=== PATIENT | female | born 1940 | race Caucasian/White ===

== ENCOUNTER 2017-07-06 11:23 | Emergency (ER) | payer MEDICARE, MEDICAID ==
[2017-07-06 12:58] LABS: Bilirubin Negative (Negative); Blood, Urine Negative (Negative); Glucose, Urine (Dipstick) Negative (Negative); Ketone, Urine Negative (Negative); Nitrite Negative (Negative); Protein, Urine (Dipstick) Trace mg/dL (Neg-Trace)
[2017-07-06 12:59] LABS: Bacteria/HPF 4+ HPF (None Seen)
[2017-07-06 13:28] LABS: Troponin I Less than 0.010 ng/mL (< 0.028)
[2017-07-06 13:29] LABS: ALT (SGPT) 10 U/L (8-55); AST (SGOT) 14 U/L (5-34); Alkaline Phosphatase 126 U/L (40-150); Anion Gap 9 mmol/L (10-20); BUN (Urea Nitrogen) 15 mg/dL (9.8-20.1); Bilirubin, Total 0.2 mg/dL (0.2-1.2); Calc. Creatinine Clearance 0 mL/min (70-130); Calcium 8.6 mg/dL (7.8-10.44); Carbon Dioxide 30 mmol/L (23-31); Chloride 104 mmol/L (98-107); Estimated GFR-MDRD Greater than 90; Lipase 15 U/L (8-78); Protein, Total 7.5 g/dL (6.0-8.3)
[2017-07-06 13:51] LABS: Hyaline Casts/LPF NONE SEEN LPF (0-3 Hyaline)
--- NOTE | 2017-07-06 14:16 | CT ---
CT ABDOMEN AND PELVIS WITH CONTRAST: HISTORY: Abdominal pain. Diarrhea. History of bowel obstruction 6 months ago. COMPARISON: CT abdomen and pelvis 12/08/16. FINDINGS: There are some atelectatic changes in the lung bases. No pericardial effusion. Cholelithiasis is present. There is extensive stool throughout the colon. The rectum is enlarged me asuring nearly 10 cm in size. The wall is very thin with some areas that do have concern for pneumat osis. Moderate diverticular disease of the sigmoid colon without active inflammation. IVC filter is in place. No free intraperitoneal gas or fluid. Hypodensity in the liver segment 4A a nd B is similar as well as hepatic segment 2. Portal vein is patent. There is abnormal urothelial thickening of the right renal pelvis with a calc ulus in the regional pelvis measuring less than 2 mm. Bones are osteopenic. Atrophy of the right gl uteus musculature. Multiple superior end plate deformities throughout the lumbar spine. There is some ossification along the bilateral ischiofemoral space with a suggestion of ischial femor al impingement with atrophy of the quadratus femoris muscle. This is bilateral. There is a healing posterior right 11th, 10th, rib fracture. No acute fracture is appreciated. IMPRESSION: 1. Very similar examination to 12/08/16. There is severe distention of the rectal vault to approxima tely 10 cm with some thinning of the wall and possible areas of pneumatosis, although there is no eriberto e intraperitoneal gas or fluid. Disimpaction may be necessary. 2. Abnormal thickening of the urothelium of the right renal pelvis with a punctate interpolar calcul us. Followup CT urogram may be beneficial to exclude a urothelial-based neoplasm. Urinalysis correl ation is also recommended. This can be sequelae of pyelitis and chronic inflammation from calculi. POS: [facility]
[2017-07-06 14:17] LABS: #Basophils 0.1 thou/uL (0.0-0.2); #Eosinphils 0.1 thou/uL (0.0-0.7); #Lymphocytes 2.3 thou/uL (1.20-3.40); #Monocytes 0.9 thou/uL (0.11-0.59); #Neutrophils 5.7 thou/uL (1.40-6.50); %Basophils 0.7 % (0.0-1.0); %Lymphocytes 25.3 % (21.0-51.0); %Monocytes 9.5 % (0.0-10.0); Hematocrit 26.4 % (36.0-47.0); Mean Platelet Volume 9.3 fL (7.4-10.4); Red Blood Cell (RBC) Count 3.86 mill/uL (4.20-5.40)
[2017-07-06 14:18] LABS: Hypochromia MODERATE=16-30 cells (100X) (0-5/hpf); Microcytosis MODERATE=15-30 cells (100X) (0-5/hpf); Ovalocytes MODERATE= 6-15 cells (100X) (0-1/hpf); Polychromasia SLIGHT = 2-3 cells (100X) (0-2/hpf)
[2017-07-06] MEDS ORDERED: Lidocaine Viscous Sol 2% 15 ml UD Cup ONE (16:17)
[2017-07-06] MEDS ORDERED: Cephalexin 250 MG CAP ONE (16:34)
[2017-07-06] MEDS ORDERED: ISOVUE-370 76%-LOCM 1 ML ONE (17:04)
== END 2017-07-06 16:40 | disposition home or self-care (01) ==
LOC: ERS 11:23
DX: K59.00 Constipation, unspecified (principal); N39.0 Urinary tract infection, site not specified; I10 Essential (primary) hypertension; E78.5 Hyperlipidemia, unspecified; K21.9 Gastro-esophageal reflux disease without esophagitis; Z79.82 Long term (current) use of aspirin; Z79.899 Other long term (current) drug therapy
CPT/HCPCS: 51701; 74177; 80053; 81001; 82553; 83605; 83690; 84484; 85025; 87077; 87086; 87186; 93005; A4353

== ENCOUNTER 2017-08-25 14:19 | Inpatient (IN) | payer MEDICARE, MEDICAID ==
[~2017-08-25 14:19] MED LIST: ISOVUE-370 76%-LOCM 1 ML ONE
[2017-08-25 15:56] LABS: Hemoglobin 6.7 g/dL (12.0-16.0); Mean Corpuscular HGB CONC 28.4 g/dL (32.0-36.0); Mean Corpuscular Volume 63.4 fl (81.0-99.0); Mean Platelet Volume 5.5 fL (7.4-10.4); Platelet Count 429 thou/uL (130-400); RBC Distribution Width 19.5 % (11.5-14.5); Red Blood Cell (RBC) Count 3.69 mill/uL (4.20-5.40); White Blood Cell (WBC) Count 8.2 thou/uL (4.8-10.8)
[2017-08-25] MEDS ORDERED: Lactulose 10 GM/15 ML Oral Solution PR SCH (16:00)
[2017-08-25 16:12] LABS: ALT (SGPT) 9 U/L (8-55); AST (SGOT) 15 U/L (5-34); Albumin 3.5 g/dL (3.4-4.8); Alkaline Phosphatase 120 U/L (40-150); Anion Gap 13 mmol/L (10-20); BUN (Urea Nitrogen) 11 mg/dL (9.8-20.1); Bilirubin, Total 0.3 mg/dL (0.2-1.2); Calc. Creatinine Clearance 0 mL/min (70-130); Calcium 8.9 mg/dL (7.8-10.44); Carbon Dioxide 28 mmol/L (23-31); Chloride 104 mmol/L (98-107); Estimated GFR-MDRD 89; Globulin 3.8 g/dL (2.4-3.5); Glucose 105 mg/dL (83-110); Potassium 3.7 mmol/L (3.5-5.1); Protein, Total 7.3 g/dL (6.0-8.3); Sodium 141 mmol/L (136-145)
[2017-08-25 16:19] LABS: #Basophils 0.1 thou/uL (0.0-0.2); #Eosinphils 0.1 thou/uL (0.0-0.7); #Monocytes 0.8 thou/uL (0.11-0.59); #Neutrophils 5.7 thou/uL (1.40-6.50); %Basophils 0.8 % (0.0-1.0); %Eosinophils 0.8 % (0.0-10.0); %Monocytes 9.2 % (0.0-10.0); %Neutrophils 69.2 % (42.0-75.0); Acanthocytes SLIGHT = 1-5 cells (100X) (None Seen); Anisocytosis SLIGHT = 6-15 cells (100X) (0-5/hpf); Hypochromia MODERATE=16-30 cells (100X) (0-5/hpf); MDiff Complete? YES; Microcytosis MODERATE=15-30 cells (100X) (0-5/hpf); Ovalocytes SLIGHT = 2-5 cells (100X) (0-1/hpf); PLT Morphology Comment Appears Increased
--- NOTE | 2017-08-25 18:01 | RAD ---
EXAM: ONE VIEW CHEST ABDOMEN TWO VIEWS 08/25/17 HISTORY: Evaluate for bowel obstruction. Constipation and abdominal distention. COMPARISON: One view abdomen 12/10/16. FINDINGS: Chest one view. Slight elongation of the aorta. Normal cardiac silhouette. Pulmonary vessels and hilum are normal. Co stophrenic angles are clear. Linear opacities in the left lung base likely represent atelectasis. No consolidation or mass. No pneumothorax. No osseous abnormalities. ABDOMEN TWO VIEWS: An abdomen radiograph demonstrates multiple nondistended air filled loops of small bowel. There is ai r attenuation throughout the entire colon without definite colonic distention. Air attenuation is not ed down to the level of the rectum. Minimal fecal material is present. IVC filter is redemonstrated. IMPRESSION: 1. No acute cardiopulmonary process. 2. Scarring atelectasis in the left lung base. 3. Air attenuation throughout a nondistended, nondilated colon. No evidence of constipation. 4. Left lateral decubitus views are suboptimal to assess for pneumoperitoneum. An additional lef t lateral decubitus view has been requested. Report will be addended when that becomes available. POS: [facility]
--- NOTE | 2017-08-25 21:33 | CT ---
EXAM: ABDOMEN CT WITH CONTRAST PELVIC CT WITH CONTRAST 08/25/17 HISTORY: Abdominal pain. Abdominal distention. Possible constipation. COMPARISON: 07/06/17 TECHNIQUE: An abdomen and pelvic CT are performed with IV contrast. Enteric contrast was not administered. Coron al reformatted images are submitted for interpretation. FINDINGS: ABDOMEN CT: Chronic changes in the lung bases. Heart size is within normal limits. No pericardial effusion. The d escending thoracic aorta and abdominal aorta have a normal caliber. No periaortic fat stranding. Intr a and extrahepatic portal vein is patent. CT evidence of cholelithiasis. Findings are equivocal cholecystitis. Gallbladder ultrasound if clinic ally warranted. Visualized common bile duct is unremarkable. Stable hypodensity in the liver, compatible with a cyst. Hepatic parenchyma is otherwise unremarkable . Possible small cyst in the hepatic dome is also noted. Spleen, pancreas and adrenal glands have stable enhancement. Mild pancreatic atrophy. Symmetric enhancement of the kidneys. Bilaterally, no obstructive uropathy. Symmetric attenuation of the psoas muscles. Note is made of an IVC filter. No gastrohepatic, retrocrural or periportal lymphadenopathy. No mesenteric mass, lymphadenopathy, free air or free fluid. Limited evaluation of the alimentary canal due to the lack of oral contrast administration and due to motion degradation. Grossly, the gastric mucosa and duodenum are unremarkable. Multiple normal calib er small bowel loops. The expected region of the ileocecal junction is unremarkable. Cecal apex appea rs to be unremarkable for inflammatory change. The visualized appendix is unremarkable. There is mini mal fecal material in the colon. The majority of the colon is opacified with fluid attenuation. Mild colonic distention. There is fluid attenuation involving the sigmoid colon and rectum. There is air i n the nondependent portion of the distal sigmoid colon and rectum. Small amount of air is noted on th e left lateral wall of the rectum. Significant of this air is uncertain. Possibility of pneumatosis c annot be completely excluded given thinning of the rectal vault and mild distention. The rectal vault measures 10.9 x [address]: Urinary bladder is unremarkable. No pelvic mass, lymphadenopathy, free air or free fluid. No lytic or blastic lesion in the osseous structures. IMPRESSION: 1. No evidence of constipation. The majority of the colon has a fluid attenuation. 2. There is distention of the distal sigmoid colon and rectum with thinning of the rectal wall. A small foci of air noted along the left lateral aspect. Possibility of pneumatosis cannot be evaluat ion. No evidence if free air in the pelvis or abdomen. 3. Normal caliber appendix. POS: [facility]
[2017-08-26 04:38] LABS: #Basophils 0.1 thou/uL (0.0-0.2); #Monocytes 1.1 thou/uL (0.11-0.59); #Neutrophils 7.2 thou/uL (1.40-6.50); %Basophils 0.5 % (0.0-1.0); %Eosinophils 0.4 % (0.0-10.0); %Lymphocytes 19.4 % (21.0-51.0); %Monocytes 10.2 % (0.0-10.0); %Neutrophils 69.4 % (42.0-75.0); Acanthocytes SLIGHT = 1-5 cells (100X) (None Seen); Anisocytosis MODERATE=16-30 cells (100X) (0-5/hpf); Elliptocytes MODERATE= 6-15 cells (100X) (0-1/hpf); Hemoglobin 6.5 g/dL (12.0-16.0); Hypochromia MODERATE=16-30 cells (100X) (0-5/hpf); MDiff Complete? YES; Mean Corpuscular HGB CONC 28.5 g/dL (32.0-36.0); Mean Corpuscular Hemoglobin 18.1 pg (27.0-31.0); Mean Corpuscular Volume 63.5 fl (81.0-99.0); Mean Platelet Volume 5.7 fL (7.4-10.4); PLT Morphology Comment Appears Adequate; Platelet Count 435 thou/uL (130-400); RBC Distribution Width 19.6 % (11.5-14.5); Red Blood Cell (RBC) Count 3.58 mill/uL (4.20-5.40); Target Cells SLIGHT = 2-5 cells (100X) (0-1/hpf); White Blood Cell (WBC) Count 10.4 thou/uL (4.8-10.8)
[2017-08-26] MEDS ORDERED: Ondansetron HCl/PF 4 MG/2 ML Vial IVP PRN (06:50)
[2017-08-26] MEDS ORDERED: Eucerin (Mineral Oil/Petrolatum,White) 30 gm Jar TOP PRN (06:50)
[2017-08-26] MEDS ORDERED: Loratadine 10 MG TAB PO PRN (06:50)
[2017-08-26] MEDS ORDERED: Fleet Enema 133 ML BOT PR PRN (06:50)
[2017-08-26] MEDS ORDERED: Bisacodyl 10 MG SUPP PR PRN (06:50)
[2017-08-26] MEDS ORDERED: Sodium Chloride 0.65% Nasal 44 ML BOT EA NARE PRN (06:50)
[2017-08-26] MEDS ORDERED: Diabetic Tussin 200 MG/10 ML UDCUP PO PRN (06:50)
[2017-08-26] MEDS ORDERED: Ondansetron ODT 4 MG TAB PO PRN (06:50)
[2017-08-26] MEDS ORDERED: Artificial Tears 18 DROP/0.9 ML EA EYE PRN (06:50)
[2017-08-26] MEDS ORDERED: Milk Of Magnesia 30 ML UDCUP PO PRN (06:50)
[2017-08-26] MEDS ORDERED: hydrALAZINE 20 MG/ML VIAL SLOW IVP PRN (06:50)
[2017-08-26] MEDS ORDERED: Famotidine/PF 20 mg/2ml Vial ONE (11:02)
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
[2017-08-26 15:13] VITALS: BMI 34.8
[2017-08-26] MEDS: Famotidine/PF 20 mg/2ml Vial SLOW IVP SCH ×2 (17:21→21:45)
[2017-08-26] MEDS: Polyethylene Glycol 3350 17 GM Packet PO SCH (17:21)
[2017-08-26] MEDS: Docusate 100 MG CAP PO SCH ×2 (17:21→21:45)
[2017-08-26] MEDS: Sodium Chloride 0.9% 1,000 ML IV SCH ×2 (17:22→21:45)
[2017-08-26] MEDS ORDERED: GoLYTELY 4,000 ml Bottle PO SCH (18:45)
[2017-08-26] MEDS: Simvastatin 5 MG TAB PO SCH (21:45)
--- NOTE | 2017-08-26 23:00 | CON ---
DATE OF CONSULTATION: 08/26/2017 HISTORY OF PRESENT ILLNESS: The patient is a 76-year-old female who presented with abdomin al distension. She is demented and adds nothing to history of present illness. She is bedbound yuliana use of neurologic impairment. She is noted to be severely anemic. The patient has undergone a colon oscopy by Dr. Neal in 2007. She was seen last year for fecal impaction what was felt to be stercora l colitis. Colonoscopy was performed on 07/01/2008 and showed diverticula and internal hemorrhoids. No other abnormalities were noted. PAST MEDICAL HISTORY: Significant for dementia, hypertension, coronary artery disease and traumatic brain injury. PAST SURGICAL HISTORY: Includes craniotomy, IVC filter, hysterectomy, cystoscopy and kidney stones. MEDICATIONS: Include pravastatin 20 mg p.o. at bedtime, polyethylene glycol 17 g p.o. q. day, docusa te sodium 100 mg p.o. b.i.d., vitamin D3 1000 units p.o. q. day, tramadol 50 mg p.o. p.r.n., Protonix 40 mg p.o. q. day, nitrofurantoin, Macrobid 100 mg p.o. q. day, lisinopril and hydrochlorothiazide 1 p.o. q. day and probiotic 1 p.o. q. day. ALLERGIES: No known medical allergies. SOCIAL HISTORY: Unobtainable. FAMILY HISTORY: Unobtainable. REVIEW OF SYSTEMS: Unobtainable. PHYSICAL EXAMINATION: VITAL SIGNS: Temperature of 98.2, pulse 97, respiratory rate 18 and blood pressure 160/81. HEENT: Unremarkable. NECK: Supple. CHEST: Clear. CARDIOVASCULAR: Regular rate and rhythm. ABDOMEN: Soft, diffusely tympanitic without rebound or guarding. RECTAL: Shows no stool in the vault. A large amount of gas is released when applying lateral pressu re to the anal canal. There is a large amount of liquid brown stool. NEUROLOGIC: Shows her neurologic impairment. LABORATORY DATA: Shows a hemoglobin of 6.7 and hematocrit of 23.4 with an MCV of 63.4, platelet coun t is 429. Laboratory shows a globulin of 3.9. IMAGING DATA: CT of the abdomen and pelvis shows; 1. Fluid attenuation in the colon, distension of distal sigmoid colon and rectum with thinning of th e rectum wall. 2. Small foci of air along the lateral aspect of the colon. 3. Acute abdominal series shows no acute cardiopulmonary process, scarring, atelectasis in the left lung base, air attenuation throughout a nondistended nondilated colon. 4. Left lateral decubitus films are suboptimal to access pneumoperitoneum. ASSESSMENT: 1. Chronic pseudo-obstruction. 2. Severe iron deficiency anemia. 3. Traumatic brain injury with decreased mobility. RECOMMENDATIONS: 1. Rectal tube. 2. EGD and colonoscopy in a.m.
[2017-08-27 05:46] LABS: ALT (SGPT) 8 U/L (8-55); AST (SGOT) 16 U/L (5-34); Alkaline Phosphatase 109 U/L (40-150); Anion Gap 17 mmol/L (10-20); BUN (Urea Nitrogen) 6 mg/dL (9.8-20.1); Bilirubin, Total 0.6 mg/dL (0.2-1.2); Calc. Creatinine Clearance 112 mL/min (70-130); Calcium 8.3 mg/dL (7.8-10.44); Carbon Dioxide 24 mmol/L (23-31); Chloride 107 mmol/L (98-107); Estimated GFR-MDRD 85; Globulin 3.4 g/dL (2.4-3.5); Glucose 127 mg/dL (83-110); Potassium 3.6 mmol/L (3.5-5.1); Protein, Total 6.4 g/dL (6.0-8.3); Sodium 144 mmol/L (136-145)
[2017-08-27 06:51] LABS: #Eosinphils 0.2 thou/uL (0.0-0.7); #Lymphocytes 2.2 thou/uL (1.20-3.40); #Neutrophils 4.8 thou/uL (1.40-6.50); %Basophils 0.4 % (0.0-1.0); %Eosinophils 2.9 % (0.0-10.0); %Lymphocytes 26.9 % (21.0-51.0); %Monocytes 11.8 % (0.0-10.0); %Neutrophils 58.1 % (42.0-75.0); Elliptocytes SLIGHT = 2-5 cells (100X) (0-1/hpf); Hemoglobin 7.6 g/dL (12.0-16.0); Hypochromia MODERATE=16-30 cells (100X) (0-5/hpf); MDiff Complete? YES; Mean Corpuscular HGB CONC 29.7 g/dL (32.0-36.0); Mean Corpuscular Hemoglobin 19.8 pg (27.0-31.0); Mean Corpuscular Volume 66.5 fl (81.0-99.0); Mean Platelet Volume 11.5 fL (7.4-10.4); Microcytosis SLIGHT = 6-15 cells (100X) (0-5/hpf); PLT Morphology Comment Appears Adequate; Platelet Count 415 thou/uL (130-400); RBC Distribution Width 22.3 % (11.5-14.5); Red Blood Cell (RBC) Count 3.83 mill/uL (4.20-5.40); White Blood Cell (WBC) Count 8.3 thou/uL (4.8-10.8)
[2017-08-27] MEDS: Docusate 100 MG CAP PO SCH (08:19)
[2017-08-27] MEDS: Famotidine/PF 20 mg/2ml Vial SLOW IVP SCH ×2 (08:20→20:11)
[2017-08-27] MEDS: Polyethylene Glycol 3350 17 GM Packet PO SCH (08:21)
[2017-08-27] MEDS: Sodium Chloride 0.9% 1,000 ML IV SCH (08:21)
[2017-08-27] MEDS ORDERED: Propofol 200 MG/20 ML VIAL ONE ×2 (09:07→09:08)
[2017-08-27] MEDS ORDERED: Promethazine HCl 25 MG/ML VIAL IM PRN (09:52)
[2017-08-27] MEDS ORDERED: Ondansetron HCl/PF 4 MG/2 ML Vial IVP PRN (09:52)
[2017-08-27] MEDS ORDERED: Promethazine HCl 25 MG/ML VIAL SLOW IVP PRN (09:52)
--- NOTE | 2017-08-27 11:29 | PDOC.PN ---
- Subjective Encounter Start Date: 08/27/17 Encounter Start Time: 11:27 Patient seen and examined, family at bedside, all questions answered. - Objective Resuscitation Status: Resuscitation Status FULL:Full Resuscitation Vital Signs & Weight: Vital Signs (12 hours) Temp Pulse Pulse Resp BP BP Pulse Ox 08/27/17 10:58 97.4 F L 77 18 138/81 95 08/27/17 08:00 97.3 F L 77 18 08/27/17 04:00 97.3 F L 77 18 176/79 H 94 L 08/27/17 00:20 97.5 F L 78 18 164/77 H 93 L 08/27/17 00:00 97.4 F L 93 20 144/65 H 94 L Weight Weight 215 lb 11.2 oz I&O: 08/26/17 08/27/17 08/28/17 06:59 06:59 06:59 Intake Total 4862 Output Total 400 Balance 4462 Result Diagrams: 08/27/17 05:28 08/27/17 04:34 Phys Exam - Physical Examination Constitutional: NAD HEENT: PERRLA, moist MMs Neck: no nodes, no JVD Respiratory: no wheezing, no rales Cardiovascular: RRR, no significant murmur Gastrointestinal: soft, non-tender, no distention Musculoskeletal: no edema, pulses present Neurological: non-focal, normal sensation Dx/Plan (1) Anemia Code(s): D64.9 - ANEMIA, UNSPECIFIED Status: Acute (2) GI bleed Code(s): K92.2 - GASTROINTESTINAL HEMORRHAGE, UNSPECIFIED Status: Acute (3) Fecal impaction Code(s): K56.41 - FECAL IMPACTION Status: Acute (4) HTN (hypertension) Code(s): I10 - ESSENTIAL (PRIMARY) HYPERTENSION Status: Chronic Qualifiers: (5) Obesity (BMI 30.0-34.9) Code(s): E66.9 - OBESITY, UNSPECIFIED Status: Chronic - Plan * Endoscopy for today * will monitor Hgb over the next 24 hours * DC plans in AM if Hgb stable and ok from GI perspective * continue all other medical management for now without change * case and plan d/w patient's family at length, they understand and agree with this plan
--- NOTE | 2017-08-27 14:26 | OP ---
PREOPERATIVE DIAGNOSES: 1. Iron deficiency anemia. 2. Chronic constipation. 3. Abnormal CT scan. PROCEDURE IN DETAIL: After informed consent was obtained, the patient was placed in the left lateral decubitus position. Anesthesia was administered per the Anesthesia Department. Forward-viewing end oscope was inserted into the esophagus under direct visualization with ease and passed to the second portion of the duodenum with ease. In the second portion of the duodenum, there was an AVM. This AV M was ablated with a 7 Hebrew BICAP electrocautery probe at a setting of 20 hays 2 seconds. Good he mostasis was achieved. The remainder of the duodenum was normal. The duodenal bulb, pylorus, antrum , body, fundus, and cardia were all normal. Retroflexion in the stomach was normal. Esophagus was n ormal throughout. 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 2. Otherwise normal esophagogastroduodenoscopy. RECOMMENDATIONS: 1. Proton pump inhibitor x2 weeks. 2. Proceed with colonoscopy. DESCRIPTION OF PROCEDURE: After informed consent was obtained, the patient was placed in the left la teral decubitus position. Anesthesia was administered per the Anesthesia Department. Forward-viewin g endoscope was inserted into the rectum after perianal inspection and rectal exam were normal. It w as passed to the cecum with much difficulty secondary to looping. The cecum, ileocecal valve, and ap pendiceal orifice were normal. The prep was good. In the ascending, 2 lipomas were noted. Diffuse diverticula noted as well. The remainder of the ascending, transverse, descending, sigmoid and rectu m were normal except for some small slightly dilated colon. ASSESSMENT: 1. Diffusely dilated colon. 2. Diffuse diverticulosis coli. 3. Two ascending colon lipomas. 4. Otherwise normal colonoscopy. RECOMMENDATION: 1. Dulcolax suppositories daily with digital examination. 2. Stable from GI standpoint for discharge. 3. Iron replacement therapy.
[2017-08-27] MEDS: Simvastatin 5 MG TAB PO SCH (20:13)
[2017-08-28 05:25] LABS: #Eosinphils 0.2 thou/uL (0.0-0.7); #Lymphocytes 2.4 thou/uL (1.20-3.40); #Monocytes 0.7 thou/uL (0.11-0.59); #Neutrophils 4.6 thou/uL (1.40-6.50); %Basophils 0.3 % (0.0-1.0); %Eosinophils 3.1 % (0.0-10.0); %Lymphocytes 29.8 % (21.0-51.0); %Neutrophils 57.8 % (42.0-75.0); Hemoglobin 6.9 g/dL (12.0-16.0); Mean Corpuscular Hemoglobin 19.6 pg (27.0-31.0); Mean Corpuscular Volume 67.6 fl (81.0-99.0); Mean Platelet Volume 10.7 fL (7.4-10.4); Platelet Count 414 thou/uL (130-400); RBC Distribution Width 23.2 % (11.5-14.5); Red Blood Cell (RBC) Count 3.54 mill/uL (4.20-5.40)
[2017-08-28] MEDS: Sodium Chloride 0.9% 1,000 ML IV SCH (05:29)
[2017-08-28] MEDS: Polyethylene Glycol 3350 17 GM Packet PO SCH (08:44)
[2017-08-28] MEDS: Bisacodyl 10 MG SUPP PR SCH (08:44)
[2017-08-28] MEDS: Famotidine 20 MG TAB PO SCH ×2 (08:44→20:07)
--- NOTE | 2017-08-28 10:58 | PRG ---
DATE OF SERVICE: 08/28/2017 SUBJECTIVE: The patient is without complaints. She denies any abdominal pain. She is eating well, ate 100% of her breakfast. OBJECTIVE: VITAL SIGNS: Temperature 98.6, pulse 69, respiratory rate 18, blood pressure 126/74. CHEST: Clear. CARDIOVASCULAR: Regular rate and rhythm. ABDOMEN: Distended, nontender, tympanitic diffusely. LABORATORY DATA: Shows hemoglobin 6.9, hematocrit 23.9, white blood cell count of 8.0. Chemistries show a BUN of 6, glucose 127. Albumin 3.0. ASSESSMENT: 1. Duodenal arteriovenous malformation. 2. Chronic pseudo-obstruction - fairly asymptomatic at this time. 3. Anemia. RECOMMENDATIONS: 1. Continue oral iron. 2. Consider transfusion. 3. Continue proton-pump inhibitor. 4. Daily Dulcolax with digital stimulation.
[2017-08-28] MEDS ORDERED: Iron Sucrose Complex 300 MG in Sodium Chloride 0.9% 250 ML 250 ML IVPB SCH (11:00)
--- NOTE | 2017-08-28 12:18 | PDOC.PN ---
- Subjective Encounter Start Date: 08/28/17 Encounter Start Time: 12:16 Patient seen and examined, no new issues, all questions answered. No family at bedside. - Objective Resuscitation Status: Resuscitation Status FULL:Full Resuscitation Vital Signs & Weight: Vital Signs (12 hours) Temp Pulse Resp BP Pulse Ox 08/28/17 08:00 98.1 F 77 20 141/87 H 94 L 08/28/17 04:00 98.6 F 69 18 126/74 92 L Weight Weight 215 lb 11.2 oz I&O: 08/27/17 08/28/17 08/29/17 06:59 06:59 06:59 Intake Total 4862 240 180 Output Total 400 Balance 4462 240 180 Result Diagrams: 08/28/17 04:40 08/27/17 04:34 Phys Exam - Physical Examination Constitutional: NAD HEENT: PERRLA, moist MMs Neck: no nodes, no JVD Respiratory: no wheezing, no rales, no rhonchi Cardiovascular: RRR, no significant murmur Gastrointestinal: soft, non-tender, no distention Musculoskeletal: no edema, pulses present Neurological: non-focal, normal sensation Dx/Plan (1) Anemia Code(s): D64.9 - ANEMIA, UNSPECIFIED Status: Acute (2) GI bleed Code(s): K92.2 - GASTROINTESTINAL HEMORRHAGE, UNSPECIFIED Status: Acute (3) Fecal impaction Code(s): K56.41 - FECAL IMPACTION Status: Acute (4) HTN (hypertension) Code(s): I10 - ESSENTIAL (PRIMARY) HYPERTENSION Status: Chronic Qualifiers: (5) Obesity (BMI 30.0-34.9) Code(s): E66.9 - OBESITY, UNSPECIFIED Status: Chronic - Plan * Hgb 6.9, will transfuse 1 unit of blood * venofer 300mg IV x 1 dose as well * repeat Hgb in AM * DC plans in AM if Hgb stable, will need po iron as well at time of discharge * case and plan d/w patient at length, she understands and agrees with this plan
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
[2017-08-28] MEDS ORDERED: Sodium Chloride 0.9% 10 ML ONE (15:59)
[2017-08-28] MEDS: Simvastatin 5 MG TAB PO SCH (20:07)
[2017-08-28] MEDS: Acetaminophen 325 MG TAB PO PRN (21:47)
[2017-08-29] MEDS: Acetaminophen 325 MG TAB PO PRN ×2 (02:08→20:16)
[2017-08-29 08:54] LABS: #Basophils 0.1 thou/uL (0.0-0.2); #Eosinphils 0.1 thou/uL (0.0-0.7); #Lymphocytes 1.7 thou/uL (1.20-3.40); #Monocytes 0.7 thou/uL (0.11-0.59); #Neutrophils 4.5 thou/uL (1.40-6.50); %Basophils 0.8 % (0.0-1.0); %Eosinophils 1.5 % (0.0-10.0); %Lymphocytes 23.8 % (21.0-51.0); %Monocytes 10.1 % (0.0-10.0); %Neutrophils 63.8 % (42.0-75.0); Hemoglobin 6.7 g/dL (12.0-16.0); Mean Corpuscular HGB CONC 29.5 g/dL (32.0-36.0); Mean Corpuscular Hemoglobin 19.6 pg (27.0-31.0); Mean Corpuscular Volume 66.6 fl (81.0-99.0); Mean Platelet Volume 11.2 fL (7.4-10.4); Platelet Count 397 thou/uL (130-400); RBC Distribution Width 23.3 % (11.5-14.5); Red Blood Cell (RBC) Count 3.43 mill/uL (4.20-5.40)
[2017-08-29] MEDS: Polyethylene Glycol 3350 17 GM Packet PO SCH (08:59)
[2017-08-29] MEDS: Bisacodyl 10 MG SUPP PR SCH (09:00)
[2017-08-29] MEDS: Famotidine 20 MG TAB PO SCH ×2 (09:00→20:16)
[2017-08-29 09:50] LABS: ALT (SGPT) 9 U/L (8-55); AST (SGOT) 13 U/L (5-34); Albumin 2.8 g/dL (3.4-4.8); Alkaline Phosphatase 81 U/L (40-150); Anion Gap 11 mmol/L (10-20); BUN (Urea Nitrogen) 5 mg/dL (9.8-20.1); Bilirubin, Total 0.3 mg/dL (0.2-1.2); Calc. Creatinine Clearance 131 mL/min (70-130); Calcium 8.1 mg/dL (7.8-10.44); Carbon Dioxide 30 mmol/L (23-31); Chloride 106 mmol/L (98-107); Estimated GFR-MDRD Greater than 90; Globulin 2.8 g/dL (2.4-3.5); Glucose 96 mg/dL (83-110); Protein, Total 5.6 g/dL (6.0-8.3); Sodium 144 mmol/L (136-145)
[2017-08-29 11:10] LABS: Elliptocytes SLIGHT = 2-5 cells (100X) (0-1/hpf); Hypochromia MODERATE=16-30 cells (100X) (0-5/hpf); MDiff Complete? YES; Microcytosis MODERATE=15-30 cells (100X) (0-5/hpf); Ovalocytes MODERATE= 6-15 cells (100X) (0-1/hpf); Polychromasia MODERATE = 3-4 cells (100X) (0-2/hpf)
[2017-08-29] MEDS ORDERED: Mag-Al 1200 mg/1200 mg/30 ML UDCUP PO PRN (12:18)
[2017-08-29] MEDS ORDERED: Chloraseptic Spray 180 ml Bottle PO PRN (12:18)
[2017-08-29] MEDS ORDERED: Calcium Carbonate 500 MG ChewTAB PO PRN (12:18)
[2017-08-29] MEDS ORDERED: Fleet Enema 133 ML BOT PR PRN (12:18)
[2017-08-29] MEDS ORDERED: Loperamide HCl 2 MG CAP PO PRN (12:18)
[2017-08-29] MEDS ORDERED: HYDROcodone/Acetaminophen 5/325 mg Tablet PO PRN (12:18)
[2017-08-29] MEDS ORDERED: Temazepam 15 MG CAP PO PRN (12:18)
--- NOTE | 2017-08-29 12:18 | PDOC.PN ---
- Subjective Encounter Start Date: 08/29/17 Encounter Start Time: 08:40 -: old records requested/rev Patient seen and examined. No new complaints. No overnight events - Objective MAR Reviewed: Yes Vital Signs & Weight: Vital Signs (12 hours) Temp Pulse Resp BP Pulse Ox 08/29/17 08:03 97.9 F 79 16 112/69 97 08/29/17 07:39 98.2 F 80 18 I&O: 08/28/17 08/29/17 08/30/17 06:59 06:59 06:59 Intake Total 180 Balance 180 Result Diagrams: 08/29/17 08:41 08/29/17 08:41 Phys Exam - Physical Examination Constitutional: NAD HEENT: PERRLA, moist MMs, sclera anicteric Neck: no JVD, supple Respiratory: no wheezing, no rales, no rhonchi Cardiovascular: RRR, no significant murmur, no rub Gastrointestinal: soft, non-tender, no distention, positive bowel sounds Musculoskeletal: no edema, pulses present Neurological: non-focal, normal sensation Lymphatic: no nodes Psychiatric: normal affect Skin: no rash, normal turgor Dx/Plan (1) Anemia Code(s): D64.9 - ANEMIA, UNSPECIFIED Status: Acute (2) GI bleed Code(s): K92.2 - GASTROINTESTINAL HEMORRHAGE, UNSPECIFIED Status: Acute (3) Fecal impaction Code(s): K56.41 - FECAL IMPACTION Status: Acute (4) UTI (urinary tract infection) Status: Acute Qualifiers: Urinary tract infection type: acute cystitis Hematuria presence: without hematuria Qualified Code(s): N30.00 - Acute cystitis without hematuria (5) Dyslipidemia Code(s): E78.5 - HYPERLIPIDEMIA, UNSPECIFIED Status: Chronic (6) H/O traumatic brain injury Code(s): Z87.820 - PERSONAL HISTORY OF TRAUMATIC BRAIN INJURY Status: Chronic (7) HTN (hypertension) Code(s): I10 - ESSENTIAL (PRIMARY) HYPERTENSION Status: Chronic Qualifiers: (8) Obesity (BMI 30.0-34.9) Code(s): E66.9 - OBESITY, UNSPECIFIED Status: Chronic (9) Nausea & vomiting Code(s): R11.2 - NAUSEA WITH VOMITING, UNSPECIFIED Status: Resolved Qualifiers: Vomiting type: unspecified (10) Hypokalemia Code(s): E87.6 - HYPOKALEMIA Status: Acute - Plan cont current plan of care * replace potassium * transfuse 1 unit prbc * medication reviewed as below * symptomatic treatment * repeat labs tomorrow. Review of Systems - Review of Systems ENT: negative: Ear Pain, Ear Discharge, Nose Pain, Nose Discharge, Nose Congestion, Mouth Pain, Mouth Swelling, Throat Pain, Throat Swelling, Other Respiratory: negative: Cough, Dry, Shortness of Breath, Hemoptysis, SOB with Excertion, Pleuritic Pain, Sputum, Wheezing Cardiovascular: negative: chest pain, palpitations, orthopnea, paroxysmal nocturnal dyspnea, edema, light headedness, other Gastrointestinal: negative: Nausea, Vomiting, Abdominal Pain, Diarrhea, Constipation, Melena, Hematochezia, Other Genitourinary: negative: Dysuria, Frequency, Incontinence, Hematuria, Retention , Other Musculoskeletal: negative: Neck Pain, Shoulder Pain, Arm Pain, Back Pain, Hand Pain, Leg Pain, Foot Pain, Other Skin: negative: Rash, Lesions, Iam, Bruising, Other - Medications/Allergies Allergies/Adverse Reactions: Allergies Allergy/AdvReac Type Severity Reaction Status Date / Time No Known Drug Allergies Allergy Verified 03/30/16 10:46 Medications: Current Medications Acetaminophen (Tylenol) 650 mg PO Q4H PRN PRN Reason: Headache/Fever or Pain Last Admin: 08/29/17 02:08 Dose: 650 mg Artificial Tears (Tears Naturale) 0 drop EA EYE PRN PRN PRN Reason: Dry Eyes Bisacodyl (Dulcolax) 10 mg [place] DAILY [facility] Last Admin: 08/29/17 09:00 Dose: 10 mg Cholecalciferol (Vitamin D3) 1,000 units PO DAILY [facility] Last Admin: 08/29/17 09:00 Dose: 1,000 units Famotidine (Pepcid) 20 mg PO BID [facility] Last Admin: 08/29/17 09:00 Dose: 20 mg Ferrous S[facility] ([facility]) [facility] Guaifenesin (Robitussin Sf) 200 mg PO Q4H PRN PRN Reason: Cough Hydralazine HCl (Apresoline) 10 mg SLOW IVP Q4H PRN PRN Reason: Systolic BP > 180 Loratadine (Claritin) 10 mg PO DAILYPRN PRN PRN Reason: Sinus Symptoms Magnesium Hydroxide (Milk Of Magnesium) 30 ml PO DAILYPRN PRN PRN Reason: Constipation Mineral Oil/White Petrolatum (Eucerin Cream) 0 gm TOP BIDPRN PRN PRN Reason: Dry Skin Ondansetron HCl (Zofran Odt) 4 mg PO Q6H PRN PRN Reason: Nausea/Vomiting Ondansetron HCl (Zofran) 4 mg IVP Q6H PRN PRN Reason: Nausea/Vomiting Last Admin: 08/27/17 01:48 Dose: 4 mg Polyethylene Glycol (Miralax) 17 gm PO DAILY [facility] Last Admin: 08/29/17 08:59 Dose: 17 gm Simvastatin (Zocor) 10 mg PO HS [facility] Last Admin: 08/28/17 20:07 Dose: 10 mg Sodium Chloride ([place] Nasal [place] 0.65%) 0 ml EA NARE QIDPRN PRN PRN Reason: Nasal Congestion
[2017-08-29] MEDS ORDERED: Potassium Chloride 20 MEQ TAB PO SCH (12:30)
--- NOTE | 2017-08-29 13:09 | PRG ---
DATE OF SERVICE: 08/29/2017 SUBJECTIVE: The patient is doing about the same. No specific GI complaints at this time. OBJECTIVE: VITAL SIGNS: Shows temperature 97.9, pulse 79, respiratory 16, blood pressure 112/69. CHEST: Clear. CARDIOVASCULAR: Regular rate and rhythm. ABDOMEN: Slightly distended, slightly tympanitic, but nontender and soft. LABORATORY DATA: Shows hemoglobin of 6.7, hematocrit 22.9. Chemistries show potassium 3.0, albumin 2.8. ASSESSMENT: 1. Anemia. 2. Small bowel arteriovenous malformations. 3. Hypokalemia. RECOMMENDATIONS: 1. Agree with transfusion. 2. The patient has received iron infusion. 3. Continue present treatment. 4. We will sign off.
[2017-08-29] MEDS: Ferrous Sulfate 325 MG TAB PO SCH (18:04)
[2017-08-29] MEDS: Simvastatin 5 MG TAB PO SCH (20:15)
[2017-08-30 06:45] LABS: Hemoglobin 8.1 g/dL (12.0-16.0); Mean Corpuscular HGB CONC 29.4 g/dL (32.0-36.0); Mean Corpuscular Hemoglobin 20.7 pg (27.0-31.0); Mean Corpuscular Volume 70.4 fl (81.0-99.0); Mean Platelet Volume 5.3 fL (7.4-10.4); Platelet Count 385 thou/uL (130-400); RBC Distribution Width 24.5 % (11.5-14.5); Red Blood Cell (RBC) Count 3.92 mill/uL (4.20-5.40)
[2017-08-30 06:47] LABS: Anion Gap 12 mmol/L (10-20); BUN (Urea Nitrogen) 7 mg/dL (9.8-20.1); Calc. Creatinine Clearance 127 mL/min (70-130); Calcium 8.5 mg/dL (7.8-10.44); Carbon Dioxide 30 mmol/L (23-31); Chloride 108 mmol/L (98-107); Estimated GFR-MDRD Greater than 90; Glucose 97 mg/dL (83-110); Potassium 3.7 mmol/L (3.5-5.1); Sodium 146 mmol/L (136-145)
[2017-08-30 07:33] VITALS: BP 136/77; TEMP 98
[2017-08-30] MEDS: Famotidine 20 MG TAB PO SCH (07:56)
[2017-08-30] MEDS: Ferrous Sulfate 325 MG TAB PO SCH (07:56)
[2017-08-30] MEDS: Bisacodyl 10 MG SUPP PR SCH (07:56)
[2017-08-30] MEDS: Polyethylene Glycol 3350 17 GM Packet PO SCH (07:56)
[2017-08-30 08:06] LABS: #Eosinphils 0.3 thou/uL (0.0-0.7); #Lymphocytes 2.4 thou/uL (1.20-3.40); #Monocytes 0.8 thou/uL (0.11-0.59); #Neutrophils 3.6 thou/uL (1.40-6.50); %Basophils 0.3 % (0.0-1.0); %Eosinophils 3.6 % (0.0-10.0); %Lymphocytes 34.2 % (21.0-51.0); %Monocytes 11.2 % (0.0-10.0); %Neutrophils 50.7 % (42.0-75.0); Anisocytosis MODERATE=16-30 cells (100X) (0-5/hpf); Bite Cells SLIGHT = 2-5 cells (100X) (0-1/hpf); Elliptocytes SLIGHT = 2-5 cells (100X) (0-1/hpf); Hypochromia MODERATE=16-30 cells (100X) (0-5/hpf); MDiff Complete? YES; Microcytosis MODERATE=15-30 cells (100X) (0-5/hpf); Ovalocytes MODERATE= 6-15 cells (100X) (0-1/hpf); PLT Morphology Comment Appears Adequate; Polychromasia MODERATE = 3-4 cells (100X) (0-2/hpf); Small Platelets SLIGHT
--- NOTE | 2017-08-30 10:14 | PDOC.PN ---
- Subjective Encounter Start Date: 08/30/17 Encounter Start Time: 07:25 Patient seen and examined. No new complaints. No overnight events - Objective MAR Reviewed: Yes Vital Signs & Weight: Vital Signs (12 hours) Temp Pulse Resp BP Pulse Ox 08/30/17 08:00 98 F 70 16 136/77 92 L 08/30/17 07:32 98 F 70 16 136/77 92 L 08/30/17 01:39 93 L I&O: 08/29/17 08/30/17 08/31/17 06:59 06:59 06:59 Intake Total 1020 Output Total 4 Balance 1016 Result Diagrams: 08/30/17 06:00 08/30/17 06:00 Phys Exam - Physical Examination Constitutional: NAD HEENT: PERRLA, moist MMs, sclera anicteric Neck: no JVD, supple Respiratory: no wheezing, no rales, no rhonchi Cardiovascular: RRR, no significant murmur, no rub Gastrointestinal: soft, non-tender, no distention, positive bowel sounds Musculoskeletal: no edema, pulses present residual weakness Lymphatic: no nodes Psychiatric: normal affect Skin: no rash, normal turgor Dx/Plan (1) Anemia Code(s): D64.9 - ANEMIA, UNSPECIFIED Status: Acute (2) GI bleed Code(s): K92.2 - GASTROINTESTINAL HEMORRHAGE, UNSPECIFIED Status: Acute (3) Fecal impaction Code(s): K56.41 - FECAL IMPACTION Status: Acute (4) UTI (urinary tract infection) Status: Acute Qualifiers: Urinary tract infection type: acute cystitis Hematuria presence: without hematuria Qualified Code(s): N30.00 - Acute cystitis without hematuria (5) Dyslipidemia Code(s): E78.5 - HYPERLIPIDEMIA, UNSPECIFIED Status: Chronic (6) H/O traumatic brain injury Code(s): Z87.820 - PERSONAL HISTORY OF TRAUMATIC BRAIN INJURY Status: Chronic (7) HTN (hypertension) Code(s): I10 - ESSENTIAL (PRIMARY) HYPERTENSION Status: Chronic Qualifiers: (8) Obesity (BMI 30.0-34.9) Code(s): E66.9 - OBESITY, UNSPECIFIED Status: Chronic (9) Hypokalemia Code(s): E87.6 - HYPOKALEMIA Status: Acute - Plan cont current plan of care * medication reviewed as below * medically stable for discharge * see discharge summery * outpt follow up. Review of Systems - Review of Systems ENT: negative: Ear Pain, Ear Discharge, Nose Pain, Nose Discharge, Nose Congestion, Mouth Pain, Mouth Swelling, Throat Pain, Throat Swelling, Other Respiratory: negative: Cough, Dry, Shortness of Breath, Hemoptysis, SOB with Excertion, Pleuritic Pain, Sputum, Wheezing Cardiovascular: negative: chest pain, palpitations, orthopnea, paroxysmal nocturnal dyspnea, edema, light headedness, other Gastrointestinal: negative: Nausea, Vomiting, Abdominal Pain, Diarrhea, Constipation, Melena, Hematochezia, Other Genitourinary: negative: Dysuria, Frequency, Incontinence, Hematuria, Retention , Other Musculoskeletal: negative: Neck Pain, Shoulder Pain, Arm Pain, Back Pain, Hand Pain, Leg Pain, Foot Pain, Other Skin: negative: Rash, Lesions, Iam, Bruising, Other Other: not reliable due to traumatic brain injury in past - Medications/Allergies Allergies/Adverse Reactions: Allergies Allergy/AdvReac Type Severity Reaction Status Date / Time No Known Drug Allergies Allergy Verified 03/30/16 10:46 Medications: Current Medications Acetaminophen (Tylenol) 650 mg PO Q4H PRN PRN Reason: Headache/Fever or Pain Last Admin: 08/29/17 20:16 Dose: 650 mg Hydrocodone Bitart/Acetaminophen ([place] 5/325) 1 tab PO Q4H PRN PRN Reason: Moderate Pain (4-6) Al Hydroxide/Mg Hydroxide (Maalox) 15 ml PO Q4H PRN PRN Reason: Heartburn or Indigestion Artificial Tears (Tears Naturale) 0 drop EA EYE PRN PRN PRN Reason: Dry Eyes Bisacodyl (Dulcolax) 10 mg [place] DAILY [facility] Last Admin: 08/30/17 07:56 Dose: Not Given Calcium Carbonate (Tums) 1,000 mg PO Q4H PRN PRN Reason: Heartburn or Indigestion Cholecalciferol (Vitamin D3) 1,000 units PO DAILY [facility] Last Admin: 08/30/17 07:55 Dose: 1,000 units Famotidine (Pepcid) 20 mg PO BID [facility] Last Admin: 08/30/17 07:56 Dose: 20 mg Ferrous Sulfate (Feosol) 325 mg PO BID-[facility] Last Admin: 08/30/17 07:56 Dose: 325 mg Guaifenesin (Robitussin Sf) 200 mg PO Q4H PRN PRN Reason: Cough Hydralazine HCl (Apresoline) 10 mg SLOW IVP Q4H PRN PRN Reason: Systolic BP > 180 Loperamide HCl (Imodium) 2 mg PO PRN PRN PRN Reason: Diarrhea/Loose Stools Loratadine (Claritin) 10 mg PO DAILYPRN PRN PRN Reason: Sinus Symptoms Magnesium Hydroxide (Milk Of Magnesium) 30 ml PO DAILYPRN PRN PRN Reason: Constipation Mineral Oil/White Petrolatum (Eucerin Cream) 0 gm TOP BIDPRN PRN PRN Reason: Dry Skin Ondansetron HCl (Zofran Odt) 4 mg PO Q6H PRN PRN Reason: Nausea/Vomiting Ondansetron HCl (Zofran) 4 mg IVP Q6H PRN PRN Reason: Nausea/Vomiting Last Admin: 08/27/17 01:48 Dose: 4 mg Phenol (Chloraseptic [place] 180 Ml Bot) 0 ml PO PRN PRN PRN Reason: Sore Throat Polyethylene Glycol (Miralax) 17 gm PO DAILY [facility] Last Admin: 08/30/17 07:56 Dose: 17 gm Simvastatin (Zocor) 10 mg PO [facility] Last Admin: 08/29/17 20:15 Dose: 10 mg Sodium Biphosphate/Sodium Phosphate (Fleet Enema) 133 ml HI ONE PRN PRN Reason: Constipation Stop: 09/01/17 12:19 Sodium Chloride ([place] Nasal [place] 0.65%) 0 ml EA NARE QIDPRN PRN PRN Reason: Nasal Congestion Temazepam (Restoril) 15 mg PO HSPRN PRN PRN Reason: Insomnia
--- NOTE | 2017-08-30 11:35 | DIS ---
DATE OF ADMISSION: 08/25/2017 DATE OF DISCHARGE: 08/30/2017 PRIMARY CARE PHYSICIAN: Rip White M.D. DISCHARGE DISPOSITION: Home. PRIMARY DISCHARGE DIAGNOSES: Symptomatic iron deficiency anemia, abdominal distention. SECONDARY DISCHARGE DIAGNOSES: Chronic constipation, hypertension, coronary artery disease, obesity, history of traumatic brain injury, degenerative joint disease, physical deconditioning, dyslipidemia , and nephrolithiasis. PRIMARY PROCEDURE/OPERATION: The patient underwent upper endoscopy which showed duodenal AV malforma tions, status post ablation. The patient underwent colonoscopy which showed diverticulosis and ascen ding colon lipoma. SIGNIFICANT LABORATORY DATA: Hemoglobin 8.1, creatinine 0.60. RADIOLOGICAL INVESTIGATION: Abdomen and pelvis CT scan. DISCHARGE MEDICATIONS: Aspirin 81 mg p.o. daily, Colace 100 mg p.o. b.i.d., ferrous sulfate 325 mg p .o. b.i.d., probiotics 1 capsule p.o. b.i.d., Protonix 40 mg p.o. daily, pravastatin 20 mg p.o. at be dtimn. CONTRAINDICATIONS: None. CODE STATUS: DNR. INPATIENT CONSULTANTS: Dr. Schultz was consulted while in hospital. Dr. Obregon was consulted while in hospital. TEST RESULTS PENDING ON DISCHARGE: None. ALLERGIES: No known drug allergy. DISCHARGE PLAN: Post hospital, the patient will follow up with primary care physician. HOSPITAL COURSE: A 76-year-old female who was admitted by me. Please see my HPI for further details . This patient was having abdominal distention, that abdominal distention was related with dilatatio n of sigmoid and rectal colon. We consulted GI and the patient underwent upper and lower endoscopic evaluation. This patient also had symptomatic anemia. During this admission, she was given blood tr ansfusion of 2 units. 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 Patient was hydrated with IV fluids while in hospital. She was treated with stool softener and we co ntinued all her home medication and on the day of discharge, the patient was tolerating p.o. well. H er hemoglobin was stable and the patient was up to her baseline level. The patient is seen and exami radha at bedside today. Please see my progress note from today for further details.
== END 2017-08-30 10:29 | disposition home or self-care (01) | DRG 394 ==
LOC: ERS 14:19 → ERHOLD 22:45 → T4-B 08-26 14:54 → OBSVTOIN 08-29 06:44
PROVIDERS: ADMIT Internal Medicine; ATTEND Internal Medicine
PROC: 30233N1 Transfusion of Nonautologous Red Blood Cells into Peripheral Vein, Percutaneous Approach (ICD-10-PCS; 2017-08-29)
PROC: 0D598ZZ Destruction of Duodenum, Via Natural or Artificial Opening Endoscopic (ICD-10-PCS; principal; 2017-08-30)
PROC: 0DJD8ZZ Inspection of Lower Intestinal Tract, Via Natural or Artificial Opening Endoscopic (ICD-10-PCS; 2017-08-30)
DX: K55.20 Angiodysplasia of colon without hemorrhage (principal); N30.00 Acute cystitis without hematuria; D50.9 Iron deficiency anemia, unspecified; E66.9 Obesity, unspecified; E78.5 Hyperlipidemia, unspecified; I10 Essential (primary) hypertension; Z74.01 Bed confinement status; Z79.82 Long term (current) use of aspirin; I25.10 Atherosclerotic heart disease of native coronary artery without angina pectoris; Z68.34 Body mass index [BMI] 34.0-34.9, adult; Z87.820 Personal history of traumatic brain injury; K57.30 Diverticulosis of large intestine without perforation or abscess without bleeding; E87.6 Hypokalemia; Z66 Do not resuscitate; K56.41 Fecal impaction
CPT/HCPCS: 36415; 36430; 74022; 74177; 80048; 80053; 82274; 85025; 85060; 86850; 86900; 86901; 96361; 96374; A4216; J1750; J1756; J2405; J2704; J7050; P9016; S0028

== ENCOUNTER 2018-03-05 18:46 | Emergency (ER) | payer MEDICARE, MEDICAID ==
[2018-03-05 20:05] LABS: Blood, Urine Large (Negative); Clarity Turbid (Clear); pH, Urine 8.5 (5.0-9.0)
[2018-03-05 20:10] LABS: Leukocyte Unable to Interpret (Negative); Nitrite Unable to Interpret (Negative); Protein, Urine (Dipstick) Unable to Interpret mg/dL (Neg-Trace)
[2018-03-05 20:11] LABS: Bilirubin Unable to Interpret (Negative); Glucose, Urine (Dipstick) Unable to Interpret mg/dL (Negative); RBC/HPF GREATER THAN 50-TNTC HPF (0-3); Urobilinogen UNABLE TO INTERPRET mg/dL (0.2-1.0)
[2018-03-05 20:12] LABS: Bacteria/HPF 4+ HPF (None Seen); Hyaline Casts/LPF 0-3 HYALINE CAST LPF (0-3 Hyaline); Squamous Epithelial 0-3 HPF (0-3)
[2018-03-05 20:33] LABS: Hemoglobin 13.4 g/dL (12.0-16.0); Mean Corpuscular HGB CONC 34.7 g/dL (32.0-36.0); Mean Corpuscular Hemoglobin 30.3 pg (27.0-31.0); Mean Corpuscular Volume 87.4 fL (78.0-98.0); Mean Platelet Volume 6.9 fL (7.4-10.4); Platelet Count 232 thou/uL (130-400); RBC Distribution Width 12.2 % (11.5-14.5); Red Blood Cell (RBC) Count 4.42 mill/uL (4.20-5.40)
[2018-03-05 20:46] LABS: ALT (SGPT) 12 U/L (8-55); AST (SGOT) 26 U/L (5-34); Albumin 3.4 g/dL (3.4-4.8); Alkaline Phosphatase 77 U/L (40-150); Anion Gap 15 mmol/L (10-20); BUN (Urea Nitrogen) 17 mg/dL (9.8-20.1); Bilirubin, Total 0.5 mg/dL (0.2-1.2); Calc. Creatinine Clearance 0 mL/min (70-130); Calcium 8.5 mg/dL (7.8-10.44); Carbon Dioxide 23 mmol/L (23-31); Chloride 110 mmol/L (98-107); Estimated GFR-MDRD 89; Globulin 3.5 g/dL (2.4-3.5); Glucose 113 mg/dL (83-110); Lipase 23 U/L (8-78); Potassium 4.5 mmol/L (3.5-5.1); Protein, Total 6.9 g/dL (6.0-8.3); Sodium 143 mmol/L (136-145)
[2018-03-05 20:48] LABS: Band 2 % (5-11); Lymphocytes 14 % (21-51); MDiff Complete? YES; Monocytes 9 % (0-10); Neutrophil 75 % (42-75)
== END 2018-03-05 22:42 | disposition home or self-care (01) ==
LOC: SCSER 18:46
DX: N30.01 Acute cystitis with hematuria (principal); G81.91 Hemiplegia, unspecified affecting right dominant side; B02.9 Zoster without complications; K21.9 Gastro-esophageal reflux disease without esophagitis; E78.5 Hyperlipidemia, unspecified; I10 Essential (primary) hypertension; I25.2 Old myocardial infarction; Z79.899 Other long term (current) drug therapy; Z79.82 Long term (current) use of aspirin
CPT/HCPCS: 51701; 80053; 81003; 81015; 83605; 83690; 85025; 87077; 87086; 87186; 96365; A4353; J1956

== ENCOUNTER 2018-06-27 17:02 | Inpatient (IN) | payer MEDICARE, MEDICAID ==
[~2018-06-27 17:02] MED LIST changes: -ISOVUE-370 76%-LOCM 1 ML ONE; +Iopamidol 370 76% 100 ML VIAL ONE
[2018-06-27 17:56] LABS: #Eosinphils 0.1 thou/uL (0.0-0.7); #Lymphocytes 2.2 thou/uL (1.20-3.40); #Monocytes 0.8 thou/uL (0.11-0.59); #Neutrophils 8.7 thou/uL (1.40-6.50); %Basophils 0.1 % (0.0-1.0); %Eosinophils 0.9 % (0.0-10.0); %Lymphocytes 18.4 % (21.0-51.0); %Monocytes 6.4 % (0.0-10.0); %Neutrophils 74.2 % (42.0-75.0); Hemoglobin 13.8 g/dL (12.0-16.0); Mean Corpuscular HGB CONC 31.9 g/dL (32.0-36.0); Mean Corpuscular Hemoglobin 30.2 pg (27.0-31.0); Mean Platelet Volume 7.1 fL (7.4-10.4); Platelet Count 313 thou/uL (130-400); RBC Distribution Width 12.7 % (11.5-14.5); Red Blood Cell (RBC) Count 4.57 mill/uL (4.20-5.40); White Blood Cell (WBC) Count 11.7 thou/uL (4.8-10.8)
[2018-06-27 17:58] LABS: Bilirubin Small (Negative); Blood, Urine Large (Negative); Clarity TURBID (Clear); Glucose, Urine (Dipstick) Negative (Negative); Leukocyte Large (Negative); Nitrite Positive (Negative); Protein, Urine (Dipstick) 100 mg/dL (Neg-Trace); Specific Gravity, Urine 1.024 (1.002-1.036); pH, Urine 6.5 (5.0-9.0)
[2018-06-27 18:00] LABS: Bacteria/HPF 4+ HPF (None Seen)
[2018-06-27 18:04] LABS: Pathc Cast-AUWi Flag 9.25 (0-2.49); Yeast-AUWi Flag 107.4 (0-25.0)
[2018-06-27 18:12] LABS: Hyaline Casts/LPF NONE SEEN LPF (0-3 Hyaline); RBC/HPF GREATER THAN 50-TNTC HPF (0-3); Yeast-All Forms None Seen HPF (None Seen)
[2018-06-27] MEDS ORDERED: Morphine 4 MG/ML VIAL ONE (18:27)
[2018-06-27] MEDS ORDERED: Ondansetron PF 4 MG/2 ML Vial ONE (18:32)
[2018-06-27 18:36] LABS: ALT (SGPT) 7 U/L (8-55); AST (SGOT) 9 U/L (5-34); Albumin 3.5 g/dL (3.4-4.8); Alkaline Phosphatase 103 U/L (40-150); Anion Gap 11 mmol/L (10-20); BUN (Urea Nitrogen) 14 mg/dL (9.8-20.1); Bilirubin, Total 0.5 mg/dL (0.2-1.2); Calc. Creatinine Clearance 0 mL/min (70-130); Calcium 8.7 mg/dL (7.8-10.44); Carbon Dioxide 26 mmol/L (23-31); Chloride 107 mmol/L (98-107); Estimated GFR-MDRD 72; Globulin 3.4 g/dL (2.4-3.5); Glucose 114 mg/dL (83-110); Lipase 19 U/L (8-78); Potassium 3.5 mmol/L (3.5-5.1); Protein, Total 6.9 g/dL (6.0-8.3); Sodium 140 mmol/L (136-145)
--- NOTE | 2018-06-27 20:35 | CT ---
CT OF THE ABDOMEN AND PELVIS WITH IV CONTRAST: 06/27/18 INDICATION: History of abdominal pain with kidney stones. FINDINGS: There is a 1 cm stone within the proximal right ureter. There is prominent enhancement of the urothel ium of the mid to upper right ureter extending into the right pelvis. There are numerous stones seen stacked within the right renal pelvis extending into an inferior calyx of the right kidney. There is mild right hydronephrosis. There is a prominent amount of retained stool within the rectal vault and distal sigmoid colon. The b ladder is decompressed. No left sided ureteral or renal calculus is evident. There is an infrarenal I VC filter. There are numerous gallstones. The adrenal glands, pancreas and spleen appear within normal limits. There is diffuse osteopenia. The re is scattered degenerative and osteoarthritic changes. There is stable mild superior end plate comp ression abnormalities of L4, L2, and L1. IMPRESSION: 1. Interval development of numerous stacked stones within the right kidney, right renal pelvis, with a 1 cm stone seen within the proximal right ureter. There is mild right hydronephrosis. There is prominent urothelial enhancement involving the mid to upper right ureter extending to the right ashley l pelvis may be inflammatory and related to the stone disease or possibly related to superimposed inf ection. No solid renal lesion is demonstrated. 2. Prominent amount of retained stool within the rectum and distal sigmoid colon. POS: FABIO
[2018-06-27] MEDS ORDERED: cefTRIAXone\\ROCEPHIN 1 GM VIAL ONE (20:40)
--- NOTE | 2018-06-27 22:04 | PDOC.FPRHP ---
- History of Present Illness Chief Complaint: Right flank pain History of Present Illness: This is a 77 yo female with a pmh of GERD, HLD, HTN, [place], TBI in 2013 who presents to the ED with a cc of right flank pain. She states the pain has been going on for ~2 days. She reports having kidney stones removed in the past.. She states that the pain is worse with movement. Pts daughter reports a recent UTI. She denies nausea, vomiting, diarrhea, hematuria, or dysuria. - Allergies/Adverse Reactions Allergies Allergy/AdvReac Type Severity Reaction Status Date / Time No Known Drug Allergies Allergy Verified 03/30/16 10:46 - Home Medications Medication Instructions Recorded Confirmed Type Lactobacillus Acidophilus 1 capsule PO BID 02/17/16 06/27/18 History [Probiotic] Pravastatin Sodium 20 mg PO HS 02/17/16 06/27/18 History Pantoprazole [Protonix] 40 mg PO DAILY #30 tab 12/11/16 06/27/18 Rx Aspirin [Aspirin EC] 81 mg PO DAILY 08/27/17 06/27/18 History Cholecalciferol [Vitamin D3] 1 tab PO DAILY 06/27/18 06/27/18 History Ferrous Sulfate 325 mg PO DAILY 06/27/18 06/27/18 History Sertraline HCl 50 mg PO DAILY 06/27/18 06/27/18 History - History PMHx:HTN, AK 20 years ago, HLD, GERD, kidney stones, TBI in 2013 PSHx: Kidney stone removal, hysterectomy FHx: noncontributory Social: Denies D/A/T - Vital signs BP: 135/79 HR: 105 RR: 22 Tmax: 100.1 Pox: 94% on RA Wt: 113.4kg FMR H&P: Results - Labs Result Diagrams: 06/27/18 17:37 06/27/18 17:59 Lab results: WBC 11.7 thou/uL (4.8-10.8) H 06/27/18 17:37 Hgb 13.8 g/dL (12.0-16.0) 06/27/18 17:37 Hct 43.4 % (36.0-47.0) 06/27/18 17:37 MCV 95.0 fL (78.0-98.0) 06/27/18 17:37 Plt Count 313 thou/uL (130-400) 06/27/18 17:37 Neutrophils % 74.2 % (42.0-75.0) 06/27/18 17:37 Sodium 140 mmol/L (136-145) 06/27/18 17:59 Potassium 3.5 mmol/L (3.5-5.1) 06/27/18 17:59 Chloride 107 mmol/L (98-107) 06/27/18 17:59 Carbon Dioxide 26 mmol/L (23-31) 06/27/18 17:59 BUN 14 mg/dL (9.8-20.1) 06/27/18 17:59 Creatinine 0.78 mg/dL (0.6-1.1) 06/27/18 17:59 Glucose 114 mg/dL (83-110) H 06/27/18 17:59 Lactic Acid 2.1 mmol/L (0.5-2.2) 06/27/18 19:35 Calcium 8.7 mg/dL (7.8-10.44) 06/27/18 17:59 Total Bilirubin 0.5 mg/dL (0.2-1.2) 06/27/18 17:59 AST 9 U/L (5-34) 06/27/18 17:59 ALT 7 U/L (8-55) L 06/27/18 17:59 Alkaline Phosphatase 103 U/L (40-150) 06/27/18 17:59 Serum Total Protein 6.9 g/dL (6.0-8.3) 06/27/18 17:59 Albumin 3.5 g/dL (3.4-4.8) 06/27/18 17:59 Lipase 19 U/L (8-78) 06/27/18 17:59 Urine Ketones Trace mg/dL (Negative) H 06/27/18 17:41 Urine Blood Large (Negative) H 06/27/18 17:41 Urine Nitrite Positive (Negative) H 06/27/18 17:41 Ur Leukocyte Esterase Large (Negative) H 06/27/18 17:41 Urine RBC GREATER THAN 50-TNTC HPF (0-3) H 06/27/18 17:41 Urine WBC Greater Than 50-TNTC HPF (0-3) H 06/27/18 17:41 Ur Squamous Epith Cells 11-20 HPF (0-3) H 06/27/18 17:41 Urine Bacteria 4+ HPF (None Seen) H 06/27/18 17:41 FMR H&P: A/P - Problem List (1) Nephrolithiasis Current Visit: Yes Status: Acute (2) Sepsis Current Visit: Yes Status: Acute Code(s): A41.9 - SEPSIS, UNSPECIFIED ORGANISM (3) UTI (urinary tract infection) Current Visit: No Status: Acute Qualifiers: (4) Dyslipidemia Current Visit: No Status: Chronic Code(s): E78.5 - HYPERLIPIDEMIA, UNSPECIFIED (5) H/O traumatic brain injury Current Visit: No Status: Chronic Code(s): Z87.820 - PERSONAL HISTORY OF TRAUMATIC BRAIN INJURY (6) HTN (hypertension) Current Visit: No Status: Chronic Code(s): I10 - ESSENTIAL (PRIMARY) HYPERTENSION Qualifiers: (7) Obesity (BMI 30.0-34.9) Current Visit: No Status: Chronic Code(s): E66.9 - OBESITY, UNSPECIFIED - Plan This is a 77 yo female with a pmh of GERD, HLD, HTN, [place], TBI in 2013 Sepsis secondary to UTI -Admit to medical. Pt has 10 mm stone in her right ureter. She meets sepsis criteria by pulse of 108 and respirations of 23 Pt has positive UA and slight WBC of 11.7. Urology has been consulted and plans to place a stent in the morning. Pt. is receiving levoquin and rocephin for abx coverage.. We are giving LR at 150 and using morphine PRN for pain management HTN -Continue home medications HLD -Continue home medications GERD -Continue home medications Code: Full Prophylaxis: SCDs Family: daughter at bedside Disposition: home in 2-3 days FMR H&P: Upper Level - Pertinent history 77 yo female here for right flank pain. Patient has history of memory loss and family is not at bedside to provide history, but she reports right sided flank pain, not sure how long and it is not present right now. Records show history of HTN, TBI, DJD, dyslipidemia, nephrolithiasis, CAD, chronic constipation, chronic anemia. 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 Pertinent changes/additions are listed here. 1. sepsis: patient is hemodynamically stable at this time, has been started on abx, blood and urine cultures pending; lactate 2.1 with repeat coming back 2. ureteral stone: urology was consulted from the ED, plan is to place stent in the AM, admit, keep NPO, morphine for pain 3. pyelonephritis: per urology recs, patient was started on rocephin and levaquin in the ER, will continue with these and monitor 4. HTN: will continue to monitor and restart home meds; lowest bp in the ER was 121/61 5. hx of anemia: normal range today; continue with medications 6. hx of TBI: right arm contracture, appears to be stable per patient
[2018-06-27] MEDS ORDERED: Morphine 2 MG/ML SYRINGE SLOW IVP PRN (23:23)
[2018-06-27] MEDS ORDERED: Ondansetron PF 4 MG/2 ML Vial IVP PRN (23:23)
[2018-06-27 23:49] LABS: Lactic Acid 1.6 mmol/L (0.5-2.2)
[2018-06-28] MEDS: Lactated Ringer's 1,000 ML IV SCH ×4 (00:32→22:46)
[2018-06-28 00:53] VITALS: BMI 31.9
[2018-06-28 05:16] LABS: ALT (SGPT) Less than 7 U/L (8-55); AST (SGOT) 13 U/L (5-34); Alkaline Phosphatase 80 U/L (40-150); Anion Gap 10 mmol/L (10-20); BUN (Urea Nitrogen) 12 mg/dL (9.8-20.1); Bilirubin, Total 0.5 mg/dL (0.2-1.2); Calc. Creatinine Clearance 103 mL/min (70-130); Calcium 8.2 mg/dL (7.8-10.44); Carbon Dioxide 24 mmol/L (23-31); Chloride 109 mmol/L (98-107); Estimated GFR-MDRD 86; Glucose 95 mg/dL (83-110); Potassium 3.8 mmol/L (3.5-5.1); Sodium 139 mmol/L (136-145)
--- NOTE | 2018-06-28 05:42 | PDOC.FM ---
- Subjective Subjective: Pt reports feeling well today. She reports good rest and excellent pain control. Denies back pain/dysuria whatsoever. Reports feeling ready for surgery. No fevers/chills, no cp, no palpitations, no dysuria, no nausea no vomiting - Objective MAR Reviewed: Yes Vital Signs & Weight: Vital Signs (12 hours) Temp Pulse Resp BP Pulse Ox 06/28/18 03:23 97.3 F L 74 16 102/62 92 L 06/27/18 23:23 98.8 F 80 18 103/54 L 95 06/27/18 22:30 96 06/27/18 22:00 98.6 F 99 16 116/79 96 Weight Weight 89.9 kg Result Diagrams: 06/28/18 05:40 06/28/18 04:16 <Contreras Hightower - Last Filed: 06/28/18 08:25> - Objective Vital Signs & Weight: Vital Signs (12 hours) Temp Pulse Resp BP Pulse Ox 06/28/18 08:00 72 96 06/28/18 07:00 98.6 F 68 18 107/64 91 L 06/28/18 03:23 97.3 F L 74 16 102/62 92 L Weight Weight 89.9 kg Result Diagrams: 06/28/18 05:40 06/28/18 04:16 <Armando Mackey - Last Filed: 06/28/18 14:30> Phys Exam - Physical Examination Constitutional: NAD HEENT: moist MMs, sclera anicteric Neck: no JVD, supple Respiratory: no wheezing, clear to auscultation bilateral Cardiovascular: RRR, no significant murmur Gastrointestinal: soft, non-tender Musculoskeletal: no edema, pulses present Neurological: normal sensation, moves all 4 limbs Psychiatric: normal affect Deviation from normal: A&O to person and place Skin: no rash, normal turgor <Contreras Hightower - Last Filed: 06/28/18 08:25> Dx/Plan (1) Nephrolithiasis Status: Acute (2) Sepsis Code(s): A41.9 - SEPSIS, UNSPECIFIED ORGANISM Status: Acute (3) H/O traumatic brain injury Code(s): Z87.820 - PERSONAL HISTORY OF TRAUMATIC BRAIN INJURY Status: Chronic (4) HTN (hypertension) Code(s): I10 - ESSENTIAL (PRIMARY) HYPERTENSION Status: Chronic - Plan Plan: This is a 77 yo female with a pmh of GERD, HLD, HTN, [place], TBI in 2013 Sepsis 2/2 pyelonephritis and uretal stone A- Vitals now WNL, met sepsis criteria by pulse of 108 and respirations of 23 Pt has positive UA on admission. P- levoquin and rocephin per urology recs - LR at 150 - morphine PRN - stent placement this AM - await BCx and UCx HTN A- BP on low side of normal limits P- will hold home meds for now HLD - home medications GERD - home medications Hx of anemia - h/h stable and wnl Hx of TBI - MD aware Delirium A- pt oriented to person and place this AM upon waking up. Pt has known UTI. P- frequent re-orientation, family at bedside recommended. Open window shades every morning. Code: Full Prophylaxis: SCDs Disposition: home in 2-3 days <Contreras Hightower - Last Filed: 06/28/18 08:25> Attending Addendum - Attending Addendum Date/Time: 06/28/18 [id number] I personally evaluated the patient and discussed the management with Dr. Shell and Campbell. I agree with and repeated the History, Examination, Assessment and Plan documented above with any addition or exceptions noted below. +R CVAT. <Armando Mackey - Last Filed: 06/28/18 14:30>
[2018-06-28 06:02] LABS: #Eosinphils 0.1 thou/uL (0.0-0.7); #Lymphocytes 1.6 thou/uL (1.20-3.40); #Monocytes 0.9 thou/uL (0.11-0.59); #Neutrophils 6.8 thou/uL (1.40-6.50); %Basophils 0.3 % (0.0-1.0); %Eosinophils 0.6 % (0.0-10.0); %Lymphocytes 17.3 % (21.0-51.0); %Monocytes 9.6 % (0.0-10.0); %Neutrophils 72.2 % (42.0-75.0); Hemoglobin 12.1 g/dL (12.0-16.0); Mean Corpuscular HGB CONC 32.7 g/dL (32.0-36.0); Mean Corpuscular Hemoglobin 31.2 pg (27.0-31.0); Mean Corpuscular Volume 95.5 fL (78.0-98.0); Mean Platelet Volume 6.9 fL (7.4-10.4); Platelet Count 281 thou/uL (130-400); RBC Distribution Width 12.9 % (11.5-14.5); Red Blood Cell (RBC) Count 3.86 mill/uL (4.20-5.40); White Blood Cell (WBC) Count 9.4 thou/uL (4.8-10.8)
[2018-06-28] MEDS ORDERED: Lidocaine 1% PF 5 ML VIAL ONE (08:10)
[2018-06-28] MEDS ORDERED: PHENYLEPHRINE-NS 100 MCG/ML 10 ML SYRINGE ONE (08:10)
[2018-06-28] MEDS ORDERED: Ondansetron PF 4 MG/2 ML Vial ONE (08:10)
[2018-06-28] MEDS ORDERED: PROPOFOL 200 MG/20 ML VIAL ONE (08:10)
--- NOTE | 2018-06-28 10:28 | CON ---
DATE OF CONSULTATION: 06/28/2018 This is a 77-year-old white female I have taken care of both here and at [facility] wit h a history of recurrent renal stones and sepsis. She is coming in now with a partial obstructing ri ght proximal ureteral stone, she has got number of renal stones on the right also. She had pyuria an d bacteriuria. Her vital signs are currently stable. She is on the floor, she started to receive an tibiotics. Cultures have been done. A CAT scan showed the above findings. Because of the infection , I think she needs a stent. We will plan on passing a stent today and then treating the stones once her infection is cleared perhaps next week. She has a very complicated medical history. She has a history of brain injury. She has a history of hypertension, myocardial infarction, reflux disease an d recurrent stones. She has had a hysterectomy also treated for stones with shockwave and ureterosco py in the past. I think that was done both here and I think some of it may have been done also at [facility]. She has been n.p.o. since midnight. She is on antibiotics. I have posted for the OR for late this morning. We will get this procedure done.
[2018-06-28] MEDS ORDERED: Iothalamate Meglumine 60% 50 ML VIAL FS ONE (14:44)
[2018-06-28] MEDS ORDERED: Fentanyl 100 MCG/2 ML VIAL ONE (14:49)
[2018-06-28] MEDS ORDERED: Ondansetron HCl/PF 4 MG/2 ML Vial IVP PRN (16:02)
[2018-06-28] MEDS ORDERED: Promethazine HCl 25 MG/ML VIAL IM PRN (16:02)
[2018-06-28] MEDS ORDERED: Promethazine HCl 25 MG/ML VIAL SLOW IVP PRN (16:02)
--- NOTE | 2018-06-28 16:48 | RAD ---
RETROGRADE RIGHT UROGRAM: 06/28/18 HISTORY: Stone removal and right ureteral stent placement. COMPARISON: CT abdomen on 06/27/18 as well as prior retrograde study on 03/31/16. FINDINGS/IMPRESSION: Hardness Inspector image demonstrates IVC filter in place. There is motion on the hair stylist image which limits evaluat ion and the renal shadows are mostly obscured. Subsequent imaging demonstrates ureteral catheter in p lace with guide wire in position in the right ureter and overlying right renal collecting system. Rig ht retrograde urogram does demonstrate mild right hydronephrosis. There is a filling defect seen in t he region of the right renal pelvis which may be related to residual calculus or possibly debris or h emorrhage. Final image demonstrates right ureteral stent in place. There is a large amount of retaine d fecal material in the region of the rectum. Correlation with intraoperative findings is recommended . POS: FABIO
[2018-06-28] MEDS: cefTRIAXone\\ROCEPHIN 2 GM in Sodium Chloride 0.9% 100 ML IVPB SCH (20:13)
--- NOTE | 2018-06-28 22:50 | OP ---
DATE OF PROCEDURE: 06/27/2018 PREOPERATIVE DIAGNOSIS: Right ureteral stone with urinary tract infection. POSTOPERATIVE DIAGNOSES: Right ureteral stone with urinary tract infection. PROCEDURES PERFORMED: Cystoscopy, right retrograde and right stent placement. SURGEON: Mack Wang M.D. ANESTHESIA: General. ESTIMATED BLOOD LOSS: Minimal. DRAINS PLACED: A 6 x 24 Polaris double-J stent without a string attached. FINDINGS: A proximal right ureteral stone and filling defects in the right renal pelvis. OPERATIVE TECHNIQUE: After obtaining written and verbal consent from the patient, she was taken to [facility] operating suite. She was placed in the supine position on treatment table. PlexiPulses were plac ed on lower extremities and turned on. She was given a general anesthetic and oral obturator intubat ion. She was placed in the dorsal lithotomy position, sterilely prepped and draped. Cystoscopy was performed with a 22-[place] Citizen sheath. This was well lubricated and passed under direct vision through [facility] female urethra and into the urinary bladder with aid of 30-degree lens, a video camera and monitor . There was some cloudiness to the urine as her bladder was filled and emptied a number of times unt il it was cleared. Fluoroscopy unit was used and a incinerator plant general supervisor KUB was taken with it. We located the [facility] t ureteral orifice and fed a 5-[place] Citizen Pollack catheter into this and a guidewire up into the region o f the renal pelvis, advancing the open-ended catheter up to this region and removed then a guidewire injecting about 5 mL of contrast to fill out the proximal collecting system and ureter. She then had the guidewire replaced. The open-ended catheter removed then a stent placed over the guidewire and pushed up in place with aid of a pusher so its proximal end coiled in the renal pelvis and its distal end coiled in the bladder when the wire was removed. The bladder straining instruments were removed . She was awakened, extubated and taken out of dorsal lithotomy position and taken by stretcher to [facility] recovery room.
[2018-06-29] MEDS: Lactated Ringer's 1,000 ML IV SCH ×4 (02:42→22:22)
--- NOTE | 2018-06-29 06:13 | PDOC.FM ---
- Subjective Subjective: Pt reports good rest overnight and is feeling well. Reports good pain controll and has no complaints at this time. No fever/chills, no sob no cough, no dysuria, no cp - Objective MAR Reviewed: Yes Vital Signs & Weight: Vital Signs (12 hours) Temp Pulse Resp BP Pulse Ox 06/29/18 04:00 98.5 F 74 18 113/80 92 L 06/29/18 00:00 98.5 F 69 18 142/67 H 92 L 06/28/18 20:10 97 06/28/18 20:00 99.4 F 64 16 134/76 97 06/28/18 18:45 80 18 134/63 95 06/28/18 18:15 68 18 130/75 96 Weight Weight 89.9 kg I&O: 06/27/18 06/28/18 06/29/18 06:59 06:59 06:59 Intake Total 1500 Balance 1500 Result Diagrams: 06/28/18 05:40 06/28/18 04:16 <Contreras Hightower - Last Filed: 06/29/18 09:06> - Objective Vital Signs & Weight: Vital Signs (12 hours) Temp Pulse Resp BP Pulse Ox 06/29/18 11:03 98.5 F 97 94 H 115/51 L 18 L 06/29/18 09:00 95 06/29/18 08:21 97.5 F L 72 20 141/77 H 95 06/29/18 04:00 98.5 F 74 18 113/80 92 L Weight Weight 89.9 kg I&O: 06/28/18 06/29/18 06/30/18 06:59 06:59 06:59 Intake Total 3350 Balance 3350 Result Diagrams: 06/28/18 05:40 06/28/18 04:16 <Armando Mackey - Last Filed: 06/29/18 12:52> Phys Exam - Physical Examination Constitutional: NAD HEENT: moist MMs, sclera anicteric Neck: supple, full ROM Respiratory: no wheezing, no rhonchi Cardiovascular: RRR, no significant murmur Gastrointestinal: soft, non-tender Musculoskeletal: no edema, pulses present Neurological: normal sensation does not move R arm per hx of TBI Psychiatric: normal affect Skin: no rash, normal turgor <Contreras Hightower Filed: 06/29/18 09:06> Dx/Plan (1) Nephrolithiasis Status: Acute (2) Sepsis Code(s): A41.9 - SEPSIS, UNSPECIFIED ORGANISM Status: Acute (3) H/O traumatic brain injury Code(s): Z87.820 - PERSONAL HISTORY OF TRAUMATIC BRAIN INJURY Status: Chronic (4) HTN (hypertension) Code(s): I10 - ESSENTIAL (PRIMARY) HYPERTENSION Status: Chronic - Plan Plan: This is a 77 yo female with a pmh of GERD, HLD, HTN, [place], TBI in 2013 Sepsis 2/2 pyelonephritis and uretal stone A- Vitals WNL though pt on 2L O2 since procedure. pt is s/p stent placement., P- levoquin and rocephin per urology recs - LR at 150 - morphine PRN, will plan to wean to PO pain mgmt - await BCx and UCx HTN A- BP on low side of normal limits P- will hold home meds for now HLD - home medications GERD - home medications Hx of anemia - h/h stable and wnl Hx of TBI - MD aware Delirium A- Pt has UTI as risk factor P- frequent re-orientation, family at bedside recommended. Open window shades every morning. Code: Full Prophylaxis: SCDs Disposition: home in 2-3 days <Contreras Hightower - Last Filed: 06/29/18 09:06> Attending Addendum - Attending Addendum Date/Time: 06/29/18 1252 I personally evaluated the patient and discussed the management with Dr. Hightower. I agree with and repeated the History, Examination, Assessment and Plan documented above with any addition or exceptions noted below. Still mild R CVAT. Await sensitivities. Discharge pending. <Armando Mackey - Last Filed: 06/29/18 12:52>
[2018-06-29] MEDS ORDERED: Prevnar 13-Val Conj/PF 0.5 ML SYRINGE IM ONE (09:00)
[2018-06-29] MEDS: cefTRIAXone\\ROCEPHIN 2 GM in Sodium Chloride 0.9% 100 ML IVPB SCH (20:08)
[2018-06-30] MEDS: Lactated Ringer's 1,000 ML IV SCH (05:04)
--- NOTE | 2018-06-30 06:33 | PDOC.FM ---
- Subjective Subjective: Pt reports continued good control of pain, good rest overnight. Pt reports feeling good about inpatient rehab. No fever/chills, no cp no palpitations, no dysuria - Objective MAR Reviewed: Yes Vital Signs & Weight: Vital Signs (12 hours) Temp Pulse Resp BP Pulse Ox 06/30/18 04:00 98.7 F 77 18 129/79 94 L 06/30/18 00:00 97.9 F 85 18 116/77 93 L 06/29/18 20:05 94 L 06/29/18 20:00 98.7 F 81 20 117/68 94 L Weight Weight 89.9 kg I&O: 06/28/18 06/29/18 06/30/18 06:59 06:59 06:59 Intake Total 3350 3620 Balance 3350 3620 Result Diagrams: 06/28/18 05:40 06/28/18 04:16 <Contreras Hightower - Last Filed: 06/30/18 08:59> - Objective Vital Signs & Weight: Vital Signs (12 hours) Temp Pulse Resp BP Pulse Ox 06/30/18 08:24 95 06/30/18 08:19 98.0 F 67 15 138/78 95 06/30/18 04:00 98.7 F 77 18 129/79 94 L Weight Weight 89.9 kg I&O: 06/29/18 06/30/18 07/01/18 06:59 06:59 06:59 Intake Total 3350 3620 Balance 3350 3620 Result Diagrams: 06/30/18 09:18 06/28/18 04:16 <Armando Mackey - Last Filed: 06/30/18 13:51> Phys Exam - Physical Examination Constitutional: NAD HEENT: moist MMs, sclera anicteric Neck: no JVD, full ROM Respiratory: no wheezing, no rales Cardiovascular: RRR, no significant murmur Gastrointestinal: soft, non-tender Musculoskeletal: no edema, pulses present Neurological: non-focal, normal sensation Lymphatic: no nodes Psychiatric: normal affect Skin: no rash, normal turgor <Contreras Hightower - Last Filed: 06/30/18 08:59> Dx/Plan (1) Nephrolithiasis Status: Acute (2) Sepsis Code(s): A41.9 - SEPSIS, UNSPECIFIED ORGANISM Status: Acute (3) H/O traumatic brain injury Code(s): Z87.820 - PERSONAL HISTORY OF TRAUMATIC BRAIN INJURY Status: Chronic (4) HTN (hypertension) Code(s): I10 - ESSENTIAL (PRIMARY) HYPERTENSION Status: Chronic - Plan Plan: This is a 77 yo female with a pmh of GERD, HLD, HTN, [place], TBI in 2013 Sepsis 2/2 pyelonephritis and uretal stone A- Vitals WNL though pt on 2L O2 since procedure. pt is s/p stent placement., sensitivities show sensitivity to fosfamycin P- levoquin and rocephin per urology recs, will call urology and consider switching to fosfamycin - morphine PRN, will plan to wean to PO pain mgmt HTN A- BP on low side of normal limits P- will hold home meds for now HLD - home medications GERD - home medications Hx of anemia - h/h stable and wnl Hx of TBI - MD aware Delirium A- Pt has UTI as risk factor P- frequent re-orientation, family at bedside recommended. Open window shades every morning. Code: Full Prophylaxis: SCDs Disposition: DC to inpatient rehab today or tomorrow per urology recs. <Contreras Hightower - Last Filed: 06/30/18 08:59> Attending Addendum - Attending Addendum Date/Time: 06/30/18 1351 I personally evaluated the patient and discussed the management with Dr. Hightower. I agree with and repeated the History, Examination, Assessment and Plan documented above with any addition or exceptions noted below. Pt doing well this AM. Plan for d/c antiplatelets and for placement. SWLT next Tuesday with Dr. Sloan. <Armando Mackey - Last Filed: 06/30/18 13:51>
[2018-06-30] MEDS ORDERED: Acetaminophen 325 MG TAB PO PRN (09:16)
[2018-06-30] MEDS ORDERED: Ibuprofen 600 MG TAB PO PRN (09:20)
[2018-06-30 09:27] LABS: #Eosinphils 0.2 thou/uL (0.0-0.7); #Lymphocytes 1.2 thou/uL (1.20-3.40); #Monocytes 0.5 thou/uL (0.11-0.59); #Neutrophils 4.4 thou/uL (1.40-6.50); %Basophils 0.5 % (0.0-1.0); %Eosinophils 2.7 % (0.0-10.0); %Lymphocytes 19.6 % (21.0-51.0); %Monocytes 7.5 % (0.0-10.0); %Neutrophils 69.7 % (42.0-75.0); Hemoglobin 12.3 g/dL (12.0-16.0); Mean Corpuscular HGB CONC 32.4 g/dL (32.0-36.0); Mean Corpuscular Hemoglobin 31.3 pg (27.0-31.0); Mean Corpuscular Volume 96.4 fL (78.0-98.0); Mean Platelet Volume 6.7 fL (7.4-10.4); Platelet Count 273 thou/uL (130-400); RBC Distribution Width 12.5 % (11.5-14.5); Red Blood Cell (RBC) Count 3.93 mill/uL (4.20-5.40); White Blood Cell (WBC) Count 6.3 thou/uL (4.8-10.8)
--- NOTE | 2018-06-30 13:17 | PRG ---
DATE OF SERVICE: 06/30/2018 OBJECTIVE: She has been afebrile with stable vital signs. She feels fine. No pain. Her urinary cu lture showed an E. coli with resistance to quinolones and the Proteus was resistant to quinolones, Ba ctrim, ampicillin, and ampicillin sulbactam. Blood cultures have been negative. I can likely do shock wave lithotripsy on her next Tuesday. She will need to be on antibiotics unt il then and for a few days after. The question is what antibiotic. It is possible that maybe she co uld go home on p.o. Omnicef 300 mg p.o. b.i.d. and I think it looked like the cephalosporins would p robably cover this. Another option would be to check with Dr. Hinds of Infectious Disease to see if he felt it would be safer for her to have a PICC line and be on IV antibiotics. I would very much appreciated it if she could be off of all blood thinners and aspirin products hilary eldridge starting now in preparation for potential shock with lithotripsy next Tuesday. My office will arrange for this procedure.
[2018-06-30 20:54] VITALS: BP 148/78; TEMP 98.2
--- NOTE | 2018-07-02 17:01 | DIS-2 ---
DATE OF ADMISSION: 06/27/2018 DATE OF DISCHARGE: 06/30/2018 RESIDENT: Contreras Hightower. ADMITTING ATTENDING: Contreras Sandoval. DISCHARGE ATTENDING: Armando Mackey. CONSULTATION: Urology, Dr. Mack Sloan. PROCEDURES: 1. On 06/27/2018, abdomen and pelvis CT. Impression: Interval development of numerous tract stones within right kidney. Right renal pelvis with 1 cm stone within the proximal right ureter. There is mild right hydronephrosis. There is prominent urothelial enhancement involving the mid to upper rig ht ureter extending to the right renal pelvis may be inflammatory and related to stone disease or pos sibly related to superimposed infection. No solid renal lesion is demonstrated. Prominent amount of retained stool within the rectum and rectosigmoid colon. 2. On 06/28/2018, retrograde pyelogram. Impression: Song And Dance Performer image demonstrates IVC filter in place. There is motion on veterinary surgery technologist image which limits evaluation and renal shadows are mostly obscured. Subse quent imaging demonstrates ureteral catheter is in place with guidewire in position in the right uret er and overlying right renal collecting system. Right retrograde urogram does demonstrate mild right hydronephrosis. There is a filling defect seen in the region of the right renal pelvis, which may b e related to the residual calculus or possibly debris or hemorrhage. Final image demonstrates right ureteral stent in place. There is a large amount of retained fecal material in the region of the rec malik. Correlation with intraoperative findings is recommended. 3. On 06/28/2018, cystoscopy, right retrograde and right stent placement. PRIMARY DIAGNOSIS: Sepsis secondary to pyelonephritis with right urolithiasis. SECONDARY DIAGNOSES: Hypertension, hyperlipidemia, gastroesophageal reflux disease. DISCHARGE MEDICATIONS: 1. Pravastatin sodium 20 mg p.o. at bedtime. 2. Probiotic 1 capsule p.o. b.i.d. 3. Pantoprazole 40 mg p.o. daily. 4. Sertraline 50 mg p.o. daily. 5. Vitamin D 1000 units 1 tab p.o. daily. 6. Ferrous sulfate 325 mg p.o. daily. 7. Flavoxate 100 mg p.o. t.i.d. 8. Ibuprofen 600 mg p.o. q.6 hours p.r.n. 9. Cefdinir 300 mg p.o. q.12 hours twenty capsules. DISCONTINUED MEDICATION: Aspirin 81 mg p.o. daily. HISTORY OF PRESENT ILLNESS AND HOSPITAL COURSE: This is a 77-year-old female who presented to the ED with chief complaint of right flank pain that had been going on for 2 days. Patient had history of stones removed in the past and kidney stones were found on CT as well as urothelial thickening sugges tive of possible infection. The patient was tachycardic and tachypneic on presentation and had a pos itive UA. So the patient was admitted for sepsis secondary to pyelonephritis with evidence of right ureteral stone and had plans arranged for ureteral stent placement after Urology was consulted. Debbie ent tolerated surgery well and had postop recovery period to be uneventful. Pyelonephritis was treat ed with Rocephin and Levaquin per Urology recommendations until discharge when the patient was prescr ibed cefdinir per recommendations of pharmacy by sensitivities on urine culture. Once the patient wa s found to be stable after surgery, patient was discharged home where the patient had home health alr ruby established and waiting for them. Other health issues such as hypertension, hyperlipidemia, HOMERO D, and history of anemia were managed with home medications during hospital stay. DISPOSITION: Stable. DISCHARGE INSTRUCTIONS: 1. Location: Home with home health. 2. Diet: No restrictions. 3. Activity: As tolerated. 4. Follow up with PCP, Rip White in 7 days and Urology, Mack Sloan in 3 days.
== END 2018-06-30 20:00 | disposition home health service (06) | DRG 854 ==
LOC: ERS 17:02 → T4-B 21:49
PROVIDERS: ADMIT Family Medicine; ATTEND Family Medicine
PROC: 0T768DZ Dilation of Right Ureter with Intraluminal Device, Via Natural or Artificial Opening Endoscopic (ICD-10-PCS; principal; 2018-06-28)
DX: A41.51 Sepsis due to Escherichia coli [E. coli] (principal); N20.2 Calculus of kidney with calculus of ureter; R41.0 Disorientation, unspecified; K21.9 Gastro-esophageal reflux disease without esophagitis; E78.5 Hyperlipidemia, unspecified; I10 Essential (primary) hypertension; I25.2 Old myocardial infarction; Z87.820 Personal history of traumatic brain injury; Z87.442 Personal history of urinary calculi; E66.9 Obesity, unspecified; Z79.899 Other long term (current) drug therapy; Z68.31 Body mass index [BMI] 31.0-31.9, adult
CPT/HCPCS: 36415; 51701; 74177; 74420; 80053; 81001; 81015; 83605; 83690; 85025; 87040; 87077; 87086; 87186; 90471; 90662; 93005; 96365; 96375; A4353; C1758; G0008; G8978-GP-CM; G8979-GP-CL; G8987-GO-CM; G8988-GO-CJ; J0696; J1956; J2270; J2405; J3010; J7050; J7120; Q9961

== ENCOUNTER 2018-07-12 05:48 | Day surgery (SDC) | payer MEDICARE, MEDICAID ==
[2018-07-11 11:31] VITALS: BMI 33.9
[2018-07-12] MEDS ORDERED: Fentanyl 100 MCG/2 ML VIAL ONE (06:35)
[2018-07-12] MEDS ORDERED: cefTRIAXone\\ROCEPHIN 2 GM in Sodium Chloride 0.9% 100 ML IVPB SCH (06:45)
[2018-07-12 07:10] LABS: #Eosinphils 0.1 thou/uL (0.0-0.7); #Lymphocytes 1.1 thou/uL (1.20-3.40); #Monocytes 0.4 thou/uL (0.11-0.59); #Neutrophils 6.6 thou/uL (1.40-6.50); %Basophils 0.3 % (0.0-1.0); %Lymphocytes 13.9 % (21.0-51.0); %Monocytes 4.9 % (0.0-10.0); %Neutrophils 79.9 % (42.0-75.0); Hemoglobin 14.8 g/dL (12.0-16.0); Mean Corpuscular Hemoglobin 30.9 pg (27.0-31.0); Mean Corpuscular Volume 96.7 fL (78.0-98.0); Mean Platelet Volume 7.7 fL (7.4-10.4); Platelet Count 268 thou/uL (130-400); RBC Distribution Width 12.9 % (11.5-14.5); Red Blood Cell (RBC) Count 4.77 mill/uL (4.20-5.40); White Blood Cell (WBC) Count 8.2 thou/uL (4.8-10.8)
[2018-07-12 07:15] LABS: Platelet Count 284 thou/uL (130-400)
[2018-07-12 07:23] LABS: Anion Gap 11 mmol/L (10-20); BUN (Urea Nitrogen) 12 mg/dL (9.8-20.1); Calc. Creatinine Clearance 106 mL/min (70-130); Calcium 8.9 mg/dL (7.8-10.44); Carbon Dioxide 28 mmol/L (23-31); Chloride 106 mmol/L (98-107); Estimated GFR-MDRD 83; Glucose 146 mg/dL (83-110); Potassium 3.7 mmol/L (3.5-5.1); Sodium 141 mmol/L (136-145)
[2018-07-12] MEDS ORDERED: Propofol 1,000 MG/100 ML VIAL IV ONE (08:30)
--- NOTE | 2018-07-12 09:40 | OP ---
DATE OF PROCEDURE: 07/12/2018 PREOPERATIVE DIAGNOSIS: Right renal upper ureteral stones. POSTOPERATIVE DIAGNOSIS: Right renal upper ureteral stones. PROCEDURE PERFORMED: Right ESWL. SURGEON: Dr. Mack Wang. ANESTHETIC: General. ESTIMATED BLOOD LOSS: Not recorded. FINDINGS: There are a number of stones in the proximal right ureter extending up into the renal pelv is, the lowest 2 of these were treated with a total of 2500 shocks at maximum KV level of 4. There a ppeared to be soft stones and broken up well. The stent was already indwelling. We did not replace it. We will probably look at replacing it on next treatment as she will require more than 1 treatmen t for sure. OPERATIVE TECHNIQUE: After obtaining written and verbal consent from the patient, documenting normal preoperative blood work and receiving IV antibiotics, she was taken to the operating suite. She was placed in the supine position on the treatment table. PlexiPulses were placed on her lower extremit ies and turned on. She was given a general anesthetic and oral obturator intubation. She was couple d to the lithotripsy unit and the stone was placed in treatment focal point. Shockwave therapy was c ommenced and started a low kV and brought to level 4. We did not have to go by level 4 as it appeare d that it was breaking up the stones. Fluoroscopy was used intermittently to document stone fragment ation and reposition as necessary. After 2500 shocks, the procedure was terminated. She was awakene d, extubated, and taken by stretcher to the recovery room.
[2018-07-12] MEDS ORDERED: ePHEDrine/0.9% NaCl/PF SYRINGE 50 mg/10 ml ONE (13:36)
[2018-07-12] MEDS ORDERED: PROPOFOL 200 MG/20 ML VIAL ONE (13:36)
[2018-07-12] MEDS ORDERED: PHENYLEPHRINE-NS 100 MCG/ML 10 ML SYRINGE ONE (13:36)
[2018-07-12] MEDS ORDERED: Lidocaine 1% PF 5 ML VIAL ONE (13:36)
== END 2018-07-12 10:55 | disposition home or self-care (01) ==
LOC: SDC 05:48
PROVIDERS: ATTEND Urology
PROC: 0TF3XZZ Fragmentation in Right Kidney Pelvis, External Approach (ICD-10-PCS; principal; 2018-07-12)
PROC: 0TF6XZZ Fragmentation in Right Ureter, External Approach (ICD-10-PCS; 2018-07-12)
DX: N20.2 Calculus of kidney with calculus of ureter (principal); I10 Essential (primary) hypertension; K21.9 Gastro-esophageal reflux disease without esophagitis; Z79.899 Other long term (current) drug therapy
CPT/HCPCS: 80048; 85025; 85576; J0696; J2001; J2704; J3010; J7050

== ENCOUNTER 2018-08-02 09:22 | Day surgery (SDC) | payer MEDICARE, MEDICAID ==
[2018-08-01 11:01] VITALS: BMI 33.9
[2018-08-02 11:37] LABS: #Basophils 0.1 thou/uL (0.0-0.2); #Eosinphils 0.1 thou/uL (0.0-0.7); #Lymphocytes 1.7 thou/uL (1.20-3.40); #Monocytes 0.7 thou/uL (0.11-0.59); #Neutrophils 7.2 thou/uL (1.40-6.50); %Basophils 0.6 % (0.0-1.0); %Lymphocytes 17.8 % (21.0-51.0); %Monocytes 7.2 % (0.0-10.0); %Neutrophils 73.5 % (42.0-75.0); Hemoglobin 14.7 g/dL (12.0-16.0); Mean Corpuscular HGB CONC 32.1 g/dL (32.0-36.0); Mean Corpuscular Hemoglobin 30.6 pg (27.0-31.0); Mean Corpuscular Volume 95.3 fL (78.0-98.0); Mean Platelet Volume 7.5 fL (7.4-10.4); Platelet Count 292 thou/uL (130-400); Red Blood Cell (RBC) Count 4.82 mill/uL (4.20-5.40); White Blood Cell (WBC) Count 9.8 thou/uL (4.8-10.8)
[2018-08-02] MEDS ORDERED: Iothalamate Meglumine 60% 50 ML VIAL FS ONE (11:45)
[2018-08-02 11:55] LABS: Anion Gap 14 mmol/L (10-20); BUN (Urea Nitrogen) 16 mg/dL (9.8-20.1); Calc. Creatinine Clearance 114 mL/min (70-130); Calcium 9.3 mg/dL (7.8-10.44); Carbon Dioxide 23 mmol/L (23-31); Chloride 107 mmol/L (98-107); Estimated GFR-MDRD 90; Glucose 119 mg/dL (83-110); Potassium 4.3 mmol/L (3.5-5.1); Sodium 140 mmol/L (136-145)
[2018-08-02] MEDS ORDERED: cefTRIAXone\\ROCEPHIN 2 GM in Sodium Chloride 0.9% 100 ML IVPB SCH (12:00)
[2018-08-02] MEDS ORDERED: Fentanyl 100 MCG/2 ML VIAL ONE (12:03)
--- NOTE | 2018-08-02 20:57 | OP ---
DATE OF PROCEDURE: 08/02/2018 PREOPERATIVE DIAGNOSIS: Right double J-stent, right renal stones. POSTOPERATIVE DIAGNOSIS: Right double J-stent, right renal stones. PROCEDURES PERFORMED: Cystoscopy, exchange of right stent and right ESWL. ANESTHESIA: General. ESTIMATED BLOOD LOSS: Not recorded. FINDINGS: She has what looked to be good fragmentation of the prior ureteral stones. She actually wanted to me take the stent out as some small fragments that came out adjacent to it. I did not see any obvious stone in the ureter. She still got some stones in the right pelvis, we treated 2 of those with the maximum KUB of 4, we treated with 2500 shocks, they did appear to fragment well. The stent was exchanged with a 6 x 22 Polaris with no string attached. OPERATIVE TECHNIQUE: We obtained written and verbal consent from the patient after receiving IV antibiotics, she was taken to the operating suite. She was placed in the supine position on the treatment table. PlexiPulses were placed on her lower extremities and turned on. She was given a general anesthetic oral obturator intubation. She was placed in the dorsal lithotomy position, she was sterilely prepped and draped. Cystoscopy was performed with a 22-[place] sheath, this was well lubricated and passed under direct vision through the female urethra and into the urinary bladder with an aid of 30-degree lens video camera and monitor. The bladder was filled and emptied couple of times and then the distal end of the double J stent was grasped and brought out through the urethral meatus, the guidewire was fed up through this, the stent was removed over the guidewire and discarded. A 5-[place] Pollack catheter was then advanced over the guidewire, removing the guidewire after the stent was up in the proximal ureter, injecting contrast, filling up the proximal ureter and renal pelvis. There were no obvious stones in the proximal ureter. No obstruction and no stones were visualized in the renal pelvis. The guidewire was replaced. The guidewire was then back loaded through the cystoscope and a 6 x 22 Polaris double J-stent was placed up over the guidewire and pushed up into place, so that its proximal end coiled in the renal pelvis and its distal end coiled in the bladder after the wire was removed. The bladder was drained and instruments were removed. She was returned to the supine position. She was coupled to the lithotripsy unit. The stone in the renal pelvis was placed in treatment focal point. Shockwave therapy was commenced after a couple of hundred shocks and pause was given, we slowly went up to KUB level 4, we stayed at rate of 60. We treated a second stone in the renal pelvis probably incompletely, but a total of 2500 shocks were given. The patient was awakened, extubated, and taken by stretcher to the recovery room. Job ID: [id number]
== END 2018-08-02 16:07 | disposition home or self-care (01) ==
LOC: SDC 09:22
PROVIDERS: ATTEND Urology
PROC: 0TF3XZZ Fragmentation in Right Kidney Pelvis, External Approach (ICD-10-PCS; principal; 2018-08-02)
PROC: 0TP98DZ Removal of Intraluminal Device from Ureter, Via Natural or Artificial Opening Endoscopic (ICD-10-PCS; 2018-08-02)
PROC: 0T768DZ Dilation of Right Ureter with Intraluminal Device, Via Natural or Artificial Opening Endoscopic (ICD-10-PCS; 2018-08-02)
DX: N20.0 Calculus of kidney (principal); Z79.899 Other long term (current) drug therapy
CPT/HCPCS: 50590; 52332; 80048; 85025; C1758; 36415; J0696; J3010; J7050; Q9961

== ENCOUNTER 2018-09-04 09:26 | Day surgery (SDC) | payer MEDICARE, MEDICAID ==
[2018-09-01 12:38] VITALS: BMI 32.3
[2018-09-04] MEDS ORDERED: Fentanyl 100 MCG/2 ML VIAL ONE (09:57)
[2018-09-04] MEDS ORDERED: Iothalamate Meglumine 60% 50 ML VIAL FS ONE (09:59)
[2018-09-04] MEDS ORDERED: cefTRIAXone\\ROCEPHIN 2 GM in Sodium Chloride 0.9% 100 ML IVPB SCH (10:30)
--- NOTE | 2018-09-04 14:47 | RAD ---
RETROGRADE PYELOGRAM: HISTORY: Right ureteral stones. FINDINGS: A right ureteral stent is initially noted in place. Injection demonstrates numerous filling defects within the upper right ureter and right upper collecting system. Additional imaging demonstrates man ipulation to remove these stones. Final image demonstrates replacement of a right ureteral stent. IMPRESSION: 1. Multiple renal calculi in the right upper collecting system and upper ureter. 2. Replacement of right ureteral stent following manipulation to remove stones. POS: FABIO
[2018-09-04] MEDS ORDERED: Ondansetron PF 4 MG/2 ML Vial ONE (16:02)
[2018-09-04] MEDS ORDERED: Lidocaine 1% PF 5 ML VIAL ONE (16:02)
[2018-09-04] MEDS ORDERED: PHENYLEPHRINE-NS 100 MCG/ML 10 ML SYRINGE ONE (16:02)
[2018-09-04] MEDS ORDERED: Rocuronium Bromide 10 MG/ML (10ML VIAL) ONE (16:02)
[2018-09-04] MEDS ORDERED: Glycopyrrolate 0.2 MG/ML 5 ML SYRINGE ONE (16:02)
[2018-09-04] MEDS ORDERED: PROPOFOL 200 MG/20 ML VIAL ONE (16:02)
--- NOTE | 2018-09-04 19:22 | OP ---
DATE OF PROCEDURE: 09/04/2018 PREOPERATIVE DIAGNOSIS: Right renal stones. POSTOPERATIVE DIAGNOSIS: Right renal stones. PROCEDURE PERFORMED: Right rigid and flexible ureteroscopy with laser lithotripsy of stones and stone retrieval. ANESTHETIC: General. ESTIMATED BLOOD LOSS: Less than 50. DRAINS PLACED: A 6 x 22 polaris double-J stent with a string attached. FINDINGS: There are multiple stone fragments and small stones in the right renal pelvis and upper calyceal system that were grasped and removed or broken up into very small pieces with the laser and the use of a Nitinol basket. DESCRIPTION OF PROCEDURE: Obtained written and verbal consent from the patient. After receiving IV Rocephin and then being taken to the OR and then started there 1 g of IV vancomycin slowly, she was placed in a supine position on the treatment table. PlexiPulses were placed on her lower extremities. She was given a general anesthetic and oral intubation. She was placed in the dorsal lithotomy position and sterilely prepped and draped. Cystoscopy was performed with a 22-Danish sheath. This was well lubricated and passed under direct vision through the female urethra and into the bladder with aid of a 30-degree lens and a video camera and monitor. The bladder was filled and emptied number of times and the distal end of the indwelling double-J stent was grasped and brought out through the urethral meatus, and a guidewire was fed up through this removing the stent and discarding it. We then brought in a dual lumen catheter, placed over this guidewire up to the area where the proximal ureter, then injected contrast through the other port to show the collecting system and ureter. I then fed a second guidewire up and then removed the dual lumen catheter. At this point, we brought in a small caliber, graduated, rigid ureteroscope and passed this under direct vision adjacent to one of the guidewires up to the renal pelvis. There were no stones in the ureter. There were number of stones in the renal pelvis that we would not be able to easily get with the rigid scope. At this point, a ureteral stent was brought in and over a stiff blue guidewire, the obturator was passed and then the obturator with the sheath were passed up to the region of the UPJ. The obturator and the guidewire were removed leaving one additional guidewire in place outside of the sheath. We then went ahead and brought in our flexible ureteroscope and passed it through the guidewire and under direct vision up into the area of the renal pelvis and calyceal system. Using a small holmium laser fiber, we fragmented some of the stone pieces into smaller and smaller pieces. Once they were small enough, a few of them were basketed and removed. We did this to clear the renal pelvis and to clear the upper two calyceal systems. We did not look in the mid or lower pole calyceal system as those stones we felt would not pose her significant risk to passage. Once this was completed, we went ahead and removed the sheath under direct vision with the aid of the rigid scope. There were no stones in the ureter. We then passed a 5-Danish pollack catheter over existing guidewire, injecting contrast and there was no evidence of any extravasation. There were some filling defects, most likely some blood clots in the proximal ureter, but nothing that would suggest stones. We then over our guidewire fed a 6 x 22 polaris double-J stent pushing up into place with the aid of a pusher, so that its proximal end coiled in the renal pelvis and its distal end coiled in the bladder when the wires removed. At this point, the patient's bladder was drained. The instruments were removed. She was taken out of the dorsal lithotomy position. She was awakened. She was extubated, and she was taken by tangela to recovery room. Job ID: [id number]
[2018-09-07 10:24] LABS: Ammonium Acid Urate 25 % (.); CA Phosphate 60 % (.); Color Tan (.); Comment Note: (.); Mg Ammon Phos 10 % (.); Stone Weight 249.1 mg (.)
== END 2018-09-04 14:30 | disposition home or self-care (01) ==
LOC: SDC 09:26
PROVIDERS: ATTEND Urology
PROC: 0TF38ZZ Fragmentation in Right Kidney Pelvis, Via Natural or Artificial Opening Endoscopic (ICD-10-PCS; principal; 2018-09-04)
PROC: 0T768DZ Dilation of Right Ureter with Intraluminal Device, Via Natural or Artificial Opening Endoscopic (ICD-10-PCS; 2018-09-04)
DX: N20.0 Calculus of kidney (principal); G82.20 Paraplegia, unspecified; I25.10 Atherosclerotic heart disease of native coronary artery without angina pectoris; I25.2 Old myocardial infarction; Z79.2 Long term (current) use of antibiotics; Z79.899 Other long term (current) drug therapy
CPT/HCPCS: 52356; 74420; 82365; 88300; C1758; J0696; J2001; J2405; J2704; J3010; J3370; J7050; Q9961

== ENCOUNTER 2018-09-12 10:04 | Inpatient (IN) | payer MEDICARE, MEDICAID ==
[2018-09-12 11:01] LABS: #Eosinphils 0.1 thou/uL (0.0-0.7); #Lymphocytes 1.5 thou/uL (1.20-3.40); #Monocytes 0.4 thou/uL (0.11-0.59); #Neutrophils 6.5 thou/uL (1.40-6.50); %Basophils 0.1 % (0.0-1.0); %Eosinophils 0.9 % (0.0-10.0); %Lymphocytes 17.6 % (21.0-51.0); %Monocytes 4.9 % (0.0-10.0); %Neutrophils 76.5 % (42.0-75.0); Hemoglobin 14.4 g/dL (12.0-16.0); Mean Corpuscular HGB CONC 32.2 g/dL (32.0-36.0); Mean Corpuscular Hemoglobin 31.3 pg (27.0-31.0); Mean Platelet Volume 7.7 fL (7.4-10.4); Platelet Count 352 thou/uL (130-400); RBC Distribution Width 13.3 % (11.5-14.5); White Blood Cell (WBC) Count 8.6 thou/uL (4.8-10.8)
[2018-09-12 11:15] LABS: ALT (SGPT) 14 U/L (8-55); AST (SGOT) 14 U/L (5-34); Alkaline Phosphatase 109 U/L (40-150); Anion Gap 16 mmol/L (10-20); BUN (Urea Nitrogen) 13 mg/dL (9.8-20.1); Bilirubin, Total 0.7 mg/dL (0.2-1.2); Calc. Creatinine Clearance 0 mL/min (70-130); Calcium 9.3 mg/dL (7.8-10.44); Carbon Dioxide 23 mmol/L (23-31); Chloride 105 mmol/L (98-107); Estimated GFR-MDRD 73; Globulin 3.7 g/dL (2.4-3.5); Glucose 180 mg/dL (83-110); Potassium 3.4 mmol/L (3.5-5.1); Protein, Total 7.7 g/dL (6.0-8.3); Sodium 141 mmol/L (136-145)
--- NOTE | 2018-09-12 11:39 | RAD ---
PORTABLE CHEST: Comparison: 02-17-16 History: Fever. FINDINGS: Heart size within normal limits. There are arthrosclerotic changes of the aorta. Lungs show chronic a ppearing change. Some linear scarring in the left base. IMPRESSION: Chronic lung change. No active intrathoracic disease. POS: [facility]
[2018-09-12 13:02] LABS: Bilirubin Moderate (Negative); Blood, Urine Large (Negative); Clarity TURBID (Clear); Glucose, Urine (Dipstick) Negative (Negative); Leukocyte Large (Negative); Nitrite Positive (Negative); Protein, Urine (Dipstick) 100 mg/dL (Neg-Trace); Specific Gravity, Urine 1.023 (1.002-1.036); pH, Urine 5.5 (5.0-9.0)
[2018-09-12 13:14] LABS: Pathc Cast-AUWi Flag 78.97 (0-2.49); Yeast-AUWi Flag 986.7 (0-25.0)
[2018-09-12 13:18] LABS: Bacteria/HPF 2+ HPF (None Seen); Crystals/HPF RARE CA OXALATE HPF (Negative); Hyaline Casts/LPF NONE SEEN LPF (0-3 Hyaline); Manual Microscopic Reviewed? No Path Casts Seen; Renal Epithelial None Seen HPF (0-3); Transitional Epithelial NONE SEEN HPF (0-3); Yeast-All Forms 2+ HPF (None Seen)
[2018-09-12] MEDS ORDERED: Ondansetron PF 4 MG/2 ML Vial ONE (13:42)
[2018-09-12] MEDS ORDERED: cefTRIAXone\\ROCEPHIN 2 GM VIAL ONE (13:42)
[2018-09-12 15:01] LABS: Lactic Acid 1.5 mmol/L (0.5-2.2)
[2018-09-12 15:10] LABS: Troponin I 0.016 ng/mL (< 0.028)
--- NOTE | 2018-09-12 15:54 | RAD ---
TWO VIEW ABDOMEN: HISTORY: Weakness. The patient is not eating. FINDINGS: Supine and left decubitus views of the abdomen obtained. Images demonstrate an inferior vena caval filter in place. A right ureteral stent is in place. A large amount of stool is seen throughout the colon and in the rectum compatible with severe constip ation. No evidence of bowel obstruction is seen. IMPRESSION: A large amount of stool in the colon. Could this be the cause of the patient's not eating? POS: [facility]
[2018-09-12] MEDS ORDERED: Ondansetron ODT 4 MG TAB PO PRN (17:31)
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
[2018-09-12] MEDS: Lactated Ringer's 1,000 ML IV SCH (19:00)
[2018-09-12] MEDS ORDERED: GoLYTELY 4,000 ml Bottle PO SCH (20:00)
[2018-09-12] MEDS ORDERED: Potassium Chloride 20 MEQ TAB PO SCH (20:30)
[2018-09-12] MEDS: Docusate 100 MG CAP PO SCH (22:05)
[2018-09-12] MEDS: Cefepime 1 GM in Sodium Chloride 0.9% 100 ML IVPB SCH (22:07)
--- NOTE | 2018-09-12 22:08 | CT ---
CT ABDOMEN AND PELVIS 09/12/18 COMPARISON: 08/17/18 HISTORY: Ureteral stent dislodged, weakness. TECHNIQUE: Axial CT imaging at 5 mm intervals from lung bases through pubic symphysis without contrast. Coronal reformatted imaging obtained. FINDINGS: The imaged lung bases appear unremarkable. The lack of contrast limits assessment of the viscera, bow el, vascular structures and for lymphadenopathy. Minimal hazy density in the right lower lobe posteri gian on image 5 and the lateral aspect of the lingula and left lower lobe on image 4 suggests volume loss. Limited assessment of the liver appears unremarkable. Foci of calcification within the region of the gallbladder fundus and medial aspect of the gallbladder suggests cholelithiasis which could be better assessed via followup ultrasound. The spleen, pancreas, and adrenal glands demonstrate no acute find ings. There is no evidence for nephrolithiasis or obstructive uropathy on the left. There are numerous stones within the right kidney including multiple up per mid and lower pole stones . Stone disease measures up to 1.2 cm transverse dimension in right upper pole, up to 1.7 cm transver se dimension in right mid pole and up to 8-9 mm transverse dimension right lower pole. The degree of stone burden has decreased since the 08/17/18 study on the right. There is gas within the renal colle cting system anteriorly on the right and within the proximal right ureter. The proximal right ureter is distended. The double-J ureteral stent present on the prior examination within the right kidney alicea s been dislodged distally. The proximal aspect of the stent now lies within the mid right ureter at t he axial level of the L5-S1 intervertebral disc space. The distal aspect of the stent extends outside the urinary bladder through the urethra and is likely visible. The rectum is markedly distended and filled with stool, a stable finding, evidence of fecal impaction . The stool filled and expanded rectum measures 10.4 x 12.6 cm. There is scattered diverticulosis without evidence for diverticulitis, primarily involving the descen ding colon and sigmoid colon. There is an IVC filter in place. Review of the osseous structures demonstrates diffuse osteopenia. There is significant multilevel deg enerative change noted throughout the imaged spine with multifocal disc space narrowing, degenerative end plate changes and osteophyte formation. IMPRESSION: 1. There are numerous stones within the right kidney, the stone burden decreased when compared t o the prior exam. There is gas within a proximal dilated right ureter and within the right renal jeanette ecting system consistent with recent instrumentation. The double-J ureteral stent on the right has be en significantly distally dislodged as detailed above. 2. Evidence of fecal impaction. POS: [facility]
[2018-09-13 00:07] VITALS: BMI 30.7
[2018-09-13 05:51] LABS: Anion Gap 12 mmol/L (10-20); BUN (Urea Nitrogen) 10 mg/dL (9.8-20.1); Calc. Creatinine Clearance 112 mL/min (70-130); Calcium 8.3 mg/dL (7.8-10.44); Carbon Dioxide 26 mmol/L (23-31); Chloride 108 mmol/L (98-107); Estimated GFR-MDRD Greater than 90; Glucose 107 mg/dL (83-110); Potassium 3.5 mmol/L (3.5-5.1); Sodium 142 mmol/L (136-145)
[2018-09-13 05:59] LABS: #Eosinphils 0.1 thou/uL (0.0-0.7); #Lymphocytes 1.3 thou/uL (1.20-3.40); #Monocytes 0.8 thou/uL (0.11-0.59); #Neutrophils 7.3 thou/uL (1.40-6.50); %Basophils 0.2 % (0.0-1.0); %Eosinophils 1.1 % (0.0-10.0); %Lymphocytes 13.6 % (21.0-51.0); %Monocytes 7.9 % (0.0-10.0); %Neutrophils 77.2 % (42.0-75.0); Hemoglobin 12.5 g/dL (12.0-16.0); Mean Corpuscular HGB CONC 32.6 g/dL (32.0-36.0); Mean Corpuscular Hemoglobin 30.8 pg (27.0-31.0); Mean Corpuscular Volume 94.4 fL (78.0-98.0); Mean Platelet Volume 7.9 fL (7.4-10.4); Platelet Count 212 thou/uL (130-400); RBC Distribution Width 13.1 % (11.5-14.5); Red Blood Cell (RBC) Count 4.05 mill/uL (4.20-5.40); White Blood Cell (WBC) Count 9.5 thou/uL (4.8-10.8)
--- NOTE | 2018-09-13 06:21 | PDOC.FM ---
- Subjective Subjective: NAEO as reported by nursing staff. Had multiple small BM's overnight and one very large BM this am. Pt is resting comfortably and reports no complaints. Denies abd pain, dysuria, n/v. - Objective MAR Reviewed: Yes Vital Signs & Weight: Vital Signs (12 hours) Temp Pulse Resp BP Pulse Ox 09/13/18 03:06 97.3 F L 61 20 131/61 93 L 09/12/18 23:51 97.5 F L 67 19 142/66 H 94 L 09/12/18 20:25 98.1 F 77 18 154/67 H 94 L Weight Weight 86.409 kg Result Diagrams: 09/13/18 05:07 09/13/18 05:07 Phys Exam - Physical Examination Constitutional: NAD HEENT: moist MMs Respiratory: no wheezing, no rales, clear to auscultation bilateral Cardiovascular: RRR, no significant murmur Gastrointestinal: soft, non-tender, no distention, positive bowel sounds Musculoskeletal: no edema RUE and RLE paralysis, no other weakness noted Deviation from normal: AOx1 (baseline) Skin: no rash Dx/Plan (1) Fecal impaction Code(s): K56.41 - FECAL IMPACTION Status: Acute (2) UTI (urinary tract infection) Status: Acute Qualifiers: (3) Dyslipidemia Code(s): E78.5 - HYPERLIPIDEMIA, UNSPECIFIED Status: Chronic (4) H/O traumatic brain injury Code(s): Z87.820 - PERSONAL HISTORY OF TRAUMATIC BRAIN INJURY Status: Chronic (5) HTN (hypertension) Code(s): I10 - ESSENTIAL (PRIMARY) HYPERTENSION Status: Chronic Qualifiers: (6) Obesity (BMI 30.0-34.9) Code(s): E66.9 - OBESITY, UNSPECIFIED Status: Chronic (7) Chronic constipation Code(s): K59.09 - OTHER CONSTIPATION Status: Chronic (8) History of CA (myocardial infarction) Code(s): I25.2 - OLD MYOCARDIAL INFARCTION Status: Acute - Plan Plan: Ureteral Stent Dislodgement with Renal Calculi Likely happened in ED after repositioning and cleaning. Seen on CTabd/pelvis. Still with multiple calculi in renal pelvis. - Discussed with Dr. Wang who recommended removal of stent and Cefepime 1g. Plans to follow with pt tomorrow. - Monitor for worsening s/sx. Asymptomatic Bacteruria vs UTI UA with nitrites and bacteria. No elevation in WBC or LA. Pt asymptomatic but also poor historian. - Urine cx pending, prelim shows yeast species - s/p Rocephin x1 in ED, will start cefepime per Uro recs Fecal Impaction, resolved Pt with decreased PO intake and abd pain on exam. Failed home miralax. Shown on KUB and CT - s/p golytely and colace - cont IVF until we are sure she is tolerating PO - discuss chronic bowel regimen with dtr to prevent future recurrence Mild Dehydration, resolved Initially with tachycardia and 2 days of decreased PO intake. - s/p 500ml bolus in ED, tachycardia now resolved - cont maitenance fluids LR at 120ml/hr until tolerating PO. Chronic Constipation Discuss bowel regimen going home with dtr. - likely need daily regimen of colace and metamucil with prn miralax Hypokalemia, resolved GERD - continue home meds TBI with resultant Dementia and RUE, RLE Weakness - At baseline per dtr HLD - continue home meds DVT Ppx: Lovenox, IVC filter in place GI Ppx: none Code status: Full per MPOA Dispo: DC pending urology recs. Addendum - Attending - Attending Attestation Date/Time: 09/21/18 1502 I personally evaluated the patient and discussed the management with Dr. Kyle on 09/13/18. I agree with the History, Examination, Assessment and Plan documented above with any addition or exceptions noted below. +BM's today and feeling better. D/C on bowel maintenance regime. Plan regarding nephrolithiasis and stent per Urology, Dr. Sloan's rec's appreciated and pt. to be d/c'd with f/u with him.
[2018-09-13] MEDS ORDERED: Enoxaparin Sodium 40 MG/0.4 ML SYRINGE SC SCH (09:00)
[2018-09-13] MEDS: Docusate 100 MG CAP PO SCH (09:23)
[2018-09-13] MEDS: Lactated Ringer's 1,000 ML IV SCH ×2 (09:23→12:44)
[2018-09-13] MEDS: Cefepime 1 GM in Sodium Chloride 0.9% 100 ML IVPB SCH (10:26)
[2018-09-13] MEDS ORDERED: Fluconazole 100 MG TAB PO SCH ×2 (14:00→14:45)
[2018-09-13 15:01] VITALS: BP 141/60; TEMP 97.9
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
[2018-09-13] MEDS ORDERED: Pravastatin Sodium 20 MG TAB PO SCH (21:00)
--- NOTE | 2018-09-14 05:52 | DIS ---
DATE OF ADMISSION: 09/12/2018 Admitting Attending: Dr. Armando Mackey Resident: Jocelyn Kyle DATE OF DISCHARGE: 09/13/2018 Discharge Attending: Dr. Contreras Sandoval IMAGIN. Chest x-ray on 09/12 shows chronic lung changes, no active intrathoracic disease. 2. Abdominal x-ray on 09/12, which shows large amount of stool in the colon. 3. Abdomen and pelvis CT scan on 09/12 showed fecal impaction, right upper mid and lower pole of the left kidney with stones measuring up to 1.7 cm, and a dislodged ureteral stent. PROCEDURES: None current. CONSULTATIONS: Dr. Wang, Urology. PRIMARY DIAGNOSES: 1. Fecal impaction, resolved. 2. Mild dehydration. 3. Dislodged ureteral stent. 4. Chronic renal calculi of the right kidney. 5. Urinary tract infection. SECONDARY DIAGNOSES: 1. Hypertension. 2. History of traumatic brain injury with residual weakness. 3. Dementia. 4. Gastroesophageal reflux disease. DISCHARGE MEDICATIONS: 1. Ferrous sulfate 325 mg p.o. at bedtime. 2. Sertraline 50 mg p.o. at bedtime. 3. Protonix 40 mg p.o. at bedtime. 4. Lactobacillus probiotic 1 capsule at bedtime. 5. MiraLaX 17 g p.o. daily. 6. Vitamin D3 1000 units p.o. daily. 7. Diflucan 100 mg x2 doses by 3 days. DISCONTINUED MEDICATION: Macrobid. HISTORY OF PRESENT ILLNESS/HOSPITAL COURSE: The patient is a 77-year-old female with baseline dementia and recent renal calculi status post lithotripsy and calculi retrieval on 09/[address] Wang who presented to the ED for generalized weakness and decreased p.o. intake. She also reported no bowel movement x7 days. She has a history of chronic constipation what seems to be the awaiting diagnosis. The patient with evidence of fecal impaction on CT and KUB. During the course of her evaluation, it did appear that the right ureteral stent looking dislodged confirmed on CT. Dr. Wang was called and recommended removal of the stent entirely with the CT exam to evaluate stone burden. Stone burden appeared improved from prior exam. She was given cefepime x1 IV for coverage and urine cx and UA was collected. Urine was dirty with leukocyte esterase, positive nitrites and 2+ bacteria and urine culture growing yeast species. Dr. Wang recommended discontinuing of IV antibiotics with p.o. diflucan and followup in the clinic in 1 day. The patient had a large bowel movement after having GoLYTELY and pain resolved. The patient was tolerating p.o. on the day of discharge. No signs or symptoms of sepsis were noted or even infection, with normal white count, lactic acid and vital signs. DISCHARGE DISPOSITION: Stable. DISCHARGE INSTRUCTION: Location: Home. Diet: Regular. Activity: As tolerated. Followup: With Felipe in [address] White in 1 week. Job ID: [id number] MTDD
--- NOTE | 2018-09-16 20:46 | EKG ---
Test Reason : Blood Pressure : / mmHG Vent. Rate : 120 BPM Atrial Rate : 120 BPM P-R Int : 156 ms QRS Dur : 090 ms QT Int : 328 ms P-R-T Axes : 009 -45 106 degrees QTc Int : 463 ms Sinus tachycardia with frequent Premature ventricular complexes Left anterior fascicular block Left ventricular hypertrophy with repolarization abnormality Abnormal ECG Confirmed by RENEE LAZO D.O. ([id number]), offline editor ARJUN BRISCOE ([id number]) on 09/16/2018 8:45:41 PM Referred By: Confirmed By:RENEE LAZO D.O.
== END 2018-09-13 16:45 | disposition home or self-care (01) | DRG 758 ==
LOC: ERS 10:04 → ERHOLD 14:48 → OBSVTOIN 14:48 → 2NO 20:14
PROVIDERS: ADMIT Family Medicine; ATTEND Family Medicine
PROC: 0TP97DZ Removal of Intraluminal Device from Ureter, Via Natural or Artificial Opening (ICD-10-PCS; principal; 2018-09-12)
DX: B37.49 Other urogenital candidiasis (principal); T83.123A Displacement of other urinary stents, initial encounter; K56.41 Fecal impaction; E86.0 Dehydration; Y83.8 Other surgical procedures as the cause of abnormal reaction of the patient, or of later complication, without mention of misadventure at the time of the procedure; N20.0 Calculus of kidney; F03.90 Unspecified dementia, unspecified severity, without behavioral disturbance, psychotic disturbance, mood disturbance, and anxiety; K21.9 Gastro-esophageal reflux disease without esophagitis; E66.9 Obesity, unspecified; Z68.30 Body mass index [BMI] 30.0-30.9, adult; I10 Essential (primary) hypertension; E87.6 Hypokalemia; E78.5 Hyperlipidemia, unspecified; K59.09 Other constipation; Z98.890 Other specified postprocedural states; I25.2 Old myocardial infarction; Z79.899 Other long term (current) drug therapy; Z87.820 Personal history of traumatic brain injury; Z74.01 Bed confinement status; Z84.1 Family history of disorders of kidney and ureter
CPT/HCPCS: 36415; 51701; 71045; 74019; 74176; 80048; 80053; 81003; 81015; 83605; 84484; 85025; 87040; 87086; 87804; 93005; 96365; 96366; 96375; A4353; J0692; J0696; J1650; J2405; J7050

== ENCOUNTER 2018-11-30 08:06 | Inpatient (IN) | payer MEDICARE, MEDICAID ==
[2018-11-30] MEDS ORDERED: Acetaminophen 325 MG Suppository ONE (08:17)
[2018-11-30] MEDS ORDERED: Acetaminophen 650 MG Suppository ONE (08:17)
[2018-11-30] MEDS ORDERED: Piperacillin/Tazobactam 3.375 GM VIAL ONE (08:32)
[2018-11-30 08:40] LABS: Bilirubin Negative (Negative); Blood, Urine Large (Negative); Clarity TURBID (Clear); Glucose, Urine (Dipstick) Negative (Negative); Leukocyte Large (Negative); Nitrite Positive (Negative); Protein, Urine (Dipstick) 30 mg/dL (Neg-Trace); Specific Gravity, Urine 1.021 (1.002-1.036); pH, Urine 5.5 (5.0-9.0)
[2018-11-30 08:42] LABS: Bacteria/HPF 3+ HPF (None Seen)
[2018-11-30 08:57] LABS: Pathc Cast-AUWi Flag 8.25 (0-2.49); Yeast-AUWi Flag 65.9 (0-25.0)
[2018-11-30 08:58] LABS: Hyaline Casts/LPF 0-3 HYALINE CAST LPF (0-3 Hyaline); Manual Microscopic Reviewed? No Path Casts Seen; Yeast-All Forms None Seen HPF (None Seen)
--- NOTE | 2018-11-30 09:05 | RAD ---
XR Chest 1 View Portable History: [Fever. Tachypnea.] Comparison: Radiograph September 12, 2018 Findings: There is a right perihilar airspace opacity. The lungs are hypoinflated. No pneumothorax or large effusion. Remote right-sided fractures. Catheter projects over the left shoulder. Impression: Right perihilar airspace opacity concerning for infection. Follow-up after treatment rosemary mmended.
[2018-11-30 09:09] LABS: Hemoglobin 13.3 g/dL (12.0-16.0); Mean Corpuscular HGB CONC 32.5 g/dL (32.0-36.0); Mean Corpuscular Volume 95.4 fL (78.0-98.0); Mean Platelet Volume 7.6 fL (7.4-10.4); Platelet Count 229 thou/uL (130-400); RBC Distribution Width 12.9 % (11.5-14.5); White Blood Cell (WBC) Count 16.4 thou/uL (4.8-10.8)
[2018-11-30 09:23] LABS: ALT (SGPT) 20 U/L (8-55); AST (SGOT) 28 U/L (5-34); Albumin 2.9 g/dL (3.4-4.8); Alkaline Phosphatase 94 U/L (40-150); Anion Gap 18 mmol/L (10-20); BUN (Urea Nitrogen) 20 mg/dL (9.8-20.1); Bilirubin, Total 0.6 mg/dL (0.2-1.2); Calc. Creatinine Clearance 0 mL/min (70-130); Calcium 7.9 mg/dL (7.8-10.44); Carbon Dioxide 16 mmol/L (23-31); Chloride 112 mmol/L (98-107); Estimated GFR-MDRD 59; Glucose 154 mg/dL (83-110); Protein, Total 5.9 g/dL (6.0-8.3); Sodium 143 mmol/L (136-145)
[2018-11-30 09:27] LABS: Potassium 2.9 mmol/L (3.5-5.1)
[2018-11-30 09:37] LABS: Band 37 % (5-11); Lymphocytes 2 % (21-51); MDiff Complete? YES; Metamyelocyte 2 % (0-0); Monocytes 1 % (0-10); Neutrophil 58 % (42-75); Platelet Morphology Comment Appears Adequate; Polychromasia SLIGHT = 2-3 cells (100X) (0-2/hpf); Reflex for Review?? NO; Toxic Granulation SLIGHT; Vacuoles MODERATE
[2018-11-30] MEDS ORDERED: NS 0.9% w/ 40 MEQ KCL 1,000 ML IV SCH (10:15)
--- NOTE | 2018-11-30 10:43 | CT ---
CT Abdomen Pelvis W Con: 11/30/2018 9:43 AM CLINICAL INFORMATION: Sepsis and diffuse abdominal pain COMPARISON: 06/27/2018 Procedure: Multiple contiguous axial images were obtained and a CT of the abdomen and pelvis with IV contrast. C oronal reformats were performed. FINDINGS: Lower Chest: within normal limits. Abdomen: Liver: There are hypodensities in the liver which are stable and likely represent cysts. Bile Ducts: Normal caliber. Gallbladder: Calcified gallstones are seen in the gallbladder without gallbladder wall thickening Pancreas: within normal limits. Spleen: within normal limits. Adrenals: within normal limits. Kidneys: There is moderate right hydronephrosis. Multiple calcifications are seen within the calyces of the right kidney. There is enlargement of the right ureter. In the proximal right ureter there is a 9 mm calcification. In the distal right ureter, there is a 6 mm calcification. There is a slight de lay in the right nephrogram. No calcifications are seen in the left kidney and there is no left hydro nephrosis. Pelvis: Reproductive Organs: Surgically removed Bladder: within normal limits. Peritoneum: No ascites or free air, no fluid collection. Bowel: Scattered diverticula are seen in the colon. There is apparent thickening of the wall the rubalcava sverse colon likely secondary to its decompressed state. A large amount of stool is seen in the recta l vault. Mesentery and Retroperitoneum: No enlarged mesenteric or retroperitoneal lymph nodes. Vessels: An inferior vena cava filter is seen. Aorta is normal in caliber and demonstrates atheroscle rotic calcifications. Abdominal Wall: within normal limits. Bones: Degenerative changes are seen in the spine. IMPRESSION: 1. Right ureteral calcifications with moderate right hydronephrosis 2. Other additional right renal calcifications 3. Hepatic cysts 4. Cholelithiasis 5. Diverticulosis
[2018-11-30] MEDS ORDERED: Iothalamate Meglumine 60% 50 ML VIAL FS ONE (11:57)
[2018-11-30 11:58] LABS: Base Excess-Venous -10.7 mmol/L (-2.0 to 3.0); Bicarbonate (HCO3v) 18.2 mmol/L (22.0-28.0); CO2 Tension (PvCO2) 50.7 mmHg (40.0-50.0); Calcium, Ionized 1.15 mmol/L (See Comments:); Chloride 111 mmol/L (98-107); Hemoglobin - Calc 14.7 g/dL (12.0-16.0); O2 Tension (PvO2) 30.9 mmHg (35.0-45.0); Potassium 3.1 mmol/L (3.5-5.1); Sodium 145 mmol/L (138-145); T. Carbon Dioxide 19.7 mmol/L (22.0-28.0); pH (Venous) 7.162 (7.320-7.430); vO2 Saturation-calc 43.4 % (60.0-85.0)
[2018-11-30] MEDS ORDERED: Fentanyl 100 MCG/2 ML VIAL ONE (12:41)
[2018-11-30] MEDS ORDERED: Norepinephrine 8 MG/0.9% NS 250 ML ONE (13:22)
[2018-11-30] MEDS ORDERED: Albumin 5% 500 ML ONE (13:26)
[2018-11-30] MEDS ORDERED: ISOVUE-370 76%-LOCM 1 ML ONE (13:55)
--- NOTE | 2018-11-30 13:57 | RAD ---
XR IVP Retrograde History: [Right stent placement.] Comparison: CT abdomen and pelvis prior day Findings: There appears be a proximal mid ureteral calculus. Moderate right-sided hydronephrosis. Int erval placement of a double-J ureteral stent in good position. On the initial image there is retained contrast within the dilated right renal collecting system limiting calculus evaluation. Impression: Fluoroscopy for surgical use.
[2018-11-30 15:01] LABS: Actual Bicarbonate (HCO3a) 14.6 mEq/L (22-28); Base Excess (BEa) -12.3 mEq/L (-2.0 to +3.0); Calcium, Ionized 1.09 mmol/L (1.12-1.30); Carboxyhemoglobin (COHb) 0.6 gm% (0.0-3.0); Hemoglobin (Hb) 11.7 g/dL (12.0-16.0); O2 Tension (PaO2) 101.4 mmHg (> 70.0)
--- NOTE | 2018-11-30 15:06 | RAD ---
EXAM: Single view of the chest HISTORY: Line placement COMPARISON: 11/30/2018 at 8:49 AM FINDINGS: Single view of the chest shows a normal sized cardiomediastinal silhouette. An endotracheal tube is seen with its tip along the lower border of the clavicles. A left subclavian central venous catheter seen with its tip in the superior vena cava. No pneumothorax is seen. There is no irina dence of consolidation, mass, or pleural effusion. Degenerative changes are seen in the spine. IMPRESSION: Appropriate position of lines and tubes
[2018-11-30 15:08] LABS: Puncture Site ALINE; pH, Arterial 7.22 (7.35-7.45)
[2018-11-30] MEDS ORDERED: Sodium Chloride 0.9% 1,000 ML IV SCH (15:15)
[2018-11-30] MEDS ORDERED: Lidocaine 1% PF 5 ML VIAL ONE (15:23)
[2018-11-30] MEDS ORDERED: PHENYLEPHRINE-NS 100 MCG/ML 10 ML SYRINGE ONE (15:23)
[2018-11-30] MEDS ORDERED: ePHEDrine 50 MG/ML VIAL ONE (15:23)
[2018-11-30] MEDS ORDERED: Succinylcholine Chloride 20 MG/ML 10 ml SYRINGE FS ONE (15:23)
[2018-11-30] MEDS ORDERED: Rocuronium Bromide 10 MG/ML (10ML VIAL) ONE (15:23)
[2018-11-30] MEDS ORDERED: PROPOFOL 200 MG/20 ML VIAL ONE (15:23)
[2018-11-30] MEDS ORDERED: Ondansetron ODT 4 MG TAB PO PRN (15:27)
[2018-11-30] MEDS ORDERED: Acetaminophen 325 MG TAB PO PRN (15:27)
[2018-11-30] MEDS ORDERED: Potassium Chloride 40 MEQ in Premix Bag 1 BAG IVPB SCH (15:30)
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
[2018-11-30] MEDS ORDERED: VANCOMYCIN IVPB PRN (16:02)
[2018-11-30] MEDS: Sodium Chloride 0.45% 1,000 ML IV SCH (16:34)
[2018-11-30] MEDS: MEROPENEM 1 GM/50 ML 1 GM in Premix Bag 1 BAG IVPB SCH (16:52)
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
[2018-11-30] MEDS ORDERED: Propofol 1,000 MG/100 ML VIAL IV ONE (18:11)
[2018-11-30] MEDS ORDERED: Morphine 2 MG/ML SYRINGE SLOW IVP PRN (18:37)
[2018-11-30] MEDS ORDERED: DISCONTINUE PREVIOUS NARCOTIC PAIN MEDICATIONS AND BENZODIAZEPINES FS SCH (18:37)
[2018-11-30] MEDS ORDERED: Propofol BOLUS 1,000 MG/100 ML VIAL IV PRN (18:37)
[2018-11-30] MEDS ORDERED: Fentanyl CADD 250 ML IVPB SCH (18:37)
[2018-11-30] MEDS ORDERED: Fentanyl BOLUS 250 ML IVPB PRN (18:37)
[2018-11-30] MEDS ORDERED: MEROPENEM 1 GM/50 ML 1 GM in Premix Bag 1 BAG IVPB SCH (22:00)
[2018-11-30] MEDS ORDERED: CCU Electrolyte Replacement 1 EACH FS SCH (22:30)
[2018-11-30] MEDS ORDERED: Potassium Phosphate 15 MMOL in Sodium Chloride 0.9% 250 ML 250 ML IV PRN (22:35)
[2018-11-30] MEDS ORDERED: Magnesium Oxide 400 MG TAB PO PRN ×2 (22:35)
[2018-11-30] MEDS ORDERED: PHOS-NAK 1 PKT PACK PO PRN ×2 (22:35)
[2018-11-30] MEDS ORDERED: Potassium Phosphate 9 MMOL in Sodium Chloride 0.9% 100 ML IVPB PRN (22:35)
[2018-11-30] MEDS ORDERED: Potassium Chloride 20 MEQ TAB PO PRN (22:35)
[2018-11-30] MEDS ORDERED: Potassium Phosphate 12 MMOL in Sodium Chloride 0.9% 250 ML 250 ML IV PRN (22:35)
[2018-11-30] MEDS ORDERED: CCU ELECTROLYTE REPLACEMENT PROTOCOL FS PRN (22:35)
[2018-11-30] MEDS ORDERED: Potassium Chloride 40 MEQ in Sodium Chloride 0.9% 250 ML 250 ML IVPB PRN (22:35)
[2018-11-30] MEDS ORDERED: Magnesium 2 GM/50 ML 2 GM in Premix Bag 1 BAG IVPB PRN (22:35)
--- NOTE | 2018-11-30 22:56 | OP ---
DATE OF PROCEDURE: 11/30/2018 PREOPERATIVE DIAGNOSES: Urinary tract sepsis with obstructing right ureteral stones x2. PROCEDURE PERFORMED: Cysto, right retrograde and right ureteral stent. ANESTHETIC: General. ESTIMATED BLOOD LOSS: Minimal. FINDINGS: She had a purulent appearing urine. She had about 20 mL of pablito pus drawn from the proximal right collecting system. OPERATIVE TECHNIQUE: The patient was seen in the Day Stay area where she had been moved from the OR. ER contacted me that she appeared to be getting septic. She had a CT that showed two obstructing right ureteral stones. I reviewed the CAT scan and agreed with it. She received Zosyn and vancomycin. Dr. Sher saw her and felt because of the gravity of her illness that he would intubate her and then keep her intubated and take her to the ICU, also would put in a better line for IV fluid replacement and an art line. After obtaining a consent, she was taken to the operating suite, placed on the cystoscopic table, an art line and central line were placed and she was given a general anesthetic and then oral intubation. She was then placed in the dorsal lithotomy position, sterilely prepped and draped. Cystoscopy was performed with a 22-Latvian sheath. This was well lubricated and passed under direct vision through the female urethra into the urinary bladder with aid of a 30-degree lens, video camera and monitor. The bladder had evidence of erythema and inflammation consistent with an active infection. Urine was cloudy and was filled and emptied number of times. Right ureteral orifice was identified. We could not feed a guidewire up it probably because of an obstructing distal stone, but we were able to get an angle tip Glidewire by it and then advanced this up in the region of the renal pelvis and an open-ended catheter 5-Latvian was placed across this passed proximal to the more proximal stone and then we drained out the purulent urine, then injecting about 5 mL of contrast to a nondilated system at that point, we then replacing the guidewire, removing the open-ended catheter and then placing a 6 x 22 polaris double-J stent over the guidewire pushing up into place with aid of a pusher, so its proximal end coiled in the right renal pelvis and its distal end coiled in the bladder when the wire was removed. Dillard catheter was then inserted. She was taken out of the dorsal lithotomy position. She was moved by stretcher to ICU bed and then taken intubated and ventilated up to the intensive care unit. Job ID: [id number]
[2018-11-30] MEDS ORDERED: Vasopressin 40 UNIT, Admixture Fee 1 EACH in Sodium Chloride 0.9% 100 ML IV SCH (23:30)
[2018-12-01] MEDS: Sodium Chloride 0.45% 1,000 ML IV SCH ×5 (00:05→17:33)
[2018-12-01] MEDS: Sodium Chloride 0.9% 2,000 ML IV SCH ×2 (00:06→06:04)
[2018-12-01] MEDS: MEROPENEM 1 GM/50 ML 1 GM in Premix Bag 1 BAG IVPB SCH ×3 (00:07→17:30)
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
[2018-12-01] MEDS ORDERED: Norepinephrine 8 MG/250 ML BAG IVPB PRN (00:44)
[2018-12-01] MEDS: Propofol 1,000 MG/100 ML VIAL IV PRN ×3 (01:02→20:45)
--- NOTE | 2018-12-01 06:18 | PDOC.FM ---
- Subjective Subjective: Smita Kennedy seen at bedside this morning. She is intubated and sedated on mechanical ventilation. Settings: SIMV- FiO2 40%, RR 24, Vt 450, PEEP 5. Overnight, she became tachycardic in the 130s-140s. She required additional fluid boluses and was started on vasopressin gtt. Her HR has gone down since that time and her BPs have been adequately maintained. Magnesium is critically low this morning and we are replacing. - Objective MAR Reviewed: Yes Vital Signs & Weight: Vital Signs (12 hours) Temp Pulse Resp Pulse Ox 12/01/18 06:00 24 H 12/01/18 04:00 100.1 F H 12/01/18 02:05 125 H 12/01/18 02:00 24 H 12/01/18 00:00 99.0 F 24 H 11/30/18 22:15 161 H 11/30/18 22:00 27 H 11/30/18 20:00 98.6 F 24 H 100 11/30/18 18:38 144 H Weight Weight 91.3 kg Most Recent Monitor Data Heart Rate from ECG 122 NIBP 101/82 NIBP BP-Mean 88 Respiration from ECG 24 SpO2 100 I&O: 11/29/18 11/30/18 12/01/18 06:59 06:59 06:59 Intake Total 7158.4 Output Total 680 Balance 6478.4 Result Diagrams: 12/01/18 Unknown 12/01/18 Unknown Radiology Reviewed by me: Yes Phys Exam - Physical Examination sedation and intubated on SIMV HEENT: sclera anicteric dry MMs Neck: no JVD, supple, full ROM Respiratory: no wheezing, no rales, no rhonchi, clear to auscultation bilateral Cardiovascular: RRR, no significant murmur Gastrointestinal: soft, no distention, positive bowel sounds Musculoskeletal: no edema, pulses present Deviation from normal: sedated Skin: normal turgor, cap refill <2 seconds Dx/Plan (1) Sepsis Code(s): A41.9 - SEPSIS, UNSPECIFIED ORGANISM Status: Acute (2) Metabolic acidosis Code(s): E87.2 - ACIDOSIS Status: Acute (3) Hypokalemia Code(s): E87.6 - HYPOKALEMIA Status: Acute (4) Nephrolithiasis Status: Acute (5) Sepsis Code(s): A41.9 - SEPSIS, UNSPECIFIED ORGANISM Status: Acute (6) UTI (urinary tract infection) Status: Acute Qualifiers: (7) Chronic constipation Code(s): K59.09 - OTHER CONSTIPATION Status: Chronic (8) Dyslipidemia Code(s): E78.5 - HYPERLIPIDEMIA, UNSPECIFIED Status: Chronic (9) H/O traumatic brain injury Code(s): Z87.820 - PERSONAL HISTORY OF TRAUMATIC BRAIN INJURY Status: Chronic (10) HTN (hypertension) Code(s): I10 - ESSENTIAL (PRIMARY) HYPERTENSION Status: Chronic Qualifiers: (11) Obesity (BMI 30.0-34.9) Code(s): E66.9 - OBESITY, UNSPECIFIED Status: Chronic (12) Nausea & vomiting Code(s): R11.2 - NAUSEA WITH VOMITING, UNSPECIFIED Status: Acute Qualifiers: Vomiting type: unspecified (13) Iron deficiency anemia Code(s): D50.9 - IRON DEFICIENCY ANEMIA, UNSPECIFIED Status: Chronic (14) History of ME (myocardial infarction) Code(s): I25.2 - OLD MYOCARDIAL INFARCTION Status: Chronic - Plan Plan: Sepsis Shock 2/2 Complicated UTI: - CT evidence of obstructing stone with moderate hydronephrosis, WBC 16.4 with bandemia, Lactic acid 7.1, Vancomycin and Zosyn given in the ED, as well as 1.5 mL NS, given 700 mL LR in OR. - s/p Right ureteral stent placed on 11/30/[address] Sloan - Right radial arterial line (11/30/18) and Left external jugular CVC (11/30/18) placed - Dr. Sloan consulted, appreciate recs - Dr. Nielsen consulted for CCU management, appreciate recs - Continue meropenem for E. coli bacteremia - Continue Levophed and vasotec gtt to maintain MAP > 65 - IV Tylenol for fever - Urine cx pending, blood culture grew E. coli, sensitivities pending Acute Respiratory Acidosis with concomitant Anion Gap Metabolic Acidosis: 2/2 #1 - Initial ABG: pH 7.162, pCO2 50.7, pO2 30.9 - Intubated on SIMV, FiO2 40%, Vt 450, RR 24, PEEP 5 - Morning ABG pending - Dr. Nielsen consulted for CCU management, appreciate recs Complicated UTI: - 9 mm and 6 mm calcification in the right ureter - s/p right ureteral stent placement - Dr. Sloan consulted, appreciate recs - Continue vanc and meropenem - Urine Culture pending Hypokalemia: - K on admission was 2.9 - 40 mEq KCl given in ED - Replace and monitor Hypomagnesemia - 0.9 this morning - replacing and repeating Mg this afternoon HTN: - Hold home meds - Currently on levophed and vasopressin gtt at 5 and 6, respectively. Hx of TBI and Dementia: - Residual right sided paralysis - Baseline mental status is oriented to person and place, not time or situation - Baseline functional status is bedbound, living at home with multimedia project manager caregiver - Consult case management for discharge planning Addendum - Attending - Attending Attestation Date/Time: 12/01/18 1026 I personally evaluated the patient and discussed the management with Dr. Leija. I agree and repeated with the History, Examination, Assessment and Plan documented above with any addition or exceptions noted below. Patient I&S and unable to complete ros. Neuro: on propofol gtt, daily sedation vacations Resp: SIMV, VC, dec TV if possible, plt 18 this AM CV: tachy, regular, no murmur; MAP 80's, would d/c vaso and likely levo subsequently FEN/GI: being feeds if not already on, ppi for ppx Renal/: s/p stent, monitor UOP Heme: t-penia, anticipate 2/2 sepsis, monitor ID: cx positive, repeat sent, d/c vanc and continue tx Skin: monitor for decub 2/2 immobility Lines: must keep CVC pending HDS and improvement Social: guarded prognosis, discussed with daughter at bedside.
[2018-12-01 06:26] LABS: Anion Gap 16 mmol/L (10-20); BUN (Urea Nitrogen) 24 mg/dL (9.8-20.1); Calc. Creatinine Clearance 86 mL/min (70-130); Calcium 6.8 mg/dL (7.8-10.44); Carbon Dioxide 12 mmol/L (23-31); Chloride 117 mmol/L (98-107); Estimated GFR-MDRD 69; Glucose 109 mg/dL (83-110); Potassium 3.5 mmol/L (3.5-5.1); Sodium 141 mmol/L (136-145)
[2018-12-01 07:35] LABS: Band 37 % (5-11); Burr Cells SLIGHT = 2-5 cells (100X) (0-1/hpf); Hemoglobin 10.7 g/dL (12.0-16.0); Lymphocytes 2 % (21-51); MDiff Complete? YES; Mean Corpuscular HGB CONC 32.9 g/dL (32.0-36.0); Mean Corpuscular Hemoglobin 31.7 pg (27.0-31.0); Mean Corpuscular Volume 96.5 fL (78.0-98.0); Mean Platelet Volume 8.4 fL (7.4-10.4); Metamyelocyte 15 % (0-0); Myelocyte 2 % (0-0); Neutrophil 42 % (42-75); Platelet Count 100 thou/uL (130-400); Platelet Morphology Comment Appears Decreased; Polychromasia SLIGHT = 2-3 cells (100X) (0-2/hpf); RBC Distribution Width 13.1 % (11.5-14.5); Reactive Lymphocytes 2 % (0-10); Red Blood Cell (RBC) Count 3.38 mill/uL (4.20-5.40); Vacuoles MODERATE; White Blood Cell (WBC) Count 29.9 thou/uL (4.8-10.8)
[2018-12-01 07:42] LABS: Base Excess (BEa) -12.5 mEq/L (-2.0 to +3.0); Calcium, Ionized 0.99 mmol/L (1.12-1.30); Carboxyhemoglobin (COHb) 0.2 gm% (0.0-3.0); Hemoglobin (Hb) 11.2 g/dL (12.0-16.0); O2 Tension (PaO2) 87.7 mmHg (> 70.0); Potassium - ABG Lab 3.25 mmol/L (3.70-5.30); pH, Arterial 7.31 (7.35-7.45)
[2018-12-01 07:43] LABS: CO2 Tension 24.2 mmHg (35.0-45.0); Puncture Site ALINE
--- NOTE | 2018-12-01 07:58 | RAD ---
Exam: Chest one view: HISTORY: Respiratory insufficiency COMPARISON: 11/30/2018 FINDINGS: Life support tubes in place. Monitor leads overlie the chest. Patchy increased markings bilaterally a nd some mild bilateral vascular congestion and small bilateral pleural effusions, stable. IMPRESSION: Stable bilateral minimal pleural and parenchymal opacity changes. No significant new process.
[2018-12-01] MEDS: Potassium Chloride 40 MEQ in Premix Bag 1 BAG IVPB PRN ×2 (08:22→17:36)
[2018-12-01] MEDS: Pantoprazole 40 MG VIAL IVP SCH (08:30)
[2018-12-01] MEDS ORDERED: Enoxaparin Sodium 40 MG/0.4 ML SYRINGE SC SCH (09:00)
--- NOTE | 2018-12-01 10:02 | PRG ---
DATE OF SERVICE: 12/01/2018 SUBJECTIVE: Ms. Membreno is clinically improved. Her Levophed dosing has decreased significantly overnight with volume resuscitation. She received additional 2 L saline bolus last night. She is on propofol, so I have asked the nurse to wean her off propofol and consider using fentanyl instead. OBJECTIVE: LUNGS: Clear anteriorly. HEART: Regular rhythm. ABDOMEN: Soft. EXTREMITIES: Without edema. LABORATORY DATA: White count is 29.9, hemoglobin 10.7, platelets have dropped to 100,000. She has 37% bands on her peripheral smear still. Sodium 141, potassium 3.5, chloride 117, bicarb 12, BUN 24, and creatinine 0.81. IMPRESSION: Urinary tract sepsis. She has grown 2/2 gram-negatives out of her blood. This has been identified as Escherichia coli. Her urine is also growing gram-negative. With a low albumin, adding albumin may help wean completely off pressors. Her acid-base disorder is mixed now, some of this is secondary to sepsis. Her pH is 7.31, CO2 of 24, PO2 87, some of this hyperchloremic. We will continue to follow. Critical care time is 30 minutes. Job ID: [id number] MTDD
[2018-12-01 10:29] LABS: Lactic Acid 2.8 mmol/L (0.5-2.2)
[2018-12-01] MEDS: Albumin 25% 25 GM/100 ML BOT IVPB SCH ×2 (10:48→17:36)
--- NOTE | 2018-12-01 11:17 | PRG ---
DATE OF SERVICE: 12/01/2018 SUBJECTIVE: This patient is still intubated in the ICU one day after cysto and right stent placement done emergently for two obstructing right ureteral stones and urinary tract sepsis. Her blood cultures are showing an E coli, sensitivities are pending. Urine culture is showing gram-negative sasha. She has been on Zosyn and vancomycin. I think the vancomycin could be discontinued. She is still on blood pressure support with Levophed. It looks like her blood pressure has been improving. O2 saturations currently are good. Her pulse rate has come down some, but she is still tachycardic. Her urine output has increased, it was not very good yesterday, but it appears at least 60 mL an hour today according to the nurse, and it is looking much clearer compared to what it looked like yesterday. Her white count is up to almost 30,000, hemoglobin is 10.7, platelet count is 100. Creatinine is 0.81. She is still acidotic. PHYSICAL EXAMINATION: Her right upper quadrant is still runner to deep palpation. There is no obvious mass. She is not very responsive to her family according to her daughter who is with her. IMPRESSION: Pyelonephritis, sepsis, obstructing right ureteral stone with pyonephrosis. She is currently on antibiotic that hopefully will cover this. Sensitivity should hopefully be back tomorrow. Her stent was placed yesterday, so I feel like her urinary tract is unobstructed and hopefully with her critical care in the ICU and appropriate antibiotic, she will recover and bounce back from this. Urology will continue to follow along with her. I am away this weekend, but I will check out to the urologist on-call and let them know of her being in the hospital. Job ID: [id number]
[2018-12-01] MEDS ORDERED: Magnesium 2 GM/50 ML 2 GM in Premix Bag 1 BAG IVPB SCH (11:30)
[2018-12-01 15:40] LABS: Band 14 % (5-11); Hemoglobin 10.3 g/dL (12.0-16.0); MDiff Complete? YES; Mean Corpuscular HGB CONC 32.1 g/dL (32.0-36.0); Mean Corpuscular Volume 96.4 fL (78.0-98.0); Mean Platelet Volume 8.5 fL (7.4-10.4); Metamyelocyte 6 % (0-0); Neutrophil 80 % (42-75); Platelet Count 84 thou/uL (130-400); Platelet Morphology Comment Appears Decreased; RBC Distribution Width 13.2 % (11.5-14.5); Red Blood Cell (RBC) Count 3.32 mill/uL (4.20-5.40); White Blood Cell (WBC) Count 32.3 thou/uL (4.8-10.8)
[2018-12-01] MEDS: Lorazepam 2 MG/ML VIAL SLOW IVP PRN (15:42)
[2018-12-01 15:44] LABS: ALT (SGPT) 21 U/L (8-55); AST (SGOT) 28 U/L (5-34); Albumin 2.9 g/dL (3.4-4.8); Alkaline Phosphatase 93 U/L (40-150); Anion Gap 14 mmol/L (10-20); BUN (Urea Nitrogen) 22 mg/dL (9.8-20.1); Bilirubin, Total 0.7 mg/dL (0.2-1.2); Calc. Creatinine Clearance 92 mL/min (70-130); Calcium 7.1 mg/dL (7.8-10.44); Carbon Dioxide 14 mmol/L (23-31); Chloride 116 mmol/L (98-107); Estimated GFR-MDRD 74; Globulin 2.4 g/dL (2.4-3.5); Glucose 74 mg/dL (83-110); Magnesium 2.4 mg/dL (1.6-2.6); Potassium 3.3 mmol/L (3.5-5.1); Protein, Total 5.3 g/dL (6.0-8.3); Sodium 141 mmol/L (136-145)
[2018-12-01 17:08] LABS: Fibrinogen 374 mg/dL (253-463)
[2018-12-01 17:09] LABS: INR-International Normal Ratio 1.9; Prothrombin Time 21.9 SEC (12.0-14.7)
[2018-12-01 17:28] LABS: D-Dimer Test Greater than 20.00 *mcg/mL (0.27-0.43)
[2018-12-01 18:10] LABS: FSP-Qualitative ABNORMAL (Normal); FSP-Semiquantitative >=80 & <160 mcg/mL (Less than 5)
[2018-12-02] MEDS: Albumin 25% 25 GM/100 ML BOT IVPB SCH ×3 (00:50→11:35)
[2018-12-02] MEDS: MEROPENEM 1 GM/50 ML 1 GM in Premix Bag 1 BAG IVPB SCH ×3 (00:50→16:12)
[2018-12-02] MEDS: Lorazepam 2 MG/ML VIAL SLOW IVP PRN ×3 (01:00→09:36)
[2018-12-02] MEDS: Propofol 1,000 MG/100 ML VIAL IV PRN (04:06)
[2018-12-02] MEDS: Sodium Chloride 0.45% 1,000 ML IV SCH ×2 (04:06→16:10)
[2018-12-02 04:59] LABS: Anion Gap 14 mmol/L (10-20); BUN (Urea Nitrogen) 17 mg/dL (9.8-20.1); Calc. Creatinine Clearance 119 mL/min (70-130); Calcium 7.4 mg/dL (7.8-10.44); Carbon Dioxide 14 mmol/L (23-31); Chloride 120 mmol/L (98-107); Estimated GFR-MDRD Greater than 90; Glucose 65 mg/dL (83-110); Magnesium 2.7 mg/dL (1.6-2.6); Potassium 3.2 mmol/L (3.5-5.1); Sodium 145 mmol/L (136-145)
[2018-12-02 05:00] LABS: Lactic Acid 1.3 mmol/L (0.5-2.2)
[2018-12-02 05:03] LABS: Band 11 % (5-11); Hemoglobin 9.2 g/dL (12.0-16.0); Lymphocytes 4 % (21-51); MDiff Complete? YES; Mean Corpuscular HGB CONC 32.9 g/dL (32.0-36.0); Mean Corpuscular Hemoglobin 31.2 pg (27.0-31.0); Mean Corpuscular Volume 94.9 fL (78.0-98.0); Mean Platelet Volume 9.5 fL (7.4-10.4); Monocytes 2 % (0-10); Neutrophil 83 % (42-75); Platelet Count 68 thou/uL (130-400); Platelet Morphology Comment Appears Decreased; RBC Distribution Width 13.2 % (11.5-14.5); Red Blood Cell (RBC) Count 2.96 mill/uL (4.20-5.40)
[2018-12-02 07:47] LABS: Actual Bicarbonate (HCO3a) 14.3 mEq/L (22-28); Base Excess (BEa) -7.5 mEq/L (-2.0 to +3.0); Calcium, Ionized 1.04 mmol/L (1.12-1.30); Carboxyhemoglobin (COHb) 0.2 gm% (0.0-3.0); Hemoglobin (Hb) 9.5 g/dL (12.0-16.0); O2 Tension (PaO2) 121.2 mmHg (> 70.0); Potassium - ABG Lab 2.88 mmol/L (3.70-5.30); pH, Arterial 7.49 (7.35-7.45)
[2018-12-02 07:49] LABS: CO2 Tension 19.4 mmHg (35.0-45.0); Puncture Site ALINE
[2018-12-02] MEDS: Pantoprazole 40 MG VIAL IVP SCH (07:49)
--- NOTE | 2018-12-02 08:24 | RAD ---
CHEST 1 VIEW: Date: 12/02/18 INDICATION: History of intubation. COMPARISON: Prior exam dated 12/01/18. FINDINGS: ET tube, gastric catheter, and left subclavian central venous catheter are unchanged. Bibasilar pleur al parenchymal opacities persist. Mild cardiomegaly is stable. No pneumothorax is evident. IMPRESSION: Stable exam. POS: BH
--- NOTE | 2018-12-02 08:48 | PRG ---
DATE OF SERVICE: 12/02/2018 SUBJECTIVE: This morning, remains intubated on the vent on Diprivan. She is sedated. Chest x-ray shows a left-sided infiltrate. Opens her eyes. OBJECTIVE: VITAL SIGNS: Blood pressure is 138/70, pulse 77, respirations 24. Afebrile. I's and O's have been good. CHEST: Bilateral rhonchi. CARDIAC: Sinus tach. ABDOMEN: Soft. LABORATORY DATA: PO2 is 121, pCO2 90, pH 7.49, 24% on a rate of 30. White count of 26,000, H and H 9 and 28, platelet count is low at 68. Fibrinogen level is normal. Fibrinogen 374. Lytes are normal. IMPRESSION: Escherichia coli sepsis, respiratory failure, left-sided pneumonia, morbid obesity. She is sensitive to the present antibiotic on board, which we will continue. Meropenem. Pressors. She is not weanable. The vent is being adjusted. Start nutrition, PT. One-half hour of critical time. Job ID: [id number]
--- NOTE | 2018-12-02 08:52 | PRG ---
DATE OF SERVICE: 12/02/2018 SUBJECTIVE: The patient is currently off pressors. She is still intubated and still requiring ventilatory assistance. Per Dr. Borrego, possible extubation may be tomorrow depending on how she is doing. She is otherwise stable and has not had any further issues and is continuing to produce urine. OBJECTIVE: VITAL SIGNS: Temperature 97.9, pulse 86, respirations 12 on the ventilator, blood pressure 130/79, and saturations 100%. GENERAL: Intubated and sedated. Does not respond to verbal stimuli. HEENT: ET tube in place. CARDIOVASCULAR: Regular rate and rhythm. ABDOMEN: Soft, nontender, and nondistended. Positive bowel sounds. : Dillard catheter in place with clear yellow urine. EXTREMITIES: SCDs in place. ASSESSMENT AND PLAN: A 77-year-old white female with urosepsis secondary to a ureteral stone status post ureteral stent placement by Dr. Wang two days ago. The patient is recovering and improving with ability to come off pressors with maintenance of her blood pressure. Her mental status is still not quite back to normal and she is requiring ventilator assistance. Therefore, she will probably need to remain intubated for a while longer. Dr. Borrego is following over the weekend and will continue to offer recommendations from a ventilator assisting standpoint. From my standpoint, I would recommend continuation of antibiotics and IV fluids as needed. No definitive stone management obviously until the patient is much more stable and has had complete resolution of urinary infection in the blood and urine. We will continue to follow. Job ID: [id number]
--- NOTE | 2018-12-02 09:57 | PDOC.FM ---
- Subjective Subjective: 77 yo female day 2 s/p stent placement for urosepsis. Pt is still intubated, not requiring levophed since approx 5am today with BP stable. Propofol 10, mental status during sedation vacation this AM improving, but not fully appropriate for extubation. - Objective MAR Reviewed: Yes Vital Signs & Weight: Vital Signs (12 hours) Temp Pulse Resp BP Pulse Ox 12/02/18 07:42 77 138/70 12/02/18 07:26 24 H 100 12/02/18 07:00 97.7 F 12/02/18 06:00 24 H 12/02/18 04:00 99.1 F 24 H 12/02/18 02:28 94 12/02/18 02:00 24 H 12/02/18 00:00 98.7 F 24 H 12/01/18 22:37 94 12/01/18 22:00 24 H Weight Admit Weight 91.172 kg Weight 94.8 kg Most Recent Monitor Data Heart Rate from ECG 82 NIBP 134/82 NIBP BP-Mean 99 Respiration from ECG 0 SpO2 98 I&O: 12/01/18 12/02/18 12/03/18 06:59 06:59 06:59 Intake Total 7158.4 4003.1 30 Output Total 680 2630 115 Balance 6478.4 1373.1 -85 Result Diagrams: 12/02/18 04:00 12/02/18 04:00 Phys Exam - Physical Examination intubated Respiratory: no wheezing Cardiovascular: RRR Gastrointestinal: soft Musculoskeletal: no edema sedated for intubation Dx/Plan (1) Hypokalemia Code(s): E87.6 - HYPOKALEMIA Status: Acute (2) Metabolic acidosis Code(s): E87.2 - ACIDOSIS Status: Acute (3) Nausea & vomiting Code(s): R11.2 - NAUSEA WITH VOMITING, UNSPECIFIED Status: Acute Qualifiers: Vomiting type: unspecified (4) Nephrolithiasis Status: Acute (5) Sepsis Code(s): A41.9 - SEPSIS, UNSPECIFIED ORGANISM Status: Acute (6) UTI (urinary tract infection) Status: Acute Qualifiers: (7) H/O traumatic brain injury Code(s): Z87.820 - PERSONAL HISTORY OF TRAUMATIC BRAIN INJURY Status: Chronic (8) HTN (hypertension) Code(s): I10 - ESSENTIAL (PRIMARY) HYPERTENSION Status: Chronic Qualifiers: - Plan Plan: #septic shock 2/2 complicated UTI -s/p right stent placed by Dr. Sloan on 11/30 -right arterial line and left external jugular central line placed also on 11/30 -patient currently on meropenem -urine and blood cultures grew Ecoli sensitive to meropenem -Urology and Pulmonology recs appreciated -no longer on levophed, continue to monitor VS -propofol for sedation #Hypokalemia -mildly low today -replace and monitor daily #hypomagnesemia -mildly elevated today -continue to monitor #HTN #Hx of TBI and dementia #hyperchloremia and hypernatremia -switch to Addendum - Attending - Attending Attestation Date/Time: 12/02/18 7539 I personally evaluated the patient and discussed the management with Dr. Kim. I agree with the History, Examination, Assessment and Plan documented above with any addition or exceptions noted below. Septic shock from Ecoli bacteremia from complicated UTI and obstructing right nephrolithiasis- continue IVF, IV meropenem. Metabolic acidosis- lactate normalized. Continue vent management per pulmonology. Thrombocytopenia- presumed from septic shock. Hold lovenox and trend daily. No active bleeding at this time.
[2018-12-03] MEDS: MEROPENEM 1 GM/50 ML 1 GM in Premix Bag 1 BAG IVPB SCH ×3 (00:08→16:51)
[2018-12-03] MEDS: Sodium Chloride 0.45% 1,000 ML IV SCH ×3 (04:15→21:45)
[2018-12-03 06:49] LABS: Anion Gap 10 mmol/L (10-20); BUN (Urea Nitrogen) 13 mg/dL (9.8-20.1); Calc. Creatinine Clearance 124 mL/min (70-130); Calcium 7.5 mg/dL (7.8-10.44); Carbon Dioxide 18 mmol/L (23-31); Chloride 120 mmol/L (98-107); Estimated GFR-MDRD Greater than 90; Glucose 94 mg/dL (83-110); Potassium 3.4 mmol/L (3.5-5.1); Sodium 145 mmol/L (136-145)
--- NOTE | 2018-12-03 07:03 | PDOC.FM ---
- Subjective Subjective: Patient stable overnight. Still intubated, but not requiring levophed for MAP stabilization. Settings: SIMV- FiO2 25%, RR 14, Vt 450, PEEP 5. - Objective MAR Reviewed: Yes Vital Signs & Weight: Vital Signs (12 hours) Temp Pulse Resp Pulse Ox 12/03/18 04:00 98.2 F 16 12/03/18 02:57 71 12/03/18 02:00 15 12/03/18 00:00 99.7 F H 24 H 12/02/18 23:55 80 12/02/18 22:00 20 12/02/18 20:00 99.3 F 21 H 98 12/02/18 19:04 83 Weight Admit Weight 91.172 kg Weight 93.8 kg Most Recent Monitor Data Heart Rate from ECG 72 NIBP 147/83 NIBP BP-Mean 104 Respiration from ECG 18 SpO2 100 I&O: 12/02/18 12/03/18 12/04/18 06:59 06:59 06:59 Intake Total 4003.1 3257.2 Output Total 2630 1535 Balance 1373.1 1722.2 Result Diagrams: 12/03/18 06:00 12/03/18 06:00 Phys Exam - Physical Examination intubated Neck: no JVD Respiratory: no wheezing, clear to auscultation bilateral Cardiovascular: RRR, no significant murmur Gastrointestinal: soft Musculoskeletal: pulses present Skin: cap refill <2 seconds Dx/Plan (1) Hypokalemia Code(s): E87.6 - HYPOKALEMIA Status: Acute (2) Metabolic acidosis Code(s): E87.2 - ACIDOSIS Status: Acute (3) Nausea & vomiting Code(s): R11.2 - NAUSEA WITH VOMITING, UNSPECIFIED Status: Acute Qualifiers: Vomiting type: unspecified (4) Nephrolithiasis Status: Acute (5) Sepsis Code(s): A41.9 - SEPSIS, UNSPECIFIED ORGANISM Status: Acute (6) UTI (urinary tract infection) Status: Acute Qualifiers: (7) H/O traumatic brain injury Code(s): Z87.820 - PERSONAL HISTORY OF TRAUMATIC BRAIN INJURY Status: Chronic (8) HTN (hypertension) Code(s): I10 - ESSENTIAL (PRIMARY) HYPERTENSION Status: Chronic Qualifiers: (9) Thrombocytopenia Code(s): D69.6 - THROMBOCYTOPENIA, UNSPECIFIED Status: Acute - Plan Plan: #septic shock 2/2 complicated UTI -s/p right stent placed by Dr. Sloan on 11/30 -right arterial line and left external jugular central line placed also on 11/30 -patient currently on meropenem -urine and blood cultures grew Ecoli sensitive to meropenem -Urology and Pulmonology recs appreciated -no longer on levophed, continue to monitor VS -propofol for sedation #Hypokalemia -mildly low today -replace and monitor daily #hypomagnesemia -mildly elevated today -continue to monitor #HTN #Hx of TBI and dementia #hyperchloremia -stable #thrombocytopenia -lovenox held yesterday -continue to hold today if plts continue to be low -AM CBC not resulted yet Addendum - Attending - Attending Attestation Date/Time: 12/03/18 4641 I personally evaluated the patient and discussed the management with Dr. Kim I agree with the History, Examination, Assessment and Plan documented above with any addition or exceptions noted below. septic shock secondary to ecoli bacteremia from obstructive nephrolithiasis and pyelo- off pressors for >24 hours. COntinue meropenem. Respiratory failure- wean per pulm HypoKalemia- replace Thrombocytopenia- from sepsis- mild decrease but still >50k and no active bleeding.
[2018-12-03 07:44] LABS: CO2 Tension 27.9 mmHg (35.0-45.0); Carboxyhemoglobin (COHb) 0.3 gm% (0.0-3.0); Hemoglobin (Hb) 10.2 g/dL (12.0-16.0); Potassium - ABG Lab 3.21 mmol/L (3.70-5.30); pH, Arterial 7.38 (7.35-7.45)
[2018-12-03 07:46] LABS: ALV-art Gradient 49.375 (0-20); Puncture Site ALINE
--- NOTE | 2018-12-03 08:17 | RAD ---
CHEST 1 VIEW: Date: 12/03/18 INDICATION: Intubation. COMPARISON: Prior exam dated 12/02/18. FINDINGS: There is mild cardiomegaly and pulmonary vascular congestion. The patient remains intubated with asso ciated left subclavian central venous catheter and gastric catheter. These are unchanged. No pneumoth orax is evident. IMPRESSION: Stable exam. POS: BH
[2018-12-03 08:27] LABS: Band 18 % (5-11); Hemoglobin 9.7 g/dL (12.0-16.0); Lymphocytes 7 % (21-51); MDiff Complete? YES; Mean Corpuscular HGB CONC 32.4 g/dL (32.0-36.0); Mean Corpuscular Hemoglobin 30.8 pg (27.0-31.0); Mean Corpuscular Volume 95.3 fL (78.0-98.0); Mean Platelet Volume 9.2 fL (7.4-10.4); Monocytes 1 % (0-10); Neutrophil 74 % (42-75); Platelet Count 58 thou/uL (130-400); Platelet Morphology Comment Appears Decreased; RBC Distribution Width 13.3 % (11.5-14.5); Red Blood Cell (RBC) Count 3.14 mill/uL (4.20-5.40); Toxic Granulation SLIGHT; White Blood Cell (WBC) Count 25.1 thou/uL (4.8-10.8)
--- NOTE | 2018-12-03 08:29 | PRG ---
DATE OF SERVICE: 12/03/2018 SUBJECTIVE: Smita Membreno remains intubated on the vent with Diprivan. OBJECTIVE: VITAL SIGNS: Blood pressure 155/76, pulse 68, respiratory rate 18. She is afebrile. I's and O's have been good. CHEST: Extensive rhonchi and crackles. CARDIAC: Sinus tach. ABDOMEN: Soft without masses. LABORATORY DATA: White count is not obtained today. E. coli sensitive to present antibiotic. PO2 is 94, pCO2 on a rate of 12, 25%, 450 tidal volume. ASSESSMENT: 1. Escherichia coli sepsis. 2. Respiratory failure. 3. Morbid obesity. 4. Encephalopathy. PLAN: 1. minimize sedation. Continue meropenem, neb treatments, supportive care. 2. Start weaning in the next 24 to 48 hours. Chest x-ray incidentally shows no obvious infiltrates. Job ID: [id number]
[2018-12-03] MEDS: Pantoprazole 40 MG VIAL IVP SCH (09:03)
[2018-12-03] MEDS: Sodium Chloride 0.9% (PF) 10 ML VIAL FS PRN (09:04)
[2018-12-03] MEDS: Propofol 1,000 MG/100 ML VIAL IV PRN (11:42)
[2018-12-04] MEDS: MEROPENEM 1 GM/50 ML 1 GM in Premix Bag 1 BAG IVPB SCH ×3 (00:29→16:48)
[2018-12-04] MEDS: Propofol 1,000 MG/100 ML VIAL IV PRN (04:50)
[2018-12-04 05:00] LABS: Anion Gap 8 mmol/L (10-20); BUN (Urea Nitrogen) 10 mg/dL (9.8-20.1); Calc. Creatinine Clearance 144 mL/min (70-130); Calcium 7.6 mg/dL (7.8-10.44); Carbon Dioxide 23 mmol/L (23-31); Chloride 119 mmol/L (98-107); Estimated GFR-MDRD Greater than 90; Glucose 124 mg/dL (83-110); Sodium 147 mmol/L (136-145)
[2018-12-04 05:34] LABS: Band 2 % (5-11); Eosinophils 1 % (0-10); Hemoglobin 9.9 g/dL (12.0-16.0); Lymphocytes 11 % (21-51); MDiff Complete? YES; Mean Corpuscular HGB CONC 32.6 g/dL (32.0-36.0); Mean Corpuscular Hemoglobin 31.2 pg (27.0-31.0); Mean Corpuscular Volume 95.5 fL (78.0-98.0); Mean Platelet Volume 8.7 fL (7.4-10.4); Monocytes 9 % (0-10); Neutrophil 77 % (42-75); Platelet Count 66 thou/uL (130-400); Platelet Morphology Comment Appears Decreased; RBC Distribution Width 13.3 % (11.5-14.5); Red Blood Cell (RBC) Count 3.17 mill/uL (4.20-5.40); White Blood Cell (WBC) Count 12.3 thou/uL (4.8-10.8)
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
[2018-12-04] MEDS: Potassium Chloride 40 MEQ in Premix Bag 1 BAG IVPB PRN (06:32)
[2018-12-04] MEDS: Sodium Chloride 0.45% 1,000 ML IV SCH ×2 (06:33→17:41)
[2018-12-04 07:16] LABS: Actual Bicarbonate (HCO3a) 22.3 mEq/L (22-28); Base Excess (BEa) -1.1 mEq/L (-2.0 to +3.0); CO2 Tension 32.6 mmHg (35.0-45.0); Calcium, Ionized 1.11 mmol/L (1.12-1.30); Carboxyhemoglobin (COHb) 0.7 gm% (0.0-3.0); Hemoglobin (Hb) 10.2 g/dL (12.0-16.0); Potassium - ABG Lab 3.25 mmol/L (3.70-5.30); pH, Arterial 7.45 (7.35-7.45)
[2018-12-04 07:20] LABS: Puncture Site LINE
--- NOTE | 2018-12-04 08:10 | RAD ---
PORTABLE CHEST: HISTORY: Respiratory distress. COMPARISON: Prior day's exam. FINDINGS: Endotracheal and NG tubes are in satisfactory position. Left subclavian line is unchanged. Increase d density in the base, slightly worsened as compared to the prior exam, suggesting some increasing at electasis. There could be associated effusion. IMPRESSION: Bibasilar pleural and parenchymal lung changes, slightly worsened as compared to the prior study. POS: [facility]
[2018-12-04] MEDS: Sodium Chloride 0.9% (PF) 10 ML VIAL FS PRN (08:48)
[2018-12-04] MEDS: Pantoprazole 40 MG VIAL IVP SCH (08:48)
[2018-12-04] MEDS ORDERED: Furosemide 20 MG/2 ML VIAL SLOW IVP SCH (10:00)
--- NOTE | 2018-12-04 15:18 | PRG ---
DATE OF SERVICE: 12/04/2018 SUBJECTIVE: Smita Membreno will awaken. She is very weak. Her daughter tells me that she is in bed all the time and has been from the last year. OBJECTIVE: VITAL SIGNS: She is afebrile. Heart rate 92, blood pressure 145/81, and respiratory rate . I have turned her ventilator down to 5 with pressure support 5 of PEEP and a rate of 4. LUNGS: Clear anteriorly. HEART: Regular rhythm. ABDOMEN: Soft. LABORATORY DATA: White count 12.3, hemoglobin 9.9, platelets 66,000. Sodium 147, potassium 3, chloride 119, bicarb 23, BUN 10, and creatinine 0.5. Chest x-ray shows bilateral effusions. The resident's plan to diurese her and I would agree with this. Intake and output was positive 568 today. She is volume overloaded after volume resuscitation for her sepsis. Hopefully, she will be a candidate for weaning, but the difficulty will be answering the question of whether or not she will survive with her degree of deconditioning. I have explained all this to the daughter. She does have a little bit of a hyperchloremic acidosis. Hopefully, this does not get worse with diuresis, but . I have recommended weaning her off propofol and placing her on Precedex if she needs sedation. CRITICAL CARE TIME: 30 minutes. Job ID: [id number]
--- NOTE | 2018-12-04 22:29 | EKG ---
Test Reason : STAT Blood Pressure : / mmHG Vent. Rate : 144 BPM Atrial Rate : 144 BPM P-R Int : 164 ms QRS Dur : 086 ms QT Int : 258 ms P-R-T Axes : -10 -44 113 degrees QTc Int : 399 ms Sinus tachycardia . Atrial flutter is more likely. Left axis deviation Inferior infarct , age undetermined Possible Anterior infarct , age undetermined Lateral injury pattern ACUTE [place] / STEMI Abnormal ECG When compared with ECG of 12-SEP-2018 11:40, Premature ventricular complexes are no longer Present ST elevation has replaced ST depression in Lateral leads T wave inversion more evident in Lateral leads Confirmed by Brandon BERRIOS ([id number]) on 12/04/2018 10:29:29 PM Referred By: GILBERTO Confirmed By:Brandon BERRIOS
[2018-12-05] MEDS: Sodium Chloride 0.45% 1,000 ML IV SCH ×2 (01:51→18:33)
[2018-12-05] MEDS: MEROPENEM 1 GM/50 ML 1 GM in Premix Bag 1 BAG IVPB SCH ×3 (01:53→18:33)
[2018-12-05 05:13] LABS: Anion Gap 9 mmol/L (10-20); BUN (Urea Nitrogen) 8 mg/dL (9.8-20.1); Calc. Creatinine Clearance 169 mL/min (70-130); Calcium 7.7 mg/dL (7.8-10.44); Carbon Dioxide 28 mmol/L (23-31); Chloride 113 mmol/L (98-107); Estimated GFR-MDRD Greater than 90; Glucose 122 mg/dL (83-110); Potassium 3.1 mmol/L (3.5-5.1); Sodium 147 mmol/L (136-145)
[2018-12-05 05:21] LABS: Band 5 % (5-11); Eosinophils 1 % (0-10); Hemoglobin 10.2 g/dL (12.0-16.0); Lymphocytes 25 % (21-51); MDiff Complete? YES; Mean Corpuscular HGB CONC 32.9 g/dL (32.0-36.0); Mean Corpuscular Hemoglobin 31.2 pg (27.0-31.0); Mean Corpuscular Volume 94.8 fL (78.0-98.0); Mean Platelet Volume 8.6 fL (7.4-10.4); Monocytes 14 % (0-10); Neutrophil 55 % (42-75); Platelet Count 99 thou/uL (130-400); Platelet Morphology Comment Appears Decreased; RBC Distribution Width 13.2 % (11.5-14.5); Red Blood Cell (RBC) Count 3.26 mill/uL (4.20-5.40); White Blood Cell (WBC) Count 7.1 thou/uL (4.8-10.8)
[2018-12-05] MEDS: Potassium Chloride 40 MEQ in Premix Bag 1 BAG IVPB PRN (06:18)
--- NOTE | 2018-12-05 06:22 | PDOC.FM ---
- Subjective Subjective: 77 yo female seen this AM. Patient remains intubated and sedated. Upon further questioning of family yesterday, they report that she frequently stays in bed all day long and is overall very deconditioned. She also has had frequent UTIs and nephrolithiasis requiring procedures. Per nursing staff, she has had a large amount of urine output. She wakes up and follows commands, but is currently sedated with precedex. No other history is able to be obtained. - Objective Vital Signs & Weight: Vital Signs (12 hours) Temp Pulse Resp BP Pulse Ox 12/05/18 06:00 12 12/05/18 04:00 98.2 F 17 12/05/18 02:01 79 123/89 12/05/18 02:00 13 12/05/18 00:02 83 150/81 H 12/05/18 00:00 98.4 F 13 12/04/18 22:06 81 141/84 H 12/04/18 22:00 13 12/04/18 20:00 16 100 12/04/18 18:35 16 Weight Admit Weight 91.172 kg Weight 96.797 kg Most Recent Monitor Data Heart Rate from ECG 63 NIBP 151/76 NIBP BP-Mean 101 Respiration from ECG 12 SpO2 100 I&O: 12/03/18 12/04/18 12/05/18 06:59 06:59 06:59 Intake Total 3257.2 3443.3 3631.8 Output Total 1565 2875 6480 Balance 1692.2 568.3 -2848.2 Result Diagrams: 12/05/18 04:40 12/05/18 04:40 Phys Exam - Physical Examination intubated and sedated HEENT: moist MMs et in place Respiratory: no wheezing, clear to auscultation bilateral Cardiovascular: RRR, no significant murmur Gastrointestinal: soft, non-tender, no distention, positive bowel sounds Musculoskeletal: pulses present edema improved longstanding R sided weakness Deviation from normal: intubated and sedated Skin: no rash Dx/Plan (1) Sepsis Code(s): A41.9 - SEPSIS, UNSPECIFIED ORGANISM Status: Resolved (2) Nephrolithiasis Status: Acute (3) UTI (urinary tract infection) Status: Acute Qualifiers: (4) Hypokalemia Code(s): E87.6 - HYPOKALEMIA Status: Acute (5) Thrombocytopenia Code(s): D69.6 - THROMBOCYTOPENIA, UNSPECIFIED Status: Acute (6) Hypernatremia Code(s): E87.0 - HYPEROSMOLALITY AND HYPERNATREMIA Status: Acute (7) Right sided weakness Code(s): R53.1 - WEAKNESS Status: Acute (8) HTN (hypertension) Code(s): I10 - ESSENTIAL (PRIMARY) HYPERTENSION Status: Chronic Qualifiers: - Plan Plan: #septic shock 2/2 complicated UTI from obstructing nephrolithiasis - Septic shock resolved - s/p right stent placed by Dr. Wang on 11/30 - right arterial line and left external jugular central line placed also on 11/30 - patient currently on meropenem - urine and blood cultures grew Ecoli sensitive to meropenem - Will consider de-escalating therapy in coordination with Dr. Wang. - Urology and Pulmonology recs appreciated - no longer on levophed, continue to monitor VS - precedex for sedation - Dr. Nielsen is concerned about overall weakness due to deconditioning #Fluid overload - Likely due to fluid resuscitation from sepsis - I&Os show net -2848 in last 24 hours - IV lasix as needed #Hypokalemia - 3.1 today - replace and monitor daily #Hypernatremia - Will increase free water intake - Stable from 12/04 #hyperchloremia - stable #HTN - Held home BP meds due to above - Restart when appropriate #thrombocytopenia - lovenox held yesterday - Will hold until platelets rise - 99 this AM #Right sided weakness - Per daughter present for 5 years. Sensation intact, but motor function not. Disposition: Stable, will continue current plan of care. Addendum - Attending - Attending Attestation Date/Time: 12/05/18 1420 I personally evaluated the patient and discussed the management with Dr. Solorio I agree with the History, Examination, Assessment and Plan documented above with any addition or exceptions noted below. 77 yo female with history of recurrent UTIs admitted for sepsis HD #5 Remains intubated. Will attempt to wean later today. Minimally sedated. Easily arousable. Follows commands. VS reviewed. Labs reviewed. Imaging reviewed. Agree with PE as documented. Generalized edema somewhat improved. 1. Septic shock: Resolved. Now with 3rd spacing (+10L). Cultures reviewed. Need to de-escalating antibiotics. Monitor I/Os closely. Procal pending, to help determine length of treatment. 2. Complicated UTI: Obstructing right nephrolithiasis s/p stent. Uro following. Cultures reviewed - E. coli and presumptive Enterococcus. Sensitivities reviewed. Can de-escalate antibiotics. 3. Bacteremia: Cultures reviewed. E. coli. Can de-escalate antibiotics. Would treat for total of 14 days. Trend procal to assist with treatment duration. 4. Respiratory Failure: On vent. Tolerating. Pulm managing. Will attempt wean today. 5. Electrolyte abnormalities: Continue to trend labs. Replace per protocol. Would switch IVFs to LR. Add free water per tube. 6. Thrombocytopenia: Likely related to infection and stress. No evidence of HIT. Lovenox held at present. Need to repeat DIC panel or at least PT/PTT to monitor for improvement of other coagulation elements. PLTs continue to improve. If other coagulation factors improved would restart Lovenox. Continue SCDs. 7. 3rd spacing: Decrease IVFs. PRN Lasix. Monitor I/Os closely. Up 10L from admit. Down 3L yesterday. BM x 3 yesterday with bowel meds. Continue to monitor. Dispo: Follow closely throughout the day. Continue ICU management. Ramya
[2018-12-05 07:07] LABS: Actual Bicarbonate (HCO3a) 26.1 mEq/L (22-28); Base Excess (BEa) 2.9 mEq/L (-2.0 to +3.0); CO2 Tension 34.8 mmHg (35.0-45.0); Calcium, Ionized 1.09 mmol/L (1.12-1.30); Carboxyhemoglobin (COHb) 1.3 gm% (0.0-3.0); Hemoglobin (Hb) 10.8 g/dL (12.0-16.0); pH, Arterial 7.49 (7.35-7.45)
[2018-12-05 07:20] LABS: Puncture Site RRA
[2018-12-05] MEDS ORDERED: Furosemide 40 MG/4 ML VIAL ONE (08:21)
--- NOTE | 2018-12-05 08:39 | RAD ---
SINGLE VIEW OF THE CHEST: Comparison: 12-04-18 History: Ventilated patient with respiratory failure. FINDINGS: Single view of the chest shows normal sized cardiomediastinal silhouette. The lines and tubes are unc hanged in position. There are small bilateral pleural effusions. Degenerative changes are seen in the spine. IMPRESSION: Stable exam. POS: [facility]
[2018-12-05] MEDS ORDERED: Furosemide 100 MG/10 ML VIAL SLOW IVP SCH (09:00)
[2018-12-05] MEDS: Bisacodyl 5 MG TAB PO SCH (09:43)
[2018-12-05] MEDS: Polyethylene Glycol 3350 17 GM Packet PER TUBE SCH (09:44)
[2018-12-05] MEDS: Pantoprazole 40 MG VIAL IVP SCH (09:46)
--- NOTE | 2018-12-05 15:24 | PRG ---
DATE OF SERVICE: 12/05/2018 SUBJECTIVE: Smita Membreno was evaluated. She is awake and much more alert than she was yesterday. Her minute volume was 8 L a minute. She passed a leak test. She is in no distress on 5 of pressure support, 5 of PEEP with her IMV turned off. OBJECTIVE: VITAL SIGNS: Heart rate was in the 90s. LUNGS: Clear. HEART: Regular rhythm. S1, S2 normal. ABDOMEN: Soft. EXTREMITIES: Without edema or asymmetry. LABORATORY DATA: White count 7.1, hemoglobin 10.2, platelets 99,000. Sodium 147, potassium 3.1, chloride 113, bicarb 28, BUN 8, and creatinine 0.44. Intake and output, negative 2848. She was given 60 mg of Lasix IV this morning 30 minutes prior to extubation. Her chest radiograph reviewed by me showed a left effusion and mild interstitial edema. She subsequently has been extubated and has been reasonably comfortable. Her premorbid muscle weakness and deconditioning will be a factor in recovery from this illness. She will remain in the critical care unit for now. CRITICAL CARE TIME: 30 minutes. Job ID: [id number]
--- NOTE | 2018-12-05 19:34 | RAD ---
Exam: Chest one view portable: HISTORY: Reconfirmation of central line placement position COMPARISON: 12/05/2018, 3:58 AM FINDINGS: Monitor leads and NG tube and endotracheal tube have been removed or repositioned. Poor inspiratory e ffort. Bilateral vascular congestion with minimal interstitial changes in the mid and lower lung zones possibly mild vascular congestion with costophrenic angle blunting suggesting small pleural eff usions. Left central line tip appears to be at the junction of the superior vena cava and left innominate vein. No pneumothorax. IMPRESSION: Left subclavian catheter with the tip at the level of the superior vena cava and left innominate vein . Bilateral vascular congestion and probable small pleural effusions. Continued short-term follow-up.
[2018-12-06] MEDS: Sodium Chloride 0.45% 1,000 ML IV SCH (00:56)
[2018-12-06] MEDS: MEROPENEM 1 GM/50 ML 1 GM in Premix Bag 1 BAG IVPB SCH (00:56)
[2018-12-06 05:32] LABS: Band 7 % (5-11); Eosinophils 2 % (0-10); Hemoglobin 10.3 g/dL (12.0-16.0); Lymphocytes 18 % (21-51); MDiff Complete? YES; Mean Corpuscular HGB CONC 33.3 g/dL (32.0-36.0); Mean Corpuscular Hemoglobin 31.4 pg (27.0-31.0); Mean Corpuscular Volume 94.1 fL (78.0-98.0); Mean Platelet Volume 7.7 fL (7.4-10.4); Monocytes 8 % (0-10); Myelocyte 1 % (0-0); Neutrophil 64 % (42-75); Platelet Count 168 thou/uL (130-400); RBC Distribution Width 13.1 % (11.5-14.5); Red Blood Cell (RBC) Count 3.29 mill/uL (4.20-5.40); White Blood Cell (WBC) Count 7.9 thou/uL (4.8-10.8)
[2018-12-06 05:37] LABS: Anion Gap 9 mmol/L (10-20); BUN (Urea Nitrogen) 9 mg/dL (9.8-20.1); Calc. Creatinine Clearance 142 mL/min (70-130); Calcium 7.9 mg/dL (7.8-10.44); Carbon Dioxide 32 mmol/L (23-31); Chloride 104 mmol/L (98-107); Estimated GFR-MDRD Greater than 90; Glucose 76 mg/dL (83-110); Sodium 142 mmol/L (136-145)
--- NOTE | 2018-12-06 06:08 | PDOC.FM ---
- Subjective Subjective: 77 yo female seen at bedside this AM. Patient is A&O x2 this AM. Patient was extubed yesterday morning. Patient is sitting up in a Neuro chair this AM. Patient states she feels well without any pain. She has no other complaints. Nursing staff reports that she had a good night and has not had any episodes of dyspnea or tachypnea. Patient has been aggressively diuresed yesterday with good response of urine output. No other history is able to be obtained. - Objective Vital Signs & Weight: Vital Signs (12 hours) Temp Pulse Resp Pulse Ox 12/06/18 04:00 98.5 F 12/06/18 00:00 98.2 F 12/05/18 23:10 88 20 100 12/05/18 20:00 98.6 F 99 12/05/18 18:24 96 24 H 100 Weight Admit Weight 91.172 kg Weight 88.8 kg Most Recent Monitor Data Heart Rate from ECG 87 NIBP 123/58 NIBP BP-Mean 79 Respiration from ECG 32 SpO2 95 I&O: 12/04/18 12/05/18 12/06/18 06:59 06:59 06:59 Intake Total 3443.3 3631.8 2603 Output Total 2875 6480 4050 Balance 568.3 -2848.2 -1447 Result Diagrams: 12/06/18 05:10 12/06/18 05:10 Phys Exam - Physical Examination Constitutional: NAD HEENT: moist MMs Respiratory: no wheezing, clear to auscultation bilateral Cardiovascular: RRR, no significant murmur Gastrointestinal: soft, non-tender, no distention, positive bowel sounds Supportive boots in place Neurological: normal sensation Does not move RUE or RLE Deviation from normal: A&O x 2 Skin: no rash Dx/Plan (1) Acute respiratory failure with hypoxia Code(s): J96.01 - ACUTE RESPIRATORY FAILURE WITH HYPOXIA Status: Acute (2) Sepsis Code(s): A41.9 - SEPSIS, UNSPECIFIED ORGANISM Status: Resolved (3) Nephrolithiasis Status: Acute (4) UTI (urinary tract infection) Status: Acute Qualifiers: (5) Hypokalemia Code(s): E87.6 - HYPOKALEMIA Status: Acute (6) Thrombocytopenia Code(s): D69.6 - THROMBOCYTOPENIA, UNSPECIFIED Status: Acute (7) Hypernatremia Code(s): E87.0 - HYPEROSMOLALITY AND HYPERNATREMIA Status: Acute (8) Right sided weakness Code(s): R53.1 - WEAKNESS Status: Acute (9) HTN (hypertension) Code(s): I10 - ESSENTIAL (PRIMARY) HYPERTENSION Status: Chronic Qualifiers: - Plan Plan: #Acute hypoxic respiratory failure - intubated 11/30 - Extubated 12/05 - Currently on 2L NC #septic shock 2/2 complicated UTI from obstructing nephrolithiasis - Septic shock resolved - s/p right stent placed by Dr. Wang on 11/30 - right arterial line and left external jugular central line placed also on 11/30 - patient currently on meropenem - urine and blood cultures grew Ecoli sensitive to meropenem and Ceftriaxone - Meropenem discontinued 12/06 and Ceftriaxone initiated 12/06 - Will consider de-escalating therapy in coordination with Dr. Wang. - Urology and Pulmonology recs appreciated #Fluid overload - Likely due to fluid resuscitation from sepsis - I&Os show net -1447 in last 24 hours - IV lasix as needed #Hypokalemia - 3.0 today - replace and monitor daily #Hypernatremia - resolved #hyperchloremia - improved #HTN - Held home BP meds due to above - Restart when appropriate #thrombocytopenia - 168 this AM #Right sided weakness - Per daughter present for 5 years. Sensation intact, but motor function not. - Due to patient condition, daughter is agreeable to short term placement for rehab/SNF until her mother's strength improved. Case Management consulted. Disposition: Stable, will coordinate care. Patient likely stable for transfer to medical floor. Addendum - Attending - Attending Attestation Date/Time: 12/06/18 9968 I personally evaluated the patient and discussed the management with Dr. Solorio I agree with the History, Examination, Assessment and Plan documented above with any addition or exceptions noted below. 77 yo female with history of recurrent UTIs admitted for sepsis HD #6 Patient successfully extubated on 12/05/18. No respiratory issues last night. Patient denies pain or SOB. Able to tolerated liquids. BM x [address] Sitting up in chair. VS reviewed. Labs reviewed. Imaging reviewed. Agree with PE as documented. 1. Septic shock: Resolved. Cultures reviewed. Antibiotics de-escalated. Monitor I/Os closely. Procal 1.68. Repeat in AM. Trend. 2. Complicated UTI: Obstructing right nephrolithiasis s/p stent. Uro following. Cultures reviewed - E. coli and presumptive Enterococcus. Sensitivities reviewed. Remove pinto today. 3. Bacteremia: Cultures reviewed. E. coli. Would treat for total of 14 days. Trend procal to assist with treatment duration. 4. Respiratory Failure: Resolved. Off vent 24 hours. 5. Electrolyte abnormalities: Continue to trend labs. Replace per protocol. Stop IVFs. Patient tolerating PO now. 6. Thrombocytopenia: Likely related to infection and stress. No evidence of HIT. Restart Lovenox. 7. 3rd spacing: Continue diuresis. Stop IVFs. 8. Constipation: Continue stool softner. BM x 3. Dispo: Transfer to floor. Remove pinto. Continue gentle diuresis. Ramya
[2018-12-06] MEDS: Potassium Chloride 40 MEQ in Premix Bag 1 BAG IVPB PRN (06:34)
[2018-12-06] MEDS: cefTRIAXone\\ROCEPHIN 2 GM in Sodium Chloride 0.9% 100 ML IVPB SCH (07:54)
--- NOTE | 2018-12-06 07:59 | RAD ---
EXAM: XR Chest 1 View Portable PROVIDED CLINICAL HISTORY: On ventilator. Follow-up evaluation. COMPARISON: 12/05/2018 FINDINGS: Left subclavian central venous catheter Is again noted in place with tip overlying the proximal SVC. Cardiac silhouette is magnified by projection but stable in size. Pulmonary vasculature appears to be within normal limits. Linear and patchy density is again seen at the left lung base which could be related to either atelectasis or developing pneumonia. Minimal linear and patchy densities are also seen at the right lung base. Suggestion of tiny bilateral pleural effusions. No other interval c hange. IMPRESSION: 1. Left subclavian central venous catheter noted in place with tip overlying the region of the SVC pr oximally. 2. Small bilateral pleural effusions. 3. Increased interstitial and patchy density at the left lung base which may be related to atelectasi s or developing pneumonia. Follow-up to complete resolution is recommended.
[2018-12-06] MEDS: Sodium Chloride 0.9% (PF) 10 ML VIAL FS PRN (08:16)
[2018-12-06] MEDS: Pantoprazole 40 MG VIAL IVP SCH (08:16)
[2018-12-06] MEDS: Polyethylene Glycol 3350 17 GM Packet PER TUBE SCH (09:50)
[2018-12-06] MEDS: Enoxaparin Sodium 40 MG/0.4 ML SYRINGE SC SCH (09:50)
[2018-12-06] MEDS: Bisacodyl 5 MG TAB PO SCH (09:50)
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
--- NOTE | 2018-12-06 14:42 | PRG ---
DATE OF SERVICE: 12/06/2018 SUBJECTIVE: Ms. Membreno is sitting in a chair this morning by the bedside. She is extremely weak. I asked her if she knew why she was in the hospital, she told me because she was . OBJECTIVE: VITAL SIGNS: She is afebrile, heart rate is 93, respiratory rate is 20, oximetry is 97% on room air, and blood pressure 128/80. LUNGS: Clear. HEART: Regular rhythm. ABDOMEN: Soft and nontender. LABORATORY DATA: White count 7.9, hemoglobin 10.3, and platelets 168. Sodium 142, potassium 3, chloride 104, bicarb 32, BUN 9, and creatinine 0.48. IMPRESSION: 1. Status post mechanical ventilation for clinical sepsis associated with an obstructing ureterolith, now with a stent in place. 2. Bilateral pleural effusion secondary to volume resuscitation. PLAN: 1. Her weakness is the biggest factor moving forward. 2. She remains on Rocephin, nebulizer treatments, Protonix, Zoloft, and Zocor. 3. We will continue to follow. Job ID: [id number]
[2018-12-06] MEDS: Ferrous Sulfate 325 MG TAB PO SCH (20:51)
[2018-12-06] MEDS: Simvastatin 5 MG TAB PO SCH (20:51)
[2018-12-07] MEDS: cefTRIAXone\\ROCEPHIN 2 GM in Sodium Chloride 0.9% 100 ML IVPB SCH (06:02)
--- NOTE | 2018-12-07 06:07 | PDOC.FM ---
- Subjective Subjective: Smita Membreno seen at bedside this morning. She is doing well, she has no complaints this morning and there were no acute events overnight. She denies any fever, chills, chest pain, dyspnea, n/v, abdominal pain. She has had 4 loose BMs in the last 12 hours. - Objective MAR Reviewed: Yes Vital Signs & Weight: Vital Signs (12 hours) Temp Pulse Resp BP Pulse Ox 12/07/18 04:00 98.3 F 91 18 125/76 95 12/07/18 00:39 90 16 12/07/18 00:00 99.4 F 90 18 123/75 95 12/06/18 20:00 98 F 101 H 18 123/69 95 12/06/18 18:24 99 16 92 L Weight Admit Weight 91.172 kg Weight 95.056 kg Most Recent Monitor Data Heart Rate from ECG 107 NIBP 135/87 NIBP BP-Mean 103 Respiration from ECG 36 SpO2 96 I&O: 12/05/18 12/06/18 12/07/18 06:59 06:59 06:59 Intake Total 3631.8 2603 760 Output Total 6480 4110 1410 Balance -2848.2 -1507 -650 Result Diagrams: 12/08/18 05:40 12/08/18 05:40 Phys Exam - Physical Examination Constitutional: NAD HEENT: moist MMs, sclera anicteric Neck: supple, full ROM Respiratory: no wheezing, no rales, no rhonchi, clear to auscultation bilateral Cardiovascular: RRR, no significant murmur Gastrointestinal: soft, non-tender, no distention, positive bowel sounds Musculoskeletal: no edema, pulses present 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 Psychiatric: normal affect, A&O x 3 Skin: no rash, cap refill <2 seconds Dx/Plan (1) Sepsis Code(s): A41.9 - SEPSIS, UNSPECIFIED ORGANISM Status: Acute (2) Metabolic acidosis Code(s): E87.2 - ACIDOSIS Status: Acute (3) Hypokalemia Code(s): E87.6 - HYPOKALEMIA Status: Acute (4) Nephrolithiasis Status: Acute (5) Sepsis Code(s): A41.9 - SEPSIS, UNSPECIFIED ORGANISM Status: Resolved (6) UTI (urinary tract infection) Status: Acute Qualifiers: (7) Chronic constipation Code(s): K59.09 - OTHER CONSTIPATION Status: Chronic (8) Dyslipidemia Code(s): E78.5 - HYPERLIPIDEMIA, UNSPECIFIED Status: Chronic (9) H/O traumatic brain injury Code(s): Z87.820 - PERSONAL HISTORY OF TRAUMATIC BRAIN INJURY Status: Chronic (10) HTN (hypertension) Code(s): I10 - ESSENTIAL (PRIMARY) HYPERTENSION Status: Chronic Qualifiers: (11) Obesity (BMI 30.0-34.9) Code(s): E66.9 - OBESITY, UNSPECIFIED Status: Chronic (12) Nausea & vomiting Code(s): R11.2 - NAUSEA WITH VOMITING, UNSPECIFIED Status: Acute Qualifiers: Vomiting type: unspecified (13) Iron deficiency anemia Code(s): D50.9 - IRON DEFICIENCY ANEMIA, UNSPECIFIED Status: Chronic (14) History of [place] (myocardial infarction) Code(s): I25.2 - OLD MYOCARDIAL INFARCTION Status: Chronic - Plan Plan: #Acute hypoxic respiratory failure - intubated 11/30 - Extubated 12/05 - Currently doing well from respiratory standpoint on 2L NC #septic shock 2/ complicated UTI from obstructing nephrolithiasis - Septic shock resolved - s/p right stent placed by Dr. Wang on 11/30 - right arterial line and left external jugular central line placed also on 11/30 - patient currently on ceftriaxone, on meropenem from 12/02-12/06 - urine and blood cultures grew Ecoli sensitive to meropenem and Ceftriaxone - Meropenem discontinued 12/06 and Ceftriaxone initiated 12/06 - Will consider de-escalating therapy in coordination with Dr. Wang. - Urology and Pulmonology recs appreciated - Check C Diff Assay for recent episodes of loose stools, stopped miralax - KUB ordered by Dr. Wang. #Fluid overload - Likely due to fluid resuscitation from sepsis - I&Os show net -1447 in last 24 hours - IV lasix as needed #Hypokalemia - AM repeat pending - replace and monitor daily #Hypernatremia - resolved #hyperchloremia - improved #HTN - Held home BP meds due to above - Restart when appropriate #thrombocytopenia - 168 this AM #Right sided weakness - Per daughter present for 5 years. Sensation intact, but motor function not. - Due to patient condition, daughter is agreeable to short term placement for rehab/SNF until her mother's strength improved. Case Management consulted. Addendum - Attending - Attending Attestation Date/Time: 12/07/18 9868 I personally evaluated the patient and discussed the management with Dr. Leija I agree with the History, Examination, Assessment and Plan documented above with any addition or exceptions noted below. 77 yo female with history of recurrent UTIs admitted for sepsis HD #7 Continues to do well. Gets confused about some things but overall oriented. Denies pain. Reports she slept well. VS reviewed. Labs reviewed. Imaging reviewed. Agree with PE as documented. 1. Septic shock: Resolved. Cultures reviewed. Antibiotics de-escalated. Repeat procal in AM. 2. Complicated UTI: Obstructing right nephrolithiasis s/p stent. Uro following. Cultures reviewed - E. coli and presumptive Enterococcus. Sensitivities reviewed. Dillard removed. 3. Bacteremia: Cultures reviewed. E. coli. Consider step-down oral Bactrim. Trend procal in AM. If down trending could consider 10 day treatment course ( currently day 7). 4. Respiratory Failure: Resolved. 5. Electrolyte abnormalities: Continue to trend labs. Replace per protocol. 6. Thrombocytopenia: Likely related to infection and stress. No evidence of HIT. Restart Lovenox. 7. 3rd spacing: Continue diuresis. 8. Constipation: Resolved. Dispo: Continue monitoring on medical floor. Discuss inpatient rehab vs SNIF vs family to care for at home with CM and family. Ramya
[2018-12-07 07:32] LABS: Hemoglobin 10.7 g/dL (12.0-16.0); Mean Corpuscular HGB CONC 32.8 g/dL (32.0-36.0); Mean Corpuscular Hemoglobin 30.7 pg (27.0-31.0); Mean Corpuscular Volume 93.5 fL (78.0-98.0); Mean Platelet Volume 7.7 fL (7.4-10.4); Platelet Count 242 thou/uL (130-400); RBC Distribution Width 13.1 % (11.5-14.5); White Blood Cell (WBC) Count 7.3 thou/uL (4.8-10.8)
[2018-12-07 07:34] LABS: Anion Gap 12 mmol/L (10-20); BUN (Urea Nitrogen) 8 mg/dL (9.8-20.1); Calc. Creatinine Clearance 135 mL/min (70-130); Calcium 8.3 mg/dL (7.8-10.44); Carbon Dioxide 28 mmol/L (23-31); Chloride 108 mmol/L (98-107); Estimated GFR-MDRD Greater than 90; Glucose 97 mg/dL (83-110); Sodium 145 mmol/L (136-145)
[2018-12-07] MEDS ORDERED: Potassium Chloride 20 MEQ TAB PO SCH (08:15)
[2018-12-07 08:34] LABS: Band 7 % (5-11); Eosinophils 2 % (0-10); Lymphocytes 23 % (21-51); MDiff Complete? YES; Monocytes 7 % (0-10); Myelocyte 1 % (0-0); Neutrophil 60 % (42-75); Platelet Morphology Comment Appears Adequate; Polychromasia SLIGHT = 2-3 cells (100X) (0-2/hpf)
[2018-12-07] MEDS: Bisacodyl 5 MG TAB PO SCH (09:19)
[2018-12-07] MEDS: Polyethylene Glycol 3350 17 GM Packet PER TUBE SCH (09:20)
[2018-12-07] MEDS: Enoxaparin Sodium 40 MG/0.4 ML SYRINGE SC SCH (09:25)
[2018-12-07] MEDS ORDERED: Magnesium Oxide 400 MG TAB PO SCH (09:45)
--- NOTE | 2018-12-07 11:43 | RAD ---
SINGLE VIEW ABDOMEN: Date: 12/07/18 COMPARISON: CT abdomen/pelvis dated 11/30/18 and KUB dated 09/12/18. HISTORY: Right renal calculi. FINDINGS: Single view of the abdomen shows a nonspecific, nonobstructed bowel gas pattern. A right double-J ure teral stent is seen in good position. There are multiple calcifications projecting over the lower lea e of the right kidney. There is a calcification along the distal third of the ureteral stent which ma y represent a phlebolith or a calcification in the distal right ureter adjacent to the stent. An inferior vena cava filter is seen. Degenerative changes are seen in the spine. IMPRESSION: 1. Right ureteral stent appears in good position. 2. Right renal calcifications. 3. Possible distal right ureteral calcification. POS: TPC
--- NOTE | 2018-12-07 14:29 | PRG ---
DATE OF SERVICE: 12/07/2018 SUBJECTIVE: Ms. Membreno's vital signs remained stable. Today, she is afebrile. Blood pressure is good. Room air saturations good. She is talkative, but was still somewhat confused, but I think it is probably close to her normal state. She still maintains good urine output. It is clear. Her hemoglobin is 10.7, which is stable. Platelet count is normal and white count is normal. Creatinine is 0.54, which is also stable. She is currently on Rocephin. She had a KUB x-ray done this morning because of a history of stones and stent placement. We can see only one little calcification along the course of the right ureter. She had a much larger stone little more proximal to this. She has had numerous small stones up in the kidneys themselves. The report on the KUB does not show the sizable stone that she had when the stent was placed. It is unlikely she has passed this. Yesterday, I was able to talk with her daughter and she will need to have these stones treated. I could do it as soon as this coming Tuesday, but the family requested a week from this Tuesday, which I think will be fine. I think she should go home on oral Bactrim. At any time, she is felt stable enough to go home will be transferred to rehab, if that was her alf, if that was deemed necessary. She generally is maintained in a diaper without a Dillard catheter. She still has a Dillard in. I think this could be removed at any time and she could just resume normal voiding for her. Just keeping on the Bactrim until the surgical procedure, I think it is reasonable. My office will set this up. I think Dr. Dupree is on-call this , and should there be any need for an urologist, please contact my answering service and get hold of whoever is that is on-call for me. I will recheck her Tuesday if she is still in-house. Job ID: [id number]
--- NOTE | 2018-12-07 15:33 | PRG ---
DATE OF SERVICE: 12/07/2018 SUBJECTIVE: Ms. Membreno is still encephalopathic. OBJECTIVE: VITAL SIGNS: She is afebrile. Heart rate is 90, respiratory rate is 20, oximetry is 96% on room air, and blood pressure 155/74. LUNGS: Clear. HEART: Regular rhythm. ABDOMEN: Soft and nontender. Dr. Wang recommended discharge on Bactrim. She is basically bedridden at home. Dr. Wang also recommend removing her Dillard. She appears to be medically stable. We will sign off. Job ID: [id number]
[2018-12-07] MEDS: Ferrous Sulfate 325 MG TAB PO SCH (20:38)
[2018-12-07] MEDS: Simvastatin 5 MG TAB PO SCH (20:38)
[2018-12-08] MEDS: cefTRIAXone\\ROCEPHIN 2 GM in Sodium Chloride 0.9% 100 ML IVPB SCH (06:00)
[2018-12-08 06:03] LABS: Anion Gap 10 mmol/L (10-20); BUN (Urea Nitrogen) 7 mg/dL (9.8-20.1); Calc. Creatinine Clearance 149 mL/min (70-130); Calcium 8.4 mg/dL (7.8-10.44); Carbon Dioxide 30 mmol/L (23-31); Chloride 109 mmol/L (98-107); Estimated GFR-MDRD Greater than 90; Glucose 99 mg/dL (83-110); Potassium 3.1 mmol/L (3.5-5.1); Sodium 146 mmol/L (136-145)
[2018-12-08 06:09] LABS: Band 2 % (5-11); Hypochromia SLIGHT = 6-15 cells (100X) (0-5/hpf); Lymphocytes 18 % (21-51); MDiff Complete? YES; Mean Corpuscular HGB CONC 33.1 g/dL (32.0-36.0); Mean Corpuscular Hemoglobin 31.1 pg (27.0-31.0); Mean Corpuscular Volume 94.2 fL (78.0-98.0); Mean Platelet Volume 7.3 fL (7.4-10.4); Monocytes 2 % (0-10); Neutrophil 78 % (42-75); Platelet Count 276 thou/uL (130-400); Platelet Morphology Comment Appears Adequate; RBC Distribution Width 13.3 % (11.5-14.5); Red Blood Cell (RBC) Count 3.21 mill/uL (4.20-5.40); White Blood Cell (WBC) Count 7.4 thou/uL (4.8-10.8)
--- NOTE | 2018-12-08 06:38 | PDOC.FM ---
- Subjective Subjective: Smita Membreno seen at bedside this morning. States that she is doing well, no complaints. There were no acute events overnight. She denies fever, chills, chest pain, dyspnea, n/v, abdominal pain. - Objective MAR Reviewed: Yes Vital Signs & Weight: Vital Signs (12 hours) Temp Pulse Resp BP Pulse Ox 12/08/18 06:28 86 16 96 12/07/18 23:14 95 12/07/18 19:49 98.3 F 101 H 16 149/89 H 97 12/07/18 19:11 96 12/07/18 19:09 96 Weight Admit Weight 91.172 kg Weight 95.073 kg Most Recent Monitor Data Heart Rate from ECG 107 NIBP 135/87 NIBP BP-Mean 103 Respiration from ECG 36 SpO2 96 I&O: 12/06/18 12/07/18 12/08/18 06:59 06:59 06:59 Intake Total 2603 760 Output Total 4110 1410 400 Balance -1507 -650 -400 Result Diagrams: 12/08/18 05:40 12/08/18 05:40 Phys Exam - Physical Examination Constitutional: NAD HEENT: moist MMs, sclera anicteric Neck: supple, full ROM Respiratory: no wheezing, no rales, no rhonchi, clear to auscultation bilateral Cardiovascular: RRR, no significant murmur Gastrointestinal: soft, non-tender, no distention Musculoskeletal: no edema, pulses present right sided focal deficits from TBI Psychiatric: normal affect Deviation from normal: A&O X2 Skin: cap refill <2 seconds Dx/Plan (1) Sepsis Code(s): A41.9 - SEPSIS, UNSPECIFIED ORGANISM Status: Acute (2) Metabolic acidosis Code(s): E87.2 - ACIDOSIS Status: Acute (3) Hypokalemia Code(s): E87.6 - HYPOKALEMIA Status: Acute (4) Nephrolithiasis Status: Acute (5) Sepsis Code(s): A41.9 - SEPSIS, UNSPECIFIED ORGANISM Status: Resolved (6) UTI (urinary tract infection) Status: Acute Qualifiers: (7) Chronic constipation Code(s): K59.09 - OTHER CONSTIPATION Status: Chronic (8) Dyslipidemia Code(s): E78.5 - HYPERLIPIDEMIA, UNSPECIFIED Status: Chronic (9) H/O traumatic brain injury Code(s): Z87.820 - PERSONAL HISTORY OF TRAUMATIC BRAIN INJURY Status: Chronic (10) HTN (hypertension) Code(s): I10 - ESSENTIAL (PRIMARY) HYPERTENSION Status: Chronic Qualifiers: (11) Obesity (BMI 30.0-34.9) Code(s): E66.9 - OBESITY, UNSPECIFIED Status: Chronic (12) Nausea & vomiting Code(s): R11.2 - NAUSEA WITH VOMITING, UNSPECIFIED Status: Acute Qualifiers: Vomiting type: unspecified (13) Iron deficiency anemia Code(s): D50.9 - IRON DEFICIENCY ANEMIA, UNSPECIFIED Status: Chronic (14) History of [place] (myocardial infarction) Code(s): I25.2 - OLD MYOCARDIAL INFARCTION Status: Chronic - Plan Plan: Acute hypoxic respiratory failure - intubated 11/30 - Extubated 12/05 - Currently doing well from respiratory standpoint on RA Septic shock 2/2 complicated UTI from obstructing nephrolithiasis - Septic shock resolved - s/p right stent placed by Dr. Wang on 11/30 - right arterial line and left external jugular central line placed also on 11/30 - patient currently on ceftriaxone, on meropenem from 12/02-12/06 - urine and blood cultures grew Ecoli sensitive to meropenem and Ceftriaxone - Meropenem discontinued 12/06 and Ceftriaxone initiated 12/06 - Urology and Pulmonology recs appreciated - Check C Diff Assay for recent episodes of loose stools, stopped miralax - Dr. Wagn recommended pt be discharged on bactrim, will transition to po bactrim today - Accepted to [facility] #Fluid overload - Likely due to fluid resuscitation from sepsis - I&Os show net -5 L in last 3 days - IV lasix as needed #Hypokalemia - AM repeat pending - replace and monitor daily - trending mag and K and supplementing #Hypernatremia - resolved #hyperchloremia - improved #HTN - Held home BP meds due to above - Restart when appropriate #thrombocytopenia - 168 this AM #Right sided weakness - Per daughter present for 5 years. Sensation intact, but motor function not. - Due to patient condition, daughter is agreeable to short term placement for rehab/SNF until her mother's strength improved. Case Management consulted. Addendum - Attending - Attending Attestation Date/Time: 12/08/18 1163 I personally evaluated the patient and discussed the management with Dr. Leija I agree with the History, Examination, Assessment and Plan documented above with any addition or exceptions noted below. 77 yo female with history of recurrent UTIs admitted for sepsis HD #8 Did well overnight. Oriented but confused about some details of things in her life. Denies pain. No fevers. VS reviewed. Labs reviewed. Imaging reviewed. Agree with PE as documented. 1. Septic shock: Resolved. Procal 0.29. 2. Complicated UTI: Obstructing right nephrolithiasis s/p stent. Uro following. Cultures reviewed - E. coli and presumptive Enterococcus. Sensitivities reviewed. Dillard removed. Follow up with urology out patient. 3. Bacteremia: Cultures reviewed. E. coli. Continue bactrim for 10 days total. 4. Respiratory Failure: Resolved. 5. Electrolyte abnormalities: Continue to trend labs. Replace per protocol. 6. Thrombocytopenia: Likely related to infection and stress. No evidence of HIT. Now back on ppx Lovenox. Tolerating well. 7. 3rd spacing: Improved with diuresis. 8. Constipation: Resolved. 9. Deconditioning: Patient not able to really perform ADLS at baseline but did have family assistance at home. Now with increased weakness due to recent severe infection. Will send to inpatient rehab for short time to see if patient able to go back home. Otherwise would consider SNF. Dispo: Ok to d/c to home. Awaiting placement approval. Would trend procal and electrolytes. Ramya
[2018-12-08] MEDS ORDERED: Potassium Chloride 20 MEQ TAB PO SCH (08:00)
[2018-12-08 08:32] VITALS: TEMP 98.6
[2018-12-08] MEDS: Bisacodyl 5 MG TAB PO SCH (08:44)
[2018-12-08] MEDS: Enoxaparin Sodium 40 MG/0.4 ML SYRINGE SC SCH (08:49)
[2018-12-08 12:18] VITALS: BMI 33.8
[2018-12-08 12:21] VITALS: BP 138/77
--- NOTE | 2018-12-08 17:19 | DIS ---
DATE OF ADMISSION: 11/30/2018 DATE OF DISCHARGE: 12/08/2018 RESIDENT: Enrique Leija MD ADMITTING ATTENDING: Bobby Carias MD DISCHARGE ATTENDING: Melody Choudhury MD CONSULTS: 1. Mack Wang MD, Urology on 11/30/2018. 2. Douglas Nielsen MD, Pulmonology on 11/30/2018. 3. Case Management on 12/05/2018. 4. Palliative Care on 12/05/2018. 5. PT on 12/03/2018. 6. Rehab screen on 12/05/2018. 7. Case Management on 12/07/2018. PROCEDURES: 1. Retrograde pyelogram on 11/30/2018, impression, fluoroscopy for surgical use, double-J ureteral stent in right ureter placed. 2. Chest x-ray on 11/30/2018, impression, right perihilar airspace opacity concerning for infection. 3. CT abdomen and pelvis on 11/30/2018, impression, right ureteral calcification seen with moderate right hydronephrosis. Other additional right renal calcifications noted. Hepatic cyst. cholelithiasis. Diverticulosis. 4. Chest x-ray on 11/30/2018, impression, appropriate position of ET tube and subclavian central venous catheter seen. 5. Operative procedure by Dr. Wang on 11/30/2018, cystoscopy with right retrograde and right ureteral stent placement. 6. Chest x-ray from 12/01/2018, impression, stable bilateral minimal pleural and parenchymal opacity changes. No significant new process. 7. Chest x-ray on 12/02/2018, impression, stable exam. 8. Chest x-ray on 12/03/2018, impression, stable exam. 9. Chest x-ray on 12/04/2018, impression, bibasilar pleural-parenchymal lung changes, slightly worsened as compared to prior study. 10. Chest x-ray on 12/05/2018, impression, stable exam. 11. Chest x-ray on 12/05/2018, impression, left subclavian catheter with tip at the level of the superior vena cava and left innominate vein. Bilateral vascular congestion and probable small pleural effusions. Consider short-term followup. 12. Chest x-ray on 12/06/2018, impression, small bilateral pleural effusions. Increased interstitial and patchy density in the left lung base, which may be related to atelectasis or developing pneumonia. 13. X-ray abdomen on 12/07/2018, impression, right ureteral stent appears in good position. Right renal calcifications. Possible distal right ureteral calcification. 14. Blood culture x2 from 11/30/2018 grew E coli sensitive to meropenem, ceftriaxone, resistant to Cipro and levofloxacin. 15. Urine culture from 11/30/2018 grew E coli with similar sensitivities as above. 16. Influenza swab from 11/30/2018, negative for influenza type A and B. 17. Blood culture x2 from 12/07/2018, no growth to date. 18. Clostridium difficile antigen toxin from 12/07/2018, Clostridium difficile antigen positive, toxin negative. PRIMARY DIAGNOSES: 1. Sepsis secondary to infected ureterolithiasis. 2. Nephrolithiasis. 3. Metabolic acidosis. 4. Acute respiratory failure with hypoxia. SECONDARY DIAGNOSES: 1. Hypertension. 2. Obesity. 3. Dyslipidemia. 4. History of traumatic brain injury with residual right-sided deficits. 5. Thrombocytopenia. 6. Hypernatremia. 7. Chronic constipation. 8. Hypokalemia. DISCHARGE MEDICATIONS: Resume home medications includin. Pravastatin 20 mg p.o. at bedtime. 2. Sertraline 50 mg p.o. at bedtime. 3. Vitamin D3. 4. Ferrous sulfate 325 mg p.o. at bedtime. 5. Pantoprazole 40 mg p.o. at bedtime. 6. MiraLAX 17 g p.o. daily. 7. Diflucan 150 mg p.o. daily. 8. New home medications: Bactrim Double Strength tablet, one tab p.o. b.i.d. HISTORY OF PRESENT ILLNESS/HOSPITAL COURSE: Smita Membreno is a 77-year-old female with past medical history of nephrolithiasis, recurrent UTIs, history of TBI with residual right-sided paralysis, CAD status post PA, hypertension, hyperlipidemia, GERD, history of recurrent kidney stones, multiple UTIs, who was brought into the ED by EMS due to fever and abdominal pain. Abdominal pain primarily located in the right upper quadrant and was associated with nausea and vomiting. She developed fever the morning of admission and called EMS. In August, she had multiple stones removed by Dr. Sloan, and states that her baseline mental status and is A and O x2. She lives at home, is bedridden. She had a CT scan that was read as above. Initial white blood cell count was 16.4 with bandemia. The patient received vancomycin, Zosyn, 1.5 L NS, 1 g Tylenol, and 40 mEq of IV KCl in the ED. She was initially hemodynamically stable, but her blood pressure dropped to the 60s over 50s. The patient became altered and central line was placed. Dr. Wang was consulted in the ER and decision made to take her to surgery from where right ureteral stent was placed. She went to the CCU after her admission and was intubated on Levophed drip. Meropenem was continued for the next several days of her admission. The patient was able to be weaned off the Levophed drip relatively quickly and she was extubated on 12/05/2017. After extubation, the patient continued to do well. She was transferred to the floor and she was continued on IV Rocephin. Dr. Wang left a note stating that the patient was clear for discharge and he would like her to continue taking Bactrim until he can take her back for stent removal and lithotripsy. The patient was cleared for discharge from a pulmonary standpoint on 12/07, as well as Dr. Shepard's standpoint. Also notable, the patient had potassium levels that were ranging from 3.0 to 3.5 during her hospital stay and magnesium levels are ranging from 0.91 to 2.4 during her admission. Both magnesium and potassium were supplemented. The patient was cleared for discharge on 12/08/2018 with instructions. She was accepted to [facility]. It was noted that Dr. Wang's office would set up procedure for stent removal and lithotripsy. Otherwise, the patient's hospital stay was uneventful after being moved to the floor. DISPOSITION: Guarded. The patient does have a long history of nephrolithiasis and is at risk for recurrent infected stones. However, she should do well if she continues antibiotic. Continues to get PT and OT, and electrolyte management at the [facility]. Follows up with Dr. Wang for lithotripsy and stent removal. DISCHARGE INSTRUCTIONS: 1. Location: [facility]. 2. Diet: Heart healthy. 3. Activity: As tolerated. 4. Followup: Follow up with Dr. Wang. Job ID: [id number]
== END 2018-12-08 15:44 | disposition swing bed (61) | DRG 853 ==
LOC: ERS 08:06 → CCU 14:13 → T4-A 12-06 10:36
PROVIDERS: ADMIT Family Medicine; ATTEND Family Medicine
PROC: 0T768DZ Dilation of Right Ureter with Intraluminal Device, Via Natural or Artificial Opening Endoscopic (ICD-10-PCS; principal; 2018-11-30)
PROC: 02HV33Z Insertion of Infusion Device into Superior Vena Cava, Percutaneous Approach (ICD-10-PCS; 2018-11-30)
PROC: 3E043XZ Introduction of Vasopressor into Central Vein, Percutaneous Approach (ICD-10-PCS; 2018-11-30)
PROC: 03HY32Z Insertion of Monitoring Device into Upper Artery, Percutaneous Approach (ICD-10-PCS; 2018-11-30)
PROC: 5A1955Z Respiratory Ventilation, Greater than 96 Consecutive Hours (ICD-10-PCS; 2018-11-30)
DX: A41.51 Sepsis due to Escherichia coli [E. coli] (principal); R65.21 Severe sepsis with septic shock; J96.01 Acute respiratory failure with hypoxia; G81.91 Hemiplegia, unspecified affecting right dominant side; N13.6 Pyonephrosis; E87.4 Mixed disorder of acid-base balance; J44.0 Chronic obstructive pulmonary disease with (acute) lower respiratory infection; E87.0 Hyperosmolality and hypernatremia; J90 Pleural effusion, not elsewhere classified; F03.90 Unspecified dementia, unspecified severity, without behavioral disturbance, psychotic disturbance, mood disturbance, and anxiety; I10 Essential (primary) hypertension; D50.9 Iron deficiency anemia, unspecified; J44.9 Chronic obstructive pulmonary disease, unspecified; D69.6 Thrombocytopenia, unspecified; E87.6 Hypokalemia; E78.5 Hyperlipidemia, unspecified; T14.90XS Injury, unspecified, sequela; K21.9 Gastro-esophageal reflux disease without esophagitis; E83.42 Hypomagnesemia; K59.09 Other constipation; E66.9 Obesity, unspecified; I25.2 Old myocardial infarction; Z87.820 Personal history of traumatic brain injury; Z87.442 Personal history of urinary calculi; Z68.33 Body mass index [BMI] 33.0-33.9, adult
CPT/HCPCS: 36415; 36416; 51701; 71045; 74018; 74177; 74420; 80048; 80053; 81003; 81015; 82330; 82803; 82805; 83605; 83735; 84145; 85007; 85025; 85027; 85362; 85379; 85384; 85610; 85730; 87040; 87077; 87086; 87149; 87186; 87324; 87449; 87493; 87804; 93005; 93010; 94002; 94003; 94640; 96365; 96367; A4353; C1758; C9113; J0696; J1650; J1940; J2001; J2060; J2185; J2270; J2543; J2704; J3010; J3370; J3475; J3480; J3490; J7050; J7620; P9045; P9047; Q9961; Q9966

== ENCOUNTER 2018-12-20 07:46 | Day surgery (SDC) | payer MEDICARE, MEDICAID ==
[2018-12-19 11:11] VITALS: BMI 32.3
--- NOTE | 2018-12-20 08:33 | RAD ---
AP VIEW ABDOMEN: HISTORY: Preoperative radiograph abdomen. Comparison made to previous exam from 12/07/2018. FINDINGS: AP view abdomen demonstrates inferior vena caval filter in place. Again, right ureteral stent is in place. Radiopaque calculus noted on previous radiograph in the distal right ureter appears to have passed an d is no longer visible. A large amount of stool is seen now in the colon. The patient appears to be developing severe changes of constipation. No dilated loops of bowel seen. IMPRESSION: Likely passage of distal right ureteral calculus. Transcribed Date/Time: 12/20/2018 8:37 AM
[2018-12-20] MEDS ORDERED: Iothalamate Meglumine 60% 50 ML VIAL FS ONE (08:39)
[2018-12-20] MEDS ORDERED: Fentanyl 100 MCG/2 ML VIAL ONE (08:52)
[2018-12-20 09:09] LABS: Platelet Count 525 thou/uL (130-400)
[2018-12-20 09:10] LABS: EPI 145 SEC (67-199)
[2018-12-20] MEDS ORDERED: Sodium Chloride 0.9% 100 ML ONE (09:14)
[2018-12-20] MEDS ORDERED: cefTRIAXone\\ROCEPHIN 2 GM VIAL ONE (09:14)
[2018-12-20] MEDS ORDERED: Dexamethasone 20 MG/5 ML VIAL ONE (09:48)
[2018-12-20] MEDS ORDERED: Ondansetron PF 4 MG/2 ML Vial ONE (09:48)
[2018-12-20] MEDS ORDERED: PROPOFOL 200 MG/20 ML VIAL ONE (09:48)
[2018-12-20] MEDS ORDERED: ePHEDrine 50 MG/ML VIAL ONE (09:48)
[2018-12-20] MEDS ORDERED: Lidocaine 1% PF 5 ML VIAL ONE (09:48)
--- NOTE | 2018-12-20 13:28 | OP ---
DATE OF PROCEDURE: 12/20/2018 PREOPERATIVE DIAGNOSIS: Right ureteral stone. POSTOPERATIVE DIAGNOSIS: Right ureteral stone. PROCEDURE PERFORMED: Right extracorporeal shock wave lithotripsy, cystoscopy, removal and replacement of right stent. ANESTHESIA: General. ESTIMATED BLOOD LOSS: Minimal. FINDINGS: She had a 1 cm stone in the proximal ureter, treated with 3000 shocks at level 5 and 6, and they appeared to fragment well. The stent was replaced, 6-Latvian by 22. She has had this stent in for about 3 weeks. I do not see a distal ureteral stone, assuming that is probably passed. DESCRIPTION OF PROCEDURE: Obtained written and verbal consent from the patient and her family. She was taken to the operating suite. She was placed in a supine position on treatment table. She was given a general anesthetic and oral obturator intubation. The stone was placed in treatment focal point, and she was coupled with the unit. Shockwave therapy was commenced. We slowly brought her up to level 5 and then the last half level 6. Fluoroscopy was used intermittently to document stone fragmentation and reposition as necessary. The stone did appear to fragment pretty well, could not see a stone in the distal ureter. She had a small one when her stent was placed, I am assuring that had probably passed. She was then moved to the dorsal lithotomy position. She was sterilely prepped and draped. Cystoscopy was performed with a 22-Latvian sheath. This was well lubricated, passed under direct vision through the female urethra into the urinary bladder with the aid of a 30-degree lens and a video camera and monitor. The distal end of double-J stent was grasped and brought out through the urethral meatus. A guidewire was fed through this and up into area of the renal pelvis. The stent was removed over the guidewire. A 5-Latvian Pollack catheter was placed over the guidewire up into the area of the renal pelvis. The guidewire was removed and contrast was injected showing still mildly dilated right upper collecting system. No extravasation. The guidewires were placed. The open-ended catheter was removed. A stent was placed over the guidewire, pushed up into place with aid of a pusher, so its proximal end coiled in the renal pelvis and its distal end coiled in the bladder when the wire was removed. The patient was then taken out of the dorsal lithotomy position, awakened, extubated, and taken by stretcher to recovery room. Job ID: [id number]
== END 2018-12-20 13:41 | disposition home or self-care (01) ==
LOC: SDC 07:46
PROVIDERS: ATTEND Urology
PROC: 0TF6XZZ Fragmentation in Right Ureter, External Approach (ICD-10-PCS; principal; 2018-12-20)
PROC: 0T768DZ Dilation of Right Ureter with Intraluminal Device, Via Natural or Artificial Opening Endoscopic (ICD-10-PCS; 2018-12-20)
DX: N20.1 Calculus of ureter (principal); K21.9 Gastro-esophageal reflux disease without esophagitis; I25.10 Atherosclerotic heart disease of native coronary artery without angina pectoris; E78.00 Pure hypercholesterolemia, unspecified; G82.20 Paraplegia, unspecified; E66.9 Obesity, unspecified; Z68.32 Body mass index [BMI] 32.0-32.9, adult
CPT/HCPCS: 50590; 52332; 74018; 85576; 97139; C1758; J0696; J3010; J3490; Q9961

== ENCOUNTER 2019-02-13 20:39 | Inpatient (IN) | payer MEDICARE, MEDICAID ==
--- NOTE | 2019-02-13 21:16 | RAD ---
Chest one view HISTORY: Urinary tract infection. Fever. COMPARISON: 12/06/2018. FINDINGS: Cardiac silhouette is magnified by projection. Pulmonary vasculature are accentuated by sha llow inspiration and is upper limits of normal. Mediastinum is midline. No lobar consolidation or evidence of pneumothorax. IMPRESSION: Chronic-type findings are stable. No active cardiopulmonary abnormalities are demonstrate d.
[2019-02-13 21:26] LABS: ALT (SGPT) 12 U/L (8-55); AST (SGOT) 17 U/L (5-34); Albumin 3.6 g/dL (3.4-4.8); Alkaline Phosphatase 84 U/L (40-150); Anion Gap 15 mmol/L (10-20); BUN (Urea Nitrogen) 21 mg/dL (9.8-20.1); Band 10 % (5-11); Bilirubin, Total 0.7 mg/dL (0.2-1.2); Calc. Creatinine Clearance 0 mL/min (70-130); Calcium 9.1 mg/dL (7.8-10.44); Carbon Dioxide 23 mmol/L (23-31); Chloride 105 mmol/L (98-107); Estimated GFR-MDRD 74; Globulin 3.7 g/dL (2.4-3.5); Glucose 167 mg/dL (83-110); Hemoglobin 14.2 g/dL (12.0-16.0); Lymphocytes 2 % (21-51); MDiff Complete? YES; Mean Corpuscular Hemoglobin 31.3 pg (27.0-31.0); Mean Corpuscular Volume 94.9 fL (78.0-98.0); Mean Platelet Volume 7.7 fL (7.4-10.4); Monocytes 4 % (0-10); Neutrophil 84 % (42-75); Platelet Count 269 thou/uL (130-400); Potassium 3.4 mmol/L (3.5-5.1); Protein, Total 7.3 g/dL (6.0-8.3); RBC Distribution Width 13.7 % (11.5-14.5); Red Blood Cell (RBC) Count 4.53 mill/uL (4.20-5.40); Sodium 140 mmol/L (136-145); White Blood Cell (WBC) Count 26.7 thou/uL (4.8-10.8)
[2019-02-13] MEDS ORDERED: cefTRIAXone\\ROCEPHIN 1 GM VIAL ONE (22:05)
--- NOTE | 2019-02-13 22:42 | CT ---
CT abdomen and pelvis noncontrast HISTORY: Right flank pain. FINDINGS: The right renal collecting system and ureter are moderately distended to the level of the u reterovesicular junction. There is a tiny calculus at the expected location of the right UVJ. There is also a 0.7 cm calculus within the lumen of the urinary bladder. Subtle stranding around the right kidney and proximal right ureter. Within calyces of the right kidney, multiple additional calcifications are present, measuring up to 2 .1 cm. Left renal collecting system and ureter are decompressed without stone apparent. Hyperdense stones are demonstrated within the gallbladder lumen. Atelectasis at the lung bases. Lack of contrast limits evaluation for other abnormalities. IVC filter in place. Calcification throug hout the arterial structures. Prominent degenerative changes of the lumbar spine. Diverticula arise from the colon. Rectum is distended with fecal material up to 9.7 cm with relative thickening of the wall allowing for the degree of distention. IMPRESSION: Given that no stones are reliably demonstrated within the right ureter, the distention ma y be related to a recently passed 7 mm stone now within the urinary bladder. There are multiple additional large right renal calculi. Cholelithiasis. Atherosclerosis. Fecal distention of the rectum with relative wall thickening. Clinical correlation regarding other si gns and symptoms of stercoral proctitis is required. Diverticulosis.
[2019-02-13] MEDS ORDERED: Gentamicin Sulfate 360 MG in Sodium Chloride 0.9% 100 ML IVPB SCH (23:00)
[2019-02-13 23:43] LABS: Bilirubin Negative (Negative); Blood, Urine Large (Negative); Clarity Cloudy (Clear); Glucose, Urine (Dipstick) Negative (Negative); Leukocyte Large (Negative); Nitrite Positive (Negative); Protein, Urine (Dipstick) 100 mg/dL (Neg-Trace); Specific Gravity, Urine 1.015 (1.005-1.030); Urobilinogen 0.2 mg/dL (0.2-1.0)
[2019-02-14 00:19] LABS: Bacteria/HPF 4+ HPF (None Seen); Crystals/HPF None Seen HPF (Negative); Renal Epithelial None Seen HPF (0-3); Transitional Epithelial NONE SEEN HPF (0-3); Yeast-All Forms None Seen HPF (None Seen)
[2019-02-14 00:20] LABS: Hyaline Casts/LPF NONE SEEN LPF (0-3 Hyaline)
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
[2019-02-14] MEDS ORDERED: Acetaminophen 325 MG TAB PO PRN (00:47)
[2019-02-14] MEDS ORDERED: Ondansetron ODT 4 MG TAB PO PRN (00:47)
[2019-02-14] MEDS ORDERED: Ondansetron PF 4 MG/2 ML Vial IVP PRN (00:47)
[2019-02-14 01:03] LABS: Lactic Acid 2.5 mmol/L (0.5-2.2)
[2019-02-14] MEDS ORDERED: Lactated Ringer's 1,000 ML IV SCH ×2 (01:15→01:30)
[2019-02-14] MEDS ORDERED: Sodium Chloride 0.9% (PF) 10 ML VIAL FS PRN (01:41)
[2019-02-14] MEDS ORDERED: Potassium Chloride 20 MEQ TAB PO SCH (01:45)
[2019-02-14] MEDS ORDERED: Potassium Chloride 20 MEQ TAB ONE (02:51)
[2019-02-14 04:11] LABS: Lactic Acid 1.6 mmol/L (0.5-2.2)
[2019-02-14 04:15] LABS: Band 7 % (5-11); Hemoglobin 12.7 g/dL (12.0-16.0); Lymphocytes 5 % (21-51); MDiff Complete? YES; Mean Corpuscular HGB CONC 32.4 g/dL (32.0-36.0); Mean Corpuscular Hemoglobin 31.1 pg (27.0-31.0); Mean Corpuscular Volume 96.1 fL (78.0-98.0); Mean Platelet Volume 7.6 fL (7.4-10.4); Monocytes 4 % (0-10); Neutrophil 84 % (42-75); Platelet Count 245 thou/uL (130-400); RBC Distribution Width 13.9 % (11.5-14.5); Red Blood Cell (RBC) Count 4.08 mill/uL (4.20-5.40); White Blood Cell (WBC) Count 19.2 thou/uL (4.8-10.8)
[2019-02-14 04:18] LABS: Anion Gap 12 mmol/L (10-20); BUN (Urea Nitrogen) 19 mg/dL (9.8-20.1); Calc. Creatinine Clearance 0 mL/min (70-130); Calcium 8.6 mg/dL (7.8-10.44); Carbon Dioxide 25 mmol/L (23-31); Chloride 109 mmol/L (98-107); Estimated GFR-MDRD 90; Glucose 115 mg/dL (83-110); Potassium 3.5 mmol/L (3.5-5.1); Sodium 142 mmol/L (136-145)
[2019-02-14] MEDS ORDERED: Enoxaparin Sodium 40 MG/0.4 ML SYRINGE ONE (08:56)
[2019-02-14] MEDS ORDERED: Pantoprazole 40 MG VIAL ONE (08:56)
[2019-02-14] MEDS: Enoxaparin Sodium 40 MG/0.4 ML SYRINGE SC SCH (09:15)
[2019-02-14] MEDS: Pantoprazole 40 MG VIAL IVP SCH (09:15)
[2019-02-14] MEDS ORDERED: Fleet Enema 133 ML BOT PR SCH (10:30)
[2019-02-14] MEDS: Lactated Ringer's 1,000 ML IV SCH ×2 (12:30→20:26)
[2019-02-14 13:16] VITALS: BMI 32.3
[2019-02-14] MEDS: Polyethylene Glycol 3350 17 GM Packet PO SCH (14:00)
[2019-02-14] MEDS: cefTRIAXone\\ROCEPHIN 1 GM in Sodium Chloride 0.9% 100 ML IVPB SCH (22:20)
[2019-02-14] MEDS ORDERED: Gentamicin Sulfate 360 MG in Sodium Chloride 0.9% 100 ML IVPB SCH (23:00)
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
[2019-02-15 05:04] LABS: #Eosinphils 0.1 thou/uL (0.0-0.7); #Neutrophils 9.2 thou/uL (1.40-6.50); %Basophils 0.1 % (0.0-1.0); %Eosinophils 0.6 % (0.0-10.0); %Lymphocytes 8.7 % (21.0-51.0); %Monocytes 8.7 % (0.0-10.0); %Neutrophils 81.8 % (42.0-75.0); Mean Corpuscular HGB CONC 32.8 g/dL (32.0-36.0); Mean Corpuscular Hemoglobin 31.7 pg (27.0-31.0); Mean Corpuscular Volume 96.7 fL (78.0-98.0); Mean Platelet Volume 7.8 fL (7.4-10.4); Platelet Count 197 thou/uL (130-400); RBC Distribution Width 13.6 % (11.5-14.5); Red Blood Cell (RBC) Count 3.48 mill/uL (4.20-5.40); White Blood Cell (WBC) Count 11.3 thou/uL (4.8-10.8)
[2019-02-15 05:25] LABS: Anion Gap 10 mmol/L (10-20); BUN (Urea Nitrogen) 9 mg/dL (9.8-20.1); Calc. Creatinine Clearance 118 mL/min (70-130); Calcium 8.4 mg/dL (7.8-10.44); Carbon Dioxide 25 mmol/L (23-31); Chloride 109 mmol/L (98-107); Estimated GFR-MDRD Greater than 90; Glucose 93 mg/dL (83-110); Potassium 3.4 mmol/L (3.5-5.1); Sodium 141 mmol/L (136-145)
[2019-02-15] MEDS: Lactated Ringer's 1,000 ML IV SCH (05:51)
--- NOTE | 2019-02-15 08:40 | PDOC.FM ---
- Subjective Subjective: NAEO. Patient is eating, drinking, voiding, stooling well. She is AO only to self, states she was planning to go fishing. She denies chest pain or SOB, or abdominal pain. Denies dysuria. Reoriented the patient to place and time. - Objective Vital Signs & Weight: Vital Signs (12 hours) Temp Pulse Resp BP Pulse Ox 02/15/19 07:41 98.1 F 73 12 165/83 H 95 02/15/19 03:38 98 F 86 17 149/76 H 95 02/14/19 23:29 98.5 F 82 14 115/59 L 95 Weight Weight 90.718 kg I&O: 02/14/19 02/15/19 02/16/19 06:59 06:59 06:59 Intake Total 1230 Balance 1230 Result Diagrams: 02/15/19 04:42 02/15/19 04:42 Phys Exam - Physical Examination Constitutional: NAD HEENT: PERRLA, moist MMs Respiratory: no wheezing, no rhonchi fine rhales bilat LL Cardiovascular: RRR, no significant murmur Gastrointestinal: soft, non-tender, no distention, positive bowel sounds Musculoskeletal: no edema, pulses present hemiparesis on Rt side s/p CVA Deviation from normal: Patient appears confused, AOx1 to self Skin: normal turgor, cap refill <2 seconds Dx/Plan (1) Sepsis Code(s): A41.9 - SEPSIS, UNSPECIFIED ORGANISM Status: Acute (2) Elevated lactic acid level Code(s): R79.89 - OTHER SPECIFIED ABNORMAL FINDINGS OF BLOOD CHEMISTRY Status : Resolved (3) Recurrent UTI Code(s): N39.0 - URINARY TRACT INFECTION, SITE NOT SPECIFIED Status: Acute (4) Sepsis secondary to UTI Code(s): A41.9 - SEPSIS, UNSPECIFIED ORGANISM; N39.0 - URINARY TRACT INFECTION, SITE NOT SPECIFIED Status: Acute (5) Fecal impaction Code(s): K56.41 - FECAL IMPACTION Status: Resolved (6) Hypokalemia Code(s): E87.6 - HYPOKALEMIA Status: Acute (7) Metabolic acidosis Code(s): E87.2 - ACIDOSIS Status: Resolved (8) Nephrolithiasis Status: Acute (9) Physical deconditioning Code(s): R53.81 - OTHER MALAISE Status: Chronic (10) Right sided weakness Code(s): R53.1 - WEAKNESS Status: Chronic (11) UTI (urinary tract infection) Status: Acute Qualifiers: (12) Chronic constipation Code(s): K59.09 - OTHER CONSTIPATION Status: Chronic (13) Dyslipidemia Code(s): E78.5 - HYPERLIPIDEMIA, UNSPECIFIED Status: Chronic (14) H/O traumatic brain injury Code(s): Z87.820 - PERSONAL HISTORY OF TRAUMATIC BRAIN INJURY Status: Chronic (15) HTN (hypertension) Code(s): I10 - ESSENTIAL (PRIMARY) HYPERTENSION Status: Chronic Qualifiers: (16) History of [place] (myocardial infarction) Code(s): I25.2 - OLD MYOCARDIAL INFARCTION Status: Chronic (17) Obesity (BMI 30.0-34.9) Code(s): E66.9 - OBESITY, UNSPECIFIED Status: Chronic - Plan Plan: #sepsis 2/2 UTI -tachycardic at 113, WBC at 26, UA consistent with UTI (LE, WBCs) -procal elevated to 6 -CT abd with ureteral dilation, passed stone in bladder, infection could be due to recent passage renal stone vs bedridden status vs other -Felipe consulted, urology. See below under nephrolithiasis)= -s/p gent & rocephin in ED; discontinue gent, Continue rocephin while awaiting results blood and urine cultures. Past infections have been sensitive to gent -Discontinue IV fluids #UTI -see above #nephrolithiasis -ureteral dilation, 7mm stone in bladder -Felipe consulted, appreciate recommendations -suspects chronic colonization. -Discussed more aggressive treatment options with patients family to be considered -Continue current antibiotic regimen until sensitivities result #constipation, resolved -rectal distension with stool impaction seen on CT abd -had BM after enema #hypokalemia -back down to 3.4. one time potassium tab -check mag and phos #hx of recurrent UTIs -consider abx ppx #hx of recurrent nephrolithiasis -MD aware #NG met acidosis, resolved #Hyperlactatemia, resolved #hx of TBI with right sided residual deficits #cHTN -home meds #dyslipidemia -home meds #obesity -MD aware #cad s/p [place] -negative trops, no EKG changes dvt ppx: IVC filter, lovenox gi ppx: pantoprazole dispo: >2 midnights Addendum - Attending - Attending Attestation Date/Time: 02/15/19 2403 I personally evaluated the patient and discussed the management with Dr. Kennedy. I agree with the History, Examination, Assessment and Plan documented above with any addition or exceptions noted below.
[2019-02-15] MEDS ORDERED: Potassium Chloride 20 MEQ TAB PO SCH (08:45)
[2019-02-15 09:21] LABS: Magnesium 1.4 mg/dL (1.6-2.6); Phosphorus 2.9 mg/dL (2.3-4.7)
[2019-02-15] MEDS: Enoxaparin Sodium 40 MG/0.4 ML SYRINGE SC SCH (09:23)
[2019-02-15] MEDS: Pantoprazole 40 MG VIAL IVP SCH (09:24)
[2019-02-15] MEDS: Lactinex Tablet PO SCH (09:24)
[2019-02-15] MEDS: Polyethylene Glycol 3350 17 GM Packet PO SCH (09:25)
[2019-02-15] MEDS ORDERED: Magnesium 2 GM/50 ML 2 GM in Premix Bag 1 BAG IVPB SCH (12:00)
[2019-02-15] MEDS: Ferrous Sulfate 325 MG TAB PO SCH (17:20)
--- NOTE | 2019-02-15 18:18 | PRG ---
DATE OF SERVICE: 02/15/2019 I am seeing Mrs. Membreno here in room #[id number] at [facility]. Her vital signs have been stable. She has been afebrile. Her daughters are not with her today, but she says she has been feeling fine. She is not tachycardic. She is not hypotensive, and she is not hypoxic. Her white blood cell count is down to 11.3. Microbiology is actually growing out a presumptive Enterococcus in her urine. Her blood cultures are negative. This would be having a different organism than she has had and is one that probably the Rocephin would not cover. Of interest is the fact that she has had a white blood cell count that has normalized and is clinically doing well despite possibly not being on the correct antibiotics. On reviewing her emergency room visit note, it appears to be received Rocephin and gentamicin, cannot see that she received any vancomycin in the ER. I think for the time being, with her doing so, I probably would not give her any vancomycin. Let see what her blood culture shows in final and see what her final urine culture shows, make sure it does not grow any other organism. She looks fine and does not appear toxic and does not appear septic. Creatinine is normal. Lactic acid is normal. White count became normal. We will follow along with you. I will talk with hopefully her daughters tomorrow. Job ID: [id number]
[2019-02-15] MEDS ORDERED: Atorvastatin Calcium 10 MG TAB PO SCH (21:00)
[2019-02-15] MEDS: cefTRIAXone\\ROCEPHIN 1 GM in Sodium Chloride 0.9% 100 ML IVPB SCH (21:25)
[2019-02-16 04:55] LABS: #Eosinphils 0.1 thou/uL (0.0-0.7); #Lymphocytes 1.2 thou/uL (1.20-3.40); #Monocytes 0.7 thou/uL (0.11-0.59); #Neutrophils 5.5 thou/uL (1.40-6.50); %Basophils 0.2 % (0.0-1.0); %Eosinophils 0.9 % (0.0-10.0); %Lymphocytes 16.4 % (21.0-51.0); %Monocytes 9.3 % (0.0-10.0); %Neutrophils 73.3 % (42.0-75.0); Hemoglobin 11.1 g/dL (12.0-16.0); Mean Corpuscular HGB CONC 33.1 g/dL (32.0-36.0); Mean Corpuscular Hemoglobin 31.7 pg (27.0-31.0); Mean Corpuscular Volume 95.7 fL (78.0-98.0); Mean Platelet Volume 7.8 fL (7.4-10.4); Platelet Count 206 thou/uL (130-400); RBC Distribution Width 13.3 % (11.5-14.5); Red Blood Cell (RBC) Count 3.51 mill/uL (4.20-5.40); White Blood Cell (WBC) Count 7.6 thou/uL (4.8-10.8)
[2019-02-16 05:07] LABS: Anion Gap 13 mmol/L (10-20); BUN (Urea Nitrogen) 7 mg/dL (9.8-20.1); Calc. Creatinine Clearance 118 mL/min (70-130); Calcium 8.9 mg/dL (7.8-10.44); Carbon Dioxide 27 mmol/L (23-31); Chloride 106 mmol/L (98-107); Estimated GFR-MDRD Greater than 90; Glucose 95 mg/dL (83-110); Magnesium 1.9 mg/dL (1.6-2.6); Potassium 3.5 mmol/L (3.5-5.1); Sodium 142 mmol/L (136-145)
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
[2019-02-16] MEDS ORDERED: Polyethylene Glycol 3350 17 GM Packet PO SCH (09:00)
[2019-02-16] MEDS: Pantoprazole 40 MG VIAL IVP SCH (09:15)
[2019-02-16] MEDS: Lactinex Tablet PO SCH (09:53)
[2019-02-16] MEDS: Enoxaparin Sodium 40 MG/0.4 ML SYRINGE SC SCH (09:53)
[2019-02-16] MEDS: Polyethylene Glycol 3350 17 GM Packet PO SCH (09:53)
--- NOTE | 2019-02-16 11:11 | PDOC.EVN ---
Event Note - Event Note Event Note: I spoke with her Urologist, Dr. Wang. Discussed how it was abnormal for her WBC to improve with rocephin, as that does not treat E Faecalis. She is likely chronically colonized. Patient is clinically improved. Will discharge today, will not continue oral antibiotics on discharge. Patrick Kennedy MD
--- NOTE | 2019-02-16 13:04 | PRG ---
DATE OF SERVICE: 02/16/2019 The patient is seen in room #3308. Vital signs remained stable. White count is normal. Microbiology showed greater than 100,000 Enterococcus in her urine, resistant to tetracycline, sensitive to all other antibiotics. This is a predominant organism, I cannot see that. She has actually been on good coverage for this. I am not sure that Rocephin would cover it. I have texted Dr. Hinds and I just asked him what his thoughts are on that. If it happens to cover it, then, it may be worth sending her home on a few days of Cipro, but otherwise, I think I tended not to sent her home on any antibiotics as she is defervesced and looks fine with now normal white count. I talked with her daughter two days ago, and her daughter will not be back until later this evening. I will talk with them and see if they want to pursue treating the stones more aggressively. I brought that up with them when they were here two days ago and we have to see what the decision they have made. I certainly think she could go home today. Job ID: [id number]
[2019-02-16 15:54] VITALS: TEMP 98.5
[2019-02-16] MEDS: Ferrous Sulfate 325 MG TAB PO SCH (18:20)
[2019-02-16 20:55] VITALS: BP 153/85
[2019-02-16] MEDS ORDERED: Senokot S 8.6-50 MG TAB PO SCH (21:00)
== END 2019-02-16 20:35 | disposition home or self-care (01) | DRG 872 ==
LOC: ERS 20:39 → ERHOLD 02-14 00:34 → OBSVTOIN 02-14 00:48 → SURG A 02-14 10:52
PROVIDERS: ADMIT Student in an Organized Health Care Education/Training Program; ATTEND Student in an Organized Health Care Education/Training Program
DX: A41.9 Sepsis, unspecified organism (principal); N10 Acute pyelonephritis; G81.91 Hemiplegia, unspecified affecting right dominant side; E87.2 Acidosis; B95.2 Enterococcus as the cause of diseases classified elsewhere; E78.5 Hyperlipidemia, unspecified; E66.9 Obesity, unspecified; I10 Essential (primary) hypertension; K59.00 Constipation, unspecified; F03.90 Unspecified dementia, unspecified severity, without behavioral disturbance, psychotic disturbance, mood disturbance, and anxiety; E87.6 Hypokalemia; E86.0 Dehydration; K21.9 Gastro-esophageal reflux disease without esophagitis; I25.10 Atherosclerotic heart disease of native coronary artery without angina pectoris; Z90.710 Acquired absence of both cervix and uterus; Z87.820 Personal history of traumatic brain injury; I25.2 Old myocardial infarction; Z79.899 Other long term (current) drug therapy; Z74.01 Bed confinement status; Z68.32 Body mass index [BMI] 32.0-32.9, adult
CPT/HCPCS: 36415; 51701; 71045; 74176; 80048; 80053; 81003; 81015; 83605; 83735; 84100; 84145; 85025; 87040; 87077; 87086; 87186; 93005; 94760; 96365; 96367; A4353; C9113; J0696; J1580; J1650; J3475; J3490

== ENCOUNTER 2019-03-21 06:14 | Day surgery (SDC) | payer MEDICARE, MEDICAID ==
[2019-03-20 08:41] VITALS: BMI 32.3
[2019-03-21 06:37] LABS: #Eosinphils 0.1 thou/uL (0.0-0.7); #Lymphocytes 1.9 thou/uL (1.20-3.40); #Monocytes 0.5 thou/uL (0.11-0.59); #Neutrophils 4.3 thou/uL (1.40-6.50); %Basophils 0.3 % (0.0-1.0); %Eosinophils 1.3 % (0.0-10.0); %Monocytes 7.1 % (0.0-10.0); %Neutrophils 63.2 % (42.0-75.0); Hemoglobin 13.3 g/dL (12.0-16.0); Mean Corpuscular HGB CONC 32.9 g/dL (32.0-36.0); Mean Corpuscular Hemoglobin 31.4 pg (27.0-31.0); Mean Corpuscular Volume 95.4 fL (78.0-98.0); Mean Platelet Volume 7.7 fL (7.4-10.4); Platelet Count 247 thou/uL (130-400); RBC Distribution Width 13.7 % (11.5-14.5); Red Blood Cell (RBC) Count 4.25 mill/uL (4.20-5.40); White Blood Cell (WBC) Count 6.8 thou/uL (4.8-10.8)
[2019-03-21] MEDS ORDERED: Fentanyl 100 MCG/2 ML VIAL ONE (06:39)
[2019-03-21 06:43] LABS: Prothrombin Time 13.6 SEC (12.0-14.7)
[2019-03-21 06:44] LABS: PTT 31.5 SEC (22.9-36.1)
[2019-03-21 06:59] LABS: Anion Gap 12 mmol/L (10-20); BUN (Urea Nitrogen) 16 mg/dL (9.8-20.1); Calc. Creatinine Clearance 88 mL/min (70-130); Carbon Dioxide 25 mmol/L (23-31); Chloride 107 mmol/L (98-107); Estimated GFR-MDRD 72; Glucose 101 mg/dL (83-110); Potassium 4.3 mmol/L (3.5-5.1); Sodium 140 mmol/L (136-145)
[2019-03-21] MEDS ORDERED: Iothalamate Meglumine 60% 50 ML VIAL FS ONE (07:06)
[2019-03-21] MEDS ORDERED: SUGAMMADEX SODIUM 200 MG/2 ML VIAL ONE (07:12)
[2019-03-21] MEDS ORDERED: Cefepime 2 GM in Sodium Chloride 0.9% 100 ML IVPB SCH (07:15)
--- NOTE | 2019-03-21 10:07 | OP ---
DATE OF PROCEDURE: 03/21/2019 PREOPERATIVE DIAGNOSIS: Right renal stones. POSTOPERATIVE DIAGNOSES: Right renal stones, right ureteral stones, very small, no hydro, and numerous bladder stones. PROCEDURES PERFORMED: Cysto, removal of bladder stones, right retrograde, right stent placement, right extracorporeal shockwave lithotripsy. ANESTHESIA: General. ESTIMATED BLOOD LOSS: Not recorded. FINDINGS: She had numerous bladder stones all in the 2 to 5 mm rings that were removed. The larger ones just removed with a small grasper. The smaller ones were just crossed with alligator forceps and then washed out with irrigation fluid. She had 2 years of easily seen renal stones. We treated probably about a 1 to 2 cm area that was in the upper pole, but the curl of the stent that we placed, was treated with 2500 shocks at level 4 with good fragmentation, a pause was done. The stent that was placed was a 4.8 x 24 cm. Retrograde study of the ureter was done at that time. There was 1 or 2 small filling defects, which were likely small stones, one of them could be seen at the right ureteral orifice, but pushed back up the ureter when we placed the wire across it. There is no hydronephrosis. DESCRIPTION OF PROCEDURE: After obtaining written and verbal consent from the patient, after receiving IV antibiotics, she was taken to the operating suite and placed in the supine position on the treatment table. PlexiPulses were placed on the lower extremities. She was given a general anesthetic in an oral intubation. She was then placed in the dorsal lithotomy position and sterilely prepped and draped for cystoscopy. C-arm was used from the ESWL unit for imaging. Cysto was performed with a 22-[place]i sheath. This was well lubricated and passed under direct vision through the female urethra and into the urinary bladder with aid of a 30-degree lens, video camera, and monitor. The numerous small bladder stones that were visualized were removed intact and then the very small ones were just crushed in the dust and then irrigated out with irrigation fluid. We then brought in a 5-[place]i Pollack catheter where a guidewire was placed through it. There was a stone just inside the right ureteral orifice and we placed a wire through this and we just pushed back up into the ureter. This allowed us to easily get the Pollack catheter into the ureter and we used just an inject contrast and follow up the ureter with the fluoroscopy unit. There were couple of filling defects, possibly one was an air bubble, but I think both were probably small nonobstructing ureteral stones. The guidewire was placed all the way up into the upper pole calyceal system and then a stent was placed over that and pushed up into place with aid of a pusher, so that its proximal end coiled in the upper pole collecting system, as distal end coiled in the bladder when the wire was removed. There was an area of stones in the upper pole that were just adjacent to that stent. We placed a Dillard catheter as she is incontinent of urine and we left while she is in for the procedure and then while she recovers in the recovery room. This was a 16-[place]i with 10 mL in the balloon. She was returned to a supine position. She was coupled to the lithotripsy unit. The stones that we were treating were placed in treatment focal point. Shockwave was commenced at a low kV and a rate of 60 after couple 100 shocks a few minutes pause was given and then we increased the kV slowly, therefore left it for use fluoroscopy intermittently to reposition as necessary and to document stone fragmentation. It did appear that this area did change of consistency substantially suggesting that they did fragment well. After 2500 shocks, the procedure was terminated. She was removed by stretcher to the recovery room after being awakened and extubated. Job ID: [id number]
[2019-03-21] MEDS ORDERED: Rocuronium Bromide 10 MG/ML (10ML VIAL) ONE (16:17)
[2019-03-21] MEDS ORDERED: Lidocaine 1% PF 5 ML VIAL ONE (16:17)
[2019-03-21] MEDS ORDERED: Dexamethasone 20 MG/5 ML VIAL ONE (16:17)
[2019-03-21] MEDS ORDERED: PROPOFOL 200 MG/20 ML VIAL ONE (16:17)
[2019-03-21] MEDS ORDERED: Ondansetron PF 4 MG/2 ML Vial ONE (16:17)
== END 2019-03-21 10:58 | disposition home or self-care (01) ==
LOC: SDC 06:14
PROVIDERS: ATTEND Urology
PROC: 0TF3XZZ Fragmentation in Right Kidney Pelvis, External Approach (ICD-10-PCS; principal; 2019-03-21)
DX: N20.2 Calculus of kidney with calculus of ureter (principal); N21.0 Calculus in bladder; E78.00 Pure hypercholesterolemia, unspecified
CPT/HCPCS: 50590; 52332; 80048; 85025; 85610; 85730; C1758; 36415; J0692; J1100; J2001; J2405; J2704; J3010; J3490

== ENCOUNTER 2019-04-04 07:04 | Day surgery (SDC) | payer MEDICARE, MEDICAID ==
[2019-04-03 12:46] VITALS: BMI 32.3
[2019-04-04] MEDS ORDERED: Cefepime 2 GM in Sodium Chloride 0.9% 100 ML IVPB SCH (07:30)
--- NOTE | 2019-04-04 07:56 | RAD ---
SUPINE ABDOMEN: HISTORY: Preop. FINDINGS: Right ureteral stent is noted. Calcifications overlie the right renal outline. A large amount of stool throughout the colon. Scattered small bowel gas which appears nonspecific. IMPRESSION: No change when compared to the film of 12/20/2018. POS: FABIO
[2019-04-04] MEDS ORDERED: Fentanyl 100 MCG/2 ML VIAL ONE (09:32)
--- NOTE | 2019-04-04 11:12 | OP ---
DATE OF PROCEDURE: 04/04/2019 PREOPERATIVE DIAGNOSIS: Right renal stone. POSTOPERATIVE DIAGNOSIS: Right renal stone. PROCEDURE PERFORMED: Right extracorporeal shockwave lithotripsy. ANESTHESIA: General. ESTIMATED BLOOD LOSS: Not recorded. FINDINGS: A 1 x 1.5 cm area of stones in the midpole of the right kidney. It was treated with 2500 shocks mostly at level 4 with a few 100 shocks at level 5, but there did appear to fragment changes, orientation suggesting a good outcome to it. DESCRIPTION OF PROCEDURE: After obtaining written and verbal consent from the patient, after receiving IV cefepime, she was taken to the operating suite. She was placed in a supine position on the treatment table. PlexiPulses were placed on her lower extremities and turned on. She was given a general anesthetic and oral obturator intubation. She was coupled to the lithotripsy unit. The stent was already in place, so we did not have to place a stent nor do we have to remove the stent today. The stones were placed in treatment focal short point and shockwave therapy was commenced starting a very low kV and a rate of 60. After a few 100 shocks, a few minute pause was given. We then went ahead and continued the ESWL at a rate of 60 per minute and we increased the level 4 and then for a few 100 shocks often on the level 5. At the end of the procedure, she was awakened and extubated and taken by tangela to the recovery room. Job ID: [id number]
== END 2019-04-04 12:25 | disposition home or self-care (01) ==
LOC: SDC 07:04
PROVIDERS: ATTEND Urology
PROC: 0TF3XZZ Fragmentation in Right Kidney Pelvis, External Approach (ICD-10-PCS; principal; 2019-04-04)
DX: N20.0 Calculus of kidney (principal); K21.9 Gastro-esophageal reflux disease without esophagitis; I10 Essential (primary) hypertension; I25.10 Atherosclerotic heart disease of native coronary artery without angina pectoris; Z79.2 Long term (current) use of antibiotics; Z79.899 Other long term (current) drug therapy
CPT/HCPCS: 74018; J0692; J3010; J3490

== ENCOUNTER 2019-08-31 17:17 | Inpatient (IN) | payer MEDICARE, MEDICAID ==
[2019-08-31 18:03] LABS: #Eosinphils 0.1 thou/uL (0.0-0.7); #Lymphocytes 1.4 thou/uL (1.20-3.40); #Neutrophils 8.4 thou/uL (1.40-6.50); %Basophils 0.2 % (0.0-1.0); %Eosinophils 0.5 % (0.0-10.0); %Lymphocytes 12.8 % (21.0-51.0); %Monocytes 9.6 % (0.0-10.0); Hemoglobin 13.5 g/dL (12.0-16.0); Mean Corpuscular HGB CONC 33.2 g/dL (32.0-36.0); Mean Corpuscular Hemoglobin 31.3 pg (27.0-31.0); Mean Corpuscular Volume 94.4 fL (78.0-98.0); Mean Platelet Volume 6.8 fL (7.4-10.4); Platelet Count 285 thou/uL (130-400); Red Blood Cell (RBC) Count 4.32 mill/uL (4.20-5.40); White Blood Cell (WBC) Count 10.9 thou/uL (4.8-10.8)
--- NOTE | 2019-08-31 18:31 | RAD ---
CHEST ONE VIEW: 08/31/19 HISTORY: Lethargy. COMPARISON: Radiograph 02/13/19. FINDINGS: The lungs are mildly hypoinflated with bibasilar atelectatic changes. Old right sided rib fractures. Cardiac silhouette and mediastinal contours are similar. No acute focal air space consolidation, pneu mothorax or effusion. IMPRESSION: No acute intrathoracic abnormality. POS: HOME
[2019-08-31 18:32] LABS: ALT (SGPT) 10 U/L (8-55); AST (SGOT) 14 U/L (5-34); Albumin 3.4 g/dL (3.4-4.8); Alkaline Phosphatase 79 U/L (40-110); Anion Gap 16 mmol/L (10-20); BUN (Urea Nitrogen) 11 mg/dL (9.8-20.1); Bilirubin, Total 0.6 mg/dL (0.2-1.2); Calc. Creatinine Clearance 0 mL/min (70-130); Calcium 8.3 mg/dL (7.8-10.44); Carbon Dioxide 23 mmol/L (23-31); Chloride 102 mmol/L (98-107); Estimated GFR-MDRD 90; Globulin 3.5 g/dL (2.4-3.5); Glucose 84 mg/dL (83-110); Lipase 6 U/L (8-78); Magnesium 1.7 mg/dL (1.6-2.6); Potassium 3.2 mmol/L (3.5-5.1); Protein, Total 6.9 g/dL (6.0-8.3); Sodium 138 mmol/L (136-145)
[2019-08-31 19:00] LABS: Bacteria/HPF 4+ HPF (None Seen); Bilirubin Negative (Negative); Blood, Urine 1+ (Negative); Clarity Extra Turbid (Clear); Glucose, Urine (Dipstick) Normal (Negative); Leukocyte 500 Leu/uL (Negative); Mucous/LPF 1+ LPF (<2+); Nitrite 1+ (Negative); Protein, Urine (Dipstick) 100 mg/dL (Neg-Trace); RBC/HPF Greater than 50 HPF (0-3); Squamous Epithelial 0-3 HPF (0-3); Urobilinogen 3 mg/dL (Less than 2); WBC/HPF Greater than 50 HPF (0-3)
--- NOTE | 2019-08-31 19:03 | CT ---
CT Brain WO Con: 08/31/2019 5:33 PM CLINICAL HISTORY: Lethargy and poor appetite. IMAGING TECHNIQUE: Multiple CT images were obtained of the brain without IV contrast. COMPARISON: MR the brain dated September 18, 2015 CT brain dated November 15, 2013 FINDINGS: Brain: There is stable encephalomalacia involving the lateral aspect of the anterior right temporal lobe. Chronic ischemic changes stable appearing. No acute infarct, hemorrhage or hydrocephalus is present. Extra-axial fluid collection overlying the right frontal convexity is stable. Ventricles: Normal. No hydrocephalus.. Skull: Right temporal craniectomy is stable. Right frontal parietal craniotomy is stable. Right front al eitan hole is stable. Visualized Paranasal sinuses: Clear.. Mastoid air cells:Clear. Extracranial soft tissues:Normal. IMPRESSION: No acute intracranial abnormality.
[2019-08-31] MEDS ORDERED: cefTRIAXone\\ROCEPHIN 1 GM VIAL ONE (20:03)
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
--- NOTE | 2019-08-31 21:01 | CT ---
CT OF THE ABDOMEN AND PELVIS WITHOUT IV CONTRAST INDICATION: History of urinary tract infection and altered mental status COMPARISON: CT abdomen and pelvis dated February 13, 2019 FINDINGS: This examination is limited for the evaluation of solid organs and vascular structures due to the lac k of intravenous contrast. ABDOMEN: Lung bases: There is bibasilar atelectasis Liver: No focal lesion. Gallbladder: Cholelithiasis Pancreas: Normal. Adrenal glands: Normal. Spleen: Normal. Kidneys and ureters: There is mild left hydronephrosis. There is a 5 mm calculus within the left ashley l pelvis. There is a 2 mm calculus within the inferior pole left kidney. There is an 8 mm left ureteral calculus on image 65 of series 2. Right nephrolithiasis is stable. The large staghorn calcul us involving the superior pole right kidney is stable appearing. Vasculature: There are moderate vascular calcifications seen involving the visualized vasculature. Th ere is stable infrarenal IVC filter. Lymph nodes:No lymphadenopathy. Free fluid in abdomen:No free fluid is evident. PELVIS: Small and large bowel: There is a prominent amount retained stool within the sigmoid colon and rectum . There are scattered colonic diverticula without evidence of active diverticulitis. Appendix:Normal Bladder: Decompressed. Previously seen bladder calculi are no longer present. Rectal and perirectal soft tissues:Prominent fecal material distends the rectum. Reproductive structures: Surgically absent Free fluid in pelvis: No free fluid is evident. Lymphadenopathy pelvis: No lymphadenopathy is evident. Osseous structures: No acute osseous abnormality. No destructive osteolytic or osteoblastic lesion i s identified. There is scattered degenerative and osteoarthritic changes. Stable diffuse osteopenia. Stable mild endplate compression abnormalities of L1-L4. Soft tissues:Normal. IMPRESSION: 1. New 8 mm left ureteral calculus and mild left hydronephrosis. 2. New left nephrolithiasis. 3. Stable right nephrolithiasis. 4. Stable cholelithiasis. 5. Prominent amount of retained stool within the rectum and sigmoid colon. 6. Other chronic findings as above
[2019-08-31] MEDS ORDERED: Ondansetron PF 4 MG/2 ML Vial IVP PRN (23:15)
[2019-08-31] MEDS ORDERED: Sodium Chloride 0.9% 1,000 ML IV SCH (23:15)
[2019-08-31] MEDS ORDERED: Ondansetron ODT 4 MG TAB SL PRN (23:15)
[2019-08-31] MEDS ORDERED: Acetaminophen 325 MG TAB PO PRN (23:46)
[2019-08-31] MEDS ORDERED: Ondansetron ODT 4 MG TAB PO PRN (23:46)
[2019-08-31] MEDS ORDERED: Lactated Ringer's 1,000 ML IV SCH (23:46)
[2019-08-31] MEDS: Piperacillin/Tazobactam 4.5 GM in Sodium Chloride 0.9% 100 ML IVPB SCH (23:59)
[2019-09-01 00:28] VITALS: BMI 31.5
[2019-09-01 04:38] LABS: #Eosinphils 0.1 thou/uL (0.0-0.7); #Lymphocytes 1.5 thou/uL (1.20-3.40); #Monocytes 0.8 thou/uL (0.11-0.59); #Neutrophils 5.8 thou/uL (1.40-6.50); %Basophils 0.4 % (0.0-1.0); %Eosinophils 0.7 % (0.0-10.0); %Monocytes 9.7 % (0.0-10.0); %Neutrophils 71.2 % (42.0-75.0); Hemoglobin 11.2 g/dL (12.0-16.0); Mean Corpuscular Hemoglobin 30.9 pg (27.0-31.0); Mean Corpuscular Volume 93.6 fL (78.0-98.0); Mean Platelet Volume 7.1 fL (7.4-10.4); Platelet Count 254 thou/uL (130-400); RBC Distribution Width 12.7 % (11.5-14.5); Red Blood Cell (RBC) Count 3.64 mill/uL (4.20-5.40); White Blood Cell (WBC) Count 8.1 thou/uL (4.8-10.8)
[2019-09-01 04:58] LABS: Anion Gap 13 mmol/L (10-20); BUN (Urea Nitrogen) 9 mg/dL (9.8-20.1); Calc. Creatinine Clearance 119 mL/min (70-130); Calcium 7.8 mg/dL (7.8-10.44); Carbon Dioxide 24 mmol/L (23-31); Chloride 106 mmol/L (98-107); Estimated GFR-MDRD Greater than 90; Glucose 78 mg/dL (83-110); Sodium 140 mmol/L (136-145)
[2019-09-01 04:59] LABS: Potassium 2.7 mmol/L (3.5-5.1)
[2019-09-01] MEDS ORDERED: Potassium Chloride 40 MEQ in Lactated Ringer's 1,000 ML IV SCH (05:15)
[2019-09-01] MEDS: Piperacillin/Tazobactam 4.5 GM in Sodium Chloride 0.9% 100 ML IVPB SCH ×4 (05:23→23:52)
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
[2019-09-01] MEDS: Lactated Ringer's 1,000 ML IV SCH ×3 (06:28→20:11)
[2019-09-01] MEDS ORDERED: Potassium Chloride 20 MEQ TAB PO SCH ×3 (06:30→18:00)
[2019-09-01] MEDS: Enoxaparin Sodium 40 MG/0.4 ML SYRINGE SC SCH (08:18)
[2019-09-01] MEDS: Tamsulosin HCl 0.4 MG CAP PO SCH (08:18)
[2019-09-01] MEDS: Lactinex Tablet PO SCH (08:28)
[2019-09-01] MEDS ORDERED: Magnesium Sulfate 3 GM in Sodium Chloride 0.9% 100 ML IVPB SCH (10:45)
[2019-09-01] MEDS: Simvastatin 5 MG TAB PO SCH (20:10)
[2019-09-01] MEDS: Ferrous Sulfate 325 MG TAB PO SCH (20:10)
[2019-09-02] MEDS: Lactated Ringer's 1,000 ML IV SCH ×4 (04:26→21:13)
[2019-09-02 05:09] LABS: #Eosinphils 0.1 thou/uL (0.0-0.7); #Lymphocytes 1.5 thou/uL (1.20-3.40); #Monocytes 0.6 thou/uL (0.11-0.59); #Neutrophils 4.7 thou/uL (1.40-6.50); %Basophils 0.6 % (0.0-1.0); %Eosinophils 2.1 % (0.0-10.0); %Lymphocytes 21.5 % (21.0-51.0); %Monocytes 8.7 % (0.0-10.0); %Neutrophils 67.1 % (42.0-75.0); Hemoglobin 10.9 g/dL (12.0-16.0); Mean Corpuscular HGB CONC 32.7 g/dL (32.0-36.0); Mean Corpuscular Hemoglobin 30.9 pg (27.0-31.0); Mean Corpuscular Volume 94.5 fL (78.0-98.0); Mean Platelet Volume 7.1 fL (7.4-10.4); Platelet Count 280 thou/uL (130-400); RBC Distribution Width 12.5 % (11.5-14.5); Red Blood Cell (RBC) Count 3.53 mill/uL (4.20-5.40); White Blood Cell (WBC) Count 7.1 thou/uL (4.8-10.8)
[2019-09-02 05:19] LABS: Anion Gap 9 mmol/L (10-20); BUN (Urea Nitrogen) 6 mg/dL (9.8-20.1); Calc. Creatinine Clearance 115 mL/min (70-130); Calcium 7.9 mg/dL (7.8-10.44); Carbon Dioxide 27 mmol/L (23-31); Chloride 110 mmol/L (98-107); Estimated GFR-MDRD Greater than 90; Glucose 98 mg/dL (83-110); Magnesium 1.7 mg/dL (1.6-2.6); Potassium 3.3 mmol/L (3.5-5.1); Sodium 143 mmol/L (136-145)
[2019-09-02] MEDS: Piperacillin/Tazobactam 4.5 GM in Sodium Chloride 0.9% 100 ML IVPB SCH ×3 (05:28→17:20)
--- NOTE | 2019-09-02 05:33 | PDOC.FM ---
- Subjective Subjective: Pt states she is feeling well this morning. Denies any flank or back pain currently. Continues to be agreeable for cystoscopy procedure today. No events overnight. - Objective Vital Signs & Weight: Vital Signs (12 hours) Temp Pulse Resp BP Pulse Ox 09/02/19 04:00 98.4 F 77 16 141/71 H 92 L 09/02/19 00:00 98.2 F 74 16 167/60 H 92 L 09/01/19 20:00 98.4 F 87 16 138/65 95 Weight Admit Weight 88.541 kg Weight 88.541 kg I&O: 08/31/19 09/01/19 09/02/19 06:59 06:59 06:59 Intake Total 720 1500 Balance 720 1500 Result Diagrams: 09/02/19 04:34 09/02/19 04:34 Phys Exam - Physical Examination Constitutional: NAD HEENT: moist MMs, sclera anicteric Neck: full ROM Respiratory: no wheezing, no rales, no rhonchi, clear to auscultation bilateral Cardiovascular: RRR, no significant murmur, no rub Gastrointestinal: soft, non-tender, no distention Musculoskeletal: pulses present Chronic right sided hemiparesis Psychiatric: normal affect Deviation from normal: A&Ox1 Skin: no rash, cap refill <2 seconds Dx/Plan (1) Complicated UTI (urinary tract infection) Code(s): N39.0 - URINARY TRACT INFECTION, SITE NOT SPECIFIED Status: Acute (2) Hypokalemia Code(s): E87.6 - HYPOKALEMIA Status: Acute (3) Nephrolithiasis Status: Acute (4) H/O traumatic brain injury Code(s): Z87.820 - PERSONAL HISTORY OF TRAUMATIC BRAIN INJURY Status: Chronic - Plan Plan: Patient is a 78 y/o female who presents with her daughter for 24H of fever and AMS. Complicated UTI -Nephrolithiasis / Ureterolithiasis -UA: +RBCs, WBCs, Nitrites, LEs, Bacteria -UCx: E. coli - sensative to zosyn and bactrim, will plan switch to PO following procedure -CT ABD/Pelvis: Chronic nephrolithiasis w/ new 8 mm left uretal stone -Per chart review, patient has had multiple complicated UTIs 2/2 E. coli, Enterobacter and Pseudomonas in the past -Zosyn 4.5 mg IV Q6H -LR @ 130 ml/hr -Initiate tamsulosin this morning -Urology: Dr. Blake was consulted yesterday, plans to take pt to the OR today for cystoscopy and likely stent Hypokalemia - 2.7 yesterday, 40meq BID yesterday, 3.3 this morning - Continue to replace as needed Elevated blood pressures -Multiple elevated BP readings, will continue to monitor for organic disease vs pain reaction -Patient does not take HTN medications at home -Continues to have elevated pressures, will monitor post operatively today, if remains elevated will require tx HLD -Continue home medication regimen Constipation -Continue home medication regimen Code: Full Diet: HH Activity: Strict Bedrest VTE PPx: Lovenox 40 mg SC Dispo: Patient is currently stable and admitted to the Medical Floor for treatment of Complicated UTI 2/2 Ureterolithiasis. Await UCx and adjust antibiotic regimen as needed. Cystoscopy procedure scheduled today. Addendum - Attending - Attending Attestation Date/Time: 09/02/19 1023 I personally evaluated the patient and discussed the management with Dr. Sweeney I agree with the History, Examination, Assessment and Plan documented above with any addition or exceptions noted below. S/p stent placement recovering in room discussed care plan with patients son. Can de-escalate antibiotic growing E.Coli >100,000 cfu.
[2019-09-02] MEDS ORDERED: Potassium Chloride 20 MEQ TAB PO SCH ×2 (05:45)
[2019-09-02] MEDS ORDERED: Fentanyl 100 MCG/2 ML VIAL ONE (08:00)
[2019-09-02] MEDS: Enoxaparin Sodium 40 MG/0.4 ML SYRINGE SC SCH (08:00)
[2019-09-02] MEDS ORDERED: Iothalamate Meglumine 60% 50 ML VIAL FS ONE (08:48)
[2019-09-02] MEDS: Lactinex Tablet PO SCH (09:00)
[2019-09-02] MEDS: Tamsulosin HCl 0.4 MG CAP PO SCH (09:00)
[2019-09-02] MEDS: Polyethylene Glycol 3350 17 GM Packet PO SCH (09:00)
--- NOTE | 2019-09-02 09:09 | RAD ---
XR IVP Retrograde History: Stent placement Comparison: IVP retrograde April 10, 2019 Findings: Single spot image demonstrates a wire and catheter projecting over the expected location of the left ureter. Large 5 stool within the rectum. Impression: Fluoroscopy for procedural purposes.
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
[2019-09-02] MEDS ORDERED: traMADol HCl 50 MG TAB PO PRN (10:39)
[2019-09-02] MEDS ORDERED: Lidocaine 1% PF 5 ML VIAL ONE (11:41)
--- NOTE | 2019-09-02 15:45 | OP ---
DATE OF PROCEDURE: 09/02/2019 SERVICE: Urology. PREOPERATIVE DIAGNOSES: 1. Bilateral nephrolithiasis with a left ureteral stone. 2. Urinary tract infection. POSTOPERATIVE DIAGNOSES: 1. Bilateral nephrolithiasis with a left ureteral stone. 2. Urinary tract infection. PROCEDURE PERFORMED: Cystoscopy with left ureteral stent placement. INDICATIONS FOR PROCEDURE: Ms. Membreno is a 78-year-old white female with traumatic brain injury, who has bilateral nephrolithiasis and an 8 mm left ureteral stone. She had evidence of urinary tract infection and was admitted with a fever of 101. She is being brought in for ureteral stent placement and is currently being treated by the Family Medicine Service. DESCRIPTION OF PROCEDURE: After identification of armband and verification of consent, the patient was brought back to the operating room where she underwent general anesthesia with an LMA. She was placed in a dorsal lithotomy position and prepped and draped in the usual sterile fashion. After appropriate time-out, a lubricated 22-Yakut rigid cystoscope was introduced per urethra into the bladder. The bladder was relatively unremarkable other than some mild inflammatory changes. There was moderate trigonitis and some squamous metaplasia in the trigone. Both ureters were in the orthotopic location. The left ureteral orifice was cannulated with a 0.035 Sensor wire up to the level of renal pelvis. A 6 x 26 double-J stent was then advanced over the Sensor wire up to the level of renal pelvis. The wire was removed leaving a good curl in the kidney and a good curl in the bladder. Of note, the stones were radiolucent and were not visible on the plain x-ray. There was noted to be a significant amount of stool in the patient's rectum and throughout her colon indicating chronic constipation. The bladder was emptied and the cystoscope was removed. The patient was then awakened and taken to PACU for recovery in stable condition. COMPLICATIONS: None. ESTIMATED BLOOD LOSS: Minimal. RETAINED TUBES AND DRAINS: A 6 x 26 double-J stent on the left with no string. SPECIMENS: None. DISPOSITION: The patient will be admitted back to the Family Medicine Service. Once she is adequately treated for her infection, she can be discharged and should follow up with Dr. Mack Wang, who is her primary urologist. Job ID: [id number]
[2019-09-02] MEDS: Ferrous Sulfate 325 MG TAB PO SCH (20:54)
[2019-09-02] MEDS: Simvastatin 5 MG TAB PO SCH (20:56)
[2019-09-03] MEDS: Piperacillin/Tazobactam 4.5 GM in Sodium Chloride 0.9% 100 ML IVPB SCH ×2 (00:10→05:54)
[2019-09-03 05:27] LABS: #Eosinphils 0.2 thou/uL (0.0-0.7); #Lymphocytes 1.5 thou/uL (1.20-3.40); #Monocytes 0.8 thou/uL (0.11-0.59); #Neutrophils 5.4 thou/uL (1.40-6.50); %Basophils 0.5 % (0.0-1.0); %Eosinophils 2.6 % (0.0-10.0); %Lymphocytes 18.5 % (21.0-51.0); %Monocytes 9.6 % (0.0-10.0); %Neutrophils 68.8 % (42.0-75.0); Mean Corpuscular Hemoglobin 31.2 pg (27.0-31.0); Mean Corpuscular Volume 94.6 fL (78.0-98.0); Mean Platelet Volume 6.9 fL (7.4-10.4); Platelet Count 301 thou/uL (130-400); RBC Distribution Width 12.7 % (11.5-14.5); Red Blood Cell (RBC) Count 3.52 mill/uL (4.20-5.40); White Blood Cell (WBC) Count 7.9 thou/uL (4.8-10.8)
[2019-09-03] MEDS: Lactated Ringer's 1,000 ML IV SCH ×2 (05:54→12:24)
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
[2019-09-03 05:56] LABS: Anion Gap 9 mmol/L (10-20); BUN (Urea Nitrogen) Less than 4 mg/dL (9.8-20.1); Calc. Creatinine Clearance 124 mL/min (70-130); Calcium 7.9 mg/dL (7.8-10.44); Carbon Dioxide 30 mmol/L (23-31); Chloride 105 mmol/L (98-107); Estimated GFR-MDRD Greater than 90; Glucose 111 mg/dL (83-110); Potassium 3.4 mmol/L (3.5-5.1); Sodium 141 mmol/L (136-145)
[2019-09-03 08:43] VITALS: BP 165/71; TEMP 97.4
[2019-09-03] MEDS ORDERED: Lisinopril 5 MG TAB PO SCH (09:00)
[2019-09-03] MEDS ORDERED: Sulfameth/Trimethoprim DS 800-160mg TAB PO SCH (09:00)
[2019-09-03] MEDS: Tamsulosin HCl 0.4 MG CAP PO SCH (09:54)
[2019-09-03] MEDS: Lactinex Tablet PO SCH (09:54)
[2019-09-03] MEDS: Enoxaparin Sodium 40 MG/0.4 ML SYRINGE SC SCH (09:54)
[2019-09-03] MEDS: Polyethylene Glycol 3350 17 GM Packet PO SCH (09:55)
--- NOTE | 2019-09-03 15:54 | PRG ---
DATE OF SERVICE: 09/03/2019 The patient is afebrile with stable vital signs. She is complaining of pain in her right knee and femur region. I am examining her she does not have anything to suggest a deep vein thrombosis, tender when you try to move her knee and with her leg outstretched when tried to bend the knee. I do not see any swelling around. I think this may just be somewhat related just positioning for the cystoscopic exam yesterday. She is not ambulatory and I talked with her daughter about whether they want to proceed looking at x-rays of this region or not or getting orthopedics involved. She felt like they probably do not unless it continues to bother her at home. She grew out in her urine and E coli that is sensitive to Bactrim, which she has been switched over to and I think she could go home at any time on that. I am going to set her up for a ureteroscopy of this left ureteral stone with laser lithotripsy for 2 weeks from today. My office will schedule that and contact her. Job ID: [id number]
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
--- NOTE | 2019-09-05 21:28 | PQF ---
JENELLE GREEN GRADY [id number] ONC-130 [id number] CLINICAL DOCUMENTATION CLARIFICATION FORM: POST DISCHARGE Addendum to original discharge summary date: ____ Late entry note date: __ DATE:09/05/2019 ATTN: Bobby Lemons Please exercise your independent, professional judgment in responding to the clarification form. Clinical indicators are provided on the bottom of this form for your review Please check appropriate box(es): [ x ] Sepsis due to UTI [ ] Severe sepsis with acute organ dysfunction of: (Examples: respiratory failure, encephalopathy, acute kidney failure, other) [ ] Septic Shock [ ] Localized infection without sepsis [ ] Other diagnosis [ ] Unable to determine In addition, please specify: Present on Admission (POA): [ x ] Yes [ ] No [ ] Unable to determine For continuity of documentation, please document condition throughout progress notes and discharge summary. Thank You. CLINICAL INDICATORS - SIGNS / SYMPTOMS / LABS ED Notes p2 08/31 SIRS scoring: Patient meets criteria ED Notes p3 08/31 Vital sign: Resp 24, Temp 99.0 Family Medicine H&P p1 08/31 Dr SosaPresents to ED for a 24H history of fever and AMS Family Medicine H&P p1 08/31 Dr Sosa Hx of frequent renal stones and UTIs that have resulted in multiple multiple episodes of sepsis Family Medicine H&P p1 08/31 Dr Sosa notified a fever of 101 F (Oral) and mild confusion during the night prior to presentation. RISK FACTORS Family Medicine H&P p4 08/31 AMS Family Medicine H&P p4 08/31 Nephrolithiasis Family Medicine H&P p4 08/31 Complicated UTI TREATMENTS: OCT 20 IV Ceftriaxone OCT 20 IV Zosyn MAR 08/31 Acetaminophen Urology consult 09/02 Dr Blake Operative report - Cystoscopy with Stent placement (This form is maintained as a part of the permanent medical record) 2014 [employer]. All Rights Reserved [email or web address] [not provided] MTDD
--- NOTE | 2019-09-05 21:30 | PQF ---
JENELLE GREEN GRADY *r [id number] ONC-130 [id number] CLINICAL DOCUMENTATION CLARIFICATION FORM: POST DISCHARGE Addendum to original discharge summary date: ____ Late entry note date: __ DATE:09/05/2019 ATTN: Bobby Lemons Please exercise your independent, professional judgment in responding to the clarification form. Clinical indicators are provided on the bottom of this form for your review Please check appropriate box(s): [ x ] Acute Toxic Encephalopathy [ ] Acute Metabolic Encephalopathy [ ] Transient Alteration of Awareness [ ] Other diagnosis [ ] Unable to determine In addition, please specify: Present on Admission (POA): [x ] Yes [ ] No [ ] Unable to determine For continuity of documentation, please document condition throughout progress notes and discharge summary. Thank You. CLINICAL INDICATORS - SIGNS / SYMPTOMS / LABS ED Notes p2 08/31 SIRS scoring: Patient meets criteria ED Notes p3 08/31 Vital sign: Resp 24, Temp 99.0 Family Medicine H&P p1 08/31 Dr SosaPresents to ED for a 24H history of fever and AMS Family Medicine H&P p1 08/31 Dr Sosa Hx of frequent renal stones and UTIs that have resulted in multiple multiple episodes of sepsis Family Medicine H&P p1 08/31 Dr Sosa notified a fever of 101 F (Oral) and mild confusion during the night prior to presentation. RISK FACTORS Family Medicine H&P p4 08/31 AMS Family Medicine H&P p4 08/31 Nephrolithiasis Family Medicine H&P p4 08/31 Complicated UTI TREATMENTS: OCT 20 IV Ceftriaxone OCT 20 IV Zosyn OCT 20 Acetaminophen Urology consult 09/02 Dr Blake Operative report - Cystoscopy with Stent placement (This form is maintained as a part of the permanent medical record) 2014 [employer]. All Rights Reserved [email or web address] [not provided] MTDD
--- NOTE | 2019-09-08 11:46 | EKG ---
Test Reason : Blood Pressure : / mmHG Vent. Rate : 076 BPM Atrial Rate : 076 BPM P-R Int : 192 ms QRS Dur : 092 ms QT Int : 414 ms P-R-T Axes : 054 -45 043 degrees QTc Int : 465 ms Normal sinus rhythm Incomplete right bundle branch block Left anterior fascicular block Minimal voltage criteria for LVH, may be normal variant Anterolateral infarct , age undetermined Abnormal ECG Confirmed by KALEE LOU ([id number]), index editor MIMI SAMUELS ([id number]) on 09/08/2019 11:46:07 AM Referred By: Confirmed By:KALEE LOU
== END 2019-09-03 15:37 | disposition home or self-care (01) | DRG 853 ==
LOC: ERS 17:17 → ONC 23:16
PROVIDERS: ADMIT Family Medicine; ATTEND Family Medicine
PROC: 0T778DZ Dilation of Left Ureter with Intraluminal Device, Via Natural or Artificial Opening Endoscopic (ICD-10-PCS; principal; 2019-09-02)
PROC: BT1FZZZ Fluoroscopy of Left Kidney, Ureter and Bladder (ICD-10-PCS; 2019-09-02)
DX: A41.51 Sepsis due to Escherichia coli [E. coli] (principal); G92 Toxic encephalopathy; N13.6 Pyonephrosis; G81.91 Hemiplegia, unspecified affecting right dominant side; E78.5 Hyperlipidemia, unspecified; I10 Essential (primary) hypertension; K59.09 Other constipation; I25.10 Atherosclerotic heart disease of native coronary artery without angina pectoris; E87.6 Hypokalemia; S06.9X0S Unspecified intracranial injury without loss of consciousness, sequela; Z79.899 Other long term (current) drug therapy; I25.2 Old myocardial infarction; Z90.710 Acquired absence of both cervix and uterus; Z87.440 Personal history of urinary (tract) infections; V49.9XXS Car occupant (driver) (passenger) injured in unspecified traffic accident, sequela
CPT/HCPCS: 36415; 51701; 70450; 71045; 74176; 74420; 80048; 80053; 81003; 81015; 83605; 83690; 83735; 84484; 85025; 87077; 87086; 87186; 93005; 96361; 96365; A4353; C1769; J0696; J1650; J2001; J2543; J3010; J3475; J3480; J3490; J7120

== ENCOUNTER 2019-09-17 08:02 | Day surgery (SDC) | payer MEDICARE, MEDICAID ==
[2019-09-14 11:07] VITALS: BMI 32.3
[2019-09-17] MEDS ORDERED: cefTRIAXone\\ROCEPHIN 2 GM VIAL ONE (08:45)
[2019-09-17] MEDS ORDERED: Sodium Chloride 0.9% 100 ML ONE (08:45)
[2019-09-17] MEDS ORDERED: Ondansetron PF 4 MG/2 ML Vial ONE (09:40)
[2019-09-17] MEDS ORDERED: PROPOFOL 200 MG/20 ML VIAL ONE (09:40)
[2019-09-17] MEDS ORDERED: Lidocaine 1% PF 5 ML VIAL ONE (09:40)
[2019-09-17] MEDS ORDERED: Fentanyl 100 MCG/2 ML VIAL ONE (10:28)
[2019-09-17] MEDS ORDERED: Iothalamate Meglumine 60% 50 ML VIAL FS ONE (10:29)
--- NOTE | 2019-09-17 12:55 | RAD ---
RETROGRADE PYELOGRAM: A total of 12 images. INDICATION: Left ureteral stone. Intraoperative imaging. FINDINGS/IMPRESSION: Fluorosocpic images presented show catheter placed into the left ureter with opacification of the lef t collecting structures. Final image demonstrates placement of a left double-pigtail ureteral stent. POS: FABIO
--- NOTE | 2019-09-17 17:31 | OP ---
DATE OF PROCEDURE: 09/17/2019 PREOPERATIVE DIAGNOSIS: Left mid ureteral stone. POSTOPERATIVE DIAGNOSIS: Left mid ureteral stone. PROCEDURES PERFORMED: Cysto removal of left stent, left rigid ureteroscopy, laser lithotripsy, left retrograde, and left stent replacement. ANESTHETIC: General. ESTIMATED BLOOD LOSS: Minimal. FINDINGS: She had a 9 mm left mid ureteral stone. It was a soft stone. It fragmented well with the laser into multiple small pieces, so we did not waste any time in trying to remove any of these. We just fragmented into pieces that washed down with the flow of the irrigant. DESCRIPTION OF PROCEDURE: After obtaining written and verbal consent from the patient, she was taken to the operating suite. She was placed in the supine position on the treatment table. PlexiPulses were placed on her lower extremities and turned on. She had received Rocephin IV piggyback. She was given a general anesthetic oral intubation, placed in the dorsal lithotomy position, sterilely prepped and draped. Fluoroscopy was brought in and used to help in the procedure. Cystoscopy was performed with a 22-Haitian sheath. This was well lubricated and passed under direct vision through the female urethra into the urinary bladder with aid of a 30-degree lens of video camera and monitor. The bladder was filled and emptied number of times, and the distal end of the indwelling double-J stent was grasped and brought out through the urethral meatus. A guidewire was fed up through this into the region of the renal pelvis. The stent was removed over the guidewire intact and discarded. We then brought in a small caliber, short graduated rigid ureteroscope and passed it through the female urethra into the bladder under direct vision with aid of a video camera and monitor. We manipulated it adjacent to the guidewire up to the level in the mid ureter, where a stone was identified. We then brought in a small caliber holmium laser fiber and used it to break the stone up into multiple tiny tiny fragments. Most of these washed down into her bladder by the end of the procedure. We then looked all the way up into the renal pelvis and saw no other stones. We looked at the ureter on its entirety of the way out. There were some slightly larger fragments down in the distal ureter, and these were broken up into smaller pieces until they also had cleared. At this point, we went back up to the site of the original stone and slightly proximal to it. There were no other remaining stone fragments of any size. The instruments were removed. The guidewire was backloaded through the 22-Haitian cystoscope, which was placed back into the bladder. The Pollack catheter was placed up into the region of the renal pelvis, and the wire was removed. About 15 mL of contrast were injected, which showed good flow of contrast down the ureter into the bladder without any evidence of extravasation or significant filling defect nor obstruction. The guidewire was placed through the Peyton. The Pollack was removed. A 6 x 24 Polaris double-J stent was pushed up into place with aid of a pusher over the guidewire, so its proximal end coiled in the renal pelvis and its distal end coiled in the bladder when the wire was removed. A string was left exiting the urethra. The bladder was drained. The instruments were removed. She was awakened from her anesthetic and taken by stretcher to the recovery room. Job ID: [id number]
== END 2019-09-17 13:50 | disposition home or self-care (01) ==
LOC: SDC 08:02
PROVIDERS: ATTEND Urology
PROC: 0TF78ZZ Fragmentation in Left Ureter, Via Natural or Artificial Opening Endoscopic (ICD-10-PCS; principal; 2019-09-17)
PROC: 0T778DZ Dilation of Left Ureter with Intraluminal Device, Via Natural or Artificial Opening Endoscopic (ICD-10-PCS; 2019-09-17)
DX: N20.1 Calculus of ureter (principal); Z79.899 Other long term (current) drug therapy
CPT/HCPCS: 52356; 74420; C1758; J0696; J2001; J2405; J2704; J3010; J3490

== ENCOUNTER 2020-02-28 10:19 | Observation (INO) | payer MEDICARE, MEDICAID, OTHER ==
[2020-02-28 11:56] LABS: #Eosinphils 0.1 thou/uL (0.0-0.7); #Lymphocytes 1.5 thou/uL (1.20-3.40); #Monocytes 0.8 thou/uL (0.11-0.59); #Neutrophils 4.4 thou/uL (1.40-6.50); %Basophils 0.7 % (0.0-1.0); %Lymphocytes 21.9 % (21.0-51.0); %Monocytes 11.3 % (0.0-10.0); Hemoglobin 12.3 g/dL (12.0-16.0); Mean Corpuscular Hemoglobin 30.7 pg (27.0-31.0); Mean Corpuscular Volume 95.9 fL (78.0-98.0); Mean Platelet Volume 7.1 fL (7.4-10.4); Platelet Count 263 thou/uL (130-400); RBC Distribution Width 13.1 % (11.5-14.5); Red Blood Cell (RBC) Count 4.02 mill/uL (4.20-5.40); White Blood Cell (WBC) Count 6.8 thou/uL (4.8-10.8)
--- NOTE | 2020-02-28 12:13 | CT ---
CT abdomen and pelvis noncontrast HISTORY: Right flank pain. COMPARISON: 08/31/2019. FINDINGS: There is subtle wall thickening and adjacent fat stranding involving the nondilated right r enal pelvis and proximal ureter. Multiple nonobstructing calculi of right renal calyces are again demonstrated, measuring up to 1.1 cm greatest diameter. The left urinary collecting system and ureter remain dilated to the level of a 0.7 cm x 0.4 cm distal left ureteral calculus that has migrated inferiorly since the previous exam. Additional calcifications are present within the left renal collecting system measuring up to 0.4 cm. Lack of contrast limits evaluation for other abnormalities. Old right lower rib fractures are again d emonstrated. Parenchymal scarring/atelectasis at the dependent portion of each lower lobe. Hyperdense stones are again demonstrated within the gallbladder lumen. There are prominent degenerative changes of the lumbar spine. The rectum remains markedly distended with fecal material, up to 10.2 cm. There is relative thickenin g of the rectal wall given the degree of distention. The appearance is similar to the 08/31/2019 study. IMPRESSION : While no right urinary tract obstruction is evident, there is wall thickening and adjacent fat strand ing at the right renal pelvis and proximal ureter that could reflect pyelonephritis. Chronic partial obstruction of the distal left ureter, where a 7 mm calculus has migrated distally si nce the previous exam. Additional nonobstructing bilateral renal calculi. Prominent fecal impaction with thickening of the rectal wall. Clinical correlation regarding other si gns and symptoms of stercoral proctitis is required. Cholelithiasis.
[2020-02-28 12:21] LABS: ALT (SGPT) 13 U/L (8-55); AST (SGOT) 12 U/L (5-34); Albumin 3.4 g/dL (3.4-4.8); Alkaline Phosphatase 82 U/L (40-110); Anion Gap 13 mmol/L (10-20); BUN (Urea Nitrogen) 14 mg/dL (9.8-20.1); Bilirubin, Total 0.3 mg/dL (0.2-1.2); Calc. Creatinine Clearance 0 mL/min (70-130); Calcium 8.6 mg/dL (7.8-10.44); Carbon Dioxide 25 mmol/L (23-31); Chloride 104 mmol/L (98-107); Estimated GFR-MDRD Greater than 90; Globulin 3.5 g/dL (2.4-3.5); Glucose 87 mg/dL (83-110); Potassium 4.1 mmol/L (3.5-5.1); Protein, Total 6.9 g/dL (6.0-8.3); Sodium 138 mmol/L (136-145)
[2020-02-28 12:35] LABS: Bacteria/HPF 4+ HPF (None Seen); Bilirubin Negative (Negative); Blood, Urine 1+ (Negative); Clarity Turbid (Clear); Glucose, Urine (Dipstick) Normal (Negative); Ketone, Urine Negative (Negative); Leukocyte 500 Leu/uL (Negative); Nitrite 2+ (Negative); Protein, Urine (Dipstick) 20 mg/dL (Neg-Trace); RBC/HPF 21-50 HPF (0-3); Renal Epithelial 0-3 HPF (None Seen); Specific Gravity, Urine 1.012 (1.002-1.036); Squamous Epithelial 0-3 HPF (0-3); WBC/HPF Greater than 50 HPF (0-3)
[2020-02-28] MEDS ORDERED: cefTRIAXone\\ROCEPHIN 2 GM VIAL ONE (13:13)
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
[2020-02-28 15:52] VITALS: BMI 32.1
[2020-02-28] MEDS ORDERED: Ondansetron PF 4 MG/2 ML Vial IVP PRN (16:14)
[2020-02-28] MEDS ORDERED: Acetaminophen 325 MG TAB PO PRN (16:14)
[2020-02-28] MEDS ORDERED: Docusate 100 MG CAP PO SCH (16:14)
[2020-02-28] MEDS ORDERED: Acetaminophen 650 MG Suppository PR PRN (16:14)
[2020-02-28] MEDS ORDERED: Ondansetron ODT 4 MG TAB PO PRN (16:14)
[2020-02-28] MEDS ORDERED: Docusate 100 MG CAP PO PRN (16:14)
[2020-02-28] MEDS: Piperacillin/Tazobactam 3.375 GM in Sodium Chloride 0.9% 100 ML IVPB SCH ×2 (17:10→23:15)
[2020-02-28] MEDS: Lactated Ringer's 1,000 ML IV SCH (17:14)
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
[2020-02-28] MEDS ORDERED: Simvastatin 10 MG TAB PO SCH (21:00)
[2020-02-28] MEDS ORDERED: Cholecalciferol 1,000 UNITS (25 MCG) TAB PO SCH (21:00)
[2020-02-29] MEDS: Lactated Ringer's 1,000 ML IV SCH ×3 (03:21→17:05)
[2020-02-29] MEDS: Piperacillin/Tazobactam 3.375 GM in Sodium Chloride 0.9% 100 ML IVPB SCH ×3 (05:20→17:06)
[2020-02-29 05:38] LABS: #Eosinphils 0.1 thou/uL (0.0-0.7); #Lymphocytes 1.2 thou/uL (1.20-3.40); #Monocytes 0.7 thou/uL (0.11-0.59); #Neutrophils 4.1 thou/uL (1.40-6.50); %Basophils 0.5 % (0.0-1.0); %Eosinophils 1.9 % (0.0-10.0); %Lymphocytes 20.1 % (21.0-51.0); %Monocytes 10.8 % (0.0-10.0); %Neutrophils 66.8 % (42.0-75.0); Hemoglobin 12.1 g/dL (12.0-16.0); Mean Corpuscular HGB CONC 32.3 g/dL (32.0-36.0); Mean Corpuscular Hemoglobin 30.9 pg (27.0-31.0); Mean Corpuscular Volume 95.8 fL (78.0-98.0); Mean Platelet Volume 7.1 fL (7.4-10.4); Platelet Count 260 thou/uL (130-400); RBC Distribution Width 12.9 % (11.5-14.5); Red Blood Cell (RBC) Count 3.91 mill/uL (4.20-5.40); White Blood Cell (WBC) Count 6.1 thou/uL (4.8-10.8)
[2020-02-29 05:56] LABS: Anion Gap 11 mmol/L (10-20); BUN (Urea Nitrogen) 13 mg/dL (9.8-20.1); Calc. Creatinine Clearance 110 mL/min (70-130); Calcium 8.6 mg/dL (7.8-10.44); Carbon Dioxide 26 mmol/L (23-31); Chloride 107 mmol/L (98-107); Estimated GFR-MDRD Greater than 90; Glucose 106 mg/dL (83-110); Potassium 4.3 mmol/L (3.5-5.1); Sodium 140 mmol/L (136-145)
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
[2020-02-29] MEDS ORDERED: Enoxaparin Sodium 40 MG/0.4 ML SYRINGE SC SCH (09:00)
[2020-02-29] MEDS ORDERED: Polyethylene Glycol 3350 17 GM Packet PO SCH ×2 (09:00→13:15)
[2020-02-29] MEDS ORDERED: Fentanyl 100 MCG/2 ML VIAL ONE (11:45)
[2020-02-29] MEDS ORDERED: Iopamidol 15 ML ONE (11:47)
[2020-02-29] MEDS ORDERED: PROPOFOL 200 MG/20 ML VIAL ONE (11:54)
[2020-02-29] MEDS ORDERED: Lidocaine 1% PF 5 ML VIAL ONE (11:54)
--- NOTE | 2020-02-29 12:54 | RAD ---
EXAM: XR IVP Retrograde DATE: 02/29/2020 12:00 AM INDICATION: 79-year-old female with left ureteral stent COMPARISON: CT of the abdomen and pelvis dated February 28, 2020 FINDING: The initial image demonstrates an IVC filter is seen right of midline at L3. There is promi nent amount retained stool within the rectum. Subsequent image demonstrates retrograde opacification of both renal collecting systems via retrograde opacification the bladder. There is a f illing defect involving the distal left ureter corresponding to the 7 mm distal left ureteral stone seen on the recent CT the abdomen and pelvis. Subsequent images demonstrate placement of a wire withi n the left renal collecting system projecting to a superior calyx of the left kidney. Subsequent images demonstrate placement of a left ureteral double-J stent. The left ureteral stone is not defini tely seen on the final provided image and may have been removed. No appreciable residual contrast is seen within the renal collecting systems. IMPRESSION: 1. Distal left ureteral calculus. Suspected removal on the final submitted image. 2. Interval placement of a left ureteral stent projecting in expected position. 3. Large amount retained stool within the rectum. 4. IVC filter
--- NOTE | 2020-02-29 13:24 | PRG ---
DATE OF SERVICE: 02/29/2020 The patient has been afebrile. Her vital signs have been stable. She is on Zosyn now for antibiotic coverage. She has no cultures back yet. Her white count is 6.1, hemoglobin is 12.1 this morning. Her creatinine is 0.61. COVID status, not detected. She has been n.p.o. after midnight. We took her to the OR and placed a stent, it went up easily. We are going to give her a couple of weeks to see if she can pass the stone. If not, we will go up and get it with the ureteroscope and my office will arrange for that. From my standpoint, she could probably go home at any time. If she stays overnight, I would like her to go home with appropriate antibiotics based on the results of her culture. I will sign off her at this time. I have talked with her daughter. I will arrange for followup. If she needs further urologic evaluation this weekend, just consult the urologist as on-call will be covering for me. Job ID: [id number]
[2020-02-29 15:10] VITALS: BP 118/68; TEMP 97.8
--- NOTE | 2020-02-29 18:23 | OP ---
DATE OF PROCEDURE: 02/29/2020 PREOPERATIVE DIAGNOSES: Left ureteral stone, urinary tract infection. POSTOPERATIVE DIAGNOSES: Left ureteral stone, urinary tract infection. PROCEDURES PERFORMED: Cysto, left retrograde, left stent. ANESTHETIC: General. ESTIMATED BLOOD LOSS: Minimal. FINDINGS: She had a left lower third ureteral stone and had a 6 x 24 double-J stent placed. She does have some reflux, upper right ureter. DESCRIPTION OF PROCEDURE: After obtaining written and verbal consent from the patient and her family, she was taken to the operating suite. She was placed in a supine position on the treatment table. PlexiPulses were placed on her lower extremities and turned on. She was given a general anesthetic and oral obturator intubation, placed in the dorsal lithotomy position, sterilely prepped and draped. Cystoscopy was performed with a 22-Setswana sheath. This was well lubricated, passed under direct vision through the female urethra into the bladder with aid of a 30-degree lens, video camera, and monitor. The bladder was filled and emptied number of times. The left ureteral orifice was identified. A 5-Setswana Pollack catheter was placed into at about a centimeter, and contrast was slowly injected in a retrograde manner. The wire was then passed up this side and over that wire, a 6 x 24 Polaris double-J stent was placed and pushed up with aid of a pusher, so its proximal end coiled in the renal pelvis and its distal end coiled in the bladder when the wire was removed. The bladder was drained. The instruments were removed. She was taken out of dorsal lithotomy position, awakened, extubated, and taken by stretcher to recovery room. Job ID: [id number]
[2020-02-29] MEDS ORDERED: Docusate 100 MG CAP PO SCH (21:00)
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
== END 2020-02-29 19:28 | disposition home or self-care (01) ==
LOC: ERS 10:19 → T4-B 13:50
PROVIDERS: ADMIT Student in an Organized Health Care Education/Training Program; ATTEND Student in an Organized Health Care Education/Training Program
PROC: 0T778DZ Dilation of Left Ureter with Intraluminal Device, Via Natural or Artificial Opening Endoscopic (ICD-10-PCS; principal; 2020-02-29)
DX: N13.6 Pyonephrosis (principal); K59.09 Other constipation; I10 Essential (primary) hypertension; E78.5 Hyperlipidemia, unspecified; K21.9 Gastro-esophageal reflux disease without esophagitis; I25.10 Atherosclerotic heart disease of native coronary artery without angina pectoris; I25.2 Old myocardial infarction; F32.9 Major depressive disorder, single episode, unspecified; Z20.828 Contact with and (suspected) exposure to other viral communicable diseases; Z87.820 Personal history of traumatic brain injury; Z79.899 Other long term (current) drug therapy
CPT/HCPCS: 51701; 52332; 74176; 74420; 80048; 80053; 84145; 85025 ×2; 87077; 87086; 87186; 96361 ×2; 96365; 96367; 99285; G0378 ×3; U0002; U0003; 36415; 81003; 81015; 87635; J0696; J2543; J2704; J3010; J3490; Q9967

== ENCOUNTER 2020-03-12 06:26 | Outpatient (CLI) | payer MEDICARE, MEDICAID, OTHER ==
[2020-03-13 14:39] LABS: SARS-CoV-2 MS2 Positive; SARS-CoV-2 N Gene Negative; SARS-CoV-2 S Gene Negative; SARS-CoV-2 orf1ab Negative
== END 2020-03-12 06:27 | disposition home or self-care (01) ==
LOC: LABBT 06:26
PROVIDERS: ATTEND Urology
DX: Z01.812 Encounter for preprocedural laboratory examination (principal); Z11.59 Encounter for screening for other viral diseases; N20.1 Calculus of ureter
CPT/HCPCS: 87635; U0003

== ENCOUNTER 2020-03-17 09:56 | Day surgery (SDC) | payer MEDICARE, MEDICAID ==
[~2020-03-17 09:56] MED LIST changes: +Dexamethasone 20 MG/5 ML VIAL ONE; -Iopamidol 370 76% 100 ML VIAL ONE; +Lidocaine 1% PF 5 ML VIAL ONE; +Ondansetron PF 4 MG/2 ML Vial ONE; +PHENYLEPHRINE-NS 100 MCG/ML 10 ML SYRINGE ONE; +PROPOFOL 200 MG/20 ML VIAL ONE
[2020-03-17] MEDS ORDERED: cefTRIAXone\\ROCEPHIN 1 GM VIAL ONE ×2 (11:30→11:34)
[2020-03-17] MEDS ORDERED: Sodium Chloride 0.9% 100 ML ONE ×2 (11:30→11:34)
[2020-03-17] MEDS ORDERED: Fentanyl 100 MCG/2 ML VIAL ONE (12:16)
[2020-03-17] MEDS ORDERED: Iothalamate Meglumine 60% 50 ML VIAL FS ONE (12:22)
--- NOTE | 2020-03-17 14:34 | OP ---
DATE OF PROCEDURE: 03/17/2020 PREOPERATIVE DIAGNOSIS: Left ureteral stone with stent. POSTOPERATIVE DIAGNOSIS: Left ureteral stone with stent. PROCEDURES PERFORMED: 1. Cystoscopy. 2. Removal of left stent. 3. Left rigid ureteroscopy. 4. Laser lithotripsy. 5. Stone retrieval. 6. Stent replacement. ANESTHETIC: General. ESTIMATED BLOOD LOSS: Minimal. FINDINGS: There is a left mid to lower 3rd ureteral stone, probably 6 mm, was lasered into small pieces. A couple of more basketed and removed. Did not send these fragments. It was a soft stone, most of which was broken up and washed down the ureter. At the end of procedure, a retrograde study revealed no extravasation along the course of the ureter obstruction. She had a 4.8 x 20-English double-J stent placed with a string attached to it, exiting a couple inches outside the urethral meatus. DESCRIPTION OF PROCEDURE: After obtaining written and verbal consent from the patient after receiving some IV Rocephin, she was taken to the operating suite. She was placed in a supine position on the treatment table. PlexiPulses were placed on her lower extremities and turned on. She was given a general anesthetic and oral obturator intubation. She was placed in the dorsal lithotomy position, sterilely prepped and draped. Cystoscopy was performed with a 22-English sheath, which was placed through the female urethra into the urinary bladder. The bladder was filled and emptied a number of times and then the distal end of the double-J stent was grasped, brought out through the urethral meatus. It already calcified and it could not feed a guidewire up it. The stent was removed intact. A guidewire was then fed up the left ureter up into the region of the renal pelvis. A small caliber graduated rigid ureteroscope was brought in with aid of video camera and monitor, placed through the female urethra into the bladder and up the left ureter at about the junction of the mid to the lower third of the left ureter. The stone was encountered. A small caliber laser fiber was brought in and holmium laser was used to break the stone up into multiple pieces. A couple of swipes were made with a Nitinol basket. I did not send any specimens off as she has had numerous stone sent off in the past. At this point, the guidewire was back-loaded through the cystoscope. A Pollack catheter was advanced up the left ureter over the course of the guidewire. The guidewire was removed. Contrast was injected to fill out the collecting system. There was no obstruction noted. No extravasation noted. The wire was replaced and a stent was placed over the guidewire, pushed up in place with aid of a pusher, so its proximal end coiled in the renal pelvis and its distal end coiled in the bladder, when the wire was removed. The bladder was drained. The instruments were removed. The string was cut a couple inches exiting urethral meatus. She at this point was taken out of the dorsal lithotomy position, awakened, extubated, and taken by stretcher to recovery room. Job ID: [id number]
--- NOTE | 2020-03-17 14:34 | RAD ---
EXAM: Retrograde IVP HISTORY: Ureteral stent COMPARISON: 02/29/2020 FINDINGS/IMPRESSION: Limited intraoperative fluoroscopic views of the retrograde IVP were submitted f or interpretation. There is a left-sided ureteral stent which appears in good position. No obvious urinary collecting system calcifications are seen. There is at least mild left-sided hydronephrosis.
== END 2020-03-17 15:17 | disposition home or self-care (01) ==
LOC: SDC 09:56
PROVIDERS: ATTEND Urology
PROC: 0TC78ZZ Extirpation of Matter from Left Ureter, Via Natural or Artificial Opening Endoscopic (ICD-10-PCS; principal; 2020-03-17)
PROC: 0T778DZ Dilation of Left Ureter with Intraluminal Device, Via Natural or Artificial Opening Endoscopic (ICD-10-PCS; 2020-03-17)
DX: N13.2 Hydronephrosis with renal and ureteral calculous obstruction (principal); K21.9 Gastro-esophageal reflux disease without esophagitis
CPT/HCPCS: 74420; J0696; J1100; J2405; J2704; J3010; J3490

== ENCOUNTER 2020-07-14 19:57 | Inpatient (IN) | payer MEDICARE, MEDICAID ==
[~2020-07-14 19:57] MED LIST changes: -Dexamethasone 20 MG/5 ML VIAL ONE; +Iopamidol-370 76% 500 ML 1 ML ONE; -Lidocaine 1% PF 5 ML VIAL ONE; -Ondansetron PF 4 MG/2 ML Vial ONE; -PHENYLEPHRINE-NS 100 MCG/ML 10 ML SYRINGE ONE; -PROPOFOL 200 MG/20 ML VIAL ONE
[2020-07-14] MEDS ORDERED: Ondansetron PF 4 MG/2 ML Vial ONE (20:31)
[2020-07-14] MEDS ORDERED: Morphine 4 MG/ML VIAL ONE (20:39)
[2020-07-14 21:01] LABS: #Lymphocytes 0.7 thou/uL (1.20-3.40); #Monocytes 0.4 thou/uL (0.11-0.59); #Neutrophils 13.6 thou/uL (1.40-6.50); %Basophils 0.1 % (0.0-1.0); %Eosinophils 0.2 % (0.0-10.0); %Lymphocytes 4.6 % (21.0-51.0); %Monocytes 2.4 % (0.0-10.0); %Neutrophils 92.7 % (42.0-75.0); Hemoglobin 14.5 g/dL (12.0-16.0); Mean Corpuscular HGB CONC 32.7 g/dL (32.0-36.0); Mean Corpuscular Hemoglobin 30.1 pg (27.0-31.0); Mean Corpuscular Volume 92.1 fL (78.0-98.0); Mean Platelet Volume 7.1 fL (7.4-10.4); Platelet Count 385 thou/uL (130-400); RBC Distribution Width 13.8 % (11.5-14.5); Red Blood Cell (RBC) Count 4.82 mill/uL (4.20-5.40); White Blood Cell (WBC) Count 14.7 thou/uL (4.8-10.8)
[2020-07-14 21:23] LABS: ALT (SGPT) 7 U/L (8-55); AST (SGOT) 17 U/L (5-34); Albumin 3.7 g/dL (3.4-4.8); Alkaline Phosphatase 117 U/L (40-110); Anion Gap 17 mmol/L (10-20); BUN (Urea Nitrogen) 13 mg/dL (9.8-20.1); Bilirubin, Total 0.5 mg/dL (0.2-1.2); Calc. Creatinine Clearance 0 mL/min (70-130); Calcium 9.2 mg/dL (7.8-10.44); Carbon Dioxide 23 mmol/L (23-31); Chloride 101 mmol/L (98-107); Estimated GFR-MDRD 67; Globulin 4.7 g/dL (2.4-3.5); Glucose 142 mg/dL (83-110); Lipase 21 U/L (8-78); Potassium 3.7 mmol/L (3.5-5.1); Protein, Total 8.4 g/dL (6.0-8.3); Sodium 137 mmol/L (136-145)
[2020-07-14] MEDS ORDERED: Promethazine HCl 25 MG/ML VIAL ONE (21:32)
[2020-07-14] MEDS ORDERED: cefTRIAXone\\ROCEPHIN 1 GM VIAL ONE (21:48)
[2020-07-14] MEDS ORDERED: Adenosine 6 MG/2 ML VIAL ONE ×3 (22:19→22:55)
[2020-07-14] MEDS ORDERED: Vancomycin 1 GM/200 ML BAG ONE (22:43)
[2020-07-14] MEDS ORDERED: Amiodarone 150 MG, Admixture Fee 1 EACH in Dextrose 5% in Water 100 ML IVPB SCH (22:45)
[2020-07-14 23:52] LABS: Bacteria/HPF 4+ HPF (None Seen); Bilirubin Negative (Negative); Blood, Urine 3+ (Negative); Clarity Extra Turbid (Clear); Glucose, Urine (Dipstick) Normal (Negative); Ketone, Urine Negative (Negative); Leukocyte 500 Leu/uL (Negative); Nitrite Negative (Negative); Protein, Urine (Dipstick) 200 mg/dL (Neg-Trace); RBC/HPF Greater than 50 HPF (0-3); Specific Gravity, Urine 1.012 (1.002-1.036); Urobilinogen Normal mg/dL (Less than 2); WBC/HPF Greater than 50 HPF (0-3)
--- NOTE | 2020-07-15 00:07 | CT ---
CT of the abdomen and pelvis: 07/14/2020 COMPARISON: 02/28/2020 HISTORY: Left flank pain TECHNIQUE: Axial CT imaging at 5 mm intervals from the lung bases through the pubic symphysis with IV contrast. Coronal and sagittal reformatted imaging obtained. FINDINGS: There is increased linear density within both lung bases with infiltrate or volume loss inv olving the inferior posterior aspect of bilateral lower lobes. No free intraperitoneal air is seen. There is a left femoral vascular catheter. Multiple calcified stones are seen within the gallbladder. The liver and spleen appear unremarkable. There is fatty atrophy of the pancreas. The adrenal glands appear unremarkable. There is perinephric stranding and nephromegaly on the left which appears new when compared to the recent prior CT. There is hydronephrosis and hydroureter on the left secondary to an obstructing stone within the mid left ureter measuring approximately 9 mm in craniocaudal dimension, seen at the axial level of the L4-5 disc interspace. Further distal to this is an additional obstructing stone within the left ureter measuring approximately 1.2 cm in craniocaudal dimension, at the axial level o f the mid sacroiliac joint. These 2 obstructing stones within the left ureter were not present on the 02/28/2020 exam. A stone on the 02/28/2020 exam within the distal left ureter is no longer visualized . There is a Dillard catheter within the urinary bladder. There is mild perinephric stranding with hydronephrosis on the right. There are numerous intrarenal c alculi on the right measuring up to 1.7 cm within the midpole. There is proximal hydroureter and significant hydronephrosis on the right with a proximal obstructing ureteral stone measuring 1.1 cm transverse dimension and 2.0 cm craniocaudal dimension within the right ureter at the axial level of the L3 vertebral body. This stone was not present on the 02/28/2020 examination either. There is enhancement and thickening of the ureters which may be on the basis of obstructive uropathy or superimposed inflammatory/infectious process. The rectum is expanded and filled with stool suggesting fecal impaction. There is no evidence for bowel inflammatory change or bowel obstruction. The vascular structures appear patent. There is atherosclerotic calcification of the abdominal aorta and its branches. There is an IVC filter in place. The bones are markedly demineralized. There is prominent multilevel degenerative change within the imaged spine. IMPRESSION: Hydronephrosis and hydroureter bilaterally with obstructing stones within bilateral urete rs (2 within the left ureter and one within the right ureter) as detailed above. Bilateral intrarenal calculi are present as well. Thickening and enhancement of the urothelium suggest superimp osed inflammatory or infectious process. Clinical correlation is required. The rectum is expanded and filled with stool, evidence of fecal impaction.
[2020-07-15 00:24] LABS: Lactic Acid 3.8 mmol/L (0.5-2.2)
[2020-07-15 01:01] LABS: SARS-CoV-2 NAA Rapid Test Not Detected (NotDetected)
[2020-07-15] MEDS ORDERED: Acetaminophen 650 MG Suppository ONE (01:17)
[2020-07-15] MEDS ORDERED: Acetaminophen 325 MG Suppository ONE (01:17)
[2020-07-15] MEDS ORDERED: Promethazine HCl 25 MG/ML VIAL ONE (01:40)
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
[2020-07-15] MEDS ORDERED: Acetaminophen 650 MG Suppository PR PRN (02:34)
[2020-07-15] MEDS ORDERED: Acetaminophen 325 MG TAB PO PRN (02:34)
[2020-07-15] MEDS ORDERED: Lactated Ringer's 1,000 ML IV SCH (02:45)
[2020-07-15] MEDS ORDERED: Norepinephrine 8 MG/0.9% NS 250 ML IVPB PRN (03:29)
[2020-07-15] MEDS: MEROPENEM 1 GM/50 ML 1 GM in Premix Bag 1 BAG IVPB SCH ×3 (03:43→20:28)
[2020-07-15 04:18] LABS: ALT (SGPT) 9 U/L (8-55); AST (SGOT) 22 U/L (5-34); Albumin 2.6 g/dL (3.4-4.8); Alkaline Phosphatase 90 U/L (40-110); Anion Gap 16 mmol/L (10-20); BUN (Urea Nitrogen) 13 mg/dL (9.8-20.1); Bilirubin, Total 0.5 mg/dL (0.2-1.2); Calc. Creatinine Clearance 69 mL/min (70-130); Calcium 7.4 mg/dL (7.8-10.44); Carbon Dioxide 15 mmol/L (23-31); Chloride 109 mmol/L (98-107); Estimated GFR-MDRD 55; Globulin 3.4 g/dL (2.4-3.5); Glucose 152 mg/dL (83-110); Potassium 2.8 mmol/L (3.5-5.1); Sodium 137 mmol/L (136-145)
[2020-07-15] MEDS ORDERED: Potassium Chloride 40 MEQ in Premix Bag 1 BAG IVPB SCH ×2 (05:30→07:45)
[2020-07-15] MEDS ORDERED: Meropenem 1 GM in Sodium Chloride 0.9% 100 ML IVPB SCH (06:00)
[2020-07-15] MEDS ORDERED: Electrolyte Replacement Protoc 1 EACH EACH FS SCH (06:45)
--- NOTE | 2020-07-15 06:53 | PDOC.BPN ---
- Brief Progress Note Discussed patient's case with her urologist Dr. Wang this morning, who states he will be in to see her this morning due to her illness severity.
[2020-07-15 06:54] LABS: Band 26 % (5-11); Hemoglobin 12.6 g/dL (12.0-16.0); Lymphocytes 5 % (21-51); MDiff Complete? YES; Mean Corpuscular HGB CONC 32.4 g/dL (32.0-36.0); Mean Corpuscular Hemoglobin 30.6 pg (27.0-31.0); Mean Corpuscular Volume 94.5 fL (78.0-98.0); Mean Platelet Volume 7.4 fL (7.4-10.4); Neutrophil 69 % (42-75); Platelet Count 204 thou/uL (130-400); RBC Distribution Width 14.1 % (11.5-14.5); Red Blood Cell (RBC) Count 4.11 mill/uL (4.20-5.40); White Blood Cell (WBC) Count 11.5 thou/uL (4.8-10.8)
[2020-07-15 06:55] LABS: Phosphorus 1.4 mg/dL (2.3-4.7)
[2020-07-15] MEDS: Amiodarone 450 MG, Admixture Fee 1 EACH in Dextrose 5% in Water 250 ML IVPB SCH ×2 (07:06→21:50)
[2020-07-15] MEDS ORDERED: Electrolyte Replacement Protocol FS PRN (07:30)
[2020-07-15] MEDS ORDERED: Potassium Chloride 40 MEQ in Sodium Chloride 0.9% 250 ML 250 ML IVPB SCH (07:30)
[2020-07-15] MEDS ORDERED: Potassium Phosphate 22 MMOL in Sodium Chloride 0.9% 250 ML 250 ML IVPB SCH (07:30)
[2020-07-15] MEDS ORDERED: Magnesium Sulfate 4 GM in Sodium Chloride 0.9% 250 ML 250 ML IVPB SCH (07:30)
[2020-07-15] MEDS ORDERED: MAGNESIUM SULFATE IVPB SCH (07:45)
[2020-07-15] MEDS ORDERED: [UNRECOGNIZED DRUG - OTHER] IVPB SCH (07:45)
[2020-07-15] MEDS ORDERED: POTASSIUM PHOSPHATE IVPB SCH (07:45)
[2020-07-15] MEDS: Docusate 100 MG CAP PO SCH ×2 (08:47→20:29)
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
[2020-07-15] MEDS ORDERED: Vancomycin HCl 1.5 GM in Sodium Chloride 0.9% 250 ML 300 ML IVPB SCH (09:00)
[2020-07-15] MEDS ORDERED: Polyethylene Glycol 3350 17 GM Packet PO SCH (09:00)
[2020-07-15] MEDS ORDERED: Vancomycin 1.5 GRAM/300 ML BAG 1.5 GM in Premix Bag 1 BAG IVPB SCH (09:00)
[2020-07-15] MEDS ORDERED: FLU VACC QS2020-21(65YR UP)/PF 240 MCG/0.7 ML SYRINGE IM ONE (09:00)
[2020-07-15] MEDS ORDERED: Ketamine 50 MG/ML (10ML VIAL) ONE (09:11)
[2020-07-15] MEDS ORDERED: Iothalamate Meglumine 60% 50 ML VIAL FS ONE (09:25)
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
[2020-07-15] MEDS: Sodium Bicarbonate 70 MEQ in Sodium Chloride 0.45% 1,000 ML IVP SCH ×3 (09:33→20:29)
[2020-07-15] MEDS: Vancomycin 1.5 GRAM/300 ML BAG 1.5 GM in Premix Bag 1 BAG IVPB SCH (09:33)
[2020-07-15] MEDS ORDERED: Polyethylene Glycol 3350 17 GM Packet PO PRN (10:02)
--- NOTE | 2020-07-15 10:29 | RAD ---
EXAM: Retrograde IVP HISTORY: Ureteral stones COMPARISON: CT abdomen/pelvis 07/14/2020 and IVP 03/17/2020 FINDINGS/IMPRESSION: Limited intraoperative fluoroscopic views of the retrograde IVP were submitted f or interpretation. There is a left femoral central venous catheter. A catheter is initially placed in the left renal collecting system. There is moderate left hydronephrosis. A left ureteral stent is eventually placed in good position. There is attempt at passage of a catheter into the right renal collecting system. There is extravasat ion of contrast in the region of the right ureterovesical junction. Eventually, a catheter is placed into the right kidney and there is mild to moderate right hydronephrosis. Eventually, a right double-J ureteral stent is placed in good position and appears to span the area of extravasation.
--- NOTE | 2020-07-15 10:59 | HP ---
CHIEF COMPLAINT: Fever, flank pain in a lady with history of nephrolithiasis. HISTORY OF PRESENT ILLNESS: Ms. Membreno is a 79-year-old lady who presented to the emergency room this morning with flank pain, fever, chills. She was found to have some retained very large stones in her ureter with bilateral hydronephrosis. Urology was consulted and she will be taken for a stent placement and stone retrieval later this morning. PHYSICAL EXAMINATION: VITAL SIGNS: On exam, her blood pressure is 160/70, heart rate is 120, respirations 16, her sats on 3 L is 99%, her temperature is a 101.2. GENERAL: She is slightly lethargic, but answers questions. EAR, NOSE AND THROAT: No erythema or exudate. CARDIAC: Heart rhythm regular. No gallop or murmur noted. LUNGS: Clear without rales or wheezes. No respiratory distress. ABDOMEN: Flat, soft. No guarding or rebound. She does have some left flank tenderness. NEUROLOGIC: She has a prior right hemiparesis. LABORATORY DATA: [place] [address], is now 11,500, hemoglobin 14.5, hematocrit 44.4 with an MCV of 92. She has a markedly left shift with 26 bands. Chemistries; sodium 137. Her potassium initially was 2.8, but this has been replaced vigorously. Chloride is 109, bicarb is 15, BUN 13, creatinine 0.98. Her lactic acid was initially 4, dropping to 3.8. Her abdominal pelvic CT shows hydronephrosis and multiple large stones. ASSESSMENT: 1. Urinary tract infection with sepsis. 2. Septic shock. 3. Nephrolithiasis. 4. Pyelonephritis. PLAN: The patient will be taken to surgery for a stone retrieval, stent placement. We will continue with pressors, fluids and I have also consulted Dr. Alfaro for his input. has seen the patient, is taking her to surgery. Job ID: [id number]
--- NOTE | 2020-07-15 12:17 | OP ---
DATE OF PROCEDURE: 07/15/2020 PREOPERATIVE DIAGNOSES: 1. Sepsis/urinary tract infection. 2. Bilateral ureteral stones. 3. Bilateral hydronephrosis. POSTOPERATIVE DIAGNOSES: 1. Sepsis/urinary tract infection. 2. Bilateral ureteral stones. 3. Bilateral hydronephrosis. PROCEDURES PERFORMED: 1. Cystoscopy. 2. Bilateral retrogrades. 3. Bilateral stent placement. ANESTHETIC: TIVA. ESTIMATED BLOOD LOSS: Minimal. FINDINGS: She had purulent urine in her bladder. She had purulent urine behind both regions of ureteral obstruction. Left urine and right urine were sent for culture. I could not see her stones on her acls nurse KUB because of overlying stool and gas, but you could see contrast in both collecting systems coming down to the pelvic inlet bilaterally with bilateral hydro. She has a rather tight right ureteral orifice. She had extravasation. I was trying to get a wire across this point, but we were able to get a wire up on that side. I do not know if this is related to a stone in that region or if it is just related to the multiple stones she has had on the right side and procedure she has had, but we did get a stent up without difficulty once we get a guidewire by it. She had bilateral 6 x 24 double-J stents placed, no string was attached, and a 16-[place] Dillard. DESCRIPTION OF PROCEDURE: After obtaining verbal consent from the patient's daughter, she was taken from the ICU to the operating room. She was placed in the supine position on the treatment table. PlexiPulses were placed on her lower extremities and turned on. She was given some ketamine for IV anesthesia, but no intubation. She was placed in the dorsal lithotomy position. She was sterilely prepped and draped for the above procedure. The fluoroscopy unit was then brought down over her and a acls nurse KUB was taken. Cystoscopy was performed with a 22-[place] sheath, this was well lubricated and passed under direct vision through the female urethra into the bladder. The bladder was filled and emptied a number of times in order for us to easily visualize the ureteral orifices. The left ureteral orifice was cannulated with a guidewire and easily went up into the region of the renal pelvis. A 5-[place] Pollack catheter followed over this and we drained about 20 mL of purulent urine from this. We replaced the guidewire and passed a 6 x 24 double-J stent, pushing up in place with aid of a pusher, so its proximal end coiled in the upper calyceal system and its lower end coiled in the bladder when the wire was removed. We attempted the same on the right side; however, we could not get a wire or open-ended catheter manipulate the distal ureter. We required an angled Glidewire. We did get some extravasation of contrast in this region, which suggested a small perforation of the distal right ureter. We were able, however, to manipulate an angled Glidewire by this point and up into the renal pelvis and a 5-[place] Pollack catheter then fairly easily followed this. We drained about 30 mL of purulent urine from this side also. The guidewire was replaced up this open-ended catheter and then a 6 x 24 Polaris double-J stent was placed over this guidewire and pushed up into place with aid of a pusher, so its proximal end coiled in the renal pelvis and its distal end coiled in the bladder when the wire was removed. At this point, a Dillard catheter was placed. She was not extubated as she was never intubated and she was not taken to recovery room, but she was taken back up to the intensive care unit. Job ID: [id number]
[2020-07-15 13:09] LABS: Anion Gap 17 mmol/L (10-20); BUN (Urea Nitrogen) 16 mg/dL (9.8-20.1); Calc. Creatinine Clearance 63 mL/min (70-130); Calcium 7.9 mg/dL (7.8-10.44); Carbon Dioxide 12 mmol/L (23-31); Chloride 113 mmol/L (98-107); Estimated GFR-MDRD 50; Glucose 187 mg/dL (83-110); Potassium 4.2 mmol/L (3.5-5.1); Sodium 138 mmol/L (136-145)
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
[2020-07-15 17:51] LABS: Potassium 3.9 mmol/L (3.5-5.1)
[2020-07-15] MEDS: Ferrous Sulfate 325 MG TAB PO SCH (20:29)
[2020-07-15] MEDS: Saccharomyces boulardii 250 MG CAP PO SCH (20:29)
[2020-07-15] MEDS: Simvastatin 10 MG TAB PO SCH (20:29)
[2020-07-15] MEDS ORDERED: Cholecalciferol 1,000 UNITS (25 MCG) TAB PO SCH (21:00)
[2020-07-15] MEDS ORDERED: Pantoprazole 40 MG GRANULES PACKET PO SCH (21:00)
[2020-07-16] MEDS: Sodium Bicarbonate 70 MEQ in Sodium Chloride 0.45% 1,000 ML IVP SCH ×3 (03:43→20:10)
[2020-07-16] MEDS: MEROPENEM 1 GM/50 ML 1 GM in Premix Bag 1 BAG IVPB SCH ×3 (03:43→21:12)
[2020-07-16 05:07] VITALS: BMI 33.2
[2020-07-16 05:43] LABS: Band 26 % (5-11); Hemoglobin 11.3 g/dL (12.0-16.0); Lymphocytes 3 % (21-51); MDiff Complete? YES; Mean Corpuscular HGB CONC 32.3 g/dL (32.0-36.0); Mean Corpuscular Hemoglobin 30.6 pg (27.0-31.0); Mean Corpuscular Volume 94.8 fL (78.0-98.0); Mean Platelet Volume 8.4 fL (7.4-10.4); Metamyelocyte 4 % (0-0); Monocytes 3 % (0-10); Neutrophil 64 % (42-75); Platelet Count 139 thou/uL (130-400); RBC Distribution Width 14.2 % (11.5-14.5); White Blood Cell (WBC) Count 34.2 thou/uL (4.8-10.8)
[2020-07-16 05:52] LABS: ALT (SGPT) 16 U/L (8-55); AST (SGOT) 31 U/L (5-34); Albumin 2.4 g/dL (3.4-4.8); Alkaline Phosphatase 127 U/L (40-110); Anion Gap 14 mmol/L (10-20); BUN (Urea Nitrogen) 18 mg/dL (9.8-20.1); Bilirubin, Total 0.3 mg/dL (0.2-1.2); Calc. Creatinine Clearance 94 mL/min (70-130); Calcium 7.4 mg/dL (7.8-10.44); Carbon Dioxide 23 mmol/L (23-31); Chloride 110 mmol/L (98-107); Estimated GFR-MDRD 76; Globulin 3.2 g/dL (2.4-3.5); Glucose 85 mg/dL (83-110); Magnesium 2.3 mg/dL (1.6-2.6); Phosphorus 2.9 mg/dL (2.3-4.7); Potassium 3.1 mmol/L (3.5-5.1); Protein, Total 5.6 g/dL (6.0-8.3); Sodium 144 mmol/L (136-145)
[2020-07-16] MEDS: Potassium Chloride 20 MEQ in Premix Bag 1 BAG IVPB SCH ×2 (06:32→09:28)
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
--- NOTE | 2020-07-16 08:36 | PRG ---
DATE OF SERVICE: 07/16/2020 SUBJECTIVE: Ms. Membreno is extubated, awake, and responsive to verbal stimuli. OBJECTIVE: VITAL SIGNS: Her blood pressure is 116/60 and pulse 86, it is sinus. LUNGS: Clear. CARDIAC: Normal S1 and normal S2. ABDOMEN: Soft and nontender. EXTREMITIES: There is no edema. ASSESSMENT: 1. Tachycardia, resolved. I think this was mostly sinus tachycardia. The patient may have had some supraventricular tachycardia as well, but it is difficult to say. May have all been sinus tachycardia. 2. EKG suggested old infarct. PLAN: 1. Echocardiogram is pending. 2. The patient has had a previous infarct, would be appropriate to give a low-dose beta-blockers. Blood pressure appears stable. We will start very low-dose metoprolol. Job ID: [id number]
[2020-07-16 09:08] LABS: Vancomycin, Trough 14.2 ug/mL
[2020-07-16] MEDS: Docusate 100 MG CAP PO SCH ×2 (09:27→21:18)
[2020-07-16] MEDS: Polyethylene Glycol 3350 17 GM Packet PO SCH ×2 (09:27→21:18)
[2020-07-16] MEDS: Vancomycin 1.5 GRAM/300 ML BAG 1.5 GM in Premix Bag 1 BAG IVPB SCH (09:29)
--- NOTE | 2020-07-16 10:32 | PRG ---
DATE OF SERVICE: 07/16/2020 SUBJECTIVE: Ms. Membreno is resting comfortably in bed, in no distress. So far, her blood and urine cultures are growing out a gram-negative sasha and urine culture and blood culture seem to be growing out also E coli. We will await final dispositions on the cultures hopefully by tomorrow. At that point, we may be able to deescalate her antibiotic coverage. We will, however, maintain broad-spectrum coverage until we identify the second gram-negative sasha and its sensitivities. Job ID: [id number]
--- NOTE | 2020-07-16 10:37 | PRG ---
DATE OF SERVICE: 07/16/2020 Her potassium remains low and we are continuing to aggressively replace it. Interestingly, one of the nurses noticed earlier this morning that Ms. Membreno had apneic spells during sleep that went well beyond 10 seconds. She would likely benefit from a sleep study as an outpatient after her stay in the hospital. Job ID: [id number]
--- NOTE | 2020-07-16 13:55 | PRG ---
DATE OF SERVICE: 07/16/2020 She is in the ICU, but transferring to telemetry. She is off pressors. Blood pressure has been stable. She is not significantly tachycardic right now. O2 sats are good. She has had good urine output, it started to clear up, which was sediment and cloudiness. Her white count is up. Hemoglobin is okay. Creatinine is normal. She has grown out E coli that has not a lot of resistance. Her vancomycin can probably be discontinued and she be kept on the meropenem and then switched over to oral antibiotic in a day or 2. On exam, her abdomen is soft, but disulfurizer tender, especially in the left upper quadrant. I would assume this is from pyelonephritis, although the nurses report she is having some diarrhea and I guess it could be related to something else, but in general she seems to be looking a lot better. Her urethral catheter could be removed whenever it is no longer needed for monitoring. The stents will stay in place until we get the stones treated. The large stones are bilateral, this is going to take some time. We will look at probably starting this maybe in about a week and a half, but it would probably take multiple treatments. My office will arrange this. I will be away from for next few days. Dr. Roger is available should urologic consultation be necessary, please contact him. Job ID: [id number]
--- NOTE | 2020-07-16 14:29 | PRG ---
DATE OF SERVICE: 07/16/2020 SUBJECTIVE: Smita De Luna is a 79-year-old female. Events have been reviewed. She is in no distress. She says she is sleepy. OBJECTIVE: VITAL SIGNS: Heart rates in the 80s, blood pressure 120/64, respiratory rates in the teens, oximetry is 100%. LUNGS: Clear. HEART: Regular rhythm. ABDOMEN: Diffusely mildly tender. LABORATORY DATA: White count 34.2, hemoglobin 11.3, platelets 139. She has 26% bands. Electrolytes remarkable for potassium 3.1, creatinine is normal. COVID screen is negative. Urinalysis showed lot of red cells and white cells. Cultures are showing 2 gram-negative rods. Blood cultures from 2 days ago are showing E coli. IMPRESSION AND PLAN: E coli sepsis with pyelonephritis, explaining her abdominal tenderness. She had bilateral retrograde studies by with bilateral stent placement. She is clinically improving. We will follow while she is in the Critical Care Unit. This is a 70 min consult with greater than 50% of the time spent on the unit with coordination of care. Job ID: [id number] [facility]
[2020-07-16] MEDS: Simvastatin 10 MG TAB PO SCH (21:16)
[2020-07-16] MEDS: Ferrous Sulfate 325 MG TAB PO SCH (21:17)
[2020-07-16] MEDS: Saccharomyces boulardii 250 MG CAP PO SCH (21:17)
[2020-07-16] MEDS: Enoxaparin Sodium 40 MG/0.4 ML SYRINGE SC SCH (21:17)
[2020-07-17] MEDS: Sodium Bicarbonate 70 MEQ in Sodium Chloride 0.45% 1,000 ML IVP SCH ×2 (03:15→10:00)
[2020-07-17] MEDS: MEROPENEM 1 GM/50 ML 1 GM in Premix Bag 1 BAG IVPB SCH (03:15)
[2020-07-17 05:06] LABS: ALT (SGPT) 10 U/L (8-55); AST (SGOT) 22 U/L (5-34); Albumin 2.2 g/dL (3.4-4.8); Alkaline Phosphatase 86 U/L (40-110); Anion Gap 11 mmol/L (10-20); BUN (Urea Nitrogen) 12 mg/dL (9.8-20.1); Bilirubin, Total 0.3 mg/dL (0.2-1.2); Calc. Creatinine Clearance 129 mL/min (70-130); Calcium 7.2 mg/dL (7.8-10.44); Carbon Dioxide 27 mmol/L (23-31); Chloride 110 mmol/L (98-107); Estimated GFR-MDRD Greater than 90; Glucose 71 mg/dL (83-110); Protein, Total 5.2 g/dL (6.0-8.3); Sodium 145 mmol/L (136-145)
[2020-07-17 05:11] LABS: Potassium 2.9 mmol/L (3.5-5.1)
[2020-07-17] MEDS ORDERED: Potassium Chloride 20 MEQ TAB PO SCH ×4 (05:30→17:00)
[2020-07-17 06:13] LABS: Band 38 % (5-11); Hemoglobin 10.3 g/dL (12.0-16.0); Lymphocytes 6 % (21-51); MDiff Complete? YES; Mean Corpuscular HGB CONC 32.1 g/dL (32.0-36.0); Mean Corpuscular Hemoglobin 30.5 pg (27.0-31.0); Mean Corpuscular Volume 94.9 fL (78.0-98.0); Mean Platelet Volume 8.3 fL (7.4-10.4); Monocytes 3 % (0-10); Neutrophil 53 % (42-75); Platelet Count 123 thou/uL (130-400); Red Blood Cell (RBC) Count 3.38 mill/uL (4.20-5.40); White Blood Cell (WBC) Count 23.1 thou/uL (4.8-10.8)
--- NOTE | 2020-07-17 06:41 | PDOC.FM ---
- Subjective Subjective: NAEO. Patient very confused on exam this AM & had no recollection of any events during her hospital stay or the place or date/time. Denied being in any pain. - Objective MAR Reviewed: Yes Vital Signs & Weight: Vital Signs (12 hours) Temp Pulse Resp BP Pulse Ox 07/17/20 03:19 98.5 F 95 18 123/57 L 92 L 07/16/20 19:45 97.6 F 92 18 110/55 L 97 Weight Weight 94.347 kg Most Recent Monitor Data Heart Rate from ECG 86 NIBP 125/62 NIBP BP-Mean 83 Respiration from ECG 15 SpO2 100 I&O: 07/15/20 07/16/20 07/17/20 06:59 06:59 06:59 Intake Total 477.4 3747 3370 Output Total 739 1620 2340 Balance -261.6 2127 1030 Result Diagrams: 07/17/20 04:33 07/17/20 04:33 Phys Exam - Physical Examination Constitutional: NAD HEENT: moist MMs Neck: supple, full ROM Respiratory: no wheezing, no rales, no rhonchi, clear to auscultation bilateral Cardiovascular: RRR, no significant murmur Gastrointestinal: soft, non-tender Musculoskeletal: no edema Neurological: non-focal, moves all 4 limbs Psychiatric: normal affect Deviation from normal: oriented to person only Skin: no rash Dx/Plan (1) Ureterolithiasis Code(s): N20.1 - CALCULUS OF URETER Status: Acute (2) Complicated UTI (urinary tract infection) Code(s): N39.0 - URINARY TRACT INFECTION, SITE NOT SPECIFIED Status: Acute (3) Hypokalemia Code(s): E87.6 - HYPOKALEMIA Status: Acute (4) Sepsis secondary to UTI Code(s): A41.9 - SEPSIS, UNSPECIFIED ORGANISM; N39.0 - URINARY TRACT INFECTION, SITE NOT SPECIFIED Status: Acute (5) Thrombocytopenia Code(s): D69.6 - THROMBOCYTOPENIA, UNSPECIFIED Status: Acute (6) Dyslipidemia Code(s): E78.5 - HYPERLIPIDEMIA, UNSPECIFIED Status: Chronic (7) H/O traumatic brain injury Code(s): Z87.820 - PERSONAL HISTORY OF TRAUMATIC BRAIN INJURY Status: Chronic (8) HTN (hypertension) Code(s): I10 - ESSENTIAL (PRIMARY) HYPERTENSION Status: Chronic Qualifiers: (9) History of [place] (myocardial infarction) Code(s): I25.2 - OLD MYOCARDIAL INFARCTION Status: Chronic - Plan Plan: 79 y/o F admitted for Urosepsis 2/2 B/L obstructing uretolithiasis who is post- op day #2 s/p B/L ureter stent placement by Dr. Wang. 1. E Coli bacteremia: - Central line & urine Cxs + for e coli resistant to fluoroquinolones. - Will transition to PO bactrim today & d/c vanc and meropenam. Will likely need to complete a 14 day course total. 2. Sepsis 2/2 e coli bacteremia from B/L obstructing uretolithiasis, resolved - Urology, Dr. Wang consulted & patient underwent B/L ureteral stent placement on 07/15 & has since markedly improved clinically. - Renal function and UO markedly improved. Will d/c pinto today & continue to monitor strict I&Os to ensure patient can void well on her own. - Will need outpatient follow-up with Dr. Wang ~1 week from discharge for continued stone management. 3. Sinus tachycardia vs. SVT, resolved. - Cardiology Dr. Marques consulted, appreciate recs. - Echo w/ NL EF of 55-60% & no wall motion defects. - Continue low dose metoprolol per cards recs as BP allows. 4. Dementia - Uncertain baseline mental status. Will attempt to contact family today to better gauge this & ask about placement vs. being safe for d/c home with close follow-up with PCP and Urology. 5. Hx of TBI and R sided hemiparesis - lives in [place], residual deficits. PT/OT ordered 6. Hx of chronic constipation with current fecal impaction - bowel regimen 7. HTN, - no home meds documented in chart or last dc summary - Continue toprol per cards recs & will escalate meds PRN 8. HLD, continue home meds. 9. GERD, home protonix Dispo: Will ADAT per ST recs & continue close monitoring on PO abx over course of today. Possible d/c home tomorrow pending clinical course. Addendum - Attending - Attending Attestation Date/Time: 07/17/20 0854 I personally evaluated the patient and discussed the management with Dr. Muñoz. I agree with the History, Examination, Assessment and Plan documented above with any addition or exceptions noted below. Patient is very confused this morning. I am unsure of her baseline as this is the first time I'm seeing her. Leukocytosis improving. Will replace potassium. Pt still has pinto, will check with urology regarding whether the pinto will be needed long-term. Continue antibiotics.
[2020-07-17] MEDS: Polyethylene Glycol 3350 17 GM Packet PO SCH (08:00)
[2020-07-17] MEDS: Docusate 100 MG CAP PO SCH (08:00)
--- NOTE | 2020-07-17 08:00 | PRG ---
DATE OF SERVICE: 07/17/2020 SUBJECTIVE: The patient is doing well. She was transferred out of the ICU to telemetry. She denies any pain. Remains on meropenem. OBJECTIVE: VITAL SIGNS: Temperature 98.5, pulse 95, respirations 18, oxygen saturation 92% on room air, and blood pressure 123/57. GENERAL: She is awake and alert, no apparent distress. CARDIOVASCULAR: Regular rate and rhythm. PULMONARY: Breathing unlabored. ABDOMEN: Soft, nontender/nondistended. No CVA tenderness. EXTREMITIES: Warm, well perfused. No edema. NEUROLOGIC: No focal deficits. LABORATORY DATA: White blood cell count 23.1, hemoglobin 10.3, hematocrit 32.1, and platelets 123. Sodium 145, potassium 2.9, chloride 110, bicarb 27, BUN 12, and creatinine 0.54. Microbiology; urine culture and blood culture growing Escherichia coli and urine culture with second growth of Proteus, Escherichia coli, resistant only to fluoroquinolones. ASSESSMENT: A 79-year-old female with Escherichia coli sepsis secondary to urinary tract infection and bilateral ureteral stones, status post bilateral ureteral stent placement. PLAN: From Urologic standpoint, the patient is stable. She is adequately decompressed. She has improved clinically. She can follow up with Dr. Wang for definitive management of these ureteral stones. Job ID: [id number]
[2020-07-17] MEDS: Sulfameth/Trimethoprim DS 800-160mg TAB PO SCH ×2 (08:01→20:52)
[2020-07-17 11:03] LABS: Phosphorus 1.3 mg/dL (2.3-4.7)
[2020-07-17] MEDS ORDERED: PHOS-NAK 1 PKT PACK PO SCH ×3 (15:00→17:00)
[2020-07-17 16:39] LABS: Anion Gap 11 mmol/L (10-20); BUN (Urea Nitrogen) 10 mg/dL (9.8-20.1); Calc. Creatinine Clearance 130 mL/min (70-130); Calcium 7.2 mg/dL (7.8-10.44); Carbon Dioxide 27 mmol/L (23-31); Chloride 110 mmol/L (98-107); Estimated GFR-MDRD Greater than 90; Glucose 101 mg/dL (83-110); Potassium 3.4 mmol/L (3.5-5.1); Sodium 145 mmol/L (136-145)
[2020-07-17] MEDS: Haloperidol Lactate 5 MG/ML VIAL IM SCH ×2 (17:57→18:12)
[2020-07-17] MEDS: Simvastatin 10 MG TAB PO SCH (20:52)
[2020-07-17] MEDS: Ferrous Sulfate 325 MG TAB PO SCH (20:52)
[2020-07-17] MEDS: Enoxaparin Sodium 40 MG/0.4 ML SYRINGE SC SCH (20:52)
[2020-07-17] MEDS: Saccharomyces boulardii 250 MG CAP PO SCH (20:52)
[2020-07-18 05:42] LABS: Phosphorus 1.3 mg/dL (2.3-4.7)
[2020-07-18 05:44] LABS: ALT (SGPT) 14 U/L (8-55); AST (SGOT) 26 U/L (5-34); Albumin 2.2 g/dL (3.4-4.8); Alkaline Phosphatase 153 U/L (40-110); Anion Gap 11 mmol/L (10-20); BUN (Urea Nitrogen) 9 mg/dL (9.8-20.1); Bilirubin, Total 0.3 mg/dL (0.2-1.2); Calc. Creatinine Clearance 124 mL/min (70-130); Calcium 7.2 mg/dL (7.8-10.44); Carbon Dioxide 25 mmol/L (23-31); Chloride 113 mmol/L (98-107); Estimated GFR-MDRD Greater than 90; Globulin 3.1 g/dL (2.4-3.5); Glucose 80 mg/dL (83-110); Potassium 3.9 mmol/L (3.5-5.1); Protein, Total 5.3 g/dL (6.0-8.3); Sodium 145 mmol/L (136-145)
[2020-07-18 05:45] LABS: Band 10 % (5-11); Hemoglobin 10.6 g/dL (12.0-16.0); Hypochromia SLIGHT = 6-15 cells (100X) (0-5/hpf); Lymphocytes 5 % (21-51); MDiff Complete? YES; Mean Corpuscular HGB CONC 32.3 g/dL (32.0-36.0); Mean Corpuscular Hemoglobin 30.6 pg (27.0-31.0); Mean Corpuscular Volume 94.7 fL (78.0-98.0); Mean Platelet Volume 8.7 fL (7.4-10.4); Monocytes 6 % (0-10); Neutrophil 79 % (42-75); Platelet Count 128 thou/uL (130-400); Platelet Morphology Comment Appears Adequate; RBC Distribution Width 13.9 % (11.5-14.5); Red Blood Cell (RBC) Count 3.48 mill/uL (4.20-5.40); White Blood Cell (WBC) Count 19.2 thou/uL (4.8-10.8)
[2020-07-18] MEDS ORDERED: PHOS-NAK 1 PKT PACK PO SCH (06:15)
--- NOTE | 2020-07-18 06:23 | PDOC.FM ---
- Subjective Subjective: Patient reportedly combative & trying to leave the hospital early yesterday evening but resolved with haldol IM x2. No other events overnight. Was resting comfortably in bed at time of exam. Denied any pain but did have some TTP in LLQ. - Objective MAR Reviewed: Yes Vital Signs & Weight: Vital Signs (12 hours) Temp Pulse Resp BP Pulse Ox 07/18/20 03:58 98.4 F 82 20 130/61 95 07/18/20 01:10 94 L 07/17/20 19:37 98.9 F 90 16 127/65 94 L Weight Weight 91.671 kg Most Recent Monitor Data Heart Rate from ECG 86 NIBP 125/62 NIBP BP-Mean 83 Respiration from ECG 15 SpO2 100 I&O: 07/16/20 07/17/20 07/18/20 06:59 06:59 06:59 Intake Total 3747 3370 240 Output Total 1620 2340 Balance 2127 1030 240 Result Diagrams: 07/18/20 04:13 07/18/20 04:13 Phys Exam - Physical Examination Constitutional: NAD HEENT: moist MMs Neck: supple, full ROM Respiratory: no wheezing, no rales, no rhonchi, clear to auscultation bilateral Cardiovascular: RRR, no significant murmur Gastrointestinal: soft, no distention, positive bowel sounds TTP in LLQ but no guarding or rebound Musculoskeletal: edema present mild edema in B/L LEs Neurological: non-focal, moves all 4 limbs Psychiatric: normal affect Deviation from normal: oriented to person only at baseline per daughter yesterday Skin: no rash Dx/Plan (1) Ureterolithiasis Code(s): N20.1 - CALCULUS OF URETER Status: Acute (2) Complicated UTI (urinary tract infection) Code(s): N39.0 - URINARY TRACT INFECTION, SITE NOT SPECIFIED Status: Acute (3) Hypokalemia Code(s): E87.6 - HYPOKALEMIA Status: Acute (4) Sepsis secondary to UTI Code(s): A41.9 - SEPSIS, UNSPECIFIED ORGANISM; N39.0 - URINARY TRACT INFECTION, SITE NOT SPECIFIED Status: Acute (5) Thrombocytopenia Code(s): D69.6 - THROMBOCYTOPENIA, UNSPECIFIED Status: Acute (6) Dyslipidemia Code(s): E78.5 - HYPERLIPIDEMIA, UNSPECIFIED Status: Chronic (7) H/O traumatic brain injury Code(s): Z87.820 - PERSONAL HISTORY OF TRAUMATIC BRAIN INJURY Status: Chronic (8) HTN (hypertension) Code(s): I10 - ESSENTIAL (PRIMARY) HYPERTENSION Status: Chronic Qualifiers: (9) History of [place] (myocardial infarction) Code(s): I25.2 - OLD MYOCARDIAL INFARCTION Status: Chronic - Plan Plan: 79 y/o F admitted for Urosepsis 2/2 B/L obstructing uretolithiasis who is post- op day #3 s/p B/L ureter stent placement by Dr. Wang. 1. E Coli bacteremia: - Central line & urine Cxs + for e coli resistant to fluoroquinolones. - Will transition to PO bactrim today & d/c vanc and meropenem. Will likely need to complete a 14 day course total. 2. Sepsis 2/2 e coli bacteremia from B/L obstructing uretolithiasis, resolved - Urology, Dr. Wang consulted & patient underwent B/L ureteral stent placement on 07/15 & has since markedly improved clinically. - Renal function and UO markedly improved. Will d/c pinto today & continue to monitor strict I&Os to ensure patient can void well on her own. - Will need outpatient follow-up with Dr. Wang ~1 week from discharge for continued stone management. 3. Proteus & E coli complicated UTI: - Cystoscopy Cxs resulted this AM and E coli has same sensitivities as in blood but proteus in urine only is multi-resistant & sensitive only to IV abx. Will resume tx with meropenem to complete a 7 day course total given that this was such as complicated infection & patient only received 2 days of meropenem which it is sensitive to. 3. Sinus tachycardia vs. SVT, resolved. - Cardiology Dr. Marques on board, appreciate recs. - Echo w/ NL EF of 55-60% & no wall motion defects. - Continue low dose metoprolol per cards recs as BP allows. 4. Dementia - Per daughter TBI in 2013 has left patient with essentially no short term memory at baseline. Reported yesterday she was acting like her normal self. - Lives at home with daughter and has HH come a few days a week for assistance. 5. Hx of TBI and R sided hemiparesis - lives at home with daughter, has lift and equipment needed to move patient as she has been non-ambulatory since incident in 2013. Would like to try for a short term stay at a [facility] bed if possible as patient has benefitted from a stay like this in the past. 6. Hx of chronic constipation with current fecal impaction - Diarrhea since admission. Likely iatrogenic from abx as c diff studies negative yesterday. Continue bowel regimen only PRN. 7. HTN - no home meds documented in chart or last dc summary - Continue toprol per cards recs & will escalate meds PRN 8. HLD, continue home meds. 9. GERD, home protonix vs transitioning to an H2 juliocesar as patient is already high risk for fractures given her sedentary state at baseline. Dispo: Will ADAT pending ST recs & touch base with OT & CM for placement recs as patient is now needing several more days of IV abx therapy. Addendum - Attending - Attending Attestation Date/Time: 07/18/20 5137 I personally evaluated the patient and discussed the management with Dr. Muñoz. I agree with the History, Examination, Assessment and Plan documented above with any addition or exceptions noted below. The patient will continue IV antibiotics. Mentation appears to be at baseline.
[2020-07-18] MEDS: Sulfameth/Trimethoprim DS 800-160mg TAB PO SCH ×2 (08:51→21:10)
[2020-07-18] MEDS: PHOS-NAK 1 PKT PACK PO SCH ×3 (08:51→16:45)
[2020-07-18] MEDS ORDERED: Haloperidol Lactate 5 MG/ML VIAL IM PRN (09:41)
[2020-07-18] MEDS ORDERED: MEROPENEM 1 GM/50 ML 1 GM in Premix Bag 1 BAG IVPB SCH ×3 (12:00→16:45)
[2020-07-18] MEDS ORDERED: Meropenem 1 GM in Sodium Chloride 0.9% 100 ML IVPB SCH (14:00)
[2020-07-18] MEDS: Saccharomyces boulardii 250 MG CAP PO SCH (21:10)
[2020-07-18] MEDS: Ferrous Sulfate 325 MG TAB PO SCH (21:10)
[2020-07-18] MEDS: Enoxaparin Sodium 40 MG/0.4 ML SYRINGE SC SCH (21:10)
[2020-07-18] MEDS: Simvastatin 10 MG TAB PO SCH (21:10)
[2020-07-19] MEDS: MEROPENEM 1 GM/50 ML 1 GM in Premix Bag 1 BAG IVPB SCH ×3 (01:22→17:25)
[2020-07-19 05:16] LABS: ALT (SGPT) 9 U/L (8-55); AST (SGOT) 16 U/L (5-34); Albumin 2.4 g/dL (3.4-4.8); Alkaline Phosphatase 78 U/L (40-110); Anion Gap 11 mmol/L (10-20); BUN (Urea Nitrogen) 9 mg/dL (9.8-20.1); Bilirubin, Total 0.4 mg/dL (0.2-1.2); Calc. Creatinine Clearance 127 mL/min (70-130); Calcium 7.4 mg/dL (7.8-10.44); Carbon Dioxide 28 mmol/L (23-31); Chloride 111 mmol/L (98-107); Estimated GFR-MDRD Greater than 90; Glucose 105 mg/dL (83-110); Magnesium 1.8 mg/dL (1.6-2.6); Potassium 3.6 mmol/L (3.5-5.1); Protein, Total 5.4 g/dL (6.0-8.3); Sodium 146 mmol/L (136-145)
[2020-07-19 05:34] LABS: Band 3 % (5-11); Eosinophils 2 % (0-10); Hemoglobin 10.7 g/dL (12.0-16.0); Lymphocytes 18 % (21-51); MDiff Complete? YES; Mean Corpuscular HGB CONC 32.3 g/dL (32.0-36.0); Mean Corpuscular Hemoglobin 29.9 pg (27.0-31.0); Mean Corpuscular Volume 92.5 fL (78.0-98.0); Mean Platelet Volume 8.4 fL (7.4-10.4); Neutrophil 76 % (42-75); Platelet Count 122 thou/uL (130-400); Platelet Morphology Comment Appears Decreased; RBC Morphology Normal; Red Blood Cell (RBC) Count 3.57 mill/uL (4.20-5.40); White Blood Cell (WBC) Count 9.7 thou/uL (4.8-10.8)
--- NOTE | 2020-07-19 06:49 | PDOC.FM ---
- Subjective Subjective: Ms. Membreno is feeling well this morning. She is A&O only to self, which is her baseline. She denies feeling ill, feeling pain, fever/chills, nausea/V. - Objective Vital Signs & Weight: Vital Signs (12 hours) Temp Pulse Resp BP Pulse Ox 07/19/20 03:48 97.7 F 78 20 138/87 94 L 07/19/20 01:40 92 L 07/18/20 21:04 98.6 F 77 16 149/72 H 92 L Weight Weight 95.889 kg Most Recent Monitor Data Heart Rate from ECG 86 NIBP 125/62 NIBP BP-Mean 83 Respiration from ECG 15 SpO2 100 I&O: 07/17/20 07/18/20 07/19/20 06:59 06:59 06:59 Intake Total 3370 240 50 Output Total 2340 600 Balance 1030 240 -550 Result Diagrams: 07/19/20 04:26 07/19/20 04:26 Phys Exam - Physical Examination Constitutional: NAD Neck: supple Respiratory: no wheezing, clear to auscultation bilateral Cardiovascular: RRR, no significant murmur Musculoskeletal: no edema, pulses present (1+ dp b/l) A&O x1 which is baseline Psychiatric: normal affect Dx/Plan - Plan Plan: 79 y/o F admitted for Urosepsis 2/2 B/L obstructing uretolithiasis who is post- op day #4 s/p B/L ureter stent placement by Dr. Wang. E Coli bacteremia - Central line and UCx + for E. coli resistant to fluoroquinolones - UCx + for E coli , and Proteus - PO bactrim & meropenem - Placement to swing bed pending Sepsis 2/2 E. coli bacteremia from B/L obstructing uretolithiasis, resolved - Urology, Dr. Wang consulted & patient underwent B/L ureteral stent placement on 07/15 & has since markedly improved clinically. - Renal function and UO markedly improved. Monitor UO since pinto removal to ensure patient can void well on her own. - Will need outpatient follow-up with Dr. Wang ~1 week from discharge for continued stone management. Proteus & E coli complicated UTI - E coli has same sensitivities as in blood - UCx also shows proteus which is multi-resistant & sensitive only to IV abx. - Will complete a 7 day course of Meropenem total Hypernatremia - Na 146 this am - Suspect this is 2/2 mild dehydration d/t change in diet since being in the hospital - LR 100mL/h - Monitor with am BMP Sinus tachycardia vs. SVT, resolved - Cardiology Dr. Marques on board, appreciate recs. - Echo w/ EF of 55-60% & no wall motion defects. - Continue low dose metoprolol per cards recs, as BP allows. Hx of TBI and R sided hemiparesis - Per daughter, TBI in 2014 has left patient with essentially no short term memory at baseline. - lives at home with daughter, has lift and equipment needed to move patient as she has been non-ambulatory since incident in 2013. - Would like to try for a short term stay at a [facility] if possible as patient has benefitted from a stay like this in the past. Hx of chronic constipation with current fecal impaction - Diarrhea since admission. - Likely iatrogenic from abx as c diff studies negative yesterday. - Continue bowel regimen only PRN. HTN - no home meds documented in chart or last dc summary - Continue toprol per cards recs & will escalate meds PRN HLD - Continue home meds. GERD - Home protonix vs transitioning to an H2 juliocesar as patient is already high risk for fractures given her sedentary state at baseline. Diet: HH puree thick Abx: Meropenem, Bactrim CVT: Kirstie 40 IVF: LR 100mL/h Dispo: Will advance diet as tolerated per ST recs. Touch base with OT & CM for placement recs as patient is now needing several more days of IV abx therapy.
[2020-07-19] MEDS: Sulfameth/Trimethoprim DS 800-160mg TAB PO SCH ×2 (08:41→20:45)
[2020-07-19] MEDS: Lactated Ringer's 1,000 ML IV SCH ×2 (08:44→18:13)
--- NOTE | 2020-07-19 12:58 | PRG ---
DATE OF SERVICE: 07/19/2020 Please see the note done by Dr. Romi Barakat, for which I agree. The patient is here for E coli bacteremia. pyelonephritis from stones, but then improved after nephrostomy tubes were placed. Doing a lot better, now on Bactrim and meropenem and we are just waiting on her placement pending as she is stable otherwise to go out on antibiotics. Job ID: [id number]
[2020-07-19] MEDS: Meropenem 1 GM in Sodium Chloride 0.9% 100 ML IVPB SCH (17:12)
[2020-07-19] MEDS: Saccharomyces boulardii 250 MG CAP PO SCH (20:45)
[2020-07-19] MEDS: Ferrous Sulfate 325 MG TAB PO SCH (20:45)
[2020-07-19] MEDS: Simvastatin 10 MG TAB PO SCH (20:45)
[2020-07-19] MEDS: Enoxaparin Sodium 40 MG/0.4 ML SYRINGE SC SCH (20:46)
[2020-07-20] MEDS: Meropenem 1 GM in Sodium Chloride 0.9% 100 ML IVPB SCH ×4 (00:32→17:22)
[2020-07-20 05:08] LABS: ALT (SGPT) 9 U/L (8-55); AST (SGOT) 14 U/L (5-34); Albumin 2.3 g/dL (3.4-4.8); Alkaline Phosphatase 71 U/L (40-110); Anion Gap 11 mmol/L (10-20); BUN (Urea Nitrogen) 7 mg/dL (9.8-20.1); Bilirubin, Total 0.3 mg/dL (0.2-1.2); Calc. Creatinine Clearance 125 mL/min (70-130); Calcium 7.5 mg/dL (7.8-10.44); Carbon Dioxide 25 mmol/L (23-31); Chloride 109 mmol/L (98-107); Estimated GFR-MDRD Greater than 90; Globulin 2.9 g/dL (2.4-3.5); Glucose 85 mg/dL (83-110); Potassium 3.7 mmol/L (3.5-5.1); Protein, Total 5.2 g/dL (6.0-8.3); Sodium 141 mmol/L (136-145)
[2020-07-20 05:11] LABS: Band 1 % (5-11); Eosinophils 1 % (0-10); Hemoglobin 10.4 g/dL (12.0-16.0); Lymphocytes 27 % (21-51); MDiff Complete? YES; Mean Corpuscular HGB CONC 32.2 g/dL (32.0-36.0); Mean Corpuscular Hemoglobin 30.2 pg (27.0-31.0); Mean Corpuscular Volume 93.8 fL (78.0-98.0); Mean Platelet Volume 8.6 fL (7.4-10.4); Monocytes 5 % (0-10); Neutrophil 66 % (42-75); Platelet Count 150 thou/uL (130-400); Platelet Morphology Comment Appears Adequate; RBC Distribution Width 14.3 % (11.5-14.5); RBC Morphology Normal; Red Blood Cell (RBC) Count 3.45 mill/uL (4.20-5.40); White Blood Cell (WBC) Count 7.2 thou/uL (4.8-10.8)
--- NOTE | 2020-07-20 06:11 | PDOC.FM ---
- Subjective Subjective: Mrs. Membreno is doing well this morning. She complained of some chest pain that she denied by the end of my visit with her. She denies any other pain. - Objective Vital Signs & Weight: Vital Signs (12 hours) Temp Pulse Resp BP Pulse Ox 07/20/20 03:16 96.9 F L 77 16 148/76 H 92 L 07/20/20 01:04 92 L 07/19/20 20:41 98.1 F 75 16 138/66 92 L Weight Weight 93.848 kg Most Recent Monitor Data Heart Rate from ECG 86 NIBP 125/62 NIBP BP-Mean 83 Respiration from ECG 15 SpO2 100 I&O: 07/18/20 07/19/20 07/20/20 06:59 06:59 06:59 Intake Total 781 49 0132 Output Total 600 600 Balance 240 -550 800 Result Diagrams: 07/20/20 04:25 07/20/20 04:25 Phys Exam - Physical Examination Constitutional: NAD Neck: supple Respiratory: clear to auscultation bilateral Cardiovascular: RRR, no significant murmur Gastrointestinal: soft, non-tender, no distention Musculoskeletal: pulses present, edema present (1+ pitting edema of R foot and mild edema of R hand, despite elevation) R sided hemiparesis, at baseline Psychiatric: normal affect A&O x1, at baseline Skin: no rash Dx/Plan - Plan Plan: 79 y/o F admitted for Urosepsis 2/2 B/L obstructing uretolithiasis who is post- op day #4 s/p B/L ureter stent placement by Dr. Wang. E Coli bacteremia - Central line and UCx + for E. coli resistant to fluoroquinolones - UCx + for E coli , and Proteus - PO bactrim & meropenem - Placement to SNF pending Sepsis 2/2 E. coli bacteremia from B/L obstructing uretolithiasis, resolved - Urology, Dr. Wang consulted & patient underwent B/L ureteral stent placement on 07/15 & has since markedly improved clinically. - Renal function and UO markedly improved. Monitor UO since pinto removal to ensure patient can void well on her own. - Will need outpatient follow-up with Dr. Wang ~1 week from discharge for continued stone management. Proteus & E coli complicated UTI - E coli has same sensitivities as in blood - UCx also shows proteus which is multi-resistant & sensitive only to IV abx. - Will complete a 7 day course of Meropenem total Hx of TBI and R sided hemiparesis - Per daughter, TBI in 2014 has left patient with essentially no short term memory at baseline. - lives at home with daughter, has lift and equipment needed to move patient as she has been non-ambulatory since incident in 2013. - Would like to try for a short term stay at a [facility] if possible as patient has benefitted from a stay like this in the past. Hx of chronic constipation with current fecal impaction - Fecal impaction resolved with diarrhea on arrival - Likely iatrogenic from abx as c diff studies negative yesterday. - Continue bowel regimen only PRN. HTN - no home meds documented in chart or last dc summary - Continue toprol per cards recs - Will increase to 37.5mg daily HLD - Continue home meds. GERD - Home protonix vs transitioning to an H2 juliocesar as patient is already high risk for fractures given her sedentary state at baseline. - Will mention in discharge summary for PCP to consider Hypernatremia, resolved - Na 146 > 141 - Suspect this was 2/2 mild dehydration d/t change in diet since being in the hospital - LR 100mL/h Sinus tachycardia vs. SVT, resolved - Cardiology Dr. Marques on board, appreciate recs. - Echo w/ EF of 55-60% & no wall motion defects. - Continue low dose metoprolol per cards recs, as BP allows. Diet: HH puree thick Abx: Meropenem, Bactrim CVT: Kirstie 40 IVF: LR 100mL/h Dispo: Will advance diet as tolerated per ST recs. Touch base with OT & CM for placement recs as patient is now needing several more days of IV abx therapy.
[2020-07-20] MEDS: Lactated Ringer's 1,000 ML IV SCH (08:52)
[2020-07-20] MEDS: Sulfameth/Trimethoprim DS 800-160mg TAB PO SCH ×2 (08:53→20:45)
[2020-07-20] MEDS: Docusate 100 MG CAP PO SCH ×2 (08:53→20:44)
[2020-07-20] MEDS: Polyethylene Glycol 3350 17 GM Packet PO SCH (08:54)
--- NOTE | 2020-07-20 11:49 | PRG ---
DATE OF SERVICE: 07/20/2020 The patient is stable from an infection standpoint, tolerating antibiotics and seems to be doing fine. We will likely go to a assisted facility for PT and continued IV antibiotics hopefully tomorrow. Blood pressure is up, so metoprolol was increased, but exam is unchanged and is stable. Job ID: [id number]
[2020-07-20] MEDS: Enoxaparin Sodium 40 MG/0.4 ML SYRINGE SC SCH (20:44)
[2020-07-20] MEDS: Saccharomyces boulardii 250 MG CAP PO SCH (20:44)
[2020-07-20] MEDS: Simvastatin 10 MG TAB PO SCH (20:45)
[2020-07-20] MEDS: Ferrous Sulfate 325 MG TAB PO SCH (20:45)
[2020-07-21] MEDS: Meropenem 1 GM in Sodium Chloride 0.9% 100 ML IVPB SCH ×2 (01:12→09:12)
[2020-07-21 05:05] LABS: Band 3 % (5-11); Eosinophils 4 % (0-10); Hemoglobin 10.8 g/dL (12.0-16.0); Lymphocytes 21 % (21-51); MDiff Complete? YES; Mean Corpuscular HGB CONC 32.7 g/dL (32.0-36.0); Mean Corpuscular Hemoglobin 30.4 pg (27.0-31.0); Mean Corpuscular Volume 92.7 fL (78.0-98.0); Metamyelocyte 2 % (0-0); Monocytes 10 % (0-10); Myelocyte 1 % (0-0); Neutrophil 59 % (42-75); Platelet Count 183 thou/uL (130-400); Platelet Morphology Comment Appears Adequate; RBC Distribution Width 14.2 % (11.5-14.5); Red Blood Cell (RBC) Count 3.56 mill/uL (4.20-5.40); White Blood Cell (WBC) Count 6.2 thou/uL (4.8-10.8)
[2020-07-21 05:12] LABS: ALT (SGPT) 9 U/L (8-55); AST (SGOT) 16 U/L (5-34); Albumin 2.4 g/dL (3.4-4.8); Alkaline Phosphatase 75 U/L (40-110); Anion Gap 9 mmol/L (10-20); BUN (Urea Nitrogen) 8 mg/dL (9.8-20.1); Bilirubin, Total 0.4 mg/dL (0.2-1.2); Calc. Creatinine Clearance 121 mL/min (70-130); Calcium 7.8 mg/dL (7.8-10.44); Carbon Dioxide 27 mmol/L (23-31); Chloride 107 mmol/L (98-107); Estimated GFR-MDRD Greater than 90; Globulin 3.2 g/dL (2.4-3.5); Glucose 77 mg/dL (83-110); Potassium 3.7 mmol/L (3.5-5.1); Protein, Total 5.6 g/dL (6.0-8.3); Sodium 139 mmol/L (136-145)
--- NOTE | 2020-07-21 06:24 | PDOC.FM ---
- Subjective Subjective: Ms. Membreno has no complaints this morning. She says she slept well. Nursing reports she has not been eating or drinking much and therefore has not had much urinary output or a BM in the past two days. They fed her some ice cream this morning. - Objective Vital Signs & Weight: Vital Signs (12 hours) Temp Pulse Resp BP Pulse Ox 07/21/20 04:00 97.8 F 65 18 134/66 97 07/21/20 00:00 62 07/20/20 19:42 98.6 F 65 16 165/71 H 100 Weight Weight 92.896 kg Most Recent Monitor Data Heart Rate from ECG 86 NIBP 125/62 NIBP BP-Mean 83 Respiration from ECG 15 SpO2 100 I&O: 07/19/20 07/20/20 07/21/20 06:59 06:59 06:59 Intake Total 50 1500 240 Output Total 600 900 175 Balance -550 600 65 Result Diagrams: 07/21/20 04:17 07/21/20 04:17 EKG Reviewed by me: Yes (tele: SR 60-70s, PACs) Phys Exam - Physical Examination Constitutional: NAD HEENT: sclera anicteric Neck: full ROM Respiratory: no wheezing, no rales, no rhonchi, clear to auscultation bilateral Cardiovascular: RRR, no significant murmur Gastrointestinal: soft, non-tender, positive bowel sounds Musculoskeletal: no edema, pulses present Neurological: moves all 4 limbs Deviation from normal: A&O x 1 Dx/Plan - Plan Plan: 79 y/o F admitted for Urosepsis 2/2 B/L obstructing uretolithiasis who is post- op day #4 s/p B/L ureter stent placement by Dr. Wang. E Coli bacteremia - Central line and UCx + for E. coli resistant to fluoroquinolones - UCx + for E coli , and Proteus - bactrim (day 5) & meropenem (day 6) - Discharging to [facility] this AM Sepsis 2/2 E. coli bacteremia from B/L obstructing uretolithiasis, resolved - Urology, Dr. Wang consulted & patient underwent B/L ureteral stent placement on 07/15 & has since markedly improved clinically. - Renal function improved Decreased urine output in past 24 hours (175mL). Patient is not eating and drinking well and her fluids were stopped yesterday. Will bladder scan to evaluate for retention. - Will need outpatient follow-up with Dr. Wang ~1 week from discharge for continued stone management. Proteus & E coli complicated UTI - E coli has same sensitivities as in blood - UCx also shows proteus which is multi-resistant & sensitive only to IV abx. - Day 6/7 of Meropenem Hx of TBI and R sided hemiparesis - Per daughter, TBI in 2013 has left patient with essentially no short term memory at baseline. - lives at home with daughter, has lift and equipment needed to move patient as she has been non-ambulatory since incident in 2013. Hx of chronic constipation with current fecal impaction - Fecal impaction resolved with diarrhea on arrival - Likely iatrogenic from abx as c diff studies negative yesterday. - Patient has not had BM in two days. However, nursing reports decreased oral intake. Continue bowel regimen PRN. HTN - no home meds documented in chart or last dc summary - Metoprolol started by cards. Increased to 50mg daily for better BP control HLD - Continue home meds. GERD - Home protonix vs transitioning to an H2 juliocesar as patient is already high risk for fractures given her sedentary state at baseline. - Will mention in discharge summary for PCP to consider Hypernatremia, resolved - Suspect this was 2/2 mild dehydration d/t change in diet since being in the hospital Sinus tachycardia vs. SVT, resolved - Cardiology Dr. Marques on board, appreciate recs. - Echo w/ EF of 55-60% & no wall motion defects. - Continue metoprolol Diet: HH puree thick Abx: Meropenem, Bactrim CVT: Kirstie 40 IVF: SL Dispo: Patient to be discharges to [facility] this AM
[2020-07-21] MEDS: Docusate 100 MG CAP PO SCH (09:11)
[2020-07-21] MEDS: Sulfameth/Trimethoprim DS 800-160mg TAB PO SCH (09:11)
[2020-07-21] MEDS: Polyethylene Glycol 3350 17 GM Packet PO SCH (09:11)
--- NOTE | 2020-07-21 11:06 | PRG ---
DATE OF SERVICE: 07/21/2020 Ms. Kennedy has made a good recovery from her sepsis and urinary tract infection secondary to multiple stones. She is nearing time for discharge. She has grown E. coli from both blood and urine as well as Proteus from the urine. She is still on broad-spectrum antibiotics and may need to be so for quite sometime. We will discuss this with Dr. Wang, but otherwise we are awaiting placement at discharge. Job ID: [id number]
[2020-07-21 13:12] VITALS: BP 141/65; TEMP 98.5
--- NOTE | 2020-07-22 11:55 | DIS ---
DATE OF ADMISSION: 07/15/2020 DATE OF DISCHARGE: 07/21/2020 RESIDENT: Wero Tapia MD. ADMITTING ATTENDING: Armando Mackey MD. DISCHARGE ATTENDING: Sancho Morrow MD. CONSULTS: Cardiology, Dr. Giron. Pulmonology, Dr. Nielsen. Urology, Dr. Wang. Case Management and Speech. PROCEDURES: 1.Abdomen and pelvis CT showed hydronephrosis and hydroureter bilaterally with obstructive stones within bilateral ureters, 2 within the left ureter and 1 within the right ureter. Bilateral intrarenal calculi, thickening and enhancement of the urothelium suggesting superimposed inflammatory or infectious process. Rectum is expanded and filled with stool, evidence of fecal impaction. 2. EKG showed sinus tach and SVT. 3.Retrograde pyelogram showed moderate left hydronephrosis, the placement of a left ureteral stent as well as placement in the right ureteral stent, which showed mild to moderate right hydronephrosis. Placement of a right double-J ureteral stent. 4.Echocardiogram showed an ejection fraction of 55% to 60%. PRIMARY DIAGNOSES: 1. E coli bacteremia. 2. Sepsis secondary to E coli bacteremia from bilateral obstructing ureterolithiasis, resolved. 3. Proteus and E coli complicated UTI. SECONDARY DIAGNOSES: 1. History of TBI and right-sided hemiparesis. 2. History of chronic constipation with recurrent fecal impaction. 3. Hypertension. 4. Hyperlipidemia. 5. GERD. 6. Hyponatremia, resolved. 7. Sinus tachycardia versus SVT, resolved. DISCHARGE MEDICATIONS: 1. Vitamin D3 5000 units p.o. at bedtime. 2. Ferrous sulfate 325 mg p.o. at bedtime. 3. Probiotic one capsule p.o. at bedtime. 4. Sertraline 50 mg one tab p.o. at bedtime. 5. Pravastatin 20 mg one tab p.o. at bedtime. 6. Protonix 40 mg one tablet p.o. at bedtime. 7. Bactrim 1 tab p.o. b.i.d. for 10 days. 8. Meropenem 1 g IV three times a day for 5 days. 9. Metoprolol 50 mg daily. Discontinued medications: None. HISTORY OF PRESENT ILLNESS AND HOSPITAL COURSE: This patient is a 79-year-old female presenting to the emergency department complaining of bilateral flank pain that was worse on her left side. The patient's daughter denied any fever or chills. She was A and O x2 at time of admission. Upon admission WBC was 34.2 which corrected to 6.2 prior to discharge. The patient was found to be bacteremic with blood cultures growing E coli and urine culture growing Proteus. The patient was started on Bactrim and meropenem, to complete a 7-day course of meropenem, final date being July 24, 2020, and a 14-day course of Bactrim. During hospital admission Dr. Wang with Urology was consulted and patient underwent bilateral ureteral stent placement on July 15, which markedly improved the patient clinically. The patient will need outpatient followup with Dr. Wang one week from discharge. The patient is discharged to [facility] for continued PT and OT as she lives with her daughter who could use some help taking care of her. DISPOSITION: Stable. DISCHARGE INSTRUCTIONS: 1. Location: [facility]. 2. Diet: Heart healthy, extra gravy puree. 3. Activity with assistance. 4. Follow up with Dr. Wang one week from discharge. Job ID: [id number] [facility]
--- NOTE | 2020-07-25 12:17 | EKG ---
Test Reason : STAT Blood Pressure : / mmHG Vent. Rate : 134 BPM Atrial Rate : 134 BPM P-R Int : 190 ms QRS Dur : 096 ms QT Int : 342 ms P-R-T Axes : 033 033 066 degrees QTc Int : 510 ms Sinus tachycardia Anterolateral infarct , age undetermined T wave abnormality, consider inferior ischemia Abnormal ECG No previous ECGs available Confirmed by MICHAEL SOLANO ([id number]) on 07/25/2020 12:17:22 PM Referred By: Confirmed By:MICHAEL SOLANO
--- NOTE | 2020-07-26 15:18 | EKG ---
Test Reason : Blood Pressure : / mmHG Vent. Rate : 099 BPM Atrial Rate : 099 BPM P-R Int : 196 ms QRS Dur : 086 ms QT Int : 380 ms P-R-T Axes : 051 -47 087 degrees QTc Int : 487 ms Sinus rhythm with Premature atrial complexes with Abberant conduction Left axis deviation Minimal voltage criteria for LVH, may be normal variant Inferior infarct , age undetermined Anterolateral infarct , age undetermined Abnormal ECG Confirmed by AJAY LAY ([id number]), editor house organ MIMI SAMUELS ([id number]) on 07/26/2020 3:17:49 PM Referred By: Confirmed By:AJAY Knox
== END 2020-07-21 16:45 | disposition swing bed (61) | DRG 853 ==
LOC: ERS 19:57 → CCU 07-15 01:48 → 2NO 07-16 18:21
PROVIDERS: ADMIT Emergency Medicine; ATTEND Emergency Medicine
PROC: 0T788DZ Dilation of Bilateral Ureters with Intraluminal Device, Via Natural or Artificial Opening Endoscopic (ICD-10-PCS; principal; 2020-07-15)
PROC: 06HY33Z Insertion of Infusion Device into Lower Vein, Percutaneous Approach (ICD-10-PCS; 2020-07-15)
DX: A41.51 Sepsis due to Escherichia coli [E. coli] (principal); R65.21 Severe sepsis with septic shock; N13.6 Pyonephrosis; I47.1 Supraventricular tachycardia; I69.851 Hemiplegia and hemiparesis following other cerebrovascular disease affecting right dominant side; E87.0 Hyperosmolality and hypernatremia; E87.2 Acidosis; I10 Essential (primary) hypertension; E87.5 Hyperkalemia; Z20.828 Contact with and (suspected) exposure to other viral communicable diseases; K56.41 Fecal impaction; F03.90 Unspecified dementia, unspecified severity, without behavioral disturbance, psychotic disturbance, mood disturbance, and anxiety; K21.9 Gastro-esophageal reflux disease without esophagitis; J44.9 Chronic obstructive pulmonary disease, unspecified; E87.6 Hypokalemia; D69.6 Thrombocytopenia, unspecified; B96.4 Proteus (mirabilis) (morganii) as the cause of diseases classified elsewhere; Z90.710 Acquired absence of both cervix and uterus; Z79.899 Other long term (current) drug therapy; I25.2 Old myocardial infarction; Z87.820 Personal history of traumatic brain injury; Z74.01 Bed confinement status
CPT/HCPCS: 36415; 36556; 51702; 74177; 74420; 80053; 80202; 81003; 81015; 83605; 83690; 83735; 84100; 84484; 85025; 87040; 87077; 87086; 87149; 87186; 87324; 87449; 93005; 93010; 93306; 94760; 96365; 96366; 96367; 96368; 96375; 96376; 99292; J0153; J0282; J0696; J1630; J1650; J2185; J2270; J2405; J2550; J3370; J3475; J3480; J3490; J7050; J7070; Q9967; U0002

== ENCOUNTER 2020-07-30 05:39 | Day surgery (SDC) | payer MEDICARE, MEDICAID ==
[2020-07-29 10:36] VITALS: BMI 32.3
[2020-07-30] MEDS ORDERED: Fentanyl 100 MCG/2 ML VIAL ONE (06:36)
[2020-07-30 06:48] LABS: Prothrombin Time 13.1 sec (12.0-14.7)
[2020-07-30 06:53] LABS: #Basophils 0.1 thou/uL (0.0-0.2); #Eosinphils 0.1 thou/uL (0.0-0.7); #Monocytes 0.7 thou/uL (0.11-0.59); %Basophils 0.8 % (0.0-1.0); %Eosinophils 1.8 % (0.0-10.0); %Lymphocytes 25.6 % (21.0-51.0); %Monocytes 9.2 % (0.0-10.0); %Neutrophils 62.6 % (42.0-75.0); Hemoglobin 12.1 g/dL (12.0-16.0); Mean Corpuscular HGB CONC 30.8 g/dL (32.0-36.0); Mean Corpuscular Hemoglobin 30.3 pg (27.0-31.0); Mean Corpuscular Volume 98.3 fL (78.0-98.0); Mean Platelet Volume 7.4 fL (7.4-10.4); Platelet Count 399 thou/uL (130-400); RBC Distribution Width 15.4 % (11.5-14.5); Red Blood Cell (RBC) Count 4.01 mill/uL (4.20-5.40)
[2020-07-30 07:02] LABS: Anion Gap 12 mmol/L (10-20); BUN (Urea Nitrogen) 19 mg/dL (9.8-20.1); Calc. Creatinine Clearance 87 mL/min (70-130); Calcium 8.3 mg/dL (7.8-10.44); Carbon Dioxide 26 mmol/L (23-31); Chloride 106 mmol/L (98-107); Glucose 106 mg/dL (83-110); Sodium 140 mmol/L (136-145)
[2020-07-30 07:59] LABS: EPI 120 SEC (67-199)
[2020-07-30 08:00] LABS: Platelet Count 399 thou/uL (130-400)
[2020-07-30] MEDS ORDERED: MEROPENEM 1 GM/50 ML 1 GM in Premix Bag 1 BAG IVPB SCH (08:00)
[2020-07-30 08:11] LABS: SARS-CoV-2 NAA Rapid Test Not Detected (NotDetected)
--- NOTE | 2020-07-30 08:23 | RAD ---
Frontal radiograph chest: 07/30/2020 COMPARISON: 08/31/2019 HISTORY: Evaluate chest following central line placement FINDINGS: Right-sided vascular catheter present with distal tip overlying the region of the cavoatria l junction. No pneumothorax is evident. No lobar consolidation. Mild linear density in the medial left base may signify infiltrate or volume loss. IMPRESSION: Right vascular catheter. Minimal linear density in the medial left base.
--- NOTE | 2020-07-30 08:25 | RAD ---
SINGLE VIEW OF THE ABDOMEN: COMPARISON: 04/04/2019. CT abdomen/pelvis 07/14/2020. HISTORY: Cholelithiasis. FINDINGS: Anterior views of the abdomen show a nonspecific, nonobstructed bowel gas pattern. There are bilater al ureteral stents which appear to be in good position. Calcifications are seen projecting over the right renal shadow measuring up to 1.9 cm in size. No obvious calcifications project over the left r enal shadow. No calcifications are seen along the course of the stents. Degenerative changes are seen in the spine. An inferior vena cava filter is seen. Degenerative nelson ges are seen in the hips. IMPRESSION: 1. Right nephrolithiasis. 2. Bilateral ureteral stents appear in good position. POS: EAA
[2020-07-30] MEDS ORDERED: Dexamethasone 20 MG/5 ML VIAL ONE (08:45)
[2020-07-30] MEDS ORDERED: Ondansetron PF 4 MG/2 ML Vial ONE (08:45)
[2020-07-30] MEDS ORDERED: PROPOFOL 200 MG/20 ML VIAL ONE (08:45)
[2020-07-30] MEDS ORDERED: Iothalamate Meglumine 60% 50 ML VIAL FS ONE (10:51)
--- NOTE | 2020-07-30 12:03 | OP ---
DATE OF PROCEDURE: 07/30/2020 PREOPERATIVE DIAGNOSES: Bilateral ureteral stones, bilateral ureteral stents. POSTOPERATIVE DIAGNOSES: Bilateral ureteral stones, bilateral ureteral stents. PROCEDURES PERFORMED: Bilateral extracorporeal shock wave lithotripsy, cysto, bilateral stent exchange and bilateral retrograde. ANESTHETIC: General. ESTIMATED BLOOD LOSS: Not recorded. FINDINGS: She had a large right proximal ureteral stone, moderate-sized left ureteral stone which may actually be two stones that are adjacent to each other. The right stone was treated posteriorly. The left stone because it was over the sacrum, it was treated anteriorly. 3000 shocks were used on both sides. The kV levels were 4 to 5 on both sides. Both sides did appear to fragment. Stents placed bilaterally 7-Mozambican x 24 cm. No strings attached. DESCRIPTION OF PROCEDURE: Obtained written and verbal consent from the family. After receiving IV antibiotics, she was taken to the operating suite. She was placed in the supine position on the treatment table. She was given a general anesthetic and oral obturator intubation. Her right flank was coupled to the lithotripsy unit. The stone was placed in treatment focal point. Shockwave therapy was commenced. A pause was given after couple of 100 shocks and then the kV level was gone up to 4 and then 4 to 5 for a total of 3000 shocks. She was then repositioned to treat the left side done in a similar manner, although we treated from the anterior approach. Could not see the more proximal of the ureteral stones, just the distal. After this was done, she was placed in the dorsal lithotomy position, sterilely prepped and draped. Cystoscopy was performed. There was bloody urine abuts the stone fragments in the bladder. This was washed out. The right stent was removed with a pair of grasping forceps through the urethral meatus and a guidewire was fed up this into the region of the renal pelvis. The stent was removed over the guidewire. A Pollack catheter was advanced over the guidewire and the guidewire was removed. We filled out this collecting system down to the level of the proximal stone which had appeared to change. The guidewires were placed. The stent was placed over the guidewire, pushed up in place with aid of a pusher, so its proximal end coiled in the upper pole john and its distal end coiled in the bladder. The left side was done in a similar manner. The bladder was drained. The instruments removed. She was taken out of dorsal lithotomy position, awakened, extubated, and taken by stretcher to recovery room. Job ID: [id number]
[2020-07-30] MEDS ORDERED: Heparin 1,000 UNITS/ML VIAL ONE (16:02)
--- NOTE | 2020-07-30 18:50 | SPC ---
Left upper extremity PICC placement sonographic guided HISTORY: Sepsis. FINDINGS: After explaining the procedure and answering all questions, left upper extremity was preppe d and draped in usual sterile fashion. Sterile technique, buffered local anesthesia, sonographic guidance, and a 22-gauge needle were used t o carefully access the left brachial vein. Standard technique was used to place the tip of a 5 [place] single lumen PICC so that the tip lies at the level of the superior vena cava. Catheter was flushed and secured externally. Patient tolerated the procedure well and was dismissed i n unchanged condition. Fluoroscopy time 0 seconds. IMPRESSION : Left upper extremity PICC is ready for use.
== END 2020-07-30 16:22 | disposition home or self-care (01) ==
LOC: SDC 05:39
PROVIDERS: ATTEND Urology
PROC: 0TF7XZZ Fragmentation in Left Ureter, External Approach (ICD-10-PCS; principal; 2020-07-30)
PROC: 0TF6XZZ Fragmentation in Right Ureter, External Approach (ICD-10-PCS; 2020-07-30)
PROC: 0T788DZ Dilation of Bilateral Ureters with Intraluminal Device, Via Natural or Artificial Opening Endoscopic (ICD-10-PCS; 2020-07-30)
PROC: 0TP98DZ Removal of Intraluminal Device from Ureter, Via Natural or Artificial Opening Endoscopic (ICD-10-PCS; 2020-07-30)
PROC: 02HV33Z Insertion of Infusion Device into Superior Vena Cava, Percutaneous Approach (ICD-10-PCS; 2020-07-30)
DX: N20.2 Calculus of kidney with calculus of ureter (principal); A41.9 Sepsis, unspecified organism; Z79.2 Long term (current) use of antibiotics; Z79.899 Other long term (current) drug therapy; Z20.828 Contact with and (suspected) exposure to other viral communicable diseases
CPT/HCPCS: 36569; 50590; 52332; 71045; 74018; 80048; 85025; 85576; 85610; 85730; U0002; 36415; J1100; J1644; J2185; J2405; J2704; J3010

== ENCOUNTER 2020-08-18 09:45 | Inpatient (IN) | payer MEDICARE, MEDICAID ==
[~2020-08-18 09:45] MED LIST changes: +Iopamidol 370 76% 100 ML VIAL ONE; -Iopamidol-370 76% 500 ML 1 ML ONE
[2020-08-18] MEDS ORDERED: Lidocaine 1% PF 5 ML VIAL ONE (09:50)
[2020-08-18] MEDS ORDERED: PROPOFOL 200 MG/20 ML VIAL ONE (09:50)
[2020-08-18] MEDS ORDERED: Dexamethasone 20 MG/5 ML VIAL ONE (09:50)
[2020-08-18] MEDS ORDERED: Ondansetron PF 4 MG/2 ML Vial ONE (09:50)
[2020-08-18] MEDS ORDERED: Vancomycin 1 GM in Premix Bag 1 BAG IVPB SCH (10:00)
[2020-08-18] MEDS ORDERED: MEROPENEM 1 GM/50 ML 1 GM in Premix Bag 1 BAG IVPB SCH (10:00)
[2020-08-18 10:38] LABS: Hemoglobin 12.7 g/dL (12.0-16.0); Mean Corpuscular HGB CONC 31.6 g/dL (32.0-36.0); Mean Corpuscular Hemoglobin 30.4 pg (27.0-31.0); Mean Corpuscular Volume 96.1 fL (78.0-98.0); Mean Platelet Volume 7.4 fL (7.4-10.4); Platelet Count 336 thou/uL (130-400); RBC Distribution Width 15.6 % (11.5-14.5); Red Blood Cell (RBC) Count 4.16 mill/uL (4.20-5.40); White Blood Cell (WBC) Count 8.8 thou/uL (4.8-10.8)
[2020-08-18] MEDS ORDERED: Vancomycin 1 GM/200 ML BAG ONE (10:38)
[2020-08-18] MEDS ORDERED: Fentanyl 100 MCG/2 ML VIAL ONE (10:38)
[2020-08-18 10:47] LABS: Anion Gap 14 mmol/L (10-20); BUN (Urea Nitrogen) 22 mg/dL (9.8-20.1); Calc. Creatinine Clearance 74 mL/min (70-130); Calcium 8.7 mg/dL (7.8-10.44); Carbon Dioxide 26 mmol/L (23-31); Chloride 104 mmol/L (98-107); Glucose 105 mg/dL (83-110); Potassium 4.6 mmol/L (3.5-5.1); Sodium 139 mmol/L (136-145)
[2020-08-18 10:52] LABS: INR-International Normal Ratio 0.9; Prothrombin Time 12.7 sec (12.0-14.7)
[2020-08-18 10:53] LABS: PTT 30.5 sec (22.9-36.1)
[2020-08-18 11:03] LABS: SARS-CoV-2 NAA Rapid Test Not Detected (NotDetected)
[2020-08-18] MEDS ORDERED: Iothalamate Meglumine 60% 50 ML VIAL FS ONE (11:56)
--- NOTE | 2020-08-18 14:10 | RAD ---
XR IVP Retrograde History: Ureteroscopy Comparison: Exam July 15, 2020 Findings: Multiple fluoroscopic images were obtained from the procedure room. Interval exchange of th e bilateral double-J ureteral stents. Impression: Fluoroscopy for procedure purposes.
[2020-08-18] MEDS ORDERED: Promethazine HCl 25 MG/ML VIAL SLOW IVP PRN (14:13)
[2020-08-18] MEDS ORDERED: Ondansetron HCl/PF 4 MG/2 ML Vial IVP PRN (14:13)
[2020-08-18] MEDS ORDERED: Promethazine HCl 25 MG/ML VIAL IM PRN (14:13)
--- NOTE | 2020-08-18 15:45 | OP ---
DATE OF PROCEDURE: 08/18/2020 PREOPERATIVE DIAGNOSIS: Bilateral ureteral stones. POSTOPERATIVE DIAGNOSIS: Bilateral ureteral stones. PROCEDURES PERFORMED: 1. Right rigid and flexible ureteroscopy with laser lithotripsy and stone retrieval and stone fragments in the right proximal ureter and the right upper calyceal system. 2. Left rigid and flexible ureteroscopy with laser lithotripsy of two ureteral stones. No stone retrieval on this side. 3. Bilateral stent replacement. ANESTHETIC: General. ESTIMATED BLOOD LOSS: Less than 50 mL. DRAINS: She had 7 x 24 cm double-J stents placed bilaterally. Strings were not left attached. DESCRIPTION OF PROCEDURE: Obtained written and verbal consent from the patient's daughter, and after receiving IV antibiotics and after documenting normal preoperative blood work and a negative COVID test, she was taken to the operating suite. Antibiotics she received were vanc and meropenem. She was taken to the OR cystoscopic room and placed in a supine position on the table. PlexiPulses were placed on her lower extremities and turned on. She was given a general anesthetic, oral obturator intubation, placed in the dorsal lithotomy position, sterilely prepped and draped. Fluoroscopy unit was brought in and positioned over her. Stents were in good position. You could see the stone in the right proximal ureter looked to be a number of fragments. I could not see any stones along the course of the left ureter or renal collecting system. She did have stones up in the right renal collecting system. Cystoscopy was performed with a 22-Macanese sheath. This was well lubricated and passed under direct vision through the female urethra into the urinary bladder with aid of a 30-degree lens video camera and monitor. The bladder was filled a number of times. The distal end of the double-J stent was grasped and brought out through the urethral meatus and a guidewire was fed up through this, but the lumen had occluded, so the stent was removed intact and then a Pollack catheter was advanced a couple of centimeters up the right ureteral orifice and contrast was injected in a retrograde manner allowing us to pass a guidewire up into the renal pelvis. We then removed the scope, removed the Pollack catheter and over a green guidewire, we placed a dual-lumen catheter, and once this was 2 to 3 cm up the right ureter, we passed a stiff blue guidewire through the 2nd port of the dual-lumen catheter up into the renal pelvis removing the dual-lumen catheter. At this point, a ureteral sheath with obturator was lubricated and brought in and placed over the blue catheter and pushed up to just below the level of the proximal ureteral stone. The blue guidewire and the obturator were removed and we brought in a rigid ureteroscope. This was placed through our ureteral sheath and we used this to break up a couple of larger fragments of the remaining proximal ureteral stone that was treated with ESWL couple of weeks ago. We then used Nitinol basket to remove these fragments. We then came back in with our flexible ureteroscope and went up through the ureteral sheath and up into the renal pelvis and broke up stones that were mostly in the right upper pole calyceal system. Most of these were quite small, but we did laser some of the slightly larger ones. We used basket to remove as many of these as we could. There were couple of other slightly larger stones that were seen at this point just in the renal pelvis and may have come out of either the upper or mid calyces system. We lasered these and removed these pieces. We then backed our cells out with our ureteral sheath and found no other evidence of ureteral stones. Our green guidewire was backloaded through the cystoscope. A Pollack catheter was placed over it. The green guidewire was removed and contrast was injected. There was no extravasation noted. No persistent filling defect or obstruction. The guidewire was replaced and a 7 x 24 double-J stent was passed over the guidewire, pushed up in place with the pusher, so its proximal end coiled in the renal pelvis and its distal end coiled in the bladder when the wire was removed. We then turned our attention to left side. The guidewire was grasped and brought out through the urethral meatus. We could not feed a guidewire through it, so the stent was then removed and a Pollack catheter was advanced into left ureteral orifice. Contrast was injected. There was an area of obstruction about a third of the way up the ureter over the point of the sacral ala. A guidewire was fed through the Pollack catheter and easily went by this point and the Pollack catheter was removed. A dual-lumen ureteral catheter was placed over the guidewire and then a blue stiff wire was passed adjacent to the this point of obstruction and easily passed up in the region of renal pelvis. The dual-lumen ureteral catheter was removed and the ureteral sheath with obturator was passed over the blue stiff wire up to just below this region. The blue wire and the obturator removed. A rigid ureteroscope was brought in, passed up through the ureteral sheath through this point and then we visualized probably 8 mm maybe slightly larger ureteral stone that we lasered. It was not in pieces. I do not believe this one had been seen to be treated with shockwave. We treated this by breaking it up and tried to disintegrate into small pieces, which we were successful to do it. We did not do any stone retrieval. We then advanced our rigid ureteroscope a little more proximal, then we came at the upper portion of the sacral ala. We met a number of fragments of stones which I think were related to the shockwave. A couple of weeks ago, we broke these up in smaller pieces. At this point, we went up with our rigid scope as far as we could go advancing our ureteral sheath as we went. We could not get into the renal pelvis, so we removed the rigid scope and brought in the flexible scope and placed this through the ureteral sheath and examined every calyceal system in the left kidney, found no other stone fragments. We then inspected the ureter under direct vision with the flexible ureteroscope as the ureteral sheath and the scope were backed out. At this point, we backloaded our guidewire through our cystoscopic sheath, passed the Pollack catheter up over the guidewire into the region of renal pelvis, removed the guidewire, injected contrast to fill up the entire collecting system and ureter on this side. There was no extravasation. No significant point of obstruction. The guidewire was replaced and then a 7-Macanese x 24 cm double-J stent was passed over the guidewire and pushed up into place with aid of a pusher, so its proximal end coiled in the renal pelvis and its distal end coiled in the bladder when the wire was removed. The bladder was drained. The instruments were removed. She was taken out of dorsal lithotomy position, awakened, extubated, and taken by stretcher to the recovery room. Job ID: [id number]
[2020-08-18] MEDS ORDERED: Meperidine HCl/PF 25 MG/ML VIAL ONE (15:52)
[2020-08-18] MEDS ORDERED: Metoprolol Tartrate 5 MG/5 ML VIAL ONE (16:07)
[2020-08-18] MEDS ORDERED: Adenosine 6 MG/2 ML VIAL ONE ×3 (16:13→16:39)
[2020-08-18] MEDS ORDERED: Sodium Chloride 0.9% 10 ML ONE ×2 (16:37→16:39)
[2020-08-18] MEDS ORDERED: Digoxin 0.5 MG/2 ML AMP ONE (16:41)
[2020-08-18] MEDS ORDERED: PROPOFOL 20 ML ONE (16:44)
[2020-08-18] MEDS ORDERED: Acetaminophen 325 MG TAB PO PRN (16:57)
[2020-08-18] MEDS ORDERED: Lactated Ringer's 1,000 ML IV SCH (17:00)
[2020-08-18] MEDS ORDERED: Diltiazem 125 MG in Sodium Chloride 0.9% 100 ML IVPB SCH (17:15)
--- NOTE | 2020-08-18 17:21 | PDOC.FPRHP ---
- History of Present Illness Chief Complaint: RAÚL CUELLO FROM PACU History of Present Illness: Pt is a 79 y/o F who presents from the PACU as she was having bilateral lithotripsies with bilateral ureteral stent replacements with Dr. Sloan. After the procedure her HR went up to the high 130s. At that time a code cuate was called because of this. Dr. Giron was called at this time and patient was given 3 rounds of adenosine and 1 push of digoxin and 2 rounds of cardioversion with no resolution of her tachycardia. At this time the primary team was called to admit her to the hospital inpatient service. Pt was not c/o CP, SOB. She had no other complaints at this time. Daughter was at bedside and stated that pt was doing well after coming home from SNF on 07/30/20. - Allergies/Adverse Reactions Allergies Allergy/AdvReac Type Severity Reaction Status Date / Time No Known Drug Allergies Allergy Verified 08/12/20 14:20 - Home Medications Medication Instructions Recorded Confirmed Type Cholecalciferol [Vitamin D3] 5,000 units PO HS 06/27/18 08/12/20 History Ferrous Sulfate 325 mg PO HS 06/27/18 08/12/20 History Lactobacillus Acidophilus 1 capsule PO HS 12/19/18 08/12/20 History [Probiotic] Pravastatin Sodium 1 tab PO HS 02/28/20 08/12/20 History Pantoprazole [Protonix] 1 tab PO HS #30 pk 07/24/20 08/12/20 Rx Sertraline HCl [Zoloft] 50 mg PO HS tab 07/24/20 08/12/20 Rx Sulfamethoxazole/Trimethoprim 1 tab PO DAILY 08/12/20 08/12/20 History [Bactrim DS] - History PMHx: -Chronic Recurrent UTIs -Short term memory loss -Chronic Constipation -Chronic R sided hemiparesis s/o TBI in 2013, bed bound -HTN -HLD -COPD -Hx of IA PSHx: -Hysterectomy -Tracheotomy/feeding tube s/p removed -Jennifer hole for TBI FHx: -CAD in parents Social: -No TAD. 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 - Review of Systems General: denies: fever/chills, weight/appetite/sleep changes, fatigue ENT: denies: nasal congestion, rhinorrhea Respiratory: denies: cough, congestion, shortness of breath Cardiovascular: denies: chest pain, palpitation, edema Gastrointestinal: denies: nausea, vomiting, diarrhea, constipation, abdominal pain Genitourinary: denies: incontinence, dysuria, polyuria, discharge Skin: denies: rashes, lesions Musculoskeletal: denies: pain, tenderness Neurological: denies: numbness Psychological: denies: anxiety, depression - Vital signs BP 99/41, HR 137, RR: 24, O2 sat 93-94% on RA, afebrile per nurse - Physical Exam Constitutional: NAD, awake, alert and oriented HEENT: normocephalic and atraumatic, grossly normal vision, grossly normal hearing, MMM Neck: supple Heart: normal S1/S2, no murmurs/rubs/gallops, other (tachycardic) Lungs: CTAB, no respiratory distress, no wheezing Abdomen: soft, non-tender, bowel sounds present, no masses/distention Skin: good turgor Heme/Lymphatic: no unusual bruising or bleeding Psychiatric: normal mood and affect, good judgment and insight, intact recent and remote memory FMR H&P: Results - Labs Result Diagrams: 08/18/20 16:34 08/18/20 16:34 Lab results: WBC 8.8 thou/uL (4.8-10.8) 08/18/20 10:16 Hgb 12.7 g/dL (12.0-16.0) 08/18/20 10:16 Hct 40.0 % (36.0-47.0) 08/18/20 10:16 MCV 96.1 fL (78.0-98.0) 08/18/20 10:16 Plt Count 336 thou/uL (130-400) 08/18/20 10:16 Sodium 139 mmol/L (136-145) 08/18/20 10:16 Potassium 4.6 mmol/L (3.5-5.1) 08/18/20 10:16 Chloride 104 mmol/L (98-107) 08/18/20 10:16 Carbon Dioxide 26 mmol/L (23-31) 08/18/20 10:16 BUN 22 mg/dL (9.8-20.1) H 08/18/20 10:16 Creatinine 0.91 mg/dL (0.6-1.1) 08/18/20 10:16 Glucose 105 mg/dL (83-110) 08/18/20 10:16 Calcium 8.7 mg/dL (7.8-10.44) 08/18/20 10:16 FMR H&P: A/P - Plan ##SVT vs. Sinus Tachycardia Pt was having procedure with Dr. Sloan of Urology: R and L laser lithotripsy and stone retrieval and stone fragments in the R proximal ureter and R upper calyceal system and L two ureteral stones with no retrieval of the L sided stones. Bilateral stent replacement was done. After the procedure, pt HR went up to 130s and was given 3 dose of adenosine, 1 push of digoxin, and 2 rounds of electrocardioversion, and was started on diltiazem drip. She has not since converted. At that time it was decided she needed to be admitted to telemetry. Pt's BP has been tolerating diltiazem so far. -Dr. Giron of cardiology had seen patient once he had been called to raúl cuello in the PACU due to pt's HR. Suggested that pt can be placed on amiodarone if her BPs don't tolerate the diltiazem. -BCx and UCx have been ordered -CBC and CMP ordered, today her WBC was 8.8 prior to procedure, has since trended to 5.6 -Apparently patient was ordered/given meropenem and vancomycin for procedure -Mg and Phos ordered -Will order troponin and trend as necessary and CTA -Cardiology saw patient at last admission and stated that she has sinus tachycardia due to her urosepsis at that time and had mostly like some probable SVT and signed off at that point -Pt has ECHO 07/16 which showed EF 50-60% with no diastolic dysfunction Chronic Conditions: ##Hx of Chronic Constipation ##Hx of TBI with R sided hemiparesis ##HTN ##HLD ##GERD ##Short term memory loss: aware -continue home medications CODE: FULL DIET: HH VTE: Lovenox PCP: Christopher Contact: Daughter: Mariely Dispo: admitted from PACU to Telemetry. will monitor on telemetry on diltiazem drip. will switch as necessary. FMR H&P: Upper Level - Pertinent history PCP: Christopher HPI: [id number] with a PMH notable for multiple episodes of renal stones & UTIs requiring lithotripsy & stent placement, Hx TBI w/ residual short term memory loss & R-sided deficits, chronic constipation and HTN who we were called to admit following a code green in the PACU. Of note, patient was recently admitted the end of June for urosepsis 2/2 E coli from B/L obstructing ureteral stones & had stents placed at that time. She has since had 2 lithotripsy treatments with stent replacement, one on 07/30 & the second today with her Urologist, Dr. Sloan. History was obtained from [employer], Dr. Giron and the PACU staff given the patients Hx short term memory loss. The patient underwent bilateral lithotripsy with stent replacement & cystoscopy but subsequently went into SVT in the 130s while being monitored in the PACU following this procedure. The patient was given 6 of adenosine x3, 0.5 mg IV digoxin & unsuccessfully cardioverted x2. Cards then recommended starting a drip so she was given a diltiazem bolus of 0.25mg/kg & started on a diltiazem gtt @ 5. The patients daughter was also at bedside and reported that the patient has been doing well at home. Denies any fever/chills, diarrhea, or constipation. Has reported chronic malodorous urine. PACU course: See above - Pertinent findings Labs/Imaging: Retrograde pyelogram WNLs WBC 8.8 REVIEW OF SYSTEMS: Limited/unable to obtain 2/2 patients baseline limited mental status Vitals: HR: 135 BP: 99/41 RR: 24 O2 sat 94% on RA PHYSICAL EXAMINATION: General: Sitting up in bed in NAD HEENT: normocephalic atraumatic Neck: Supple. Full ROM. Heart/Cardiovascular System: Tachycardic with regular rhythm, no murmurs noted Lungs/Respiratory System: CTAB Abdomen/Gastro-Intestinal System: soft w/ no mild suprapubic abdominal tenderness, normal bowel sounds Extremities: Warm extremities. 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 - Plan Date/Time: 08/18/20 1721 Marilynn Gillespie, have evaluated this patient and agree with findings/plan as outlined by quality intern resident. Pertinent changes/additions are listed here. A/P: #SVT vs. sinus tachycardia -Patient started on a diltiazem bolus and diltiazem drip with transfer to the telemetry unit for continued close monitoring. Will consider transition to amiodarone if BPs become soft as this was given during her last hospital stay for conversion. TSH & lyte levels pending as well as blood & urine Cxs. 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 Appreciate recs. #Hx TBI with residual R-sided deficits & short term memory loss: -Aware, resume home meds. Frequent reorientation & delirium precautions. #HTN: Will resume home meds as tolerated. #chronic constipation: Will continue a bowel regimen while inpatient. #Chronic Recurrent UTIs & renal stones: Aware, Dr. Sloan to continue #HLD: Resume home meds #Hx of IA: Resume home meds #GERD: Home meds PCP: Christopher ABx: None IVFs: LR @ 125mL/hr VTE PPX: Lovenox GI PPX: Home PPI Code status: FULL CODE Dispo: Will admit to telemetry for continued IV dilt drip & close monitoring of heart rate and blood pressures. Anticipated LOS >/= 48 hours pending clinical course. Addendum - Attending - Attending Attestation Date/Time: 08/18/202237 I personally evaluated the patient and discussed the management with Dr. Heaton. I agree with the History, Examination, Assessment and Plan documented above with any addition or exceptions noted below. Sinnce admission Mrs. Membreno has had intermittent episodes of hypotension, such that we have decided to move her to the [facility]. Currently her pulse is down to 105 and she is normotensive. The nurse has been in communication with Dr Rojas about so urinary bleeding and he instructed her to paldebora pinto. A CTA has just been completed as well.
--- NOTE | 2020-08-18 17:43 | CON ---
DATE OF CONSULTATION: REASON FOR CONSULTATION: Tachycardia. PRIMARY PIT HAND: Santi Marques MD HISTORY OF PRESENT ILLNESS: Ms. Membreno is a 79-year-old woman who recently had removal. In the postoperative period, she developed sudden tachycardia. Heart rate initially was 160s. Then went consistently in the upper 130s. Blood pressure was marginal initially. The patient had no chest pain, pressure, or shortness of breath. She was given adenosine x3. She did block down with no flutter waves present. EKG was suggestive of sinus tach versus SVT. It was difficult to ascertain. Cardioversion x2 was performed synchronized with anesthesia and failed. PAST MEDICAL HISTORY: infection, previous closed head injury, nephrolithiasis, hysterectomy, hypertension. SOCIAL HISTORY: No current tobacco or alcohol use. MEDICATIONS: Include: 1. Vitamin D3. 2. Pravastatin. 3. Iron. 4. Sertraline. 5. Protonix. 6. Lactobacillus. REVIEW OF SYSTEMS: 10-point review of systems is reviewed as above, otherwise negative. PHYSICAL EXAMINATION: GENERAL: The patient is a pleasant woman who is in no acute distress. The patient appears her stated age. VITAL SIGNS: Blood pressure 144/80, pulse 140, respirations 20. NEUROLOGIC: The patient is alert and oriented x3 with no focal neurologic deficits. HEENT: Sclerae without icterus. Mouth has moist mucous membranes with normal pallor. NECK: No JVD. Carotid upstroke brisk. No bruits bilaterally. LUNGS: Clear to auscultation with unlabored respirations. BACK: No scoliosis or kyphosis. CARDIAC: Tachycardic. ABDOMEN: Soft, nontender, nondistended. No peritoneal signs present. No hepatosplenomegaly. No abnormal striae. EXTREMITIES: 2+ femoral and 2+ dorsalis pedis pulses. No cyanosis, clubbing, or edema. SKIN: No gross abnormalities. PERTINENT LABORATORY DATA: From this morning, hemoglobin 12.7. Creatinine 0.99. IMPRESSION: 1. Supraventricular tachycardia versus sinus tachycardia. 2. After a Code Green had been called and cardioversion was attempted, I did review the chart. She has had similar findings in June. She was given IV fluids, placed on IV amiodarone and slowly trended down. This occurred after infection improved. Her LVEF on 07/16/2020 also was felt to be within normal limits. 3. At this point, we recommend close observation. We will put in IMCU. We will place on IV amiodarone and give IV digoxin. We will monitor closely. Job ID: [id number]
[2020-08-18 17:51] LABS: #Lymphocytes 0.6 thou/uL (1.20-3.40); #Monocytes 0.1 thou/uL (0.11-0.59); %Eosinophils 0.4 % (0.0-10.0); %Lymphocytes 9.7 % (21.0-51.0); %Monocytes 1.6 % (0.0-10.0); %Neutrophils 88.3 % (42.0-75.0); Hemoglobin 13.2 g/dL (12.0-16.0); Mean Corpuscular HGB CONC 30.7 g/dL (32.0-36.0); Mean Corpuscular Hemoglobin 29.4 pg (27.0-31.0); Mean Corpuscular Volume 95.9 fL (78.0-98.0); Mean Platelet Volume 7.9 fL (7.4-10.4); Platelet Count 340 thou/uL (130-400); RBC Distribution Width 15.7 % (11.5-14.5); White Blood Cell (WBC) Count 5.6 thou/uL (4.8-10.8)
[2020-08-18 18:18] LABS: Phosphorus 3.8 mg/dL (2.3-4.7)
[2020-08-18 18:21] LABS: ALT (SGPT) 8 U/L (8-55); AST (SGOT) 14 U/L (5-34); Albumin 3.4 g/dL (3.4-4.8); Alkaline Phosphatase 142 U/L (40-110); Anion Gap 22 mmol/L (10-20); BUN (Urea Nitrogen) 22 mg/dL (9.8-20.1); Bilirubin, Total 0.9 mg/dL (0.2-1.2); Calc. Creatinine Clearance 70 mL/min (70-130); Calcium 8.2 mg/dL (7.8-10.44); Carbon Dioxide 16 mmol/L (23-31); Chloride 107 mmol/L (98-107); Globulin 4.3 g/dL (2.4-3.5); Glucose 176 mg/dL (83-110); Potassium 4.3 mmol/L (3.5-5.1); Protein, Total 7.7 g/dL (6.0-8.3); Sodium 141 mmol/L (136-145)
[2020-08-18] MEDS: Lactated Ringer's 1,000 ML IV SCH ×2 (19:00→20:22)
[2020-08-18 19:40] LABS: CKMB 1.7 ng/mL (0-6.6)
--- NOTE | 2020-08-18 22:30 | CT ---
CT PULMONARY ANGIOGRAM WITH IV CONTRAST AND 3D MIP RECONSTRUCTIONS: Date: 08/18/2020 PROVIDED CLINICAL HISTORY: Tachycardia. FINDINGS: There is no evidence for central or segmental pulmonary embolus. Vascular calcification including cor onary calcium is demonstrated. There is bibasilar consolidation that may reflect infiltrate or subseg mental atelectasis. There is no pleural fluid or pneumothorax apparent. The airway appears patent and of normal caliber. There is no evidence for thoracic lymph node enlargement. Gallstones are demonstr ated. The osseous structures demonstrate no concerning lytic or blastic lesions. Degenerative changes are seen involving the spine with conspicuous central canal stenosis at multiple levels involving th e lower thoracic and upper lumbar spine. IMPRESSION: 1. No evidence for central or segmental pulmonary embolus. 2. Bibasilar consolidation may reflect atelectasis and/or pneumonia. POS: JAYESH
[2020-08-18] MEDS: MEROPENEM 1 GM/50 ML 1 GM in Premix Bag 1 BAG IVPB SCH (23:57)
[2020-08-19] MEDS: Cholecalciferol 1,000 UNITS (25 MCG) TAB PO SCH ×2 (00:03→20:15)
[2020-08-19] MEDS: Lactinex Tablet PO SCH ×2 (00:04→20:19)
[2020-08-19] MEDS: Simvastatin 10 MG TAB PO SCH ×2 (00:04→21:07)
[2020-08-19] MEDS: Pantoprazole 40 MG GRANULES PACKET PO SCH ×2 (00:04→20:13)
[2020-08-19] MEDS: Ferrous Sulfate 325 MG TAB PO SCH ×2 (00:04→20:17)
[2020-08-19 00:39] VITALS: BMI 31.5
[2020-08-19] MEDS ORDERED: Lactated Ringer's 500 ML IV SCH (01:30)
[2020-08-19 02:51] LABS: Lactic Acid 4.8 mmol/L (0.5-2.2)
[2020-08-19 02:51] LABS: ALT (SGPT) 19 U/L (8-55); AST (SGOT) 25 U/L (5-34); Albumin 2.6 g/dL (3.4-4.8); Alkaline Phosphatase 87 U/L (40-110); Anion Gap 17 mmol/L (10-20); BUN (Urea Nitrogen) 21 mg/dL (9.8-20.1); Bilirubin, Total 0.4 mg/dL (0.2-1.2); Calc. Creatinine Clearance 74 mL/min (70-130); Calcium 7.5 mg/dL (7.8-10.44); Carbon Dioxide 19 mmol/L (23-31); Chloride 109 mmol/L (98-107); Globulin 3.2 g/dL (2.4-3.5); Glucose 121 mg/dL (83-110); Potassium 3.5 mmol/L (3.5-5.1); Protein, Total 5.8 g/dL (6.0-8.3); Sodium 141 mmol/L (136-145)
[2020-08-19 02:52] LABS: Band 9 % (5-11); Hemoglobin 11.7 g/dL (12.0-16.0); Lymphocytes 2 % (21-51); MDiff Complete? YES; Mean Corpuscular HGB CONC 32.1 g/dL (32.0-36.0); Mean Corpuscular Hemoglobin 30.7 pg (27.0-31.0); Mean Corpuscular Volume 95.6 fL (78.0-98.0); Mean Platelet Volume 7.9 fL (7.4-10.4); Monocytes 25 % (0-10); Neutrophil 64 % (42-75); Platelet Count 199 thou/uL (130-400); Platelet Morphology Comment Appears Adequate; RBC Distribution Width 15.9 % (11.5-14.5); RBC Morphology Normal; White Blood Cell (WBC) Count 25.1 thou/uL (4.8-10.8)
[2020-08-19] MEDS ORDERED: Lactated Ringer's 1,000 ML IV SCH (03:00)
[2020-08-19 04:03] LABS: Bacteria/HPF None Seen HPF (None Seen); RBC/HPF Greater than 50 HPF (0-3); Squamous Epithelial None Seen HPF (0-3); WBC/HPF Greater than 50 HPF (0-3)
[2020-08-19 04:22] LABS: Troponin I 0.094 ng/mL (< 0.028)
[2020-08-19] MEDS: MEROPENEM 1 GM/50 ML 1 GM in Premix Bag 1 BAG IVPB SCH ×3 (06:08→21:07)
[2020-08-19] MEDS ORDERED: Norepinephrine 8 MG/0.9% NS 250 ML IVPB SCH (06:15)
--- NOTE | 2020-08-19 06:44 | PDOC.FM ---
- Subjective Subjective: Patient doing well this morning. Moved to ICU. Denies any complaints including chest pain, abdominal pain. - Objective Vital Signs & Weight: Vital Signs (12 hours) Temp Pulse Pulse Pulse Pulse Pulse Pulse 08/19/20 04:00 99.3 F 96 08/19/20 03:54 97.9 F 08/19/20 03:17 08/19/20 01:59 08/19/20 00:15 107 H 08/19/20 00:00 109 H 08/18/20 22:13 104 H 08/18/20 21:57 98.7 F 123 H 08/18/20 20:35 98.7 F 115 H 08/18/20 20:23 98.3 F 115 H 08/18/20 20:00 118 H 08/18/20 19:05 130 H 124 H 121 H 121 H 134 H Resp BP BP BP BP BP BP 08/19/20 04:00 24 H 84/38 L 08/19/20 03:54 08/19/20 03:17 08/19/20 01:59 08/19/20 00:15 18 83/40 L 08/19/20 00:00 18 81/43 L 08/18/20 22:13 92/39 L 08/18/20 21:57 18 105/43 L 08/18/20 20:35 18 97/44 L 08/18/20 20:23 18 93/44 L 08/18/20 20:00 95/46 L 08/18/20 19:05 71/32 L 69/32 L 103/54 L 101/51 L 111/51 L Pulse Ox Pulse Ox 08/19/20 04:00 99 08/19/20 03:54 08/19/20 03:17 98 08/19/20 01:59 97 08/19/20 00:15 97 08/19/20 00:00 97 08/18/20 22:13 08/18/20 21:57 97 08/18/20 20:35 95 08/18/20 20:23 95 08/18/20 20:00 97 08/18/20 19:05 93 L Weight Weight 88.592 kg Most Recent Monitor Data Heart Rate from ECG 95 NIBP 88/36 NIBP BP-Mean 53 Respiration from ECG 29 SpO2 100 I&O: 08/17/20 08/18/2008/19/20 06:59 06:59 06:59 Output Total 300 Balance -300 Result Diagrams: 08/19/20 02:17 08/19/20 02:17 Phys Exam - Physical Examination Constitutional: NAD HEENT: moist MMs poor dentition Neck: supple, full ROM Respiratory: no wheezing, clear to auscultation bilateral Cardiovascular: RRR, no significant murmur Gastrointestinal: soft, no distention trace BLE edema A&Ox1 Psychiatric: normal affect Skin: no rash Dx/Plan (1) Sepsis associated hypotension Code(s): A41.9 - SEPSIS, UNSPECIFIED ORGANISM; I95.9 - HYPOTENSION, UNSPECIFIED Status: Acute (2) History of OR (myocardial infarction) Code(s): I25.2 - OLD MYOCARDIAL INFARCTION Status: Chronic - Plan Plan: #Sepsis likely 2/2 infection s/p lithotripsy -Patient s/p 2 cardioversions, multiple rounds of digoxin and adenoine. Pulse has been low 100s-mid 90s. -Patient has been hypotensive this morning, BPs 80s/30s, has PICC line in place; received ~3L LR. Levophed started -Cardiology consulted yesterday, appreciate recs - TSH and electrolytes normal. - WBC elevated at 25.1, Procal 155, started on meropenem 08/18, +vanc by Dr. Sloan. 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 Frequent reorientation & delirium precautions. #HTN: Will resume home meds as tolerated. #chronic constipation: Will continue a bowel regimen while inpatient. #Chronic Recurrent UTIs & renal stones: -Aware, Dr. Sloan to continue to follow -Dr. Rojas consulted overnight and pinto placed -urine appears bloody, though nursing reports this has improved #HLD: Resume home meds #Hx of OR: Resume home meds #Elevated troponin, resolved -0.071>0.094>0.077 -likely due to demand from tachycardia -patient denies chest pain, pulse mid-90s #GERD: Home meds PCP: Christopher VTE PPX: Lovenox GI PPX: Home PPI Code status: FULL CODE Dispo: Admitted to ICU for continued IV levophed through her PICC line for pressure support; cardiology consulted, appreciate recs; continue abx for suspected infection Addendum - Attending - Attending Attestation Date/Time: 08/19/20 0486 I personally evaluated the patient and discussed the management with Dr. Hawthorne. I agree with the History, Examination, Assessment and Plan documented above with any addition or exceptions noted below. Patient feels improved. Work to wean Levophed. Cardiology on board for arrhythmia. Continue abx and suspect will need director long term care IV abx for her UTI in setting of chronic nephrolithiasis. Urology on board.
[2020-08-19 07:17] LABS: Lactic Acid 2.4 mmol/L (0.5-2.2)
[2020-08-19 07:26] LABS: Troponin I 0.077 ng/mL (< 0.028)
--- NOTE | 2020-08-19 07:31 | PDOC.BPN ---
- Brief Progress Note Reassessed in IMCU, MAPs still <65mmHg after 3L of fluids. Patient asx in room, reports feeling well. Has PICC line in place, will start levophed & transfer to CCU. They can take her at 0730 this morning when bed opens up. Relayed this to [facility] nurse and day team. Asked nurse to page us if patient becomes symptomatic or BP worsen.
[2020-08-19] MEDS ORDERED: Vancomycin 1.5 GRAM/300 ML BAG 1.5 GM in Premix Bag 1 BAG IVPB SCH (08:15)
[2020-08-19] MEDS: Metoprolol Tartrate 25 MG TAB PO SCH ×2 (09:10→20:16)
[2020-08-19] MEDS: Enoxaparin Sodium 40 MG/0.4 ML SYRINGE SC SCH (09:10)
--- NOTE | 2020-08-19 09:57 | PRG ---
DATE OF SERVICE: 08/19/2020 Ms. Houston heart rate has slowly decreased. Heart rate is now in the 70s to 80s. After reviewing the chart, it appears she had undergone similar findings in her last admission. It was felt to be consistent with SVT and was given adenosine. The patient has significant increases in heart rate in the postoperative period. Unfortunately, the patient has had persistent hypotension. She has been transferred to the ICU. She is currently completely asymptomatic with blood pressure currently in the 70s. Levophed has been started. She is on low-dose metoprolol. OBJECTIVE: VITAL SIGNS: Blood pressure 118/66, pulse 109, respirations 20. LUNGS: Clear to auscultation. HEART: Regular rate and rhythm. ABDOMEN: Soft, nontender, nondistended. EXTREMITIES: No edema. PERTINENT LABORATORY DATA: Hemoglobin 11.7, hematocrit 36.4. IMPRESSION: 1. Tachycardia. 2. Hypotension. 3. Status post stent removal. RECOMMENDATIONS: Ms. Houston heart rate is back within normal range. The patient is currently on Levophed for hypotension and will need blood cultures x2. We will also recommend checking echo Doppler. Her last TSH was within normal limits. Job ID: [id number]
--- NOTE | 2020-08-19 12:56 | PRG ---
DATE OF SERVICE: 08/19/2020 She had her bilateral ureteroscopy, laser lithotripsy, and stent replacement yesterday. She did good in recovery room, transferred to PACU, developed tachycardia and she had some blood pressure changes. Cardiology saw her and she ultimately ended up being admitted, then actually being transferred to the ICU last night for low blood pressure. She was started on the Levophed drip, not a high dose. Her heart rate now is around 100. Her blood pressure has been improving. She has had very good urine output over 200 mL in last couple of hours. It has cleared up. She received about 3 L of urine yesterday when her blood pressure was low. Blood cultures were repeated. I did also repeat a urine culture. There is nothing growing so far. She has been maintained on meropenem and vancomycin. Her white count is elevated at 25,000. Her creatinine is normal at 0.89. Her lactic acid was elevated yesterday evening. It is much improved this morning. We will plan on keeping her on IV antibiotics, see if anything grows out on her blood and urine cultures. The decision will be made by how long to treat her with antibiotics. I will follow along with you. This was discussed with the patient's daughter, who is at the bedside. Job ID: [id number]
[2020-08-19] MEDS ORDERED: Cosyntropin 250 MCG VIAL SLOW IVP SCH (17:15)
--- NOTE | 2020-08-19 17:35 | EKG ---
Test Reason : TACHY Blood Pressure : / mmHG Vent. Rate : 119 BPM Atrial Rate : 119 BPM P-R Int : 182 ms QRS Dur : 084 ms QT Int : 316 ms P-R-T Axes : 041 -52 072 degrees QTc Int : 444 ms Sinus tachycardia Left axis deviation Inferior infarct , age undetermined Abnormal ECG Confirmed by Brandon BERRIOS ([id number]) on 08/19/2020 5:35:03 PM Referred By: Confirmed By:Brandon BERRIOS
--- NOTE | 2020-08-19 17:35 | EKG ---
Test Reason : Blood Pressure : / mmHG Vent. Rate : 155 BPM Atrial Rate : 147 BPM P-R Int : 000 ms QRS Dur : 100 ms QT Int : 348 ms P-R-T Axes : 000 -54 074 degrees QTc Int : 559 ms Supraventricular tachycardia Left axis deviation Inferior infarct , age undetermined Abnormal ECG Confirmed by Brandon BERRIOS ([id number]) on 08/19/2020 5:34:56 PM Referred By: DEJON Confirmed By:Brandon BERRIOS
--- NOTE | 2020-08-19 19:15 | CON ---
DATE OF CONSULTATION: 08/19/2020 HISTORY OF PRESENT ILLNESS: Temi is a 79-year-old female. She was seen by me when she was admitted last night with urinary tract sepsis. She is readmitted to the critical care unit last night for hypotension and she was tachycardic as well. She actually had cardioversion back in postanesthesia care unit. She subsequently was admitted. PAST MEDICAL HISTORY: Remarkable for: 1. Urinary tract infection. 2. History of traumatic brain injury in the past. 3. History of hypertension. 4. History of COPD. 5. History of coronary artery disease. 6. History of tracheostomy and a PEG. 7. 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 8. Status post hysterectomy. FAMILY HISTORY: Negative for lung disease in early age. REVIEW OF SYSTEMS: Otherwise negative. PHYSICAL EXAMINATION: GENERAL: She is very pleasant and cooperative. VITAL SIGNS: Blood pressure 122/78, heart rate is 109, respiratory rates in the 20s, and oximetry is 96. HEENT: Pupils are equal. Sclerae are anicteric. LUNGS: Clear. HEART: Regular rhythm. ABDOMEN: Soft. EXTREMITIES: No clubbing, cyanosis, or edema. IMPRESSION: Hypotension after her lithotripsy. Blood cultures so far negative. It would not be unreasonable to check a random cortisol level on her. We will do an ACTH stimulation test in the morning. Her Levophed requirements are slowly decreasing. Hopefully, she will be off Levophed by tomorrow morning. At this point in time, she does clinically appear to be septic. Blood cultures so far are negative. TIME SPENT: This is a 70-minute consult, 50% of the time was spent on the unit coordinating care. Job ID: [id number] [facility]
[2020-08-20 04:24] LABS: Anion Gap 13 mmol/L (10-20); BUN (Urea Nitrogen) 14 mg/dL (9.8-20.1); Calc. Creatinine Clearance 108 mL/min (70-130); Calcium 7.5 mg/dL (7.8-10.44); Carbon Dioxide 24 mmol/L (23-31); Chloride 110 mmol/L (98-107); Glucose 107 mg/dL (83-110); Potassium 3.3 mmol/L (3.5-5.1); Sodium 144 mmol/L (136-145)
[2020-08-20 04:44] LABS: Band 9 % (5-11); Hemoglobin 10.2 g/dL (12.0-16.0); Lymphocytes 6 % (21-51); MDiff Complete? YES; Mean Corpuscular HGB CONC 31.3 g/dL (32.0-36.0); Mean Corpuscular Hemoglobin 29.5 pg (27.0-31.0); Mean Corpuscular Volume 94.3 fL (78.0-98.0); Mean Platelet Volume 8.1 fL (7.4-10.4); Metamyelocyte 2 % (0-0); Monocytes 5 % (0-10); Neutrophil 77 % (42-75); Platelet Count 196 thou/uL (130-400); Platelet Morphology Comment Appears Adequate; RBC Distribution Width 15.7 % (11.5-14.5); Reactive Lymphocytes 1 % (0-10); Red Blood Cell (RBC) Count 3.44 mill/uL (4.20-5.40); White Blood Cell (WBC) Count 25.2 thou/uL (4.8-10.8)
[2020-08-20] MEDS: MEROPENEM 1 GM/50 ML 1 GM in Premix Bag 1 BAG IVPB SCH ×3 (05:46→23:00)
--- NOTE | 2020-08-20 05:47 | PDOC.FM ---
- Subjective Subjective: Patient resting comfortably in bed. Reportedly had intermittent episodes of agitation yesterday and overnight requiring mitts and bandaging of her arms to keep her from pulling out her lines. - Objective Vital Signs & Weight: Vital Signs (12 hours) Temp Pulse Ox 08/20/20 04:00 98.7 F 08/20/20 00:00 98.4 F 08/19/20 20:00 97 08/19/20 19:00 97.9 F Weight Weight 88.592 kg Most Recent Monitor Data Heart Rate from ECG 84 NIBP 113/64 NIBP BP-Mean 80 Respiration from ECG 23 SpO2 99 I&O: 08/18/20 08/19/20 08/20/20 06:59 06:59 06:59 Intake Total 3100 2691.6 Output Total 300 2990 Balance 2800 -298.4 Result Diagrams: 08/20/20 04:03 08/20/20 04:03 Phys Exam - Physical Examination Constitutional: NAD HEENT: moist MMs Neck: supple, full ROM Respiratory: no wheezing, clear to auscultation bilateral Cardiovascular: RRR, no significant murmur Gastrointestinal: soft, non-tender trace BLE edema Skin: no rash Dx/Plan (1) Sepsis associated hypotension Code(s): A41.9 - SEPSIS, UNSPECIFIED ORGANISM; I95.9 - HYPOTENSION, UNSPECIFIED Status: Acute (2) History of [place] (myocardial infarction) Code(s): I25.2 - OLD MYOCARDIAL INFARCTION Status: Chronic - Plan Plan: #Sepsis likely 2/2 infection s/p lithotripsy -Patient s/p 2 cardioversions, multiple rounds of digoxin and adenoine. Pulse 80s-low 100s overnight. -Patient's BPs 90s-130s/60s-80s on levophed through PICC line, continue to wean as tolerated -Cardiology consulted, appreciate recs -started metoprolol 12.5 BID -echo from 07/16/20: EF 55-60% - TSH and electrolytes normal. - WBC elevated at 25.2, Procal 155>83.94, started on meropenem 08/18, +vanc by Dr. Wang. Will continue and anticipate long-term abx will be necessary - PICC line does not appear visibly infected - Blood and urine cx pending, NGTD - Anticipate ACTH stim test this morning per Dr. 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 Frequent reorientation & delirium precautions. #HTN: Will resume home meds as tolerated. #chronic constipation: Will continue a bowel regimen while inpatient. #Chronic Recurrent UTIs & renal stones: -Aware, Dr. Wang to continue to follow -urine appears bloody, though nursing reports this has improved #HLD: Resume home meds #Hx of [place]: Resume home meds #Elevated troponin, resolved -0.071>0.094>0.077 -likely due to demand from tachycardia -patient denies chest pain, pulse mid-90s #GERD: Home meds PCP: Christopher VTE PPX: Lovenox GI PPX: Home PPI Code status: FULL CODE Dispo: Admitted to ICU for continued IV levophed through her PICC line for pressure support; cardiology consulted, appreciate recs; continue abx for suspected infection Addendum - Attending - Attending Attestation Date/Time: 08/20/20 9254 I personally evaluated the patient and discussed the management with Dr. Hawthorne. I agree with the History, Examination, Assessment and Plan documented above with any addition or exceptions noted below.
[2020-08-20] MEDS ORDERED: Potassium Chloride 20 MEQ TAB PO SCH (06:00)
[2020-08-20] MEDS: Enoxaparin Sodium 40 MG/0.4 ML SYRINGE SC SCH (08:35)
[2020-08-20] MEDS: Metoprolol Tartrate 25 MG TAB PO SCH ×2 (08:35→20:19)
--- NOTE | 2020-08-20 10:00 | PRG ---
DATE OF SERVICE: 08/20/2020 She is afebrile. Vital signs are better. She is on a very low dose of Levophed drip currently. She had good urine output. Her urine is much clearer. She seemed quite comfortable. She is sleeping now. She is having some cortisol test done this morning. Her blood cultures are still negative. I do not see a urine culture. I am pretty sure one was set up. It may be that just it had not reached the computer yet. White count is still elevated. She certainly looks very comfortable right now, and in terms of her vital signs, does not look toxic at this point. I imagine the next day she can probably be transferred to the floor as her Levophed drip will probably be off. It is unclear as to the cause of her blood pressure issues and tachycardia. I would think that it could be seeding from infected stones when we broke them up with the laser, although she was covered with antibiotics for the procedure. I think while she is in the hospital, we should keep her on her IV antibiotics, and then when she is ready to be discharged if she has done well for a couple of days off them and none of her cultures are positive, I think we should probably send her home not on IV antibiotics. I am available today, but I am going to be out the next four days. I will let the urologist on-call know about her, so if Urology consult is needed, you can contact them. Job ID: [id number]
--- NOTE | 2020-08-20 14:46 | PRG ---
DATE OF SERVICE: 08/20/2020 OBJECTIVE: VITAL SIGNS: Ms. Membreno's heart rate 70, blood pressure 116/66, respiratory rate is 20. GENERAL: She is in no distress. LUNGS: Clear. HEART: Regular rhythm. ABDOMEN: Soft. LABORATORY DATA: White count 25.2, hemoglobin 10.2, and platelets 196. Electrolytes are unremarkable except for potassium of 3.3. Her cortisol base was 15, and it went to 33 with ACTH, so she does not have adrenal insufficiency. IMPRESSION: Status post lithotripsy of chronically infected kidney stones. We will continue supportive care. She is stable to move out of Critical Care in my opinion. Job ID: [id number]
[2020-08-20] MEDS: Pantoprazole 40 MG GRANULES PACKET PO SCH (20:14)
[2020-08-20] MEDS: Cholecalciferol 1,000 UNITS (25 MCG) TAB PO SCH (20:14)
[2020-08-20] MEDS: Ferrous Sulfate 325 MG TAB PO SCH (20:23)
[2020-08-20] MEDS: Lactinex Tablet PO SCH (20:24)
[2020-08-20] MEDS: Simvastatin 10 MG TAB PO SCH (20:28)
[2020-08-21] MEDS: MEROPENEM 1 GM/50 ML 1 GM in Premix Bag 1 BAG IVPB SCH ×3 (05:01→21:25)
[2020-08-21 05:29] LABS: Anion Gap 12 mmol/L (10-20); BUN (Urea Nitrogen) 12 mg/dL (9.8-20.1); Calc. Creatinine Clearance 127 mL/min (70-130); Calcium 7.5 mg/dL (7.8-10.44); Carbon Dioxide 23 mmol/L (23-31); Chloride 109 mmol/L (98-107); Glucose 85 mg/dL (83-110); Potassium 3.5 mmol/L (3.5-5.1); Sodium 140 mmol/L (136-145)
[2020-08-21 05:31] LABS: Band 10 % (5-11); Hemoglobin 9.8 g/dL (12.0-16.0); Hypochromia SLIGHT = 6-15 cells (100X) (0-5/hpf); Lymphocytes 2 % (21-51); MDiff Complete? YES; Mean Corpuscular HGB CONC 31.8 g/dL (32.0-36.0); Mean Corpuscular Hemoglobin 30.2 pg (27.0-31.0); Mean Corpuscular Volume 95.1 fL (78.0-98.0); Mean Platelet Volume 8.6 fL (7.4-10.4); Monocytes 4 % (0-10); Neutrophil 84 % (42-75); Platelet Count 167 thou/uL (130-400); Platelet Morphology Comment Appears Adequate; RBC Distribution Width 15.6 % (11.5-14.5); Red Blood Cell (RBC) Count 3.24 mill/uL (4.20-5.40); White Blood Cell (WBC) Count 19.7 thou/uL (4.8-10.8)
--- NOTE | 2020-08-21 05:42 | PDOC.FM ---
- Subjective Subjective: Patient doing well this morning, zero complaints. Discussed plan of care, patient agreeable - Objective Vital Signs & Weight: Vital Signs (12 hours) Temp Pulse Resp BP Pulse Ox 08/21/20 05:05 95 08/21/20 03:30 97.7 F 71 16 119/58 L 95 08/21/20 00:00 62 08/20/20 22:29 98.5 F 66 16 116/55 L 98 08/20/20 19:23 100 08/20/20 19:00 98.2 F Weight Weight 88.592 kg Most Recent Monitor Data Heart Rate from ECG 71 NIBP 99/52 NIBP BP-Mean 67 Respiration from ECG 19 SpO2 100 I&O: 08/19/20 08/20/20 08/21/20 06:59 06:59 06:59 Intake Total 3100 2821.6 1325.6 Output Total 300 3165 700 Balance 2800 -343.4 625.6 Result Diagrams: 08/21/20 04:30 08/21/20 04:30 Phys Exam - Physical Examination Constitutional: NAD HEENT: moist MMs, sclera anicteric Neck: supple, full ROM Respiratory: no wheezing, clear to auscultation bilateral Cardiovascular: RRR, no significant murmur Gastrointestinal: soft slightly ttp lower abdomen, bruising noted on lower abdomen trace edema BLE Neurological: normal sensation Psychiatric: normal affect Skin: no rash Dx/Plan (1) Sepsis associated hypotension Code(s): A41.9 - SEPSIS, UNSPECIFIED ORGANISM; I95.9 - HYPOTENSION, UNSPECIFIED Status: Acute (2) History of [place] (myocardial infarction) Code(s): I25.2 - OLD MYOCARDIAL INFARCTION Status: Chronic - Plan Plan: #Sepsis likely 2/2 infection s/p lithotripsy -Patient s/p 2 cardioversions, multiple rounds of digoxin and adenosine. Pulse 60s-70s overnight. -Patient's BPs 110s-120s/50s-80s off of levophed, stopped last night -Cardiology consulted, appreciate recs -started metoprolol 12.5 BID -echo from 07/16/20: EF 55-60% - TSH and electrolytes normal. - WBC elevated at 19.7, Procal 155>83.94>38.98, started on meropenem 08/18, +vanc by Dr. Wang. 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 Frequent reorientation & delirium precautions. #HTN: Will resume home meds as tolerated. #chronic constipation: Will continue a bowel regimen while inpatient. #Chronic Recurrent UTIs & renal stones: -Aware, Dr. Wang to continue to follow #HLD: Resume home meds #Hx of [place]: Resume home meds #Elevated troponin, resolved -0.071>0.094>0.077 -likely due to demand from tachycardia -patient denies chest pain, pulse mid-90s #GERD: Home meds PCP: Christopher VTE PPX: Lovenox GI PPX: Home PPI Code status: FULL CODE Dispo: Admitted to telemetry for continued cardiac monitoring; continue abx for suspected infection pending sensitivities Addendum - Attending - Attending Attestation Date/Time: 08/21/20 9487 I personally evaluated the patient and discussed the management with Dr. Hawthorne. I agree with the History, Examination, Assessment and Plan documented above with any addition or exceptions noted below. Patient doing well. BP improved. Suspect transient bacteremia after procedure that led to her decompensation. She continues on IV abx and will await cx and will likely need placement for fci IV abx.
[2020-08-21] MEDS: Metoprolol Tartrate 25 MG TAB PO SCH ×2 (09:11→21:26)
[2020-08-21] MEDS: Enoxaparin Sodium 40 MG/0.4 ML SYRINGE SC SCH (09:12)
[2020-08-21] MEDS: Cholecalciferol 1,000 UNITS (25 MCG) TAB PO SCH (21:26)
[2020-08-21] MEDS: Ferrous Sulfate 325 MG TAB PO SCH (21:26)
[2020-08-21] MEDS: Lactinex Tablet PO SCH (21:26)
[2020-08-21] MEDS: Pantoprazole 40 MG GRANULES PACKET PO SCH (21:28)
[2020-08-21] MEDS: Simvastatin 10 MG TAB PO SCH (21:28)
[2020-08-22 04:42] LABS: #Basophils 0.1 thou/uL (0.0-0.2); #Eosinphils 0.1 thou/uL (0.0-0.7); #Lymphocytes 1.6 thou/uL (1.20-3.40); #Monocytes 0.6 thou/uL (0.11-0.59); #Neutrophils 8.4 thou/uL (1.40-6.50); %Basophils 0.5 % (0.0-1.0); %Eosinophils 1.1 % (0.0-10.0); %Lymphocytes 14.5 % (21.0-51.0); %Monocytes 5.7 % (0.0-10.0); %Neutrophils 78.2 % (42.0-75.0); Hemoglobin 10.1 g/dL (12.0-16.0); Mean Corpuscular HGB CONC 32.5 g/dL (32.0-36.0); Mean Corpuscular Hemoglobin 30.4 pg (27.0-31.0); Mean Corpuscular Volume 93.6 fL (78.0-98.0); Mean Platelet Volume 8.3 fL (7.4-10.4); Platelet Count 184 thou/uL (130-400); RBC Distribution Width 15.3 % (11.5-14.5); Red Blood Cell (RBC) Count 3.33 mill/uL (4.20-5.40); White Blood Cell (WBC) Count 10.7 thou/uL (4.8-10.8)
[2020-08-22 05:01] LABS: Anion Gap 12 mmol/L (10-20); BUN (Urea Nitrogen) 12 mg/dL (9.8-20.1); Calc. Creatinine Clearance 118 mL/min (70-130); Calcium 7.7 mg/dL (7.8-10.44); Carbon Dioxide 27 mmol/L (23-31); Chloride 106 mmol/L (98-107); Glucose 89 mg/dL (83-110); Potassium 3.5 mmol/L (3.5-5.1); Sodium 141 mmol/L (136-145)
--- NOTE | 2020-08-22 05:23 | PDOC.FM ---
- Subjective Subjective: Patient doing well this morning. No acute events overnight. Denies complaints. - Objective Vital Signs & Weight: Vital Signs (12 hours) Temp Pulse Resp BP Pulse Ox 08/22/20 04:48 94 L 08/22/20 04:00 98.8 F 72 16 123/58 L 92 L 08/22/20 00:00 68 08/21/20 19:00 97.8 F 76 16 126/60 94 L Weight Weight 88.592 kg Most Recent Monitor Data Heart Rate from ECG 71 NIBP 99/52 NIBP BP-Mean 67 Respiration from ECG 19 SpO2 100 I&O: 08/20/20 08/21/20 08/22/20 06:59 06:59 06:59 Intake Total 2821.6 1435.6 720 Output Total 3165 1450 550 Balance -343.4 -14.4 170 Result Diagrams: 08/22/20 04:28 08/22/20 04:28 Phys Exam - Physical Examination Constitutional: NAD HEENT: moist MMs, sclera anicteric Neck: supple, full ROM Respiratory: no wheezing, clear to auscultation bilateral Cardiovascular: RRR, no significant murmur Gastrointestinal: soft, non-tender, no distention trace BLE edema Neurological: normal sensation Psychiatric: normal affect Skin: no rash Dx/Plan (1) Sepsis associated hypotension Code(s): A41.9 - SEPSIS, UNSPECIFIED ORGANISM; I95.9 - HYPOTENSION, UNSPECIFIED Status: Acute (2) History of [place] (myocardial infarction) Code(s): I25.2 - OLD MYOCARDIAL INFARCTION Status: Chronic - Plan Plan: #Sepsis likely 2/2 infection s/p lithotripsy -Patient s/p 2 cardioversions, multiple rounds of digoxin and adenosine. Pulse 60s-70s overnight. -Patient's BPs 110s-120s/50s-80s off of levophed, stopped last night -Cardiology consulted, appreciate recs -started metoprolol 12.5 BID -echo from 07/16/20: EF 55-60% - TSH and electrolytes normal. - WBC elevated at 10.7, Procal 155>83.94>38.98>20.51, started on meropenem 08/18, +vanc by Dr. Wang. -After discussion with Dr. Rojas 08/21 and urine cx sensitivity results, patient will need IV meropenem abx for 2 weeks and can then f/u with Dr. 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 Frequent reorientation & delirium precautions. #HTN: Resume home meds as tolerated. #chronic constipation: Will continue a bowel regimen while inpatient. #Chronic Recurrent UTIs & renal stones: -Aware, Dr. Wang to continue to follow #HLD: Resume home meds #Hx of [place]: Resume home meds #Elevated troponin, resolved -0.071>0.094>0.077 -likely due to demand from tachycardia -patient denies chest pain, pulse mid-90s #GERD: Home meds PCP: Christopher VTE PPX: Lovenox GI PPX: Home PPI Code status: FULL CODE Dispo: Admitted to telemetry for continued IV abx for multi-drug resistant UTI and bactermia; pending placement at [facility] Addendum - Attending - Attending Attestation Date/Time: 08/21/20 4621 I personally evaluated the patient and discussed the management with Dr. Hawthorne. I agree with the History, Examination, Assessment and Plan documented above with any addition or exceptions noted below. Patient doing well. BP improved. Suspect transient bacteremia after procedure that led to her decompensation. She continues on IV abx and will await cx and will likely need placement for chcf IV abx. Addendum - Attending - Attending Attestation Date/Time: 08/22/20 1130 I personally evaluated the patient and discussed the management with Dr. Hawthorne. I agree with the History, Examination, Assessment and Plan documented above with any addition or exceptions noted below. Patient stable. Continue Meropenem for Sepsis and bacteremia with ESBL Proteus. Awaiting placement for chcf abx.
[2020-08-22] MEDS: MEROPENEM 1 GM/50 ML 1 GM in Premix Bag 1 BAG IVPB SCH ×2 (05:43→15:19)
[2020-08-22 08:58] VITALS: TEMP 98.4
[2020-08-22] MEDS: Enoxaparin Sodium 40 MG/0.4 ML SYRINGE SC SCH (09:00)
[2020-08-22] MEDS: Metoprolol Tartrate 25 MG TAB PO SCH (09:00)
[2020-08-22 15:43] VITALS: BP 120/59
--- NOTE | 2020-08-22 15:43 | RAD ---
Abdomen one view HISTORY: Abdomen pain. COMPARISON: 07/30/2020. FINDINGS: Gas and stool throughout the colon and small bowel. No significant dilatation. Metallic filter overlies the inferior vena cava. Bilateral ureteral stents appear unchanged in position. Multiple irregular calcifications projecting over right renal calyces are similar to the previous exam. Degenerative changes lumbar spine. Osseous structures are demineralized. Chronic varus angulation of the right femoral neck again demonstrated with the appearance of a malaligned old subcapital fracture. Extensive engine monitor leads overlie the abdomen. IMPRESSION : Nonobstructive bowel gas pattern. Bilateral ureteral stents in good position. Right renal calculi appear unchanged. Chronic-type findings are stable.
--- NOTE | 2020-08-26 08:42 | DIS ---
DATE OF ADMISSION: 08/18/2020 DATE OF DISCHARGE: 08/22/2020 RESIDENT: Consuelo Hawthorne MD. ADMITTING ATTENDING: Carroll Solitario MD. DISCHARGE ATTENDING: Saud Steele MD. CONSULTS: Urology, Dr. Wang; Pulmonology, Dr. Nielsen; Cardiology, Dr. Giron. PROCEDURES: 1. 08/18/2020: Right rigid and flexible ureteroscopy with laser lithotripsy and stone retrieval and stone fragments in the right proximal ureter and the right upper calyceal system. Left rigid and flexible ureteroscopy with laser lithotripsy of two ureteral stones. No stone retrieval on this side. Bilateral stent placement. Procedure performed by Dr. Wang. 2. Cardioversion x2 on 08/18/2020. PRIMARY DIAGNOSES: 1. Sepsis, likely due to infection, status post lithotripsy procedure. 2. Elevated troponin. 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 DISCHARGE MEDICATIONS: 1. 650 mg acetaminophen p.o. q.4 hours. 2. 5000 units vitamin D3 p.o. h.s. 3. 40 mg Lovenox subcu 0900 hours. 4. 325 mg ferrous sulfate p.o. h.s. 5. 1 tab Floranex p.o. h.s. 6. 1 g meropenem IV q.8 hours. 7. 12.5 mg metoprolol tartrate p.o. b.i.d. 8. 40 mg pantoprazole p.o. h.s. 9. 1 tab pravastatin p.o. h.s. 10. 50 mg sertraline p.o. h.s. Discontinued medications: 10 mg simvastatin p.o. h.s. HISTORY OF PRESENT ILLNESS/HOSPITAL COURSE: Patient is a 79-year-old female, who presented and was admitted from the PACU after she had bilateral lithotripsies and bilateral ureteral stent replacements with Dr. Wang. After the procedure, her heart rate was elevated into the 130s and a code green was called. Dr. Giron from Cardiology was called at that point and the patient was given three rounds of adenosine and one push of digoxin. The patient also had two rounds of cardioversion with no resolution of her tachycardia. The patient was then admitted to the hospital inpatient service. She was started on an IV diltiazem drip and sent to the ICU. She then was hypotensive and so Levophed was started through her PICC line. Cardiology monitored her along with the medicine team in ICU for several days before it was determined that she was stable and her blood pressures improved without Levophed in place and so the diltiazem drip was able to be weaned. She was started on 12.5 mg metoprolol tartrate b.i.d. by Cardiology and this appears to have kept her heart rate at bay. After both the pressors and the diltiazem were stopped, the patient was deemed stable to move to telemetry and she was monitored here for several days. Her pulse and her blood pressures remained stable on the telemetry floor. IV meropenem was started when she moved up to the ICU and this was continued throughout her hospitalization. On the day before discharge, Dr. Rojas, the on-call urologist was consulted and he recommended at least two further weeks of IV meropenem and then patient could follow up with Dr. Wang outpatient at that time for repeat urine cultures. Her urine and blood cultures did result with Proteus mirabilis, multi-drug resistant and only sensitive to IV antibiotics, one of them including meropenem. Her white count reached a maximum of 25.2 before declining and was 10.7 on the day of discharge. Her procalcitonin was evaluated on admission and resulted at 155 and was 20.5 on the day of discharge. The patient's daughter, Josey, was called and it was discussed that she would prefer the patient go to the [facility], where she has gone to before for a prolonged course of IV antibiotics through her PICC line. Case Management was able to arrange this and a doc-to-doc was performed with Dr. White on 08/22/2020 before the patient was deemed stable for discharge. Immediately before discharge, the daughter wanted to talk to this physician. The patient appeared to be fatigued and tired and complained of some abdominal pain. However, this pain had been present since her procedure on the . Due to the tenderness of her abdomen and her lethargy, a KUB was obtained that was negative for any intraabdominal pathology. The patient was able to belch a few times and then appeared to awaken and asked for ice cream, which she tolerated entirely along with a cup of peaches. It was deemed that the patient's vitals and her physical state were stable for discharge to the [facility] for continued IV antibiotics. DISPOSITION: Stable. DISCHARGE INSTRUCTIONS: 1. Location: [facility]. 2. Diet: Heart healthy. 3. Activity: As tolerated. 4. Follow up with PCP, Dr. White within 1 week after discharge from the swing bed. Job ID: [id number] MTDD
[2020-08-27 15:16] LABS: Color Brown (.); Mg Ammon Phos 50 % (.); Stone Weight 310 mg (.)
--- NOTE | 2020-08-29 04:48 | PQF ---
CLINICAL DOCUMENTATION CLARIFICATION FORM: Dear : ROSE MARY ALVARENGA MD Date / Time: 08/29/2020 Please exercise your independent, professional judgment in responding to the clarification form. Clinical indicators are provided on the bottom of this form for your review Please check appropriate box(es): to clarify the septic shock [ X] Postprocedural sepsis with septic shock [ ] Postprocedural sepsis without septic shock [ ] Other diagnosis (Please specify if any) [ ] Unable to determine In addition, please specify: Present on Admission (POA): [ X ] Yes [ ] No [ ] Unable to determine Physician Signature: Date/Time: For continuity of documentation, please document condition throughout progress notes and discharge summary. Thank You. To be completed by CDI/Coding staff for physician review: Present Clinical Indicators - Signs / Symptoms / Labs Results and Location in Medical Record [x] Sepsis 2/2 infection s/p lithortripsy H&P on 08/18 [x] Patient has had persisitent hypotension, she has been transferred to the ICU Progress note on 08/19 [x] Hypotension after her lithotripsy Consult on 08/19 [x] In postoperative period, she had developed sudden tachycardia Consult on 08/19 [x] Admitted to ICU for continued IV levophed through her PICC line for pressure support Family medicine PN on 08/19 Present Risk Factors Results and Location in Medical Record [x ] Chronic UTI H&P on 08/18 [x] Aged person 79 yrs H&P on 08/18 [ x] Lithotripsy Op note on 08/18 [ ] Present Treatments Results and Location in Medical Record [x] Vancomycin 1.5gm IV Medication on 08/19 [x] Levophed 250ml IV Medication on 08/19, 08/20 [ ] [ ] CDS/Communicable Disease Specialist Signature: AAS Phone #: Date/Time: 08/29/2020 This is a permanent part of the Medical Record [facility]
== END 2020-08-22 16:07 | disposition swing bed (61) | DRG 856 ==
LOC: SDC 09:45 → 2NO 18:22 → IMCU/EMU 08-19 01:33 → CCU 08-19 07:23 → 2NO 08-20 22:27
PROVIDERS: ADMIT Urology; ATTEND Urology
PROC: 0T788DZ Dilation of Bilateral Ureters with Intraluminal Device, Via Natural or Artificial Opening Endoscopic (ICD-10-PCS; principal; 2020-08-18)
PROC: 0TC68ZZ Extirpation of Matter from Right Ureter, Via Natural or Artificial Opening Endoscopic (ICD-10-PCS; 2020-08-18)
PROC: 3E033XZ Introduction of Vasopressor into Peripheral Vein, Percutaneous Approach (ICD-10-PCS; 2020-08-18)
PROC: 5A2204Z Restoration of Cardiac Rhythm, Single (ICD-10-PCS; 2020-08-18)
PROC: 0TP98DZ Removal of Intraluminal Device from Ureter, Via Natural or Artificial Opening Endoscopic (ICD-10-PCS; 2020-08-18)
DX: T81.44XA Sepsis following a procedure, initial encounter (principal); A41.50 Gram-negative sepsis, unspecified; T81.12XA Postprocedural septic shock, initial encounter; N20.1 Calculus of ureter; I47.1 Supraventricular tachycardia; Z16.12 Extended spectrum beta lactamase (ESBL) resistance; N39.0 Urinary tract infection, site not specified; G81.91 Hemiplegia, unspecified affecting right dominant side; K21.9 Gastro-esophageal reflux disease without esophagitis; J44.9 Chronic obstructive pulmonary disease, unspecified; I10 Essential (primary) hypertension; E78.5 Hyperlipidemia, unspecified; K59.09 Other constipation; R41.3 Other amnesia; I25.10 Atherosclerotic heart disease of native coronary artery without angina pectoris; B96.4 Proteus (mirabilis) (morganii) as the cause of diseases classified elsewhere; Z20.822 Contact with and (suspected) exposure to COVID-19; Z79.899 Other long term (current) drug therapy; Z90.710 Acquired absence of both cervix and uterus; Z93.0 Tracheostomy status; I25.2 Old myocardial infarction; S06.9X0S Unspecified intracranial injury without loss of consciousness, sequela; X58.XXXS Exposure to other specified factors, sequela
CPT/HCPCS: 36415; 36416; 71275; 74018; 74420; 80048; 80053; 80400; 81015; 82365; 82553; 83605; 83735; 84100; 84145; 84443; 84484; 85007; 85025; 85027; 85610; 85730; 87040; 87077; 87086; 87149; 87186; 88300; 93005; 93010; J0153; J0834; J1100; J1160; J1650; J2175; J2185; J2405; J2704; J3010; J3370; Q9967; U0002

== ENCOUNTER 2020-09-11 10:56 | Day surgery (SDC) | payer MEDICARE, MEDICAID ==
[2020-09-09 09:34] VITALS: BMI 14.7
[~2020-09-11 10:56] MED LIST changes: +Glycopyrrolate 0.2 MG/ML 5 ML SYRINGE ONE; -Iopamidol 370 76% 100 ML VIAL ONE; +Lidocaine 1% PF 5 ML VIAL ONE; +Ondansetron PF 4 MG/2 ML Vial ONE; +PHENYLEPHRINE-NS 100 MCG/ML 10 ML SYRINGE ONE; +PROPOFOL 200 MG/20 ML VIAL ONE; +Rocuronium Bromide 10 MG/ML (10ML VIAL) ONE; +ePHEDrine 50 MG/ML VIAL ONE
[2020-09-11] MEDS ORDERED: Fentanyl 100 MCG/2 ML VIAL ONE (12:55)
[2020-09-11] MEDS ORDERED: Midazolam HCl 2 mg/2 ml Vial ONE (12:55)
[2020-09-11] MEDS ORDERED: MEROPENEM 1 GM/50 ML 1 GM in Premix Bag 1 BAG IVPB SCH (14:00)
--- NOTE | 2020-09-11 15:40 | RAD ---
Exam: Intraprocedure fluoroscopy for retrograde IVP COMPARISON: 08/18/2020 FINDINGS: Multiple fluoroscopic images demonstrate exchange of a right-sided double-J ureteral stent. Left uret eral stent appears to have been removed. Incidental IVC filter is noted IMPRESSION: Fluoroscopy as above.
--- NOTE | 2020-09-11 19:02 | OP ---
DATE OF PROCEDURE: 09/11/2020 PREOPERATIVE DIAGNOSES: Right renal stones, left ureteral stent. POSTOPERATIVE DIAGNOSES: Right renal stones, left ureteral stent. PROCEDURES PERFORMED: Cysto, removal of left stent, right flexible ureteroscopy with laser lithotripsy, stone retrieval, and stent replacement on the right. ANESTHESIA: General. ESTIMATED BLOOD LOSS: Minimal. FINDINGS: She had numerous stone fragments in the upper mid and lower calyceal systems. The most of these were quite small, some of them with the largest measuring about 6 x 8 mm. We used a laser to break up some of the slightly larger stones and then removed all the stones. We could remove a Nitinol basket and then we used a laser on the small stone fragments remaining in the calyceal systems to get them just a small as we could, so hopefully she can pass them on her own. Retrograde study done at the end of the case showed no extravasation, no obstruction. DRAINS PLACED: A 7 x 24 double-J stent with a black string attached to the exiting urethral meatus. We will have her family take this out in a few days at home when they have done this before. DESCRIPTION OF PROCEDURE: After obtaining written and verbal consent from the patient's family and after documenting normal preoperative blood work, she was taken to the operating suite. She was placed in the supine position on the treatment table, given a general anesthetic and oral intubation, placed in the dorsal lithotomy position, sterilely prepped and draped. Cystoscopy was performed with a 22-British sheath, this was well lubricated and passed under direct vision through the female urethra into the urinary bladder with aid of a 30-degree lens and video camera and monitor. The bladder was filled and emptied number of times, and then the left double-J stent was grasped and removed intact, and then the right double-J stent was grasped and removed through the urethral meatus. A guidewire was fed up through this and the stent was removed over the guidewire and discarded. A dual-lumen catheter was placed over the guidewire about 2 to 3 cm up the right ureter and contrast was injected through the second lumen, showing up the ureter. There was no extravasation or obstruction along the course of the ureter. The blue guidewire was then placed adjacent to the green guidewire through the dual-lumen catheter, and the dual-lumen catheter was removed, and ureteral sheath was brought in with obturator and placed over our blue stiff wire and up into the renal pelvis. The wire and the obturator were removed. A flexible scope was brought in and passed up through the ureteral sheath into the renal pelvis. Then, we painstakingly went through the calyceal system using Nitinol basket to extract all fragments. We could use laser to break up any pieces that were unable to basket. Once we had completely done this through all the calyceal system and saw very good clearing of the stone fragments based on fluoroscopic visualization, we went again through the calyceal systems using the laser to break up the remaining very small fragments that we could not basket into even smaller fragments in hopes that she will be able to pass these with urinary flow. At this point, leaving our green wire in place, we backed out our ureteral sheath under direct vision. The ureter looked fine as the sheath was removed. We then backloaded our green guidewire through our cystoscopic sheath and placed a 5-British Pollack catheter over the guidewire up in the region of renal pelvis, injecting contrast filling out the collecting system. There was no extravasation or obstruction. We replaced the green guidewire and then over that, placed a 7 x 24 double-J stent pushing up into place so its proximal end coiled in the upper calyceal system, its distal end coiled in the bladder when the wire was removed. The string was left exiting the urethra and cut short couple of inches outside of the urethral meatus. She was taken out of the dorsal lithotomy position, awakened, extubated, and taken by stretcher to the recovery room. Job ID: [id number]
--- NOTE | 2020-09-12 12:36 | EKG ---
Test Reason : PREOP Blood Pressure : / mmHG Vent. Rate : 062 BPM Atrial Rate : 062 BPM P-R Int : 166 ms QRS Dur : 102 ms QT Int : 456 ms P-R-T Axes : 004 -46 036 degrees QTc Int : 462 ms Normal sinus rhythm Left anterior fascicular block Abnormal ECG Confirmed by JEN BURKS ([id number]) on 09/12/2020 12:35:58 PM Referred By: REYNA Confirmed By:JEN BURKS
[2020-09-19 20:08] LABS: Color Brown (.); Mg Ammon Phos 60 % (.); Stone Weight 390 mg (.)
== END 2020-09-11 19:19 | disposition home or self-care (01) ==
LOC: SDC 10:56
PROVIDERS: ATTEND Urology
PROC: 0TC08ZZ Extirpation of Matter from Right Kidney, Via Natural or Artificial Opening Endoscopic (ICD-10-PCS; principal; 2020-09-11)
DX: N20.0 Calculus of kidney (principal); I10 Essential (primary) hypertension; J44.9 Chronic obstructive pulmonary disease, unspecified; G82.20 Paraplegia, unspecified; Z79.899 Other long term (current) drug therapy
CPT/HCPCS: 74420; 82365; 88300; 93005; 93010; J2185; J2250; J2405; J2704; J3010; J3490

== ENCOUNTER 2021-01-03 21:28 | Inpatient (IN) | payer MEDICARE, MEDICAID ==
[~2021-01-03 21:28] MED LIST changes: -Glycopyrrolate 0.2 MG/ML 5 ML SYRINGE ONE; +Iopamidol 370 76% 100 ML VIAL ONE; -Lidocaine 1% PF 5 ML VIAL ONE; -Ondansetron PF 4 MG/2 ML Vial ONE; -PHENYLEPHRINE-NS 100 MCG/ML 10 ML SYRINGE ONE; -PROPOFOL 200 MG/20 ML VIAL ONE; -Rocuronium Bromide 10 MG/ML (10ML VIAL) ONE; -ePHEDrine 50 MG/ML VIAL ONE
[2021-01-03] MEDS ORDERED: Acetaminophen 325 MG Suppository ONE (22:09)
[2021-01-03] MEDS ORDERED: Acetaminophen 650 MG Suppository ONE (22:09)
[2021-01-03] MEDS ORDERED: Adenosine 6 MG/2 ML VIAL ONE ×2 (22:10→22:13)
[2021-01-03] MEDS ORDERED: Aspirin 300 MG Suppository ONE (22:10)
[2021-01-03] MEDS ORDERED: Cefepime 2 GM VIAL ONE (22:13)
[2021-01-03 22:18] LABS: Hemoglobin 15.1 g/dL (12.0-16.0); Mean Corpuscular HGB CONC 32.8 g/dL (32.0-36.0); Mean Corpuscular Hemoglobin 31.4 pg (27.0-31.0); Mean Corpuscular Volume 95.6 fL (78.0-98.0); Mean Platelet Volume 6.6 fL (7.4-10.4); Platelet Count 245 thou/uL (130-400); Red Blood Cell (RBC) Count 4.82 mill/uL (4.20-5.40); White Blood Cell (WBC) Count 9.1 thou/uL (4.8-10.8)
[2021-01-03] MEDS ORDERED: Magnesium 2 GM/50 ML BAG (IN WATER) ONE (22:30)
[2021-01-03 22:37] LABS: ALT (SGPT) 26 U/L (8-55); AST (SGOT) 32 U/L (5-34); Albumin 3.4 g/dL (3.4-4.8); Alkaline Phosphatase 131 U/L (40-110); Anion Gap 19 mmol/L (10-20); BUN (Urea Nitrogen) 19 mg/dL (9.8-20.1); Band 28 % (5-11); Bilirubin, Total 1.2 mg/dL (0.2-1.2); Calc. Creatinine Clearance 0 mL/min (70-130); Calcium 8.7 mg/dL (7.8-10.44); Carbon Dioxide 18 mmol/L (23-31); Chloride 105 mmol/L (98-107); Glucose 183 mg/dL (83-110); Lipase 6 U/L (8-78); Lymphocytes 3 % (21-51); MDiff Complete? YES; Monocytes 8 % (0-10); Neutrophil 61 % (42-75); Platelet Morphology Comment Appears Adequate; Potassium 3.3 mmol/L (3.5-5.1); Protein, Total 7.4 g/dL (5.8-8.1); RBC Morphology Normal; Sodium 139 mmol/L (136-145)
[2021-01-03 22:54] LABS: Bacteria/HPF 4+ HPF (None Seen); Bilirubin Negative (Negative); Blood, Urine 3+ (Negative); Clarity Extra Turbid (Clear); Glucose, Urine (Dipstick) Normal (Negative); Ketone, Urine Trace mg/dL (Negative); Leukocyte 500 Leu/uL (Negative); Nitrite 1+ (Negative); Protein, Urine (Dipstick) 200 mg/dL (Neg-Trace); RBC/HPF Greater than 50 HPF (0-3); Renal Epithelial 0-3 HPF (None Seen); Urobilinogen Normal mg/dL (Less than 2); WBC/HPF Greater than 50 HPF (0-3); pH, Urine 7.5 (5.0-9.0)
[2021-01-03] MEDS ORDERED: Vancomycin 1 GM/200 ML BAG ONE (23:23)
[2021-01-04] MEDS ORDERED: Ondansetron PF 4 MG/2 ML Vial IVP PRN
[2021-01-04] MEDS ORDERED: Bisacodyl 5 MG TAB PO PRN
[2021-01-04] MEDS ORDERED: Senokot S 8.6-50 MG TAB PO PRN
[2021-01-04] MEDS ORDERED: Ondansetron ODT 4 MG TAB PO PRN
[2021-01-04] MEDS ORDERED: Iothalamate Meglumine 60% 50 ML VIAL FS ONE (00:03)
[2021-01-04 00:14] LABS: SARS-CoV-2 NAA Rapid Test Not Detected (NotDetected)
[2021-01-04] MEDS ORDERED: Metoprolol Tartrate 25 MG TAB PO SCH (00:15)
[2021-01-04] MEDS ORDERED: Midazolam HCl 2 mg/2 ml Vial ONE (00:34)
[2021-01-04] MEDS ORDERED: Ketamine 50 MG/ML (10ML VIAL) ONE (00:34)
[2021-01-04] MEDS ORDERED: PROPOFOL 200 MG/20 ML VIAL ONE (00:59)
[2021-01-04] MEDS ORDERED: Magnesium 2 GM/50 ML 2 GM in Premix Bag 1 BAG IVPB SCH (01:15)
[2021-01-04 01:26] LABS: Lactic Acid 4.2 mmol/L (0.5-2.2)
[2021-01-04] MEDS ORDERED: Potassium Chloride 10 MEQ in Premix Bag 1 BAG IVPB SCH (02:00)
[2021-01-04 03:06] VITALS: BMI 28.8
[2021-01-04] MEDS ORDERED: Lactated Ringer's 500 ML IV SCH (04:30)
[2021-01-04] MEDS: Lactated Ringer's 1,000 ML IV SCH ×3 (04:55→19:42)
[2021-01-04] MEDS: MEROPENEM 1 GM/50 ML 1 GM in Premix Bag 1 BAG IVPB SCH ×3 (06:12→22:12)
[2021-01-04 06:29] LABS: Hemoglobin 11.7 g/dL (12.0-16.0); Mean Corpuscular HGB CONC 32.2 g/dL (32.0-36.0); Mean Corpuscular Hemoglobin 31.3 pg (27.0-31.0); Mean Corpuscular Volume 97.2 fL (78.0-98.0); Mean Platelet Volume 6.8 fL (7.4-10.4); Platelet Count 210 thou/uL (130-400); Red Blood Cell (RBC) Count 3.75 mill/uL (4.20-5.40); White Blood Cell (WBC) Count 30.1 thou/uL (4.8-10.8)
[2021-01-04 06:47] LABS: Band 24 % (5-11); Hypochromia SLIGHT = 6-15 cells (100X) (0-5/hpf); Lymphocytes 6 % (21-51); MDiff Complete? YES; Metamyelocyte 1 % (0-0); Monocytes 12 % (0-10); Neutrophil 57 % (42-75); Platelet Morphology Comment Appears Adequate
[2021-01-04 06:51] LABS: ALT (SGPT) 17 U/L (8-55); AST (SGOT) 21 U/L (5-34); Albumin 2.5 g/dL (3.4-4.8); Alkaline Phosphatase 70 U/L (40-110); Anion Gap 10 mmol/L (10-20); BUN (Urea Nitrogen) 17 mg/dL (9.8-20.1); Bilirubin, Total 0.4 mg/dL (0.2-1.2); Calc. Creatinine Clearance 77 mL/min (70-130); Calcium 7.5 mg/dL (7.8-10.44); Carbon Dioxide 21 mmol/L (23-31); Chloride 113 mmol/L (98-107); Glucose 128 mg/dL (83-110); Potassium 2.9 mmol/L (3.5-5.1); Protein, Total 5.5 g/dL (5.8-8.1); Sodium 141 mmol/L (136-145)
[2021-01-04] MEDS ORDERED: Potassium Chloride 40 MEQ in Sodium Chloride 0.9% 250 ML 250 ML IVPB SCH (07:30)
[2021-01-04] MEDS ORDERED: Potassium Chloride 20 MEQ TAB PO SCH (08:00)
[2021-01-04] MEDS: Metoprolol Tartrate 25 MG TAB PO SCH ×2 (09:23→20:14)
[2021-01-04] MEDS: Polyethylene Glycol 3350 17 GM Packet PO SCH (09:23)
[2021-01-04] MEDS: Bisacodyl 5 MG TAB PO SCH (09:23)
[2021-01-04] MEDS ORDERED: Senokot S 8.6-50 MG TAB PO SCH (10:15)
[2021-01-04] MEDS ORDERED: Heparin 1,000 UNITS/ML VIAL ONE (11:45)
[2021-01-04 12:22] LABS: Potassium 3.6 mmol/L (3.5-5.1)
[2021-01-04] MEDS: Lactinex Tablet PO SCH (20:13)
[2021-01-04] MEDS: Ferrous Sulfate 325 MG TAB PO SCH (20:13)
[2021-01-04] MEDS: Cholecalciferol 1,000 UNITS (25 MCG) TAB PO SCH (20:13)
[2021-01-04] MEDS: Pantoprazole 40 MG GRANULES PACKET PO SCH (20:14)
[2021-01-04] MEDS ORDERED: Atorvastatin Calcium 10 MG TAB PO SCH (21:00)
[2021-01-05] MEDS: Lactated Ringer's 1,000 ML IV SCH ×2 (05:23→17:20)
[2021-01-05] MEDS: MEROPENEM 1 GM/50 ML 1 GM in Premix Bag 1 BAG IVPB SCH ×3 (05:23→22:46)
[2021-01-05 05:43] LABS: Lactic Acid 1.4 mmol/L (0.5-2.2)
[2021-01-05 05:48] LABS: ALT (SGPT) 14 U/L (8-55); AST (SGOT) 17 U/L (5-34); Albumin 2.5 g/dL (3.4-4.8); Alkaline Phosphatase 81 U/L (40-110); Anion Gap 10 mmol/L (10-20); BUN (Urea Nitrogen) 15 mg/dL (9.8-20.1); Bilirubin, Total 0.4 mg/dL (0.2-1.2); Calc. Creatinine Clearance 105 mL/min (70-130); Calcium 7.6 mg/dL (7.8-10.44); Carbon Dioxide 22 mmol/L (23-31); Chloride 113 mmol/L (98-107); Glucose 70 mg/dL (83-110); Magnesium 2.1 mg/dL (1.6-2.6); Potassium 3.6 mmol/L (3.5-5.1); Protein, Total 5.5 g/dL (5.8-8.1); Sodium 141 mmol/L (136-145)
[2021-01-05 05:50] LABS: Band 1 % (5-11); Hemoglobin 11.4 g/dL (12.0-16.0); Lymphocytes 9 % (21-51); MDiff Complete? YES; Mean Corpuscular HGB CONC 32.8 g/dL (32.0-36.0); Mean Corpuscular Hemoglobin 31.7 pg (27.0-31.0); Mean Corpuscular Volume 96.5 fL (78.0-98.0); Mean Platelet Volume 7.4 fL (7.4-10.4); Monocytes 2 % (0-10); Neutrophil 88 % (42-75); Platelet Count 160 thou/uL (130-400); Platelet Morphology Comment Appears Decreased; RBC Distribution Width 12.9 % (11.5-14.5); Red Blood Cell (RBC) Count 3.61 mill/uL (4.20-5.40); White Blood Cell (WBC) Count 14.4 thou/uL (4.8-10.8)
[2021-01-05] MEDS ORDERED: Potassium Chloride 20 MEQ in Premix Bag 1 BAG IVPB SCH (06:30)
[2021-01-05 07:30] LABS: Anion Gap 9 mmol/L (10-20); BUN (Urea Nitrogen) 14 mg/dL (9.8-20.1); Calc. Creatinine Clearance 107 mL/min (70-130); Calcium 7.6 mg/dL (7.8-10.44); Carbon Dioxide 23 mmol/L (23-31); Chloride 113 mmol/L (98-107); Glucose 69 mg/dL (83-110); Potassium 3.3 mmol/L (3.5-5.1); Sodium 142 mmol/L (136-145)
[2021-01-05] MEDS: Metoprolol Tartrate 25 MG TAB PO SCH ×2 (09:25→19:48)
[2021-01-05] MEDS: Bisacodyl 5 MG TAB PO SCH (09:25)
[2021-01-05] MEDS: Polyethylene Glycol 3350 17 GM Packet PO SCH (09:25)
[2021-01-05] MEDS ORDERED: hydrOXYzine 10 MG TAB PO PRN (15:47)
[2021-01-05] MEDS: Lactinex Tablet PO SCH (19:47)
[2021-01-05] MEDS: Ferrous Sulfate 325 MG TAB PO SCH (19:47)
[2021-01-05] MEDS: Pantoprazole 40 MG GRANULES PACKET PO SCH (19:47)
[2021-01-05] MEDS: Senokot S 8.6-50 MG TAB PO SCH (19:47)
[2021-01-05] MEDS: Cholecalciferol 1,000 UNITS (25 MCG) TAB PO SCH (19:48)
[2021-01-06] MEDS: Lactated Ringer's 1,000 ML IV SCH ×2 (04:14→21:41)
[2021-01-06] MEDS: MEROPENEM 1 GM/50 ML 1 GM in Premix Bag 1 BAG IVPB SCH ×3 (05:09→23:27)
[2021-01-06 07:35] LABS: Anion Gap 10 mmol/L (10-20); BUN (Urea Nitrogen) 9 mg/dL (9.8-20.1); Calc. Creatinine Clearance 109 mL/min (70-130); Calcium 7.8 mg/dL (7.8-10.44); Carbon Dioxide 25 mmol/L (23-31); Chloride 114 mmol/L (98-107); Glucose 101 mg/dL (83-110); Magnesium 1.7 mg/dL (1.6-2.6); Potassium 3.1 mmol/L (3.5-5.1); Sodium 146 mmol/L (136-145)
[2021-01-06] MEDS: Potassium Chloride 40 MEQ in Premix Bag 1 BAG IVPB SCH ×2 (10:19→12:51)
[2021-01-06] MEDS: Magnesium Chloride 64 MG TAB PO SCH ×2 (10:20→22:27)
[2021-01-06] MEDS: Senokot S 8.6-50 MG TAB PO SCH ×2 (10:20→22:28)
[2021-01-06] MEDS: Metoprolol Tartrate 25 MG TAB PO SCH ×2 (10:21→22:28)
[2021-01-06] MEDS: Bisacodyl 5 MG TAB PO SCH (10:21)
[2021-01-06] MEDS: Polyethylene Glycol 3350 17 GM Packet PO SCH (10:24)
[2021-01-06] MEDS ORDERED: Potassium Chloride 40 MEQ in Sodium Chloride 0.9% 250 ML 250 ML IVPB SCH (11:00)
[2021-01-06 16:03] LABS: Magnesium 1.7 mg/dL (1.6-2.6); Potassium 3.5 mmol/L (3.5-5.1)
[2021-01-06] MEDS: Potassium Chloride 20 MEQ in Premix Bag 1 BAG IVPB SCH ×2 (18:30→21:55)
[2021-01-06] MEDS: Ferrous Sulfate 325 MG TAB PO SCH (22:27)
[2021-01-06] MEDS: Cholecalciferol 1,000 UNITS (25 MCG) TAB PO SCH (22:27)
[2021-01-06] MEDS: Lactinex Tablet PO SCH (22:27)
[2021-01-06] MEDS: Pantoprazole 40 MG GRANULES PACKET PO SCH (22:28)
[2021-01-07] MEDS: MEROPENEM 1 GM/50 ML 1 GM in Premix Bag 1 BAG IVPB SCH ×3 (05:39→21:26)
[2021-01-07 06:44] LABS: Anion Gap 11 mmol/L (10-20); Calc. Creatinine Clearance 114 mL/min (70-130); Calcium 7.8 mg/dL (7.8-10.44); Carbon Dioxide 24 mmol/L (23-31); Chloride 113 mmol/L (98-107); Glucose 87 mg/dL (83-110); Potassium 3.7 mmol/L (3.5-5.1); Sodium 144 mmol/L (136-145)
[2021-01-07 06:53] LABS: BUN (Urea Nitrogen) 8 mg/dL (9.8-20.1)
[2021-01-07 07:28] LABS: #Eosinphils 0.1 thou/uL (0.0-0.7); #Lymphocytes 1.2 thou/uL (1.20-3.40); #Monocytes 0.7 thou/uL (0.11-0.59); #Neutrophils 5.3 thou/uL (1.40-6.50); %Basophils 0.1 % (0.0-1.0); %Eosinophils 1.8 % (0.0-10.0); %Lymphocytes 16.3 % (21.0-51.0); %Monocytes 9.1 % (0.0-10.0); %Neutrophils 72.8 % (42.0-75.0); Hemoglobin 11.3 g/dL (12.0-16.0); Mean Corpuscular HGB CONC 32.2 g/dL (32.0-36.0); Mean Corpuscular Volume 96.1 fL (78.0-98.0); Mean Platelet Volume 7.5 fL (7.4-10.4); Platelet Count 185 thou/uL (130-400); RBC Distribution Width 12.8 % (11.5-14.5); Red Blood Cell (RBC) Count 3.64 mill/uL (4.20-5.40); White Blood Cell (WBC) Count 7.3 thou/uL (4.8-10.8)
[2021-01-07] MEDS: Bisacodyl 5 MG TAB PO SCH (09:56)
[2021-01-07] MEDS: Metoprolol Tartrate 25 MG TAB PO SCH ×2 (09:57→21:25)
[2021-01-07] MEDS: Senokot S 8.6-50 MG TAB PO SCH ×2 (09:57→21:25)
[2021-01-07] MEDS: Polyethylene Glycol 3350 17 GM Packet PO SCH (09:57)
[2021-01-07] MEDS: Magnesium Chloride 64 MG TAB PO SCH ×2 (12:22→21:23)
[2021-01-07] MEDS: Acetaminophen 325 MG TAB PO PRN ×2 (16:52→21:26)
[2021-01-07] MEDS: Cholecalciferol 1,000 UNITS (25 MCG) TAB PO SCH (21:23)
[2021-01-07] MEDS: Lactinex Tablet PO SCH (21:23)
[2021-01-07] MEDS: Ferrous Sulfate 325 MG TAB PO SCH (21:23)
[2021-01-07] MEDS: Pantoprazole 40 MG GRANULES PACKET PO SCH (21:25)
[2021-01-08 05:08] LABS: Hemoglobin 11.2 g/dL (12.0-16.0); Mean Corpuscular HGB CONC 32.9 g/dL (32.0-36.0); Mean Corpuscular Hemoglobin 31.1 pg (27.0-31.0); Mean Corpuscular Volume 94.5 fL (78.0-98.0); Mean Platelet Volume 7.1 fL (7.4-10.4); Platelet Count 189 thou/uL (130-400); RBC Distribution Width 12.9 % (11.5-14.5); White Blood Cell (WBC) Count 6.6 thou/uL (4.8-10.8)
[2021-01-08 05:25] LABS: Eosinophils 4 % (0-10); Lymphocytes 16 % (21-51); MDiff Complete? YES; Monocytes 7 % (0-10); Neutrophil 73 % (42-75); Platelet Morphology Comment Appears Adequate
[2021-01-08] MEDS: MEROPENEM 1 GM/50 ML 1 GM in Premix Bag 1 BAG IVPB SCH ×3 (06:32→21:01)
[2021-01-08] MEDS ORDERED: Lisinopril 10 MG TAB PO SCH (10:00)
[2021-01-08] MEDS: Polyethylene Glycol 3350 17 GM Packet PO SCH (10:01)
[2021-01-08] MEDS: Bisacodyl 5 MG TAB PO SCH (10:02)
[2021-01-08] MEDS: Senokot S 8.6-50 MG TAB PO SCH ×2 (10:02→20:20)
[2021-01-08] MEDS: Metoprolol Tartrate 25 MG TAB PO SCH (10:03)
[2021-01-08] MEDS: Acetaminophen 325 MG TAB PO PRN ×2 (12:34→20:21)
[2021-01-08] MEDS ORDERED: hydrALAZINE 20 MG/ML VIAL SLOW IVP PRN (14:03)
[2021-01-08] MEDS: Pantoprazole 40 MG GRANULES PACKET PO SCH (20:20)
[2021-01-08] MEDS: Cholecalciferol 1,000 UNITS (25 MCG) TAB PO SCH (20:20)
[2021-01-08] MEDS: Lactinex Tablet PO SCH (20:20)
[2021-01-08] MEDS: Ferrous Sulfate 325 MG TAB PO SCH (20:21)
[2021-01-09] MEDS: MEROPENEM 1 GM/50 ML 1 GM in Premix Bag 1 BAG IVPB SCH ×3 (05:45→21:07)
[2021-01-09 06:35] LABS: #Eosinphils 0.2 thou/uL (0.0-0.7); #Lymphocytes 1.5 thou/uL (1.20-3.40); #Monocytes 0.9 thou/uL (0.11-0.59); #Neutrophils 5.8 thou/uL (1.40-6.50); %Basophils 0.2 % (0.0-1.0); %Eosinophils 2.2 % (0.0-10.0); %Lymphocytes 17.6 % (21.0-51.0); %Monocytes 10.5 % (0.0-10.0); %Neutrophils 69.6 % (42.0-75.0); Mean Corpuscular HGB CONC 33.6 g/dL (32.0-36.0); Mean Corpuscular Hemoglobin 31.9 pg (27.0-31.0); Mean Platelet Volume 7.1 fL (7.4-10.4); Platelet Count 219 thou/uL (130-400); RBC Distribution Width 12.9 % (11.5-14.5); Red Blood Cell (RBC) Count 3.77 mill/uL (4.20-5.40); White Blood Cell (WBC) Count 8.4 thou/uL (4.8-10.8)
[2021-01-09 07:13] LABS: Anion Gap 12 mmol/L (10-20); BUN (Urea Nitrogen) 8 mg/dL (9.8-20.1); Calc. Creatinine Clearance 121 mL/min (70-130); Calcium 8.1 mg/dL (7.8-10.44); Carbon Dioxide 26 mmol/L (23-31); Chloride 107 mmol/L (98-107); Glucose 94 mg/dL (83-110); Magnesium 1.6 mg/dL (1.6-2.6); Potassium 3.4 mmol/L (3.5-5.1); Sodium 142 mmol/L (136-145)
[2021-01-09] MEDS: Senokot S 8.6-50 MG TAB PO SCH ×2 (08:08→20:52)
[2021-01-09] MEDS: Bisacodyl 5 MG TAB PO SCH (08:08)
[2021-01-09] MEDS: Polyethylene Glycol 3350 17 GM Packet PO SCH (08:09)
[2021-01-09] MEDS ORDERED: Lisinopril 10 MG TAB PO SCH (09:00)
[2021-01-09 20:02] VITALS: BP 121/74; TEMP 98.4
[2021-01-09] MEDS: Lactinex Tablet PO SCH (20:52)
[2021-01-09] MEDS: Cholecalciferol 1,000 UNITS (25 MCG) TAB PO SCH (20:52)
[2021-01-09] MEDS: Ferrous Sulfate 325 MG TAB PO SCH (20:53)
[2021-01-09] MEDS: Pantoprazole 40 MG GRANULES PACKET PO SCH (20:53)
[2021-01-09] MEDS: Acetaminophen 325 MG TAB PO PRN (21:00)
== END 2021-01-09 21:30 | DRG 853 ==
LOC: ERS 21:28 → IMCU/EMU 01-04 → 2NO 01-04 18:40 → T4-A 01-08 17:20
PROVIDERS: ADMIT Family Medicine; ATTEND Family Medicine
PROC: 0T788DZ Dilation of Bilateral Ureters with Intraluminal Device, Via Natural or Artificial Opening Endoscopic (ICD-10-PCS; principal; 2021-01-04)
PROC: BT141ZZ Fluoroscopy of Kidneys, Ureters and Bladder using Low Osmolar Contrast (ICD-10-PCS; 2021-01-04)
PROC: 02HV33Z Insertion of Infusion Device into Superior Vena Cava, Percutaneous Approach (ICD-10-PCS; 2021-01-09)
DX: A41.51 Sepsis due to Escherichia coli [E. coli] (principal); G93.41 Metabolic encephalopathy; N13.6 Pyonephrosis; N20.2 Calculus of kidney with calculus of ureter; I47.1 Supraventricular tachycardia; G81.91 Hemiplegia, unspecified affecting right dominant side; Z16.24 Resistance to multiple antibiotics; I10 Essential (primary) hypertension; K82.8 Other specified diseases of gallbladder; E78.5 Hyperlipidemia, unspecified; K52.89 Other specified noninfective gastroenteritis and colitis; K80.20 Calculus of gallbladder without cholecystitis without obstruction; K56.41 Fecal impaction; E87.6 Hypokalemia; K57.90 Diverticulosis of intestine, part unspecified, without perforation or abscess without bleeding; K21.9 Gastro-esophageal reflux disease without esophagitis; J44.9 Chronic obstructive pulmonary disease, unspecified; Z20.822 Contact with and (suspected) exposure to COVID-19; E83.42 Hypomagnesemia; Z87.820 Personal history of traumatic brain injury; Z79.899 Other long term (current) drug therapy; I25.2 Old myocardial infarction; Z90.710 Acquired absence of both cervix and uterus; Z98.890 Other specified postprocedural states
CPT/HCPCS: 0240U; 36415; 36569; 51702; 70450; 71045; 71275; 74177; 74420; 76705; 80048; 80053; 81003; 81015; 82274; 83605; 83690; 83735; 84145; 84443; 84484; 85007; 85025; 85027; 86850; 86900; 86901; 87040; 87077; 87086; 87149; 87186; 93005; 96365; 96367; 96368; 96375; C1751; J0153; J0692; J1644; J2185; J2250; J2704; J3370; J3475; J3480; J7050; Q9961; Q9967

== ENCOUNTER 2021-01-22 10:42 | Day surgery (SDC) | payer MEDICARE, MEDICAID ==
[2021-01-21 08:24] VITALS: BMI 34.9
[2021-01-22] MEDS ORDERED: Fentanyl 100 MCG/2 ML VIAL ONE (13:00)
[2021-01-22] MEDS ORDERED: Iothalamate Meglumine 60% 50 ML VIAL FS ONE (13:05)
[2021-01-22] MEDS ORDERED: Lidocaine 1% PF 5 ML VIAL ONE (13:15)
[2021-01-22] MEDS ORDERED: Ondansetron PF 4 MG/2 ML Vial ONE (13:15)
[2021-01-22] MEDS ORDERED: Glycopyrrolate 0.2 MG/ML 5 ML SYRINGE ONE (13:15)
[2021-01-22] MEDS ORDERED: Rocuronium Bromide 10 MG/ML (10ML VIAL) ONE (13:15)
[2021-01-22] MEDS ORDERED: PROPOFOL 200 MG/20 ML VIAL ONE (13:15)
[2021-01-22] MEDS ORDERED: Dexamethasone 20 MG/5 ML VIAL ONE (13:15)
[2021-01-22] MEDS ORDERED: SUGAMMADEX SODIUM 200 MG/2 ML VIAL ONE (15:20)
[2021-01-22] MEDS ORDERED: Sodium Chloride 0.9% 10 ML ONE (16:48)
== END 2021-01-22 17:02 | disposition critical access hospital (66) ==
LOC: SDC 10:42
PROVIDERS: ATTEND Urology
PROC: 0TC48ZZ Extirpation of Matter from Left Kidney Pelvis, Via Natural or Artificial Opening Endoscopic (ICD-10-PCS; principal; 2021-01-22)
PROC: 0TC78ZZ Extirpation of Matter from Left Ureter, Via Natural or Artificial Opening Endoscopic (ICD-10-PCS; 2021-01-22)
PROC: 0TC38ZZ Extirpation of Matter from Right Kidney Pelvis, Via Natural or Artificial Opening Endoscopic (ICD-10-PCS; 2021-01-22)
PROC: 0T788DZ Dilation of Bilateral Ureters with Intraluminal Device, Via Natural or Artificial Opening Endoscopic (ICD-10-PCS; 2021-01-22)
DX: N20.2 Calculus of kidney with calculus of ureter (principal); I11.0 Hypertensive heart disease with heart failure; I50.9 Heart failure, unspecified; K21.9 Gastro-esophageal reflux disease without esophagitis; J44.9 Chronic obstructive pulmonary disease, unspecified; Z79.899 Other long term (current) drug therapy
CPT/HCPCS: 52356; 74420; 82365; 88300; Q9961; C2617; J1100; J2405; J2704; J3010

== ENCOUNTER 2021-05-07 19:28 | Emergency (ER) | payer MEDICARE, MEDICAID ==
[2021-05-07 20:18] LABS: #Lymphocytes 1.3 thou/uL (1.20-3.40); #Monocytes 0.6 thou/uL (0.11-0.59); #Neutrophils 2.5 thou/uL (1.40-6.50); %Basophils 0.2 % (0.0-1.0); %Eosinophils 0.3 % (0.0-10.0); %Lymphocytes 30.4 % (21.0-51.0); %Monocytes 12.9 % (0.0-10.0); %Neutrophils 56.1 % (42.0-75.0); Hemoglobin 13.3 g/dL (12.0-16.0); Mean Corpuscular HGB CONC 34.3 g/dL (32.0-36.0); Mean Corpuscular Volume 93.5 fL (78.0-98.0); Mean Platelet Volume 7.5 fL (7.4-10.4); Platelet Count 186 thou/uL (130-400); RBC Distribution Width 13.3 % (11.5-14.5); Red Blood Cell (RBC) Count 4.14 mill/uL (4.20-5.40); White Blood Cell (WBC) Count 4.4 thou/uL (4.8-10.8)
[2021-05-07 20:44] LABS: ALT (SGPT) 18 U/L (8-55); AST (SGOT) 21 U/L (5-34); Albumin 3.1 g/dL (3.4-4.8); Alkaline Phosphatase 82 U/L (40-110); Anion Gap 11 mmol/L (10-20); BUN (Urea Nitrogen) 11 mg/dL (9.8-20.1); Bilirubin, Total 0.6 mg/dL (0.2-1.2); Calc. Creatinine Clearance 0 mL/min (70-130); Carbon Dioxide 27 mmol/L (23-31); Chloride 106 mmol/L (98-107); Globulin 3.4 g/dL (2.4-3.5); Glucose 114 mg/dL (83-110); Potassium 3.3 mmol/L (3.5-5.1); Protein, Total 6.5 g/dL (5.8-8.1); Sodium 141 mmol/L (136-145)
[2021-05-07] MEDS ORDERED: Potassium Chloride 20 MEQ TAB ONE (21:18)
[2021-05-07 21:39] LABS: Bacteria/HPF 4+ HPF (None Seen); Bilirubin Negative (Negative); Blood, Urine 2+ (Negative); Clarity Extra Turbid (Clear); Glucose, Urine (Dipstick) Normal (Negative); Ketone, Urine 10 mg/dL (Negative); Leukocyte 500 Leu/uL (Negative); Nitrite 2+ (Negative); Protein, Urine (Dipstick) 200 mg/dL (Neg-Trace); RBC/HPF Greater than 50 HPF (0-3); Specific Gravity, Urine 1.019 (1.002-1.036); WBC/HPF Greater than 50 HPF (0-3)
== END 2021-05-07 22:36 | disposition home or self-care (01) ==
LOC: ERS 19:28
DX: U07.1 COVID-19 (principal); R91.8 Other nonspecific abnormal finding of lung field; N39.0 Urinary tract infection, site not specified; I10 Essential (primary) hypertension; I25.2 Old myocardial infarction; K21.9 Gastro-esophageal reflux disease without esophagitis; E78.5 Hyperlipidemia, unspecified; Z87.442 Personal history of urinary calculi; Z79.899 Other long term (current) drug therapy
CPT/HCPCS: 36415; 71045; 80053; 81003; 81015; 83605; 84484; 85025; 87040; 87077; 87086; 87186; 93005

== ENCOUNTER 2021-06-08 15:08 | Inpatient (IN) | payer MEDICARE, MEDICAID ==
[2021-06-08 16:32] LABS: #Eosinphils 0.1 thou/uL (0.0-0.7); #Lymphocytes 1.8 thou/uL (1.20-3.40); #Monocytes 0.6 thou/uL (0.11-0.59); #Neutrophils 5.9 thou/uL (1.40-6.50); %Basophils 0.3 % (0.0-1.0); %Eosinophils 1.1 % (0.0-10.0); %Lymphocytes 20.9 % (21.0-51.0); %Monocytes 7.1 % (0.0-10.0); %Neutrophils 70.6 % (42.0-75.0); Hemoglobin 14.7 g/dL (12.0-16.0); Mean Corpuscular HGB CONC 32.4 g/dL (32.0-36.0); Mean Corpuscular Hemoglobin 30.9 pg (27.0-31.0); Mean Corpuscular Volume 95.3 fL (78.0-98.0); Mean Platelet Volume 8.1 fL (7.4-10.4); Platelet Count 288 thou/uL (130-400); RBC Distribution Width 14.1 % (11.5-14.5); Red Blood Cell (RBC) Count 4.76 mill/uL (4.20-5.40); White Blood Cell (WBC) Count 8.4 thou/uL (4.8-10.8)
[2021-06-08 17:17] LABS: ALT (SGPT) 9 U/L (8-55); AST (SGOT) 10 U/L (5-34); Albumin 3.5 g/dL (3.4-4.8); Alkaline Phosphatase 113 U/L (40-110); Anion Gap 14 mmol/L (10-20); BUN (Urea Nitrogen) 14 mg/dL (9.8-20.1); Bilirubin, Total 0.7 mg/dL (0.2-1.2); Calc. Creatinine Clearance 0 mL/min (70-130); Calcium 9.2 mg/dL (7.8-10.44); Carbon Dioxide 27 mmol/L (23-31); Chloride 105 mmol/L (98-107); Globulin 3.9 g/dL (2.4-3.5); Glucose 94 mg/dL (83-110); Potassium 4.2 mmol/L (3.5-5.1); Protein, Total 7.4 g/dL (5.8-8.1); Sodium 142 mmol/L (136-145)
[2021-06-08 17:52] LABS: Bilirubin Negative (Negative); Blood, Urine Large (Negative); Glucose, Urine (Dipstick) Negative (Negative); Ketone, Urine Negative (Negative); Leukocyte Moderate (Negative); Nitrite Positive (Negative); Protein, Urine (Dipstick) 30 mg/dL (Neg-Trace)
[2021-06-08 17:57] LABS: Clarity Cloudy (Clear)
[2021-06-08 17:58] LABS: Bacteria/HPF 3+ HPF (None Seen)
[2021-06-08] MEDS ORDERED: Piperacillin/Tazobactam 4.5 GM in Sodium Chloride 0.9% 100 ML IVPB SCH (19:15)
[2021-06-08] MEDS ORDERED: Piperacillin/Tazobactam 4.5 GM VIAL ONE (19:59)
[2021-06-08] MEDS ORDERED: Ondansetron PF 4 MG/2 ML Vial IVP PRN (21:47)
[2021-06-08] MEDS ORDERED: Ondansetron ODT 4 MG TAB PO PRN (21:47)
[2021-06-08] MEDS ORDERED: Acetaminophen 325 MG TAB PO PRN (21:47)
[2021-06-08] MEDS ORDERED: Acetaminophen 650 MG Suppository PR PRN (21:47)
[2021-06-08 23:18] VITALS: BMI 29.2
[2021-06-08] MEDS ORDERED: Piperacillin/Tazobactam 3.375 GM in Sodium Chloride 0.9% 100 ML IVPB SCH (23:59)
[2021-06-09] MEDS: Lactated Ringer's 1,000 ML IV SCH ×3 (03:57→20:20)
[2021-06-09] MEDS: Piperacillin/Tazobactam 3.375 GM in Sodium Chloride 0.9% 100 ML IVPB SCH ×3 (04:49→20:20)
[2021-06-09 05:24] LABS: Anion Gap 13 mmol/L (10-20); BUN (Urea Nitrogen) 14 mg/dL (9.8-20.1); Calc. Creatinine Clearance 99 mL/min (70-130); Calcium 8.6 mg/dL (7.8-10.44); Carbon Dioxide 27 mmol/L (23-31); Chloride 106 mmol/L (98-107); Glucose 94 mg/dL (83-110); Potassium 3.5 mmol/L (3.5-5.1); Sodium 142 mmol/L (136-145)
[2021-06-09 05:44] LABS: Hemoglobin 13.2 g/dL (12.0-16.0); Lymphocytes 18 % (21-51); MDiff Complete? YES; Mean Corpuscular HGB CONC 34.4 g/dL (32.0-36.0); Mean Corpuscular Hemoglobin 32.4 pg (27.0-31.0); Mean Corpuscular Volume 94.2 fL (78.0-98.0); Mean Platelet Volume 8.2 fL (7.4-10.4); Monocytes 6 % (0-10); Neutrophil 76 % (42-75); Platelet Count 279 thou/uL (130-400); RBC Distribution Width 14.1 % (11.5-14.5); RBC Morphology Normal; Red Blood Cell (RBC) Count 4.06 mill/uL (4.20-5.40); White Blood Cell (WBC) Count 7.7 thou/uL (4.8-10.8)
[2021-06-09] MEDS: Enoxaparin Sodium 40 MG/0.4 ML SYRINGE SC SCH (08:42)
[2021-06-09] MEDS: Polyethylene Glycol 3350 17 GM Packet PO SCH (12:07)
[2021-06-09 12:39] LABS: SARS-CoV-2 PCR by NAA Not Detected (NotDetected)
[2021-06-10] MEDS: Lactated Ringer's 1,000 ML IV SCH ×2 (01:50→16:20)
[2021-06-10] MEDS: Piperacillin/Tazobactam 3.375 GM in Sodium Chloride 0.9% 100 ML IVPB SCH ×3 (03:47→21:37)
[2021-06-10] MEDS ORDERED: Lorazepam 2 MG/ML VIAL SLOW IVP SCH ×2 (05:30→11:00)
[2021-06-10 05:33] LABS: Anion Gap 14 mmol/L (10-20); BUN (Urea Nitrogen) 15 mg/dL (9.8-20.1); Calc. Creatinine Clearance 104 mL/min (70-130); Calcium 8.5 mg/dL (7.8-10.44); Carbon Dioxide 24 mmol/L (23-31); Chloride 107 mmol/L (98-107); Glucose 99 mg/dL (83-110); Potassium 3.9 mmol/L (3.5-5.1); Sodium 141 mmol/L (136-145)
[2021-06-10] MEDS: Enoxaparin Sodium 40 MG/0.4 ML SYRINGE SC SCH (07:51)
[2021-06-10] MEDS: Polyethylene Glycol 3350 17 GM Packet PO SCH (07:52)
[2021-06-10 10:11] LABS: #Lymphocytes 1.3 thou/uL (1.20-3.40); #Monocytes 0.6 thou/uL (0.11-0.59); #Neutrophils 5.9 thou/uL (1.40-6.50); %Basophils 0.2 % (0.0-1.0); %Eosinophils 0.6 % (0.0-10.0); %Lymphocytes 16.5 % (21.0-51.0); %Neutrophils 75.7 % (42.0-75.0); Hemoglobin 13.6 g/dL (12.0-16.0); Mean Corpuscular HGB CONC 32.2 g/dL (32.0-36.0); Mean Corpuscular Hemoglobin 30.4 pg (27.0-31.0); Mean Corpuscular Volume 94.4 fL (78.0-98.0); Mean Platelet Volume 7.9 fL (7.4-10.4); Platelet Count 313 thou/uL (130-400); RBC Distribution Width 14.2 % (11.5-14.5); Red Blood Cell (RBC) Count 4.47 mill/uL (4.20-5.40); White Blood Cell (WBC) Count 7.8 thou/uL (4.8-10.8)
[2021-06-10] MEDS: Ferrous Sulfate 325 MG TAB PO SCH (17:32)
[2021-06-10] MEDS: Nystatin Powder 15 GM BOT TOP SCH (21:36)
[2021-06-10] MEDS: Simvastatin 10 MG TAB PO SCH (21:38)
[2021-06-10] MEDS: Famotidine 20 MG TAB PO SCH (21:38)
[2021-06-10] MEDS: LACTINEX 1 TAB PO SCH (21:38)
[2021-06-10] MEDS: Cholecalciferol 1,000 UNITS (25 MCG) TAB PO SCH (21:39)
[2021-06-11] MEDS: Lactated Ringer's 1,000 ML IV SCH ×3 (02:17→23:23)
[2021-06-11 05:27] LABS: #Eosinphils 0.1 thou/uL (0.0-0.7); #Lymphocytes 2.4 thou/uL (1.20-3.40); #Monocytes 0.7 thou/uL (0.11-0.59); %Basophils 0.5 % (0.0-1.0); %Eosinophils 1.6 % (0.0-10.0); %Lymphocytes 33.4 % (21.0-51.0); %Monocytes 9.4 % (0.0-10.0); Hemoglobin 11.7 g/dL (12.0-16.0); Mean Corpuscular Hemoglobin 31.3 pg (27.0-31.0); Mean Corpuscular Volume 94.9 fL (78.0-98.0); Mean Platelet Volume 7.9 fL (7.4-10.4); Platelet Count 276 thou/uL (130-400); RBC Distribution Width 14.2 % (11.5-14.5); Red Blood Cell (RBC) Count 3.73 mill/uL (4.20-5.40); White Blood Cell (WBC) Count 7.3 thou/uL (4.8-10.8)
[2021-06-11 05:28] LABS: Anion Gap 11 mmol/L (10-20); BUN (Urea Nitrogen) 7 mg/dL (9.8-20.1); Calc. Creatinine Clearance 100 mL/min (70-130); Calcium 8.4 mg/dL (7.8-10.44); Carbon Dioxide 25 mmol/L (23-31); Chloride 111 mmol/L (98-107); Glucose 94 mg/dL (83-110); Potassium 3.2 mmol/L (3.5-5.1); Sodium 144 mmol/L (136-145)
[2021-06-11] MEDS: Piperacillin/Tazobactam 3.375 GM in Sodium Chloride 0.9% 100 ML IVPB SCH ×3 (05:29→20:27)
[2021-06-11] MEDS: Famotidine 20 MG TAB PO SCH ×2 (10:17→20:27)
[2021-06-11] MEDS: risperiDONE 1 MG TAB PO SCH (10:17)
[2021-06-11] MEDS: Polyethylene Glycol 3350 17 GM Packet PO SCH (10:17)
[2021-06-11] MEDS: Enoxaparin Sodium 40 MG/0.4 ML SYRINGE SC SCH (10:17)
[2021-06-11] MEDS: Nystatin Powder 15 GM BOT TOP SCH ×2 (10:17→21:53)
[2021-06-11] MEDS: Amlodipine 5 MG TAB PO SCH (10:20)
[2021-06-11] MEDS: Potassium Chloride 20 MEQ TAB PO SCH (10:20)
[2021-06-11] MEDS ORDERED: Potassium Chloride 20 MEQ TAB PO SCH (14:00)
[2021-06-11] MEDS: Ferrous Sulfate 325 MG TAB PO SCH (16:14)
[2021-06-11] MEDS: LACTINEX 1 TAB PO SCH (20:27)
[2021-06-11] MEDS: Cholecalciferol 1,000 UNITS (25 MCG) TAB PO SCH (20:27)
[2021-06-11] MEDS: Simvastatin 10 MG TAB PO SCH (20:27)
[2021-06-11] MEDS: Sulfameth/Trimethoprim DS 800-160mg TAB PO SCH (20:27)
[2021-06-12] MEDS: Lactated Ringer's 1,000 ML IV SCH ×2 (00:39→00:49)
[2021-06-12] MEDS: Piperacillin/Tazobactam 3.375 GM in Sodium Chloride 0.9% 100 ML IVPB SCH ×3 (04:26→21:26)
[2021-06-12] MEDS ORDERED: Lorazepam 2 MG/ML VIAL SLOW IVP SCH (05:15)
[2021-06-12 05:32] LABS: Anion Gap 18 mmol/L (10-20); BUN (Urea Nitrogen) 8 mg/dL (9.8-20.1); Calc. Creatinine Clearance 73 mL/min (70-130); Calcium 8.9 mg/dL (7.8-10.44); Carbon Dioxide 21 mmol/L (23-31); Chloride 111 mmol/L (98-107); Glucose 115 mg/dL (83-110); Potassium 3.6 mmol/L (3.5-5.1); Sodium 146 mmol/L (136-145)
[2021-06-12 05:33] LABS: #Basophils 0.1 thou/uL (0.0-0.2); #Eosinphils 0.1 thou/uL (0.0-0.7); #Lymphocytes 2.2 thou/uL (1.20-3.40); #Monocytes 0.8 thou/uL (0.11-0.59); %Basophils 0.6 % (0.0-1.0); %Eosinophils 1.3 % (0.0-10.0); %Lymphocytes 21.4 % (21.0-51.0); %Monocytes 7.5 % (0.0-10.0); %Neutrophils 69.3 % (42.0-75.0); Hemoglobin 13.5 g/dL (12.0-16.0); Mean Corpuscular HGB CONC 32.4 g/dL (32.0-36.0); Mean Corpuscular Hemoglobin 31.8 pg (27.0-31.0); Mean Corpuscular Volume 98.3 fL (78.0-98.0); Mean Platelet Volume 8.1 fL (7.4-10.4); Platelet Count 281 thou/uL (130-400); RBC Distribution Width 14.5 % (11.5-14.5); Red Blood Cell (RBC) Count 4.23 mill/uL (4.20-5.40); White Blood Cell (WBC) Count 10.1 thou/uL (4.8-10.8)
[2021-06-12] MEDS ORDERED: FLU VACC QS2021-22(65YR UP)/PF 240 MCG/0.7 ML SYRINGE IM ONE (09:00)
[2021-06-12] MEDS: Enoxaparin Sodium 40 MG/0.4 ML SYRINGE SC SCH (10:52)
[2021-06-12] MEDS: Famotidine 20 MG TAB PO SCH ×2 (10:53→21:27)
[2021-06-12] MEDS: Potassium Chloride 20 MEQ TAB PO SCH (10:53)
[2021-06-12] MEDS: risperiDONE 1 MG TAB PO SCH (10:54)
[2021-06-12] MEDS: Amlodipine 5 MG TAB PO SCH (10:54)
[2021-06-12] MEDS: Sulfameth/Trimethoprim DS 800-160mg TAB PO SCH ×2 (10:54→21:27)
[2021-06-12] MEDS ORDERED: Ziprasidone 20 MG VIAL IM PRN (11:37)
[2021-06-12] MEDS ORDERED: Fosfomycin 3 GM/Packet PO SCH (11:45)
[2021-06-12] MEDS: Polyethylene Glycol 3350 17 GM Packet PO SCH (12:48)
[2021-06-12] MEDS: Nystatin Powder 15 GM BOT TOP SCH ×2 (13:23→21:28)
[2021-06-12] MEDS: Ferrous Sulfate 325 MG TAB PO SCH (18:06)
[2021-06-12] MEDS ORDERED: SMX/TMP 800-160mg/20 ML UDCUP PO SCH (21:00)
[2021-06-12] MEDS: Cholecalciferol 1,000 UNITS (25 MCG) TAB PO SCH (21:27)
[2021-06-12] MEDS: Simvastatin 10 MG TAB PO SCH (21:27)
[2021-06-12] MEDS: LACTINEX 1 TAB PO SCH (21:27)
[2021-06-13 00:51] VITALS: BP 144/83; TEMP 98
[2021-06-13] MEDS ORDERED: Ziprasidone 20 MG CAP PO SCH (08:00)
== END 2021-06-12 23:04 | disposition home or self-care (01) | DRG 689 ==
LOC: ERS 15:08 → ERHOLD 20:12 → 2NO 22:33 → OBSVTOIN 06-11 10:23
PROVIDERS: ADMIT Student in an Organized Health Care Education/Training Program; ATTEND Student in an Organized Health Care Education/Training Program
DX: N39.0 Urinary tract infection, site not specified (principal); G93.41 Metabolic encephalopathy; K80.20 Calculus of gallbladder without cholecystitis without obstruction; N20.0 Calculus of kidney; I10 Essential (primary) hypertension; E78.5 Hyperlipidemia, unspecified; K21.9 Gastro-esophageal reflux disease without esophagitis; R45.1 Restlessness and agitation; Z20.822 Contact with and (suspected) exposure to COVID-19; E87.6 Hypokalemia; Z87.820 Personal history of traumatic brain injury
CPT/HCPCS: 36415; 51701; 70450; 71045; 74176; 80048; 80053; 81003; 81015; 84145; 85025; 87040; 87077; 87086; 87149; 87186; 87324; 87449; 87493; 93005; 96365; 96372; 96375; 96376; G0378; J1650; J2060; J2543; J3490; J7120; U0003; U0005

== ENCOUNTER 2021-07-10 18:38 | Inpatient (IN) | payer OTHER, MEDICARE, MEDICAID ==
[2021-07-10] MEDS ORDERED: Piperacillin/Tazobactam 3.375 GM VIAL ONE (19:22)
[2021-07-10 20:20] LABS: #Eosinphils 0.1 thou/uL (0.0-0.7); #Lymphocytes 1.8 thou/uL (1.20-3.40); #Monocytes 0.7 thou/uL (0.11-0.59); %Basophils 0.3 % (0.0-1.0); %Eosinophils 1.6 % (0.0-10.0); %Lymphocytes 18.6 % (21.0-51.0); %Monocytes 7.3 % (0.0-10.0); %Neutrophils 72.4 % (42.0-75.0); Hemoglobin 12.6 g/dL (12.0-16.0); Mean Corpuscular HGB CONC 33.2 g/dL (32.0-36.0); Mean Corpuscular Hemoglobin 32.4 pg (27.0-31.0); Mean Corpuscular Volume 97.6 fL (78.0-98.0); Mean Platelet Volume 7.5 fL (7.4-10.4); Platelet Count 252 thou/uL (130-400); RBC Distribution Width 14.4 % (11.5-14.5); Red Blood Cell (RBC) Count 3.89 mill/uL (4.20-5.40); White Blood Cell (WBC) Count 9.6 thou/uL (4.8-10.8)
[2021-07-10 20:38] LABS: ALT (SGPT) 7 U/L (8-55); AST (SGOT) 11 U/L (5-34); Albumin 3.4 g/dL (3.4-4.8); Alkaline Phosphatase 97 U/L (40-110); Anion Gap 11 mmol/L (10-20); BUN (Urea Nitrogen) 18 mg/dL (9.8-20.1); Bilirubin, Total 0.4 mg/dL (0.2-1.2); Calc. Creatinine Clearance 0 mL/min (70-130); Calcium 8.7 mg/dL (7.8-10.44); Carbon Dioxide 29 mmol/L (23-31); Chloride 106 mmol/L (98-107); Globulin 3.1 g/dL (2.4-3.5); Glucose 104 mg/dL (83-110); Potassium 4.1 mmol/L (3.5-5.1); Protein, Total 6.5 g/dL (5.8-8.1); Sodium 142 mmol/L (136-145)
[2021-07-10] MEDS ORDERED: Ondansetron ODT 4 MG TAB PO PRN (22:42)
[2021-07-10] MEDS ORDERED: Ondansetron PF 4 MG/2 ML Vial IVP PRN (22:42)
[2021-07-10] MEDS ORDERED: Calcium Carbonate 500 MG ChewTAB PO PRN (22:42)
[2021-07-10] MEDS ORDERED: Acetaminophen 325 MG TAB PO PRN (22:42)
[2021-07-10] MEDS ORDERED: Enoxaparin Sodium 40 MG/0.4 ML SYRINGE SC SCH (22:45)
[2021-07-10] MEDS ORDERED: Polyethylene Glycol 3350 17 GM Packet PO PRN (23:00)
[2021-07-11] MEDS: Sodium Chloride 0.9% 1,000 ML IV SCH ×4 (01:25→11:40)
[2021-07-11] MEDS ORDERED: Piperacillin/Tazobactam 3.375 GM in Sodium Chloride 0.9% 100 ML IVPB SCH (04:00)
[2021-07-11 05:50] LABS: #Eosinphils 0.1 thou/uL (0.0-0.7); #Lymphocytes 1.8 thou/uL (1.20-3.40); #Monocytes 0.6 thou/uL (0.11-0.59); #Neutrophils 4.8 thou/uL (1.40-6.50); %Basophils 0.4 % (0.0-1.0); %Lymphocytes 24.5 % (21.0-51.0); %Neutrophils 65.1 % (42.0-75.0); Hemoglobin 13.4 g/dL (12.0-16.0); Mean Corpuscular HGB CONC 33.6 g/dL (32.0-36.0); Mean Corpuscular Hemoglobin 32.7 pg (27.0-31.0); Mean Corpuscular Volume 97.3 fL (78.0-98.0); Mean Platelet Volume 7.4 fL (7.4-10.4); Platelet Count 211 thou/uL (130-400); RBC Distribution Width 14.5 % (11.5-14.5); Red Blood Cell (RBC) Count 4.11 mill/uL (4.20-5.40); White Blood Cell (WBC) Count 7.4 thou/uL (4.8-10.8)
[2021-07-11 06:00] VITALS: BMI 30.5
[2021-07-11 06:03] LABS: Anion Gap 10 mmol/L (10-20); BUN (Urea Nitrogen) 17 mg/dL (9.8-20.1); Calc. Creatinine Clearance 95 mL/min (70-130); Calcium 8.8 mg/dL (7.8-10.44); Carbon Dioxide 26 mmol/L (23-31); Chloride 110 mmol/L (98-107); Glucose 96 mg/dL (83-110); Potassium 3.8 mmol/L (3.5-5.1); Sodium 142 mmol/L (136-145)
[2021-07-11] MEDS: Calamine/Zinc Oxide 177 ML LOTION TP SCH ×2 (08:47→20:43)
[2021-07-11] MEDS: Enoxaparin Sodium 40 MG/0.4 ML SYRINGE SC SCH (08:47)
[2021-07-11] MEDS ORDERED: FLU VACC QS2021-22(65YR UP)/PF 240 MCG/0.7 ML SYRINGE IM ONE (09:00)
[2021-07-11] MEDS: Ampicillin/Sulbactam 1.5 GM in Sodium Chloride 0.9% 100 ML IVPB SCH ×2 (11:23→17:39)
[2021-07-11 16:42] LABS: SARS-CoV-2 PCR by NAA Not Detected (NotDetected)
[2021-07-11] MEDS: Ferrous Sulfate 325 MG TAB PO SCH (17:39)
[2021-07-11] MEDS: Cholecalciferol 1,000 UNITS (25 MCG) TAB PO SCH (20:43)
[2021-07-11] MEDS: Simvastatin 10 MG TAB PO SCH (20:43)
[2021-07-11] MEDS: LACTINEX 1 TAB PO SCH (20:43)
[2021-07-12] MEDS: Sodium Chloride 0.9% 1,000 ML IV SCH ×3 (00:55→08:19)
[2021-07-12] MEDS: Ampicillin/Sulbactam 1.5 GM in Sodium Chloride 0.9% 100 ML IVPB SCH ×5 (00:56→23:39)
[2021-07-12 05:21] LABS: #Eosinphils 0.1 thou/uL (0.0-0.7); #Lymphocytes 1.8 thou/uL (1.20-3.40); #Monocytes 0.5 thou/uL (0.11-0.59); #Neutrophils 4.4 thou/uL (1.40-6.50); %Basophils 0.4 % (0.0-1.0); %Eosinophils 1.4 % (0.0-10.0); %Lymphocytes 26.9 % (21.0-51.0); %Monocytes 6.8 % (0.0-10.0); %Neutrophils 64.4 % (42.0-75.0); Mean Corpuscular HGB CONC 32.8 g/dL (32.0-36.0); Mean Corpuscular Hemoglobin 31.9 pg (27.0-31.0); Mean Corpuscular Volume 97.4 fL (78.0-98.0); Mean Platelet Volume 7.4 fL (7.4-10.4); Platelet Count 226 thou/uL (130-400); RBC Distribution Width 14.2 % (11.5-14.5); Red Blood Cell (RBC) Count 3.76 mill/uL (4.20-5.40); White Blood Cell (WBC) Count 6.8 thou/uL (4.8-10.8)
[2021-07-12 05:39] LABS: Anion Gap 11 mmol/L (10-20); BUN (Urea Nitrogen) 11 mg/dL (9.8-20.1); Calc. Creatinine Clearance 107 mL/min (70-130); Calcium 8.5 mg/dL (7.8-10.44); Carbon Dioxide 24 mmol/L (23-31); Chloride 110 mmol/L (98-107); Glucose 95 mg/dL (83-110); Potassium 3.4 mmol/L (3.5-5.1); Sodium 142 mmol/L (136-145)
[2021-07-12] MEDS: Enoxaparin Sodium 40 MG/0.4 ML SYRINGE SC SCH (08:17)
[2021-07-12] MEDS: Calamine/Zinc Oxide 177 ML LOTION TP SCH ×2 (08:17→20:15)
[2021-07-12] MEDS ORDERED: Potassium Chloride 20 MEQ TAB PO SCH (10:30)
[2021-07-12 16:17] LABS: SARS-CoV-2 PCR by NAA Not Detected (NotDetected)
[2021-07-12] MEDS: Ferrous Sulfate 325 MG TAB PO SCH (16:49)
[2021-07-12] MEDS: LACTINEX 1 TAB PO SCH (20:15)
[2021-07-12] MEDS: Simvastatin 10 MG TAB PO SCH (20:15)
[2021-07-12] MEDS: Cholecalciferol 1,000 UNITS (25 MCG) TAB PO SCH (20:15)
[2021-07-13] MEDS: Ampicillin/Sulbactam 1.5 GM in Sodium Chloride 0.9% 100 ML IVPB SCH ×3 (05:15→17:36)
[2021-07-13] MEDS: Enoxaparin Sodium 40 MG/0.4 ML SYRINGE SC SCH (07:13)
[2021-07-13 07:25] LABS: #Eosinphils 0.1 thou/uL (0.0-0.7); #Lymphocytes 1.6 thou/uL (1.20-3.40); #Monocytes 0.5 thou/uL (0.11-0.59); #Neutrophils 3.5 thou/uL (1.40-6.50); %Basophils 0.1 % (0.0-1.0); %Eosinophils 1.5 % (0.0-10.0); %Lymphocytes 27.7 % (21.0-51.0); %Neutrophils 61.7 % (42.0-75.0); Hemoglobin 12.5 g/dL (12.0-16.0); Mean Corpuscular HGB CONC 33.1 g/dL (32.0-36.0); Mean Corpuscular Hemoglobin 32.2 pg (27.0-31.0); Mean Corpuscular Volume 97.4 fL (78.0-98.0); Mean Platelet Volume 7.9 fL (7.4-10.4); Platelet Count 211 thou/uL (130-400); RBC Distribution Width 14.3 % (11.5-14.5); Red Blood Cell (RBC) Count 3.87 mill/uL (4.20-5.40); White Blood Cell (WBC) Count 5.7 thou/uL (4.8-10.8)
[2021-07-13 07:45] LABS: Anion Gap 9 mmol/L (10-20); BUN (Urea Nitrogen) 7 mg/dL (9.8-20.1); Calc. Creatinine Clearance 120 mL/min (70-130); Calcium 8.4 mg/dL (7.8-10.44); Carbon Dioxide 25 mmol/L (23-31); Chloride 110 mmol/L (98-107); Glucose 95 mg/dL (83-110); Potassium 3.4 mmol/L (3.5-5.1); Sodium 141 mmol/L (136-145)
[2021-07-13] MEDS: Calamine/Zinc Oxide 177 ML LOTION TP SCH ×2 (08:03→20:24)
[2021-07-13] MEDS ORDERED: Iothalamate Meglumine 60% 50 ML VIAL FS ONE (10:59)
[2021-07-13] MEDS ORDERED: Fentanyl 100 MCG/2 ML VIAL ONE (11:11)
[2021-07-13] MEDS ORDERED: Rocuronium Bromide 10 MG/ML (10ML VIAL) ONE (11:34)
[2021-07-13] MEDS ORDERED: PROPOFOL 200 MG/20 ML VIAL ONE (11:34)
[2021-07-13] MEDS ORDERED: Ondansetron PF 4 MG/2 ML Vial ONE (11:34)
[2021-07-13] MEDS ORDERED: Glycopyrrolate 0.2 MG/ML 5 ML SYRINGE ONE (11:34)
[2021-07-13] MEDS ORDERED: Lidocaine 1% PF 5 ML VIAL ONE (11:34)
[2021-07-13] MEDS ORDERED: ePHEDrine 50 MG/ML VIAL ONE (11:34)
[2021-07-13] MEDS ORDERED: Dexamethasone 20 MG/5 ML VIAL ONE (11:34)
[2021-07-13] MEDS ORDERED: Promethazine HCl 25 MG/ML VIAL IVPB PRN (13:16)
[2021-07-13] MEDS ORDERED: Promethazine HCl 25 MG/ML VIAL IM PRN (13:16)
[2021-07-13] MEDS ORDERED: Ondansetron HCl/PF 4 MG/2 ML Vial IVP PRN (13:16)
[2021-07-13] MEDS: Ferrous Sulfate 325 MG TAB PO SCH (15:32)
[2021-07-13] MEDS: Simvastatin 10 MG TAB PO SCH (20:23)
[2021-07-13] MEDS: LACTINEX 1 TAB PO SCH (20:23)
[2021-07-13] MEDS: Cholecalciferol 1,000 UNITS (25 MCG) TAB PO SCH (20:23)
[2021-07-13] MEDS ORDERED: Potassium Chloride 20 MEQ TAB PO SCH (22:30)
[2021-07-14] MEDS: Ampicillin/Sulbactam 1.5 GM in Sodium Chloride 0.9% 100 ML IVPB SCH ×3 (00:04→13:11)
[2021-07-14 08:17] VITALS: BP 130/78; TEMP 98.2
[2021-07-14] MEDS: Calamine/Zinc Oxide 177 ML LOTION TP SCH (09:09)
[2021-07-14] MEDS: Enoxaparin Sodium 40 MG/0.4 ML SYRINGE SC SCH (09:09)
[2021-07-14] MEDS: Ferrous Sulfate 325 MG TAB PO SCH (18:24)
== END 2021-07-14 18:37 | disposition home health service (06) | DRG 659 ==
LOC: ERS 18:38 → T4-B 21:38
PROVIDERS: ADMIT Emergency Medicine; ATTEND Emergency Medicine
PROC: 0TC38ZZ Extirpation of Matter from Right Kidney Pelvis, Via Natural or Artificial Opening Endoscopic (ICD-10-PCS; principal; 2021-07-13)
PROC: 0T768DZ Dilation of Right Ureter with Intraluminal Device, Via Natural or Artificial Opening Endoscopic (ICD-10-PCS; 2021-07-13)
DX: N39.0 Urinary tract infection, site not specified (principal); G93.41 Metabolic encephalopathy; Z16.24 Resistance to multiple antibiotics; G81.91 Hemiplegia, unspecified affecting right dominant side; Z20.822 Contact with and (suspected) exposure to COVID-19; N20.0 Calculus of kidney; R21 Rash and other nonspecific skin eruption; E87.6 Hypokalemia; F03.90 Unspecified dementia, unspecified severity, without behavioral disturbance, psychotic disturbance, mood disturbance, and anxiety; D50.9 Iron deficiency anemia, unspecified; E78.5 Hyperlipidemia, unspecified; I10 Essential (primary) hypertension; K21.9 Gastro-esophageal reflux disease without esophagitis; K59.09 Other constipation; R32 Unspecified urinary incontinence; Z28.21 Immunization not carried out because of patient refusal; S06.9X9S Unspecified intracranial injury with loss of consciousness of unspecified duration, sequela; V49.9XXS Car occupant (driver) (passenger) injured in unspecified traffic accident, sequela; I25.2 Old myocardial infarction; Z87.442 Personal history of urinary calculi; Z79.899 Other long term (current) drug therapy; Z74.01 Bed confinement status; Z90.710 Acquired absence of both cervix and uterus; Z82.49 Family history of ischemic heart disease and other diseases of the circulatory system
CPT/HCPCS: 36415; 80048; 80053; 82365; 83605; 84484; 85025; 87040; 87149; 88300; 93005; 96365; C2617; J0295; J1100; J1650; J2405; J2543; J2704; J3010; J3490; J7050; Q9961-U8; U0003; U0005

== ENCOUNTER 2022-01-22 12:04 | Inpatient (IN) | payer MEDICARE, MEDICAID ==
[2022-01-22 13:31] LABS: Acetaminophen Less than 10.0 mcg/mL (10.0-30.0); Alcohol Less than 10 mg/dL (Less than 10); Salicylate Less than 8.0 mg/dL (15.0-30.0)
[2022-01-22 13:34] LABS: ALT (SGPT) Less than 7 U/L (8-55); AST (SGOT) 13 U/L (5-34); Albumin 3.2 g/dL (3.4-4.8); Alkaline Phosphatase 87 U/L (40-110); Anion Gap 13 mmol/L (10-20); BUN (Urea Nitrogen) 19 mg/dL (9.8-20.1); Bilirubin, Total 0.6 mg/dL (0.2-1.2); Calc. Creatinine Clearance 0 mL/min (70-130); Calcium 7.9 mg/dL (7.8-10.44); Carbon Dioxide 21 mmol/L (23-31); Chloride 108 mmol/L (98-107); Globulin 2.8 g/dL (2.4-3.5); Glucose 88 mg/dL (83-110); Lipase 18 U/L (8-78); Potassium 3.8 mmol/L (3.5-5.1); Sodium 138 mmol/L (136-145)
[2022-01-22 13:41] LABS: #Eosinphils 0.1 thou/uL (0.0-0.7); #Lymphocytes 1.9 thou/uL (1.20-3.40); #Monocytes 0.5 thou/uL (0.11-0.59); #Neutrophils 5.4 thou/uL (1.40-6.50); %Basophils 0.6 % (0.0-1.0); %Eosinophils 0.8 % (0.0-10.0); %Lymphocytes 23.9 % (21.0-51.0); %Monocytes 6.5 % (0.0-10.0); %Neutrophils 68.2 % (42.0-75.0); Hemoglobin 12.3 g/dL (12.0-16.0); Mean Corpuscular HGB CONC 31.9 g/dL (32.0-36.0); Mean Corpuscular Hemoglobin 32.1 pg (27.0-31.0); Mean Platelet Volume 6.9 fL (7.4-10.4); Platelet Count 255 thou/uL (130-400); RBC Distribution Width 13.2 % (11.5-14.5); Red Blood Cell (RBC) Count 3.81 mill/uL (4.20-5.40); White Blood Cell (WBC) Count 7.9 thou/uL (4.8-10.8)
[2022-01-22 14:23] LABS: Bacteria/HPF 4+ HPF (None Seen); Bilirubin Negative (Negative); Blood, Urine 1+ (Negative); Clarity Turbid (Clear); Glucose, Urine (Dipstick) Normal (Negative); Ketone, Urine Negative (Negative); Leukocyte 500 Leu/uL (Negative); Nitrite Negative (Negative); Protein, Urine (Dipstick) 30 mg/dL (Neg-Trace); Specific Gravity, Urine 1.019 (1.002-1.036); Squamous Epithelial 0-3 HPF (0-3); Urobilinogen Normal mg/dL (Less than 2); WBC/HPF Greater than 50 HPF (0-3); pH, Urine 6.5 (5.0-9.0)
[2022-01-22 14:32] LABS: Amphetamine Not Detected (NotDetected); Barbiturates Screen Not Detected (NotDetected); Benzodiazepine Screen Not Detected (NotDetected); Cocaine Metabolite Screen Not Detected (NotDetected); Methadone Not Detected (NotDetected); Methamphetamine Not Detected (NotDetected); Opiate Screen Not Detected (NotDetected); Oxycodone Screen Not Detected (NotDetected); Phencyclidine (PCP) Not Detected (NotDetected); THC/Cannabinoid Screen Not Detected (NotDetected); Tricyclic Screen Not Detected (NotDetected)
[2022-01-22] MEDS ORDERED: Piperacillin/Tazobactam 3.375 GM VIAL ONE (14:43)
[2022-01-22] MEDS ORDERED: Meropenem 1 GM in Sodium Chloride 0.9% 100 ML IVPB SCH (14:45)
[2022-01-22] MEDS ORDERED: Ondansetron PF 4 MG/2 ML Vial IVP PRN (16:06)
[2022-01-22] MEDS ORDERED: Acetaminophen 325 MG TAB PO PRN (16:06)
[2022-01-22] MEDS ORDERED: Acetaminophen 650 MG Suppository PR PRN (16:06)
[2022-01-22] MEDS ORDERED: Calcium Carbonate 500 MG ChewTAB PO PRN (16:06)
[2022-01-22] MEDS ORDERED: Ondansetron ODT 4 MG TAB PO PRN (16:06)
[2022-01-22 16:21] LABS: Bacteria/HPF 4+ HPF (None Seen); Bilirubin Negative (Negative); Blood, Urine 2+ (Negative); Glucose, Urine (Dipstick) Normal (Negative); Ketone, Urine 20 mg/dL (Negative); Leukocyte 500 Leu/uL (Negative); Nitrite Negative (Negative); Protein, Urine (Dipstick) 70 mg/dL (Neg-Trace); RBC/HPF 21-50 HPF (0-3); Specific Gravity, Urine 1.018 (1.002-1.036); Urobilinogen Normal mg/dL (Less than 2); WBC/HPF Greater than 50 HPF (0-3)
[2022-01-22 16:22] LABS: Clarity Turbid (Clear)
[2022-01-22 16:33] VITALS: BMI 30.2
[2022-01-22] MEDS: Piperacillin/Tazobactam 3.375 GM in Sodium Chloride 0.9% 100 ML IVPB SCH (21:54)
[2022-01-22] MEDS: Simvastatin 10 MG TAB PO SCH (21:55)
[2022-01-22] MEDS: LACTINEX 1 TAB PO SCH (21:55)
[2022-01-22] MEDS: Cholecalciferol 1,000 UNITS (25 MCG) TAB PO SCH (21:55)
[2022-01-23] MEDS: Piperacillin/Tazobactam 3.375 GM in Sodium Chloride 0.9% 100 ML IVPB SCH ×3 (04:16→20:54)
[2022-01-23] MEDS: Ferrous Sulfate 325 MG TAB PO SCH (07:46)
[2022-01-23] MEDS: Enoxaparin Sodium 40 MG/0.4 ML SYRINGE SC SCH (07:46)
[2022-01-23] MEDS: Polyethylene Glycol 3350 17 GM Packet PO SCH (07:46)
[2022-01-23 08:09] LABS: Anion Gap 14 mmol/L (10-20); BUN (Urea Nitrogen) 16 mg/dL (9.8-20.1); Calc. Creatinine Clearance 99 mL/min (70-130); Calcium 8.2 mg/dL (7.8-10.44); Carbon Dioxide 18 mmol/L (23-31); Chloride 112 mmol/L (98-107); Glucose 85 mg/dL (83-110); Potassium 4.3 mmol/L (3.5-5.1); Sodium 140 mmol/L (136-145)
[2022-01-23 10:21] LABS: Burr Cells SLIGHT = 2-5 cells (100X) (0-1/hpf); Hemoglobin 13.5 g/dL (12.0-16.0); Hypochromia SLIGHT = 6-15 cells (100X) (0-5/hpf); Lymphocytes 24 % (21-51); MDiff Complete? YES; Macrocytosis SLIGHT = 6-15 cells (100X) (0-5/hpf); Mean Corpuscular HGB CONC 31.7 g/dL (32.0-36.0); Mean Corpuscular Hemoglobin 32.2 pg (27.0-31.0); Mean Platelet Volume 7.5 fL (7.4-10.4); Monocytes 9 % (0-10); Neutrophil 67 % (42-75); Ovalocytes SLIGHT = 2-5 cells (100X) (0-1/hpf); Platelet Count 242 thou/uL (130-400); Platelet Morphology Comment Appears Adequate; Polychromasia SLIGHT = 2-3 cells (100X) (0-2/hpf); RBC Distribution Width 13.3 % (11.5-14.5); Tear Drops SLIGHT = 2-5 cells (100X) (0-1/hpf); White Blood Cell (WBC) Count 7.4 thou/uL (4.8-10.8)
[2022-01-23] MEDS: LACTINEX 1 TAB PO SCH (20:50)
[2022-01-23] MEDS: Cholecalciferol 1,000 UNITS (25 MCG) TAB PO SCH (20:50)
[2022-01-23] MEDS: Simvastatin 10 MG TAB PO SCH (21:11)
[2022-01-24] MEDS: Piperacillin/Tazobactam 3.375 GM in Sodium Chloride 0.9% 100 ML IVPB SCH ×3 (04:33→20:35)
[2022-01-24] MEDS: Polyethylene Glycol 3350 17 GM Packet PO SCH (07:57)
[2022-01-24] MEDS: Enoxaparin Sodium 40 MG/0.4 ML SYRINGE SC SCH (07:57)
[2022-01-24] MEDS: Cholecalciferol 1,000 UNITS (25 MCG) TAB PO SCH (20:35)
[2022-01-24] MEDS: LACTINEX 1 TAB PO SCH (20:35)
[2022-01-24] MEDS: Simvastatin 10 MG TAB PO SCH (20:43)
[2022-01-25] MEDS: Piperacillin/Tazobactam 3.375 GM in Sodium Chloride 0.9% 100 ML IVPB SCH ×2 (04:23→13:21)
[2022-01-25 07:39] VITALS: BP 140/69; TEMP 98.4
[2022-01-25] MEDS: Enoxaparin Sodium 40 MG/0.4 ML SYRINGE SC SCH (09:15)
[2022-01-25] MEDS: Polyethylene Glycol 3350 17 GM Packet PO SCH (09:15)
[2022-01-25] MEDS: Ferrous Sulfate 325 MG TAB PO SCH (09:15)
== END 2022-01-25 18:55 | disposition home or self-care (01) | DRG 689 ==
LOC: ERS 12:04 → T4-B 15:03 → OBSVTOIN 16:34
PROVIDERS: ADMIT Student in an Organized Health Care Education/Training Program; ATTEND Emergency Medicine
DX: N39.0 Urinary tract infection, site not specified (principal); G93.41 Metabolic encephalopathy; G81.91 Hemiplegia, unspecified affecting right dominant side; Z16.24 Resistance to multiple antibiotics; Z20.822 Contact with and (suspected) exposure to COVID-19; F03.90 Unspecified dementia, unspecified severity, without behavioral disturbance, psychotic disturbance, mood disturbance, and anxiety; E78.5 Hyperlipidemia, unspecified; K59.09 Other constipation; Z87.820 Personal history of traumatic brain injury; Z87.442 Personal history of urinary calculi; Z79.899 Other long term (current) drug therapy; Z87.440 Personal history of urinary (tract) infections; I25.2 Old myocardial infarction; Z90.710 Acquired absence of both cervix and uterus; Z82.49 Family history of ischemic heart disease and other diseases of the circulatory system; Z98.890 Other specified postprocedural states; Z87.891 Personal history of nicotine dependence; Z74.01 Bed confinement status
CPT/HCPCS: 36415; 36416; 51701; 70450; 71045; 80048; 80053; 80306; 80307; 81003; 81015; 83690; 84145; 84443; 84484; 85025; 86140; 87086; 93005; 96361; 96365; J1650; J2185; J2543; J3490; U0003; U0005

== ENCOUNTER 2022-03-26 19:38 | Inpatient (IN) | payer MEDICARE, MEDICAID ==
[~2022-03-26 19:38] MED LIST changes: +Heparin 1,000 UNITS/ML VIAL ONE; -Iopamidol 370 76% 100 ML VIAL ONE
[2022-03-26 20:39] LABS: #Eosinphils 0.1 thou/uL (0.0-0.7); #Lymphocytes 1.2 thou/uL (1.20-3.40); #Monocytes 0.9 thou/uL (0.11-0.59); #Neutrophils 10.1 thou/uL (1.40-6.50); %Basophils 0.1 % (0.0-1.0); %Eosinophils 0.5 % (0.0-10.0); %Lymphocytes 9.7 % (21.0-51.0); %Monocytes 7.2 % (0.0-10.0); %Neutrophils 82.4 % (42.0-75.0); Hemoglobin 12.5 g/dL (12.0-16.0); Mean Corpuscular HGB CONC 32.7 g/dL (32.0-36.0); Mean Corpuscular Hemoglobin 32.7 pg (27.0-31.0); Mean Platelet Volume 7.1 fL (7.4-10.4); Platelet Count 245 thou/uL (130-400); RBC Distribution Width 13.6 % (11.5-14.5); Red Blood Cell (RBC) Count 3.83 mill/uL (4.20-5.40); White Blood Cell (WBC) Count 12.3 thou/uL (4.8-10.8)
[2022-03-26 21:00] LABS: ALT (SGPT) 10 U/L (8-55); AST (SGOT) 12 U/L (5-34); Albumin 3.5 g/dL (3.4-4.8); Alkaline Phosphatase 104 U/L (40-110); Anion Gap 12 mmol/L (10-20); BUN (Urea Nitrogen) 16 mg/dL (9.8-20.1); Bilirubin, Total 0.4 mg/dL (0.2-1.2); Calc. Creatinine Clearance 0 mL/min (70-130); Calcium 8.5 mg/dL (7.8-10.44); Carbon Dioxide 29 mmol/L (23-31); Chloride 104 mmol/L (98-107); Estimated GFR 88; Globulin 3.4 g/dL (2.4-3.5); Glucose 125 mg/dL (83-110); Potassium 3.8 mmol/L (3.5-5.1); Protein, Total 6.9 g/dL (5.8-8.1); Sodium 141 mmol/L (136-145)
[2022-03-26 21:01] LABS: Bacteria/HPF 4+ HPF (None Seen); Bilirubin Negative (Negative); Blood, Urine Negative (Negative); Clarity Turbid (Clear); Glucose, Urine (Dipstick) Normal (Negative); Ketone, Urine Negative (Negative); Leukocyte 500 Leu/uL (Negative); Nitrite 2+ (Negative); Protein, Urine (Dipstick) 30 mg/dL (Neg-Trace); RBC/HPF 0-3 HPF (0-3); Specific Gravity, Urine 1.019 (1.002-1.036); Squamous Epithelial 0-3 HPF (0-3); WBC/HPF Greater than 50 HPF (0-3); pH, Urine 7.5 (5.0-9.0)
[2022-03-26] MEDS ORDERED: Cefepime 2 GM VIAL ONE (21:28)
[2022-03-26] MEDS ORDERED: cefTRIAXone\\ROCEPHIN 1 GM VIAL ONE (22:13)
[2022-03-27] MEDS ORDERED: Acetaminophen 650 MG Suppository PR PRN (05:23)
[2022-03-27] MEDS ORDERED: Ondansetron PF 4 MG/2 ML Vial IVP PRN (05:23)
[2022-03-27] MEDS ORDERED: Ondansetron ODT 4 MG TAB PO PRN (05:23)
[2022-03-27] MEDS ORDERED: Vancomycin 1.5 GRAM/300 ML BAG IVPB SCH (06:45)
[2022-03-27] MEDS ORDERED: Meropenem 1 GM in Sodium Chloride 0.9% 100 ML IVPB SCH (06:45)
[2022-03-27] MEDS: Sodium Chloride 0.9% 1,000 ML IV SCH ×2 (06:49→21:07)
[2022-03-27 08:05] VITALS: BMI 26.5
[2022-03-27] MEDS ORDERED: Cefepime 2 GM in Sodium Chloride 0.9% 100 ML IVPB SCH (09:00)
[2022-03-27] MEDS: Vancomycin 1.5 GRAM/300 ML BAG 1.5 GM in Premix Bag 1 BAG IVPB SCH (10:10)
[2022-03-27] MEDS: Enoxaparin Sodium 40 MG/0.4 ML SYRINGE SC SCH (10:13)
[2022-03-27] MEDS: Meropenem 1 GM in Sodium Chloride 0.9% 100 ML IVPB SCH ×2 (14:05→21:05)
[2022-03-27] MEDS: Acetaminophen 325 MG TAB PO PRN (14:05)
[2022-03-27] MEDS ORDERED: Senokot S 8.6-50 MG TAB PO SCH (15:15)
[2022-03-27] MEDS: Polyethylene Glycol 3350 17 GM Packet PO SCH (15:29)
[2022-03-27] MEDS: Senokot S 8.6-50 MG TAB PO SCH (21:00)
[2022-03-27] MEDS: Cholecalciferol 1,000 UNITS (25 MCG) TAB PO SCH (21:00)
[2022-03-27] MEDS: Simvastatin 10 MG TAB PO SCH (21:00)
[2022-03-27] MEDS ORDERED: LACTINEX 1 TAB PO SCH (21:00)
[2022-03-27] MEDS: Floranex 1 GM Packet PO SCH (21:44)
[2022-03-28] MEDS: Sodium Chloride 0.9% 1,000 ML IV SCH ×2 (02:28→15:36)
[2022-03-28] MEDS: Meropenem 1 GM in Sodium Chloride 0.9% 100 ML IVPB SCH ×3 (05:17→21:28)
[2022-03-28 06:51] LABS: Anion Gap 12 mmol/L (10-20); BUN (Urea Nitrogen) 9 mg/dL (9.8-20.1); Calc. Creatinine Clearance 108 mL/min (70-130); Carbon Dioxide 23 mmol/L (23-31); Chloride 109 mmol/L (98-107); Estimated GFR 93; Glucose 108 mg/dL (83-110); Potassium 4.1 mmol/L (3.5-5.1); Sodium 140 mmol/L (136-145)
[2022-03-28 08:08] LABS: #Eosinphils 0.4 thou/uL (0.0-0.7); #Lymphocytes 1.3 thou/uL (1.20-3.40); #Monocytes 0.8 thou/uL (0.11-0.59); #Neutrophils 7.2 thou/uL (1.40-6.50); %Eosinophils 4.1 % (0.0-10.0); %Lymphocytes 13.6 % (21.0-51.0); %Neutrophils 74.3 % (42.0-75.0); Hemoglobin 11.8 g/dL (12.0-16.0); Mean Corpuscular HGB CONC 32.7 g/dL (32.0-36.0); Mean Corpuscular Hemoglobin 32.9 pg (27.0-31.0); Mean Platelet Volume 7.7 fL (7.4-10.4); Platelet Count 218 thou/uL (130-400); RBC Distribution Width 13.4 % (11.5-14.5); Red Blood Cell (RBC) Count 3.57 mill/uL (4.20-5.40); White Blood Cell (WBC) Count 9.7 thou/uL (4.8-10.8)
[2022-03-28] MEDS: Polyethylene Glycol 3350 17 GM Packet PO SCH (08:19)
[2022-03-28] MEDS: Vancomycin 1.5 GRAM/300 ML BAG 1.5 GM in Premix Bag 1 BAG IVPB SCH (08:19)
[2022-03-28] MEDS: Senokot S 8.6-50 MG TAB PO SCH ×2 (08:19→21:30)
[2022-03-28] MEDS: Enoxaparin Sodium 40 MG/0.4 ML SYRINGE SC SCH (08:19)
[2022-03-28] MEDS: Cholecalciferol 1,000 UNITS (25 MCG) TAB PO SCH (21:29)
[2022-03-28] MEDS: Docusate 100 MG CAP PO SCH (21:29)
[2022-03-28] MEDS: Simvastatin 10 MG TAB PO SCH (21:30)
[2022-03-28] MEDS: Floranex 1 GM Packet PO SCH (21:30)
[2022-03-29] MEDS: Sodium Chloride 0.9% 1,000 ML IV SCH ×4 (02:00→21:00)
[2022-03-29] MEDS: Meropenem 1 GM in Sodium Chloride 0.9% 100 ML IVPB SCH ×3 (05:18→20:58)
[2022-03-29] MEDS: Polyethylene Glycol 3350 17 GM Packet PO SCH (08:31)
[2022-03-29] MEDS: Ascorbic Acid 500 mg Chewable Tablet PO SCH (08:31)
[2022-03-29] MEDS: Enoxaparin Sodium 40 MG/0.4 ML SYRINGE SC SCH (08:31)
[2022-03-29] MEDS: Docusate 100 MG CAP PO SCH ×2 (08:31→20:59)
[2022-03-29] MEDS: Senokot S 8.6-50 MG TAB PO SCH ×2 (08:31→20:59)
[2022-03-29 08:51] LABS: Vancomycin, Trough 11.2 ug/mL
[2022-03-29] MEDS: Vancomycin 1.5 GRAM/300 ML BAG 1.5 GM in Premix Bag 1 BAG IVPB SCH (09:33)
[2022-03-29] MEDS: Acetaminophen 325 MG TAB PO PRN (16:39)
[2022-03-29] MEDS: Floranex 1 GM Packet PO SCH (20:59)
[2022-03-29] MEDS: Cholecalciferol 1,000 UNITS (25 MCG) TAB PO SCH (20:59)
[2022-03-29] MEDS: Simvastatin 10 MG TAB PO SCH (20:59)
[2022-03-30] MEDS: Meropenem 1 GM in Sodium Chloride 0.9% 100 ML IVPB SCH ×3 (05:02→20:46)
[2022-03-30] MEDS: Docusate 100 MG CAP PO SCH ×2 (08:33→20:37)
[2022-03-30] MEDS: Enoxaparin Sodium 40 MG/0.4 ML SYRINGE SC SCH (08:33)
[2022-03-30] MEDS: Ascorbic Acid 500 mg Chewable Tablet PO SCH (08:33)
[2022-03-30] MEDS: Polyethylene Glycol 3350 17 GM Packet PO SCH (08:33)
[2022-03-30] MEDS: Senokot S 8.6-50 MG TAB PO SCH ×2 (08:33→20:36)
[2022-03-30] MEDS ORDERED: Ziprasidone 20 MG CAP PO SCH ×4 (11:30→21:00)
[2022-03-30] MEDS: Sodium Chloride 0.9% 1,000 ML IV SCH (12:43)
[2022-03-30] MEDS: Acetaminophen 325 MG TAB PO PRN (13:18)
[2022-03-30] MEDS: Cholecalciferol 1,000 UNITS (25 MCG) TAB PO SCH (20:36)
[2022-03-30] MEDS: Simvastatin 10 MG TAB PO SCH (20:37)
[2022-03-30] MEDS: Floranex 1 GM Packet PO SCH (20:37)
[2022-03-31] MEDS: Sodium Chloride 0.9% 1,000 ML IV SCH (00:43)
[2022-03-31] MEDS: Meropenem 1 GM in Sodium Chloride 0.9% 100 ML IVPB SCH ×2 (05:07→13:46)
[2022-03-31 07:57] LABS: Anion Gap 14 mmol/L (10-20); BUN (Urea Nitrogen) 11 mg/dL (9.8-20.1); Calc. Creatinine Clearance 114 mL/min (70-130); Calcium 8.5 mg/dL (7.8-10.44); Carbon Dioxide 24 mmol/L (23-31); Chloride 109 mmol/L (98-107); Estimated GFR 94; Glucose 103 mg/dL (83-110); Potassium 3.8 mmol/L (3.5-5.1); Sodium 143 mmol/L (136-145)
[2022-03-31 08:18] VITALS: BP 159/82; TEMP 97.9
[2022-03-31 08:54] LABS: #Eosinphils 0.3 thou/uL (0.0-0.7); #Lymphocytes 1.4 thou/uL (1.20-3.40); #Monocytes 0.8 thou/uL (0.11-0.59); #Neutrophils 5.5 thou/uL (1.40-6.50); %Basophils 0.4 % (0.0-1.0); %Eosinophils 3.3 % (0.0-10.0); %Monocytes 10.1 % (0.0-10.0); %Neutrophils 69.2 % (42.0-75.0); Hemoglobin 11.5 g/dL (12.0-16.0); Mean Corpuscular HGB CONC 31.2 g/dL (32.0-36.0); Mean Corpuscular Hemoglobin 31.7 pg (27.0-31.0); Mean Platelet Volume 6.8 fL (7.4-10.4); Platelet Count 253 thou/uL (130-400); RBC Distribution Width 13.2 % (11.5-14.5); Red Blood Cell (RBC) Count 3.64 mill/uL (4.20-5.40); White Blood Cell (WBC) Count 7.9 thou/uL (4.8-10.8)
[2022-03-31] MEDS: Senokot S 8.6-50 MG TAB PO SCH (10:18)
[2022-03-31] MEDS: Ascorbic Acid 500 mg Chewable Tablet PO SCH (10:18)
[2022-03-31] MEDS: Docusate 100 MG CAP PO SCH (10:18)
[2022-03-31] MEDS: Enoxaparin Sodium 40 MG/0.4 ML SYRINGE SC SCH (10:19)
[2022-03-31] MEDS: Polyethylene Glycol 3350 17 GM Packet PO SCH (10:19)
== END 2022-03-31 13:55 | disposition swing bed (61) | DRG 871 ==
LOC: ERS 19:38 → T4-B 23:05 → OBSVTOIN 03-29 10:04
PROVIDERS: ADMIT Family Medicine; ATTEND Hospitalist
PROC: B548ZZA Ultrasonography of Superior Vena Cava, Guidance (ICD-10-PCS; principal; 2022-03-29)
PROC: 02HV33Z Insertion of Infusion Device into Superior Vena Cava, Percutaneous Approach (ICD-10-PCS; 2022-03-29)
PROC: 3E03329 Introduction of Other Anti-infective into Peripheral Vein, Percutaneous Approach (ICD-10-PCS; 2022-03-29)
DX: A41.51 Sepsis due to Escherichia coli [E. coli] (principal); G93.41 Metabolic encephalopathy; N39.0 Urinary tract infection, site not specified; I69.951 Hemiplegia and hemiparesis following unspecified cerebrovascular disease affecting right dominant side; N04.9 Nephrotic syndrome with unspecified morphologic changes; Z20.822 Contact with and (suspected) exposure to COVID-19; A41.59 Other Gram-negative sepsis; F03.90 Unspecified dementia, unspecified severity, without behavioral disturbance, psychotic disturbance, mood disturbance, and anxiety; I25.10 Atherosclerotic heart disease of native coronary artery without angina pectoris; F17.210 Nicotine dependence, cigarettes, uncomplicated; N20.0 Calculus of kidney; E78.5 Hyperlipidemia, unspecified; J43.9 Emphysema, unspecified; I25.2 Old myocardial infarction; Z87.820 Personal history of traumatic brain injury; Z79.899 Other long term (current) drug therapy
CPT/HCPCS: 36415; 36569; 51701; 71045; 74176; 80048; 80053; 80202; 81003; 81015; 83605; 84145; 85025; 87040; 87077; 87086; 87186; 93005; 96365; 96372; 96375; 96376; C1751; G0378; J0692; J0696; J1644; J1650; J2185; J3370; J3490; J7050; U0003; U0005

== ENCOUNTER 2023-04-04 07:54 | Day surgery (SDC) | payer MEDICARE, MEDICAID ==
[2023-03-31 12:50] VITALS: BMI 24.5
[2023-04-04] MEDS ORDERED: Ertapenem 1 GM in Sodium Chloride 0.9% 100 ML IVPB SCH (09:30)
[2023-04-04] MEDS ORDERED: Iopamidol 30 ML ONE (14:13)
[2023-04-04] MEDS ORDERED: Dexamethasone 20 MG/5 ML VIAL ONE (14:50)
[2023-04-04] MEDS ORDERED: Lidocaine 1% PF 5 ML VIAL ONE (14:50)
[2023-04-04] MEDS ORDERED: PROPOFOL 200 MG/20 ML VIAL ONE (14:50)
[2023-04-04] MEDS ORDERED: Ondansetron PF 4 MG/2 ML Vial ONE (14:50)
[2023-04-04] MEDS ORDERED: Ondansetron HCl/PF 4 MG/2 ML Vial IVP PRN (16:31)
[2023-04-04] MEDS ORDERED: Promethazine HCl 25 MG/ML VIAL IM PRN (16:31)
== END 2023-04-04 18:19 | disposition home health service (06) ==
LOC: SDC 07:54
PROVIDERS: ATTEND Urology
PROC: 0TC08ZZ Extirpation of Matter from Right Kidney, Via Natural or Artificial Opening Endoscopic (ICD-10-PCS; principal; 2023-04-04)
DX: N20.2 Calculus of kidney with calculus of ureter (principal)
CPT/HCPCS: 74420; C1747; C2617; J1100; J1335; J2405; J2704; J3490; Q9967

== ENCOUNTER 2024-06-23 16:29 | Inpatient (IN) | payer MEDICARE, MEDICAID ==
[~2024-06-23 16:29] MED LIST changes: -Heparin 1,000 UNITS/ML VIAL ONE; +Iopamidol-370 76% 500 ML MDV (1 ML CHARGE) ONE
[2024-06-23] MEDS ORDERED: Sodium Chloride 0.9% 100 ML ONE (17:14)
[2024-06-23] MEDS ORDERED: Acetaminophen 500 MG TAB ONE (17:14)
[2024-06-23] MEDS ORDERED: Ketorolac Tromethamine 30 MG (1 mL) VIAL ONE (17:14)
[2024-06-23] MEDS ORDERED: Piperacillin/Tazobactam 4.5 GM VIAL ONE (17:14)
[2024-06-23] MEDS ORDERED: Acetaminophen 650 MG Suppository ONE (17:37)
[2024-06-23 17:52] LABS: #Basophils 0.05 10x3/uL (0.0-0.2); %Basophils 0.2 % (0.0-1.0); %Eosinophils 0.4 % (0.0-10.0); %Lymphocytes 1.5 % (21.0-51.0); %Monocytes 0.6 % (0.0-10.0); %Neutrophils 95.3 % (42.0-75.0); Hematocrit 39.1 % (36.0-47.0); Mean Corpuscular HGB CONC 30.7 g/dL (32.0-36.0); Mean Corpuscular Hemoglobin 31.7 pg (27.0-31.0); Mean Corpuscular Volume 103.2 fL (78.0-98.0); Mean Platelet Volume 9.9 fL (7.4-10.4); Platelet Count 242 10x3/uL (130-400); RBC Distribution Width 14.7 % (11.5-14.5); Red Blood Cell (RBC) Count 3.79 mill/uL (4.20-5.40)
[2024-06-23 18:11] LABS: ALT (SGPT) 15 U/L (8-55); AST (SGOT) 24 U/L (5-34); Albumin 2.5 g/dL (3.4-4.8); Alkaline Phosphatase 101 U/L (40-110); Anion Gap 19 mmol/L (10-20); BUN (Urea Nitrogen) 16 mg/dL (9.8-20.1); Bilirubin, Total 0.7 mg/dL (0.2-1.2); Calc. Creatinine Clearance 0 mL/min (70-130); Calcium 7.7 mg/dL (7.8-10.44); Carbon Dioxide 18 mmol/L (23-31); Chloride 109 mmol/L (98-107); Estimated GFR 83; Globulin 3.1 g/dL (2.4-3.5); Glucose 151 mg/dL (83-110); Protein, Total 5.6 g/dL (5.8-8.1); Sodium 143 mmol/L (136-145)
[2024-06-23 18:15] LABS: Troponin I 0.073 ng/mL (< 0.028)
[2024-06-23] MEDS ORDERED: NOREPINEPHRINE 8 MG/250 ML-D5W 250 ML ONE (18:34)
[2024-06-23] MEDS ORDERED: EPINEPHrine 1 MG/10 ML Abboject SYRINGE ONE (18:52)
[2024-06-23 19:03] LABS: Bacteria/HPF None Seen HPF (None Seen); Bilirubin Negative (Negative); Blood, Urine 2+ (Negative); CAUTI Indications for Culture Alt mental st,lethar; Clarity Turbid (Clear); Glucose, Urine (Dipstick) Normal (Negative); Ketone, Urine Trace mg/dL (Negative); Leukocyte 500 Leu/uL (Negative); Nitrite Negative (Negative); Protein, Urine (Dipstick) 50 mg/dL (Neg-Trace); RBC/HPF Greater than 50 HPF (0-3); Specific Gravity, Urine 1.006 (1.002-1.036); Squamous Epithelial 0-3 HPF (0-3); Urobilinogen Normal mg/dL (Less than 2); WBC/HPF Greater than 50 HPF (0-3)
[2024-06-23 19:05] LABS: Urine Culture Reflex Yes Yes
[2024-06-23] MEDS ORDERED: Vasopressin 20 UNITS/ML VIAL ONE ×2 (19:45→22:52)
[2024-06-23] MEDS ORDERED: KETAMINE 100 MG/ML (5ML VIAL) ONE (19:59)
[2024-06-23] MEDS ORDERED: fentaNYL 50 mcg/mL 1 mL Vial ONE (20:26)
[2024-06-23 20:31] LABS: Analyzer IN Cardio ER; Base Excess (BEa) -11.3 mEq/L (-2.0 to +3.0); CO2 Tension 28.6 mmHg (35.0-45.0); Calcium, Ionized (arterial) 1.11 mmol/L (1.12-1.30); Carboxyhemoglobin (COHb) 0.3 gm% (0.0-3.0); Hematocrit-ABG 36 % (36.0-47.0); Hemoglobin (Hb) 12.4 g/dL (12.0-16.0); O2 Tension (PaO2), arterial 331.4 mmHg (> 60.0); Potassium - ABG Lab 3.02 mmol/L (3.70-5.30); pH, Arterial 7.298 (7.35-7.45)
[2024-06-23 20:35] LABS: Actual Bicarbonate (HCO3a) 13.7 mEq/L (22-28); Puncture Site Right Radial artery
[2024-06-23] MEDS ORDERED: Sodium Bicarb 50 MEQ/50 ML Abboject 8.4% SYRINGE ONE ×2 (21:01→21:44)
[2024-06-23] MEDS ORDERED: Acetaminophen 325 MG TAB PO PRN (21:04)
[2024-06-23] MEDS ORDERED: Vasopressin 20 UNITS in Sodium Chloride 0.9% 50 ML IV PRN (21:06)
[2024-06-23] MEDS ORDERED: Phenylephrine 40 MG in Sodium Chloride 0.9% 250 ML 250 ML IVPB PRN (21:06)
[2024-06-23] MEDS ORDERED: Ventilator Sedation Protocol 1 EACH FS SCH (21:15)
[2024-06-23] MEDS ORDERED: Magnesium 2 GM/50 ML BAG (IN WATER) ONE (21:17)
[2024-06-23] MEDS ORDERED: NS 0.9% w/ 20 MEQ KCL 1,000 ML ONE (21:21)
[2024-06-23 21:25] LABS: Lactic Acid 6.52 mmol/L (0.5-2.2)
[2024-06-23] MEDS ORDERED: Propofol BOLUS 1,000 MG/100 ML VIAL IV PRN (21:30)
[2024-06-23] MEDS ORDERED: Fentanyl BOLUS 250 ML IVPB PRN (21:30)
[2024-06-23] MEDS ORDERED: Morphine 2 MG/ML VIAL SLOW IVP PRN (21:30)
[2024-06-23] MEDS ORDERED: Propofol 1,000 MG/100 ML VIAL IV PRN (21:30)
[2024-06-23] MEDS ORDERED: PROPOFOL 40 ML ONE (21:35)
[2024-06-23] MEDS ORDERED: fentaNYL PF 100 MCG/2 ML SYRINGE ONE ×2 (21:35→23:14)
[2024-06-23] MEDS ORDERED: Albumin 5% 500 ML ONE (21:43)
[2024-06-23] MEDS ORDERED: Dexmedetomidine In 0.9 % NaCl 100 ML IV SCH (21:45)
[2024-06-23] MEDS ORDERED: PHENYLEPHRINE-NS 100 MCG/ML 10 ML SYRINGE ONE ×3 (22:29→23:18)
[2024-06-23] MEDS ORDERED: Fentanyl 250 MCG/5 ML VIAL ONE (22:30)
[2024-06-23] MEDS ORDERED: Midazolam HCl 2 mg/2 ml Vial ONE (22:56)
[2024-06-23] MEDS ORDERED: Esmolol 100 MG/10 ML VIAL ONE (23:17)
[2024-06-24] MEDS ORDERED: Lidocaine 1% PF 5 ML VIAL ONE (00:10)
[2024-06-24] MEDS ORDERED: Iopamidol 30 ML ONE (00:10)
[2024-06-24] MEDS ORDERED: Sodium Bicarbonate 2.5 MEQ/5 ML SDV ONE (00:10)
[2024-06-24] MEDS ORDERED: Sodium Chloride 0.9% 500 ML ONE (00:11)
[2024-06-24 00:12] VITALS: BMI 25.6
[2024-06-24 00:14] LABS: Hematocrit 31.5 % (36.0-47.0); Mean Corpuscular HGB CONC 31.7 g/dL (32.0-36.0); Mean Corpuscular Hemoglobin 31.8 pg (27.0-31.0); Mean Corpuscular Volume 100.3 fL (78.0-98.0); Mean Platelet Volume 10.2 fL (7.4-10.4); Platelet Count 214 10x3/uL (130-400); RBC Distribution Width 14.9 % (11.5-14.5); Red Blood Cell (RBC) Count 3.14 mill/uL (4.20-5.40)
[2024-06-24 00:30] LABS: ALT (SGPT) 22 U/L (8-55); AST (SGOT) 33 U/L (5-34); Albumin 2.3 g/dL (3.4-4.8); Alkaline Phosphatase 87 U/L (40-110); Anion Gap 18 mmol/L (10-20); BUN (Urea Nitrogen) 15 mg/dL (9.8-20.1); Calc. Creatinine Clearance 71 mL/min (70-130); Calcium 7.7 mg/dL (7.8-10.44); Carbon Dioxide 15 mmol/L (23-31); Chloride 115 mmol/L (98-107); Estimated GFR 85; Globulin 2.1 g/dL (2.4-3.5); Glucose 172 mg/dL (83-110); Potassium 2.7 mmol/L (3.5-5.1); Protein, Total 4.4 g/dL (5.8-8.1); Sodium 145 mmol/L (136-145)
[2024-06-24 00:39] LABS: Lactic Acid 10.23 mmol/L (0.5-2.2)
[2024-06-24 00:40] LABS: Band 22 % (5-11); Burr Cells SLIGHT = 2-5 cells HPF (0-1); Large Platelets 1.9 % (0-5); Lymphocytes 1 % (21-51); Metamyelocyte 8 % (0-0); Monocytes 1 % (0-10); Neutrophil 68 % (42-75); Platelet Adequacy Comment Platelets Normal; Polychromasia SLIGHT = 2-3 cells HPF (0-2); Smudge Cells 0.9 %
[2024-06-24] MEDS: Lactated Ringer's 1,000 ML IV SCH ×4 (00:47→10:13)
[2024-06-24] MEDS: Esmolol 2,500 MG/250 ML 250 ML IVPB SCH (00:47)
[2024-06-24] MEDS: NOREPINEPHRINE 8 MG/250 ML-D5W 250 ML IVPB PRN (00:47)
[2024-06-24] MEDS: Phenylephrine 40 MG/NS 250 ML 40 MG in Premix 1 BAG IVPB SCH (01:17)
[2024-06-24] MEDS: Potassium Chloride 40 MEQ in Premix 1 BAG IVPB SCH (01:17)
[2024-06-24] MEDS: Hydrocortisone Sod Succ/PF 100 mg/2 ml Vial IVP SCH ×2 (01:18→06:20)
[2024-06-24] MEDS: Sodium Bicarb 50 MEQ/50 ML Abboject 8.4% SYRINGE IVP SCH ×2 (01:18→06:20)
[2024-06-24] MEDS: Albumin 25% 25 GM (100 mL) BOT IVPB SCH (01:18)
[2024-06-24] MEDS: Piperacillin/Tazobactam 3.375 GM in Sodium Chloride 0.9% 100 ML IVPB SCH ×2 (01:18→02:15)
[2024-06-24] MEDS ORDERED: Iopamidol 15 ML ONE (01:25)
[2024-06-24 01:30] LABS: Magnesium 2.1 mg/dL (1.6-2.6)
[2024-06-24] MEDS: Vancomycin (BATCH) 2 GM in Premix 1 BAG IVPB SCH (02:38)
[2024-06-24] MEDS: Metoprolol Tartrate 5 MG (5 mL) VIAL IVP SCH (02:38)
[2024-06-24] MEDS: Metoprolol Tartrate 5 MG (5 mL) VIAL ONE (02:38)
[2024-06-24] MEDS: Vancomycin HCl 750 MG in Sodium Chloride 0.9% 250 ML 250 ML IVPB SCH (03:45)
[2024-06-24 05:05] LABS: Hematocrit 30.6 % (36.0-47.0); Hemoglobin 9.8 g/dL (12.0-16.0); Mean Platelet Volume 10.6 fL (7.4-10.4); Platelet Count 165 10x3/uL (130-400); Red Blood Cell (RBC) Count 3.06 mill/uL (4.20-5.40)
[2024-06-24 05:31] LABS: ALT (SGPT) 37 U/L (8-55); AST (SGOT) 58 U/L (5-34); Albumin 2.6 g/dL (3.4-4.8); Alkaline Phosphatase 79 U/L (40-110); Anion Gap 19 mmol/L (10-20); BUN (Urea Nitrogen) 16 mg/dL (9.8-20.1); Bilirubin, Total 1.5 mg/dL (0.2-1.2); Calc. Creatinine Clearance 69 mL/min (70-130); Calcium 7.2 mg/dL (7.8-10.44); Carbon Dioxide 18 mmol/L (23-31); Chloride 114 mmol/L (98-107); Estimated GFR 83; Globulin 1.8 g/dL (2.4-3.5); Glucose 183 mg/dL (83-110); Potassium 3.3 mmol/L (3.5-5.1); Protein, Total 4.4 g/dL (5.8-8.1); Sodium 148 mmol/L (136-145)
[2024-06-24 05:51] LABS: Band 12 % (5-11); Burr Cells MODERATE= 6-15 cells HPF (0-1); Eosinophils 1 % (0-10); Lactic Acid 12.36 mmol/L (0.5-2.2); Large Platelets 1.9 % (0-5); Metamyelocyte 4 % (0-0); Monocytes 1 % (0-10); Neutrophil 82 % (42-75); Platelet Adequacy Comment Platelets Normal; Poikilocytosis MODERATE=16-30 cells HPF (0-5); Polychromasia SLIGHT = 2-3 cells HPF (0-2); Smudge Cells 0.9 %
[2024-06-24] MEDS ORDERED: Sodium Bicarbonate 150 MEQ in Dextrose 5% in Water 1,000 ML IV SCH (06:00)
[2024-06-24] MEDS: CALCIUM GLUC 1 GM/NS 50 ML 1 GM in Premix 1 BAG IVPB SCH (06:20)
[2024-06-24 07:20] LABS: Actual Bicarbonate (HCO3a) 20.6 mEq/L (22-28); Base Excess (BEa) -1.6 mEq/L (-2.0 to +3.0); CO2 Tension 27.2 mmHg (35.0-45.0); Calcium, Ionized (arterial) 1.07 mmol/L (1.12-1.30); Carboxyhemoglobin (COHb) 0.3 gm% (0.0-3.0); Hematocrit-ABG 31 % (36.0-47.0); Hemoglobin (Hb) 10.5 g/dL (12.0-16.0); O2 Tension (PaO2), arterial 88.8 mmHg (> 60.0); Potassium - ABG Lab 2.96 mmol/L (3.70-5.30); pH, Arterial 7.498 (7.35-7.45)
[2024-06-24 08:09] LABS: Puncture Site Right Brachial art
[2024-06-24] MEDS: Senokot S 8.6-50 MG TAB PER TUBE SCH (08:25)
[2024-06-24 08:40] LABS: Lactic Acid 11.77 mmol/L (0.5-2.2)
[2024-06-24 08:58] LABS: Anion Gap 22 mmol/L (10-20); BUN (Urea Nitrogen) 17 mg/dL (9.8-20.1); Calc. Creatinine Clearance 68 mL/min (70-130); Carbon Dioxide 20 mmol/L (23-31); Chloride 113 mmol/L (98-107); Potassium 3.2 mmol/L (3.5-5.1); Sodium 152 mmol/L (136-145)
[2024-06-24 08:59] LABS: ALT (SGPT) 37 U/L (8-55); AST (SGOT) 58 U/L (5-34); Albumin 2.5 g/dL (3.4-4.8); Alkaline Phosphatase 71 U/L (40-110); Bilirubin, Total 1.2 mg/dL (0.2-1.2); Calcium 7.6 mg/dL (7.8-10.44); Estimated GFR 81; Globulin 1.9 g/dL (2.4-3.5); Glucose 166 mg/dL (83-110); Protein, Total 4.4 g/dL (5.8-8.1)
[2024-06-24] MEDS ORDERED: Vancomycin 1.5 GM in Sodium Chloride 0.9% 250 ML 300 ML IVPB SCH (09:00)
[2024-06-24] MEDS: Vasopressin In 0.9 % NaCl 40 UNIT in Premix 1 BAG IV PRN (10:12)
[2024-06-24] MEDS ORDERED: Vasopressin 20 UNITS in Sodium Chloride 0.9% 50 ML IV SCH (10:15)
[2024-06-24] MEDS: Fentanyl CADD 100 ML IV SCH (11:35)
[2024-06-24] MEDS: Enoxaparin 40 MG (0.4 mL) SYRINGE SC SCH (11:41)
[2024-06-24] MEDS: Digoxin 0.5 MG/2 ML AMP SLOW IVP SCH ×3 (13:00→20:29)
[2024-06-24] MEDS: Dextrose 5% in Water 1,000 ML IV SCH (13:05)
[2024-06-24] MEDS ORDERED: Meropenem 1 GM in Sodium Chloride 0.9% 100 ML IVPB SCH (14:34)
[2024-06-24] MEDS ORDERED: Insulin Lispro 100 UNIT/ML 10 ML VIAL SC PRN (14:35)
[2024-06-24] MEDS ORDERED: Dextrose 5% in Water 1,000 ML IV PRN (14:35)
[2024-06-24] MEDS ORDERED: Dextrose 50% Abboject 50 ML SYRINGE SLOW IVP PRN (14:35)
[2024-06-24] MEDS ORDERED: Glucagon 1 MG/ML KIT IM PRN (14:35)
[2024-06-24] MEDS: Insulin Lispro 100 UNIT/ML 10 ML VIAL SC PRN (14:48)
[2024-06-24] MEDS: Meropenem 1 GM in Sodium Chloride 0.9% 100 ML IVPB SCH (14:49)
[2024-06-24 15:28] LABS: Anion Gap 18 mmol/L (10-20); BUN (Urea Nitrogen) 17 mg/dL (9.8-20.1); Calc. Creatinine Clearance 72 mL/min (70-130); Calcium 7.1 mg/dL (7.8-10.44); Carbon Dioxide 19 mmol/L (23-31); Chloride 114 mmol/L (98-107); Estimated GFR 87; Glucose 246 mg/dL (83-110); Potassium 3.5 mmol/L (3.5-5.1); Sodium 147 mmol/L (136-145)
[2024-06-24] MEDS ORDERED: Digoxin 0.5 MG/2 ML AMP SLOW IVP SCH (22:00)
[2024-06-25] MEDS: Meropenem 1 GM in Sodium Chloride 0.9% 100 ML IVPB SCH (02:09)
[2024-06-25 05:05] LABS: Vancomycin, Random 18.6 ug/mL (See Comment)
[2024-06-25 05:08] LABS: ALT (SGPT) 41 U/L (8-55); AST (SGOT) 48 U/L (5-34); Alkaline Phosphatase 94 U/L (40-110); Anion Gap 14 mmol/L (10-20); BUN (Urea Nitrogen) 18 mg/dL (9.8-20.1); Bilirubin, Total 0.6 mg/dL (0.2-1.2); Calc. Creatinine Clearance 86 mL/min (70-130); Carbon Dioxide 21 mmol/L (23-31); Chloride 111 mmol/L (98-107); Estimated GFR 91; Globulin 2.1 g/dL (2.4-3.5); Glucose 165 mg/dL (83-110); Potassium 3.6 mmol/L (3.5-5.1); Protein, Total 4.1 g/dL (5.8-8.1); Sodium 142 mmol/L (136-145)
[2024-06-25 05:12] LABS: Troponin I 1.209 ng/mL (< 0.028)
[2024-06-25 05:14] LABS: Hematocrit 27.6 % (36.0-47.0); Hemoglobin 8.8 g/dL (12.0-16.0); Mean Corpuscular HGB CONC 31.9 g/dL (32.0-36.0); Mean Corpuscular Hemoglobin 31.5 pg (27.0-31.0); Mean Corpuscular Volume 98.9 fL (78.0-98.0); Mean Platelet Volume 11.7 fL (7.4-10.4); Platelet Count 83 10x3/uL (130-400); RBC Distribution Width 15.2 % (11.5-14.5); Red Blood Cell (RBC) Count 2.79 mill/uL (4.20-5.40)
[2024-06-25 07:03] LABS: Band 10 % (5-11); Burr Cells SLIGHT = 2-5 cells HPF (0-1); Elliptocytes SLIGHT = 2-5 cells HPF (0-1); Large Platelets 2.8 % (0-5); Lymphocytes 2 % (21-51); Macrocytosis SLIGHT = 6-15 cells HPF (0-5); Metamyelocyte 5 % (0-0); Monocytes 2 % (0-10); Myelocyte 1 % (0-0); Neutrophil 81 % (42-75); Platelet Adequacy Comment Platelets Decreased; Poikilocytosis SLIGHT = 6-15 cells HPF (0-5); Polychromasia SLIGHT = 2-3 cells HPF (0-2); Smudge Cells 4.6 %
[2024-06-25 07:16] LABS: Actual Bicarbonate (HCO3a) 22.8 mEq/L (22-28); Base Excess (BEa) -2.3 mEq/L (-2.0 to +3.0); CO2 Tension 41.3 mmHg (35.0-45.0); Carboxyhemoglobin (COHb) 0.8 gm% (0.0-3.0); Hematocrit-ABG 29 % (36.0-47.0); O2 Tension (PaO2), arterial 61.5 mmHg (> 60.0); pH, Arterial 7.371 (7.35-7.45)
[2024-06-25 07:17] LABS: ALV-art Gradient 172.075 mmHg (0-20); Calcium, Ionized (arterial) 1.04 mmol/L (1.12-1.30); Potassium - ABG Lab 3.62 mmol/L (3.70-5.30); Puncture Site Arterial Line
[2024-06-25] MEDS: Amiodarone 450 MG in Dextrose 5% in Water 250 ML IVPB SCH (07:30)
[2024-06-25] MEDS: Amiodarone 150 MG/3 ML VIAL IVP SCH (07:30)
[2024-06-25] MEDS ORDERED: Digoxin 0.5 MG/2 ML AMP SLOW IVP SCH (09:00)
[2024-06-25] MEDS: Lactated Ringer's 1,000 ML IV SCH (09:31)
[2024-06-25] MEDS: Lorazepam 2 MG/ML VIAL SLOW IVP PRN (09:31)
[2024-06-25] MEDS ORDERED: Vancomycin 1 GM in Sodium Chloride 0.9% 250 ML 250 ML IVPB SCH (13:00)
[2024-06-25] MEDS: Vancomycin 1 GM in Premix 1 BAG IVPB SCH (13:04)
[2024-06-25] MEDS: Calcium Gluconate 4.6 MEQ in Sodium Chloride 0.9% 100 ML IVPB ONE (20:40)
[2024-06-26 05:49] LABS: Hematocrit 29.6 % (36.0-47.0); Hemoglobin 9.8 g/dL (12.0-16.0); Mean Corpuscular HGB CONC 33.1 g/dL (32.0-36.0); Mean Corpuscular Hemoglobin 31.8 pg (27.0-31.0); Mean Corpuscular Volume 96.1 fL (78.0-98.0); Mean Platelet Volume 13.3 fL (7.4-10.4); Platelet Count 76 10x3/uL (130-400); Red Blood Cell (RBC) Count 3.08 mill/uL (4.20-5.40)
[2024-06-26 06:17] LABS: ALT (SGPT) 39 U/L (8-55); AST (SGOT) 36 U/L (5-34); Albumin 2.1 g/dL (3.4-4.8); Alkaline Phosphatase 146 U/L (40-110); Anion Gap 11 mmol/L (10-20); BUN (Urea Nitrogen) 16 mg/dL (9.8-20.1); Bilirubin, Total 0.5 mg/dL (0.2-1.2); Calc. Creatinine Clearance 107 mL/min (70-130); Calcium 7.3 mg/dL (7.8-10.44); Carbon Dioxide 24 mmol/L (23-31); Chloride 104 mmol/L (98-107); Estimated GFR 93; Globulin 2.5 g/dL (2.4-3.5); Glucose 134 mg/dL (83-110); Potassium 3.3 mmol/L (3.5-5.1); Protein, Total 4.6 g/dL (5.8-8.1); Sodium 136 mmol/L (136-145)
[2024-06-26 06:19] LABS: Vancomycin, Random 30.8 ug/mL (See Comment)
[2024-06-26 06:35] LABS: Band 18 % (5-11); Burr Cells MODERATE= 6-15 cells HPF (0-1); Lymphocytes 1 % (21-51); Monocytes 3 % (0-10); Neutrophil 78 % (42-75); Platelet Adequacy Comment Platelets Decreased; Poikilocytosis SLIGHT = 6-15 cells HPF (0-5); Polychromasia SLIGHT = 2-3 cells HPF (0-2); Smudge Cells 3.9 %
[2024-06-26] MEDS: Dexmedetomidine In 0.9 % NaCl 100 ML IVPB SCH (11:15)
[2024-06-26 12:03] VITALS: BMI 29.0
[2024-06-26] MEDS: Albumin 25% 25 GM (100 mL) BOT IVPB SCH (12:48)
[2024-06-26] MEDS ORDERED: VANCOMYCIN IVPB PRN (15:32)
[2024-06-26] MEDS: Meropenem 1 GM in Sodium Chloride 0.9% 100 ML IVPB SCH (16:45)
[2024-06-26] MEDS ORDERED: Famotidine/PF 20 mg/2ml Vial IVPB SCH (21:00)
[2024-06-26] MEDS: Famotidine 20 MG TAB PER TUBE SCH (21:34)
[2024-06-26] MEDS: dilTIAZem 25 MG/5 ML VIAL SLOW IVP SCH (23:19)
[2024-06-26] MEDS: Diltiazem HCl/D5W 125 MG in Premix 1 BAG IVPB SCH (23:22)
[2024-06-27] MEDS: Vancomycin (BATCH) 1.5 GM in Premix 1 BAG IVPB SCH (00:16)
[2024-06-27] MEDS ORDERED: Vancomycin 1 GM in Premix 1 BAG IVPB SCH (01:00)
[2024-06-27] MEDS ORDERED: Vancomycin (BATCH) 1.5 GM in Premix 1 BAG IVPB SCH (01:00)
[2024-06-27 05:42] LABS: Vancomycin, Random 36.8 ug/mL (See Comment)
[2024-06-27 05:53] LABS: ALT (SGPT) 511 U/L (8-55); AST (SGOT) 683 U/L (5-34); Albumin 3.2 g/dL (3.4-4.8); Alkaline Phosphatase 174 U/L (40-110); Anion Gap 17 mmol/L (10-20); BUN (Urea Nitrogen) 18 mg/dL (9.8-20.1); Bilirubin, Total 1.7 mg/dL (0.2-1.2); Calc. Creatinine Clearance 96 mL/min (70-130); Calcium 7.3 mg/dL (7.8-10.44); Carbon Dioxide 18 mmol/L (23-31); Chloride 104 mmol/L (98-107); Estimated GFR 91; Globulin 1.9 g/dL (2.4-3.5); Glucose 222 mg/dL (83-110); Potassium 3.4 mmol/L (3.5-5.1); Protein, Total 5.1 g/dL (5.8-8.1); Sodium 136 mmol/L (136-145)
[2024-06-27 05:55] LABS: Hematocrit 31.4 % (36.0-47.0); Hemoglobin 10.1 g/dL (12.0-16.0); Mean Corpuscular HGB CONC 32.2 g/dL (32.0-36.0); Mean Corpuscular Hemoglobin 31.5 pg (27.0-31.0); Mean Corpuscular Volume 97.8 fL (78.0-98.0); Platelet Count 35 10x3/uL (130-400); RBC Distribution Width 14.8 % (11.5-14.5); Red Blood Cell (RBC) Count 3.21 mill/uL (4.20-5.40)
[2024-06-27 07:30] LABS: Band 6 % (5-11); Burr Cells MODERATE= 6-15 cells HPF (0-1); Elliptocytes SLIGHT = 2-5 cells HPF (0-1); Lymphocytes 3 % (21-51); Macrocytosis SLIGHT = 6-15 cells HPF (0-5); Monocytes 1 % (0-10); Neutrophil 90 % (42-75); Platelet Adequacy Comment Significant Decrease; Poikilocytosis SLIGHT = 6-15 cells HPF (0-5); Polychromasia SLIGHT = 2-3 cells HPF (0-2)
[2024-06-27] MEDS ORDERED: Insulin Lispro 100 UNIT/ML 10 ML VIAL SC PRN (09:15)
[2024-06-27] MEDS ORDERED: Vasopressin 20 UNITS in Sodium Chloride 0.9% 50 ML IV SCH (09:30)
[2024-06-27 10:46] VITALS: TEMP 97.7
[2024-06-27] MEDS: Albumin 25% 25 GM (100 mL) BOT IVPB SCH ×2 (11:07→11:28)
[2024-06-27] MEDS: Sodium Chloride 0.9% 500 ML IV SCH (11:27)
[2024-06-27] MEDS: Phenylephrine 40 MG/NS 250 ML 40 MG in Premix 1 BAG IVPB SCH (11:30)
[2024-06-27] MEDS ORDERED: Morphine 4 MG/ML VIAL SLOW IVP PRN (12:08)
[2024-06-27] MEDS ORDERED: Lorazepam 2 MG/ML VIAL SLOW IVP PRN (12:08)
[2024-06-27 12:11] VITALS: BP 86/75
[2024-06-27] MEDS ORDERED: Vancomycin (BATCH) 1.25 GM in Premix 1 BAG IVPB SCH (23:59)
== END 2024-06-27 12:45 | disposition expired | DRG 853 ==
LOC: ERS 16:29 → CCU 22:13 → SDC/OP 22:14 → CCU 23:36
PROVIDERS: ADMIT Student in an Organized Health Care Education/Training Program; ATTEND Student in an Organized Health Care Education/Training Program
PROC: 5A2204Z Restoration of Cardiac Rhythm, Single (ICD-10-PCS; principal; 2024-06-23)
PROC: 0T9B70Z Drainage of Bladder with Drainage Device, Via Natural or Artificial Opening (ICD-10-PCS; 2024-06-23)
PROC: 02HV33Z Insertion of Infusion Device into Superior Vena Cava, Percutaneous Approach (ICD-10-PCS; 2024-06-23)
PROC: B548ZZA Ultrasonography of Superior Vena Cava, Guidance (ICD-10-PCS; 2024-06-23)
PROC: 0D9670Z Drainage of Stomach with Drainage Device, Via Natural or Artificial Opening (ICD-10-PCS; 2024-06-23)
PROC: 0BH17EZ Insertion of Endotracheal Airway into Trachea, Via Natural or Artificial Opening (ICD-10-PCS; 2024-06-23)
PROC: 4A133R1 Monitoring of Arterial Saturation, Peripheral, Percutaneous Approach (ICD-10-PCS; 2024-06-23)
PROC: 3E03329 Introduction of Other Anti-infective into Peripheral Vein, Percutaneous Approach (ICD-10-PCS; 2024-06-23)
PROC: 3E033XZ Introduction of Vasopressor into Peripheral Vein, Percutaneous Approach (ICD-10-PCS; 2024-06-23)
PROC: 30233J1 Transfusion of Nonautologous Serum Albumin into Peripheral Vein, Percutaneous Approach (ICD-10-PCS; 2024-06-23)
PROC: 5A1945Z Respiratory Ventilation, 24-96 Consecutive Hours (ICD-10-PCS; 2024-06-23)
PROC: 3E043XZ Introduction of Vasopressor into Central Vein, Percutaneous Approach (ICD-10-PCS; 2024-06-23)
PROC: 3E04329 Introduction of Other Anti-infective into Central Vein, Percutaneous Approach (ICD-10-PCS; 2024-06-23)
PROC: 30243J1 Transfusion of Nonautologous Serum Albumin into Central Vein, Percutaneous Approach (ICD-10-PCS; 2024-06-23)
PROC: 0T9430Z Drainage of Left Kidney Pelvis with Drainage Device, Percutaneous Approach (ICD-10-PCS; 2024-06-24)
PROC: 0T768DZ Dilation of Right Ureter with Intraluminal Device, Via Natural or Artificial Opening Endoscopic (ICD-10-PCS; 2024-06-24)
PROC: 03HY32Z Insertion of Monitoring Device into Upper Artery, Percutaneous Approach (ICD-10-PCS; 2024-06-24)
PROC: 4A133B1 Monitoring of Arterial Pressure, Peripheral, Percutaneous Approach (ICD-10-PCS; 2024-06-24)
PROC: 4A133J1 Monitoring of Arterial Pulse, Peripheral, Percutaneous Approach (ICD-10-PCS; 2024-06-24)
PROC: BT1FZZZ Fluoroscopy of Left Kidney, Ureter and Bladder (ICD-10-PCS; 2024-06-24)
DX: A41.51 Sepsis due to Escherichia coli [E. coli] (principal); G93.41 Metabolic encephalopathy; R65.21 Severe sepsis with septic shock; J96.01 Acute respiratory failure with hypoxia; K72.00 Acute and subacute hepatic failure without coma; I21.3 ST elevation (STEMI) myocardial infarction of unspecified site; E87.20 Acidosis, unspecified; I47.10 Supraventricular tachycardia, unspecified; N13.6 Pyonephrosis; E87.0 Hyperosmolality and hypernatremia; N17.9 Acute kidney failure, unspecified; F03.93 Unspecified dementia, unspecified severity, with mood disturbance; I47.20 Ventricular tachycardia, unspecified; Z16.12 Extended spectrum beta lactamase (ESBL) resistance; I69.352 Hemiplegia and hemiparesis following cerebral infarction affecting left dominant side; A41.89 Other specified sepsis; Z51.5 Encounter for palliative care; Z66 Do not resuscitate; E87.6 Hypokalemia; K52.89 Other specified noninfective gastroenteritis and colitis; E78.5 Hyperlipidemia, unspecified; K59.09 Other constipation; D64.9 Anemia, unspecified; I25.10 Atherosclerotic heart disease of native coronary artery without angina pectoris; J43.9 Emphysema, unspecified; K21.9 Gastro-esophageal reflux disease without esophagitis; I25.2 Old myocardial infarction; Z74.01 Bed confinement status; Z90.710 Acquired absence of both cervix and uterus; Z98.890 Other specified postprocedural states; Z96.0 Presence of urogenital implants; D69.6 Thrombocytopenia, unspecified; Z87.820 Personal history of traumatic brain injury; Z79.899 Other long term (current) drug therapy; Z95.818 Presence of other cardiac implants and grafts; I48.91 Unspecified atrial fibrillation; Z86.14 Personal history of Methicillin resistant Staphylococcus aureus infection; Z53.8 Procedure and treatment not carried out for other reasons
CPT/HCPCS: 36415; 36416; 36600; 50432; 71045; 74177; 74420; 76705; 80053; 80202; 81001; 82805; 83605; 83735; 83880; 84145; 84484; 85025; 87040; 87077; 87086; 87149; 87186; 87428; 93005; 93010; 94002; 94003; 94760; C1729; C1769; C2617; J0171; J0282; J0613; J1160; J1650; J1720; J1815; J1885; J2060; J2185; J2250; J2543; J2704; J3010; J3370; J3370-JW; J3475; J3480; J7030; J7050; J7070; J7120; P9045; P9047; Q9967